=== PATIENT | male | born 1945 | race Caucasian/White ===

== ENCOUNTER 2018-08-09 08:51 | Day surgery (SDC) | payer OTHER ==
--- OUTSIDE RECORDS SUMMARY | 2018-08-09 08:54 | XMS REPORT ---
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
--- OUTSIDE RECORDS SUMMARY | 2018-08-09 08:54 | XMS REPORT ---
:1945 Author Organization [facility] Address [address] [place] [address] [address] [place] [address] Care Team Providers Name Role Phone Unavailable Unavailable Unavailable Problems This patient has no known problems. Allergies, Adverse Reactions, Alerts This patient has no known allergies or adverse reactions. Medications This patient has no known medications.
--- OUTSIDE RECORDS SUMMARY | 2018-08-09 08:54 | XMS REPORT ---
:1945 Author Organization [employer]Works Care Team Providers Name Role Phone Garcia, Na Provider Role Unavailable Allergies, Adverse Reactions, Alerts Substance Reaction Event Type N.K.D.A. 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 Problem Post traumatic stress disorder F43.10 Active Assessment Low testosterone R79.89 Active Assessment Gout, arthropathy M10.09 Active Assessment Chronic fatigue R53.82 Active Assessment Post traumatic stress disorder F43.10 Active Assessment Gastroesophageal reflux disease K21.9 Active without esophagitis Assessment Hyperlipidemia, unspecified E78.5 Active Medications Medication Code Code Instructions Start End Status Dosage System Date Date Wellbutrin XL ND 11169401329 150 MG Orally February 27, Active 1 tablet Once a day 2018 in the morning Norvasc [facility] 53364894682 10 MG Orally Active 1 tablet Once a day Lisinopril ND 52203472136 40 MG Orally Active 1 tablet Once a day Viagra ND 66894431598 25 MG Orally Active 1 tablet Once a day as needed Carvedilol [facility] 24911369901 3.125 MG Orally Active 1 tablet twice a day Testosterone [facility] 43803096074 200 MG/ML Active 1 ml Cypionate Intramuscular once every 3 weeks Wellbutrin XL ND 28213098940 300 MG Orally Inactive 1 tablet Once a day in the morning Omeprazole ND 03061107506 20 MG Orally Active 1 capsule Once a day Simvastatin ND 85318386320 10 MG Orally Active 1 tablet Once a day in the evening Allopurinol ND 83907037640 100 MG Orally Active 1 tablet Once a day Colcrys [facility] 13489599265 0.6 MG Orally as March Active 2 tabs at needed as , onset of 2017 gout attack, then 1 tablet 1 hour later ( max of 1.8mg daily) Results No Known Results Summary Purpose eClinicalWorks Submission
--- OUTSIDE RECORDS SUMMARY | 2018-08-09 08:54 | XMS REPORT ---
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
--- OUTSIDE RECORDS SUMMARY | 2018-08-09 08:55 | XMS REPORT ---
:1945 Author Organization [employer] Care Team Providers Name Role Phone Garcia, Na Provider Role Unavailable Allergies, Adverse Reactions, Alerts Substance Reaction Event Type N.K.D.A. 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 Problem Depression with anxiety F41.8 Active Problem Post traumatic stress disorder F43.10 Active Problem Low testosterone R79.89 Active Problem Hypertension I10 Active Problem Hyperlipidemia, unspecified E78.5 Active Assessment Depression with anxiety F41.8 Active Assessment Chronic fatigue R53.82 Active Assessment Epidermal cyst of neck L72.0 Active Assessment Gout, arthropathy M10.09 Active Assessment Post traumatic stress disorder F43.10 Active Assessment Gastroesophageal reflux disease K21.9 Active without esophagitis Assessment Hyperlipidemia, unspecified E78.5 Active Assessment Low testosterone R79.89 Active Assessment Hypertension I10 Active Medications Medication Code Code Instructions Start End Status Dosage System Date Date Omeprazole [facility] 08747206733 20 MG Orally Active 1 capsule Once a day Lisinopril ND 56959944763 40 MG Orally Active 1 tablet Once a day Wellbutrin XL ND 99730923313 150 MG Orally February 27, Active 1 tablet twice a day 2017 in the morning Lexapro ND 96202904950 10 MG Orally Jun 04, Active 1 tablet Once a day at 2018 bedtime Allopurinol ND 13972509508 100 MG Orally Nov Active 1 tablet Once a day 2018 Norvasc ND 98956598131 10 MG Orally Active 1 tablet Once a day Testosterone [facility] 40936441247 200 MG/ML Active 1 ml Cypionate Intramuscular once every 3 weeks Simvastatin ND 52406430325 10 MG Orally Active 1 tablet Once a day in the evening Carvedilol [facility] 33081676293 3.125 MG Orally Active 1 tablet twice a day Wellbutrin XL [facility] 93537671153 300 MG Orally Inactive 1 tablet Once a day in the morning Wellbutrin SR [facility] 14077897469 150 MG Orally Jun 05, Active as 2017 directed Viagra [facility] 60981751554 25 MG Orally Active 1 tablet Once a day as needed Results No Known Results Summary Purpose eClinicalWorks Submission
--- OUTSIDE RECORDS SUMMARY | 2018-08-09 08:55 | XMS REPORT ---
:1945 Author Organization eClinicalWorks Care Team Providers Name Role Phone Khurram Landon Provider Role Unavailable Allergies, Adverse Reactions, Alerts Substance Reaction Event Type N.K.D.A. 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 Problem Depression with anxiety F41.8 Active Problem Post traumatic stress disorder F43.10 Active Problem Low testosterone R79.89 Active Problem Hypertension I10 Active Problem Hyperlipidemia, unspecified E78.5 Active Medications Medication Code Code Instructions Start End Status Dosage System Date Date Lisinopril ND 99093695358 40 MG Orally Active 1 tablet Once a day Norvasc ND 37523191766 10 MG Orally Active 1 tablet Once a day Simvastatin ND 97623346071 10 MG Orally Active 1 tablet in Once a day the evening Lexapro ND 76759644886 10 MG Orally Jun 04, Active 1 tablet Once a day at 2018 bedtime Carvedilol ND 90824910021 3.125 MG Orally Active 1 tablet twice a day Viagra ND 45485125588 25 MG Orally Active 1 tablet as Once a day needed Allopurinol ND 24044254313 100 MG Orally Dec 02, Active 1 tablet Once a day 2019 Wellbutrin SR ND 23463590345 150 MG Orally Jun 05, Active as directed 2018 Testosterone ND 64688569060 200 MG/ML Active 1 ml Cypionate Intramuscular once every 3 weeks Omeprazole ND 06896563021 20 MG Orally Active 1 capsule Once a day Wellbutrin XL ND 36439408447 150 MG Orally February 27, Active 1 tablet in twice a day 2018 the morning Results No Known Results Summary Purpose eClinicalWorks Submission
--- OUTSIDE RECORDS SUMMARY | 2018-08-09 08:55 | XMS REPORT ---
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
--- OUTSIDE RECORDS SUMMARY | 2018-08-09 08:55 | XMS REPORT ---
[...] Status Dosage System Date Date Wellbutrin SR [facility] 32442241903 150 MG Orally Jun 29, Active 1 tablet Twice a day 2018 in the morning Results No Known Results Summary Purpose eClinicalWorks Submission
[2018-08-09] MEDS ORDERED: CEFAZOLIN/SWI 1gm 1 GM/10 ML SYR ONE (09:46)
[2018-08-09] MEDS ORDERED: Ringers Lactate 1,000 ML IV ONE (09:46)
[2018-08-09] MEDS ORDERED: BUPIVACA 0.5%/EPI 0.0005%/PF 30 ML VIAL ONE ×2 (12:52→13:19)
[2018-08-09] MEDS ORDERED: FENTANYL CITR 100 MCG/2 ML ONE (13:26)
[2018-08-09] MEDS ORDERED: PROPOFOL 200 MG/20 ML VIAL IV ONE (13:26)
[2018-08-09] MEDS ORDERED: LIDOCAINE 1% MPF 2 ML AMPULE ONE (13:27)
[2018-08-09] MEDS ORDERED: MIDAZOLAM HCL 2 MG/2 ML INJ ONE (13:34)
--- NOTE | 2018-08-09 14:00 | P.OP ---
Preoperative diagnosis: Right Neck Subcutanous Mass Postoperative diagnosis: Right Neck Subcutanous Mass Primary procedure: Exicision of Right Neck Subcutanous Mass Anesthesia: Local with IV sedation Estimated blood loss: <2cc Specimen: Sebaceous Cyst Findings: ~3.5 cm sebaceous cyst, capsule ruptured Complications: None Transferred to: Recovery Room Condition: Good
[2018-08-09] MEDS ORDERED: ONDANSETRON HCL 40 MG/20 ML VIAL ONE (14:11)
--- NOTE | 2018-08-10 00:32 | OP ---
Date of Procedure: 08/09/2018 Surgeon: Khurram Landon MD, Preoperative Diagnosis: Right neck subcutaneous mass. Postoperative Diagnosis: Right neck subcutaneous mass. Procedure Performed: Excision of right neck subcutaneous mass. Anesthesia: Local with IV sedation, 0.5% Marcaine with epinephrine. Estimated Blood Loss: Less than 2 cc. Specimen: Sebaceous cyst. Findings: A 3.5 cm, approximate, sebaceous cyst of the right neck, capsule ruptured. Complications: None. Disposition: Transferred to recovery room in good condition. Procedure In Detail: After informed consent was obtained, the patient was brought to the operating r oom, prepped and draped in the usual sterile fashion. After adequate anesthesia was achieved, an are a of the right neck for approximately 3.5 cm was incised down to subcutaneous tissues. Immediately e ncountered was the capsule of a sebaceous cyst approximately 3.5 cm in size and circumferentially dis sected out using electrocautery and blunt dissection. The capsule had evidence of previous rupture a s the skin was firmly adherent to this area, and he has had a history of drainage from this particula r area. I circumferentially dissected it out and removed the capsule completely in a piecemeal type fashion with some minimal spillage of sebum at that time. I then irrigated the area copiously until completely clear. There were no additional hemostatic maneuvers required. I then irrigated the area once last time, dried it completely, and inspected the area. It had good hemostasis at this time. I then closed the skin with a 4-0 Monocryl in a running fashion. Dermabond placed over the top. The patient tolerated the procedure well without evidence of complications, transferred to the PACU in g ood condition. All counts were correct at the end of the case. FELIPE/ALEXANDRA Voice ID: [id number] Report ID: [id number]
== END 2018-08-09 14:53 | disposition home or self-care (01) ==
LOC: OR 08:51
PROVIDERS: ATTEND Surgery
PROC: 0HB4XZZ Excision of Neck Skin, External Approach (ICD-10-PCS; principal; 2018-08-09 11:15)
DX: L72.3 Sebaceous cyst (principal); I10 Essential (primary) hypertension
CPT/HCPCS: 11424; 88304; J0690; J2001; J2250; J2405; J3010; J2704

== ENCOUNTER 2020-09-28 11:53 | Emergency (ER) | payer OTHER ==
--- OUTSIDE RECORDS SUMMARY | 2020-09-28 11:56 | XMS REPORT ---
:1945 Author Organization [facility] Address [address] 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 91702468 stress disorder Problem Macrocytosis D75.89 Active 591158406 Problem Gastroesophageal K21.9 Active 669277337 reflux disease without esophagitis Problem Personal history of Z85.828 Active 136992187 other malignant neoplasm of skin Problem Chronic fatigue R53.82 Active 33785588 Problem Hyperlipidemia, E78.5 Active 10743717 unspecified Problem Hyperuricemia E79.0 Active 165745866 without signs of inflammatory arthritis and tophaceous disease Problem Gout, arthropathy M10.09 Active 55692423 Problem Depression with F41.8 Active 981135342 anxiety ALLERGIES No Known Allergies ENCOUNTERS from 1945 to 2020-09-05 Encounter Location Date Provider Diagnosis [facility] [address] Aug, Na Garcia Hyp ertension I10 ; Family Medicine [address], [facility] [place] [address] unspecified E7 8.5 ; Post traumatic stres s disorder F43.10 ; Gout, arthropathy M10 .09 ; Low testosterone R7 9.89 ; Depression with anxiety F41.8 ; Macrocy tosis D75.89 ; Gastro esophageal reflux disease without esophagitis K21 .9 ; Elevated uric a shaunna in blood E79.0 ; S kin cancer screening Z12.8 3 ; Needs flu shot Z23 an d Personal history of othe r malignant neopl asm of skin Z85.828 IMMUNIZATIONS Vaccine Route Administration Date Status FluAD IM Intramuscular Aug 28, 2020 Administered FluAD IM Intramuscular Aug 28, 2019 Administered FluAD IM Intramuscular Sep 04, 2018 Administered SOCIAL HISTORY Tobacco Use: Social History Observation Description Date Details (start date - stop date) Former Smoker Sex Assigned At : Social History Observation Description Sex Assigned At Unknown PHQ9 Question Answer Notes Little interest or pleasure in doing things Not at all Feeling down, depressed, or hopeless Not at all Trouble falling or staying asleep or sleeping too much Sever al days Feeling tired or having little energy Not at all Poor appetite or overeating Not at all Feeling bad about yourself, or that you are a failure, or No t at all have let yourself or your family down Trouble concentrating on things, such as reading the Not at all newspaper or watching television Moving or speaking so slowly that other people could have No t at all noticed; or the opposite, being so fidgety or restless that you have been moving around a lot more than usual Total Score 1 Interpretation Minimal Depression Thoughts that you would be better off or of hurting Not at all yourself in some way Tobacco Use/Smoking Question Answer Notes Are you a former smoker Additional Findings: Tobacco Non-User Ex-moderate cigarette smoker (10-19/day) Tobacco use other than smoking: Question Answer Notes Are you an other tobacco user? No REASON FOR REFERRAL No Information VITAL SIGNS Height 65.50 in Aug, Weight 153.2 lbs Aug, Temperature 98.2 degrees Fahrenheit Aug, BMI 25.10 kg/m2 Aug, Oximetry 96 % Aug, Respiratory Rate 18 /min Aug, Blood pressure systolic 170 mm Hg Aug, Blood pressure diastolic 82 mm Hg Aug, MEDICATIONS Medication SIG (Take, Route, Notes Start Date End Date Status Frequency, Duration) Sildenafil Citrate 50 TAKE ONE TABLET BY MOUTH Active MG DAILY NEEDED for 30 Omeprazole 20 MG TAKE ONE CAPSULE BY MOUTH Active DAILY Wellbutrin SR 150 MG 1 tablet Orally Twice a Unknown day for 90 day Viagra 25 MG 1 tablet as needed Orally Unknown Once a day Aripiprazole 5 MG 1 tablet on the tongue and Aug, Active allow to dissolve Orally Once a day for 90 days Allopurinol 100 MG 1 tablet Orally Once a day Active for 90 days Carvedilol 6.25 MG 1 tablet Orally twice a Active day for 90 days Simvastatin 10 MG 1 tablet in the evening Active Orally Once a day for 90 days Norvasc 10 MG 1 tablet Orally Once a day Active for 90 days Lisinopril 40 MG TAKE ONE TABLET BY MOUTH Active DAILY Wellbutrin XL 150 MG 1 tablet in the morning February, Unknown Orally twice a day for 90 days Omeprazole 20 MG 1 capsule Orally Once a Active day for 90 days Testosterone Cypionate INJECT 1 ML U nknown 200 INTRAMUSCULARLY EVERY 3 WEEKS Testosterone Cypionate 1 ml Intramuscular once Active 200 MG/ML every 2 weeks for 90 days Norvasc 10 MG TAKE ONE TABLET BY MOUTH Active DAILY for 90 Lisinopril 40 MG 1 tablet Orally Once a day Active for 90 days Wellbutrin SR 150 MG as directed Orally twice a Active day for 90 days Carvedilol 3.125 MG 1 tablet Orally twice a Unknown day PROCEDURES No Information RESULTS No Results REASON FOR VISIT 4 mth lab f/u, hypertension, hyperlipidemia, gout, low T, PTSD dep/anx, flu shot MEDICAL (GENERAL) HISTORY Type Description Date Medical History Gout, arthropathy Medical History Hyperuricemia without signs of inflammat ory arthritis and tophaceous disease Medical History Hypertension Medical History Hyperlipidemia, unspecified Medical History Post traumatic stress disorder Surgical History Removal melanoma ( anerior chest) Surgical History basal cell carcinom )[facility]) has appt in 2 weeks Goals Section No Information Health Concerns No Information MEDICAL EQUIPMENT No Information MENTAL STATUS No Information FUNCTIONAL STATUS No Information ASSESSMENTS Encounter Date Diagnosis Assessment Treatment Notes Treatment Notes Clinical Notes Aug, Hypertension (ICD-10 -- Maintian a low - I10) salt DASH diet, exercise, weight loss and decrease stress recommended. Keep BP log and will review next visit. If blood pressure consistently above 140/90 return to clinic for adjustment of meds. Try to quit smoking if you currently smoke. Decrease caffeine intake if possible. - - advised to avoid phenylephrine and pseudoephedrine in otc sinus/cold meds containing these decongestants which work by vasoconstricting blood vessels to help decrease congestion however may cause your BP to rise. -- If you have a cold may take Coricidin brand of cold medicines safe for high blood pressure patients. Aug, Hyperlipidemia, low fat diet, unspecified (ICD-10 - decrease fast food E78.5) and fried foods. Increase fruit and vegetable intake. exercise as tolerated 30minutes per day at least 3 days a week. May take fish oil 1000mg twice daily to help increase good cholesterol (HDL). Aug, Post traumatic stress continue wellbutrin add ariprprazole disorder (ICD-10 - 150mg SR take only to augment F43.10) twice a day treatment for --continue current depressio n and meds daily. Avoid PTSD 08/28. caffeine. Make sure to exercise daily, take deep breaths, meditate, take frequent breaks. Take yourself away from the situation causing anxiety and stress by going for a 10-15 minute walk. Aug, Gout, arthropathy low purine diet, (ICD-10 - M10.09) avoid eating too much animal products/ seafood. Gout can be due to excess uric acid production or underexcretion of uric acid. May drink natural tart rhoades juice to decrease inflammation/ control gout. low purine diet, avoid eating too much animal products/ seafood. Gout can be due to excess uric acid production or underexcretion of uric acid. May drink natural tart rhoades juice to decrease inflammation/ control gout. Aug, Low testosterone Testosterone (ICD-10 - R79.89) elevated-due to recently just receivig injection of testosteone prior to labs. take as directed will recheck prior to next visit improved since restarting on testosterone -- discussed to try every 2 weeks take 100ml instead of 200mg every 3 weeks as patient states he feels the low testosterone by the 2nd week when he is needing his injection again. Aug, Depression with continue wellbutrin anxiety (ICD-10 - 150mg SR take only F41.8) twice a day --continue current meds daily. Avoid caffeine. Make sure to exercise daily, take deep breaths, meditate, take frequent breaks. Take yourself away from the situation causing anxiety and stress by going for a 10-15 minute walk. continue wellbutrin 150mg SR take only twice a day Aug, Macrocytosis (ICD-10 advised to take - D75.89) vitamin b12 1000mcg daily and 1mg folic acid daily. Aug, Gastroesophageal Gerd- avoid trigger reflux disease foods including without esophagitis spicy, oily, (ICD-10 - K21.9) carbonated drinks, citrus. Do not lay down immediately after eating-wait at least 2 hours, elevate pillow. Eat smaller meals and weight loss recommended for obese patients. Avoid wearing tight clothing. Aug, Elevated uric acid in low purine diet, blood (ICD-10 - avoid eating too E79.0) much animal products/ seafood. Gout can be due to excess uric acid production or underexcretion of uric acid. May drink natural tart rhoades juice to decrease inflammation/ control gout. Aug, Skin cancer screening (ICD-10 - Z12.83) Aug, Needs flu shot Influenza (ICD-10 - Z23) vaccination given no acute reaction while in clinic. advised to massage and move arm to prevent pain and swelling. Aug, Personal history of other malignant neoplasm of skin (ICD-10 - Z85.828) Aug, Other -- Medications reviewed and updated. -- Dietary and Lifestyle modifications discussed with patient regarding low fat low salt diet diet, exercise and weight management. -- Treatment options, risks and benefits, side effects reviewed in detail. Patient accepts risk. -- Advised on signs/symptoms to monitor and when to call clinic and/or visit the nearest ER. Patient verbalized understanding and agreed with plan. -- Greater than 25 minutes was spent with patient during this encounter, of which >50% of the time was spent counseling and coordinating care including but not limited to discussion of test results, diagnostic or treatment recommendations, prognosis, risks and benefits of management options, instructions, education, compliance and or risk reduction. -- avoid alcohol and tyelnol together. no more than 2 drinks a day for men. maintain low fat diet. PLAN OF TREATMENT Medication Medication Name Sig Start Date Stop Date Norvasc 10 MG 1 tablet Orally Once a day for 90 days Lisinopril 40 MG 1 tablet Orally Once a day for 90 days Simvastatin 10 MG 1 tablet in the evening Orally Once a day for 90 days Carvedilol 6.25 MG 1 tablet Orally twice a day for 90 days Aripiprazole 5 MG 1 tablet on the tongue and Aug, allow to dissolve Orally Once a day for 90 days Omeprazole 20 MG 1 capsule Orally Once a day for 90 days Allopurinol 100 MG 1 tablet Orally Once a day for 90 days Testosterone Cypionate 200 1 ml Intramuscular once every 2 MG/ML weeks for 90 days Wellbutrin SR 150 MG as directed Orally twice a day for 90 days Treatment Notes Assessment Notes Clinical Notes Hypertension -- Maintian a low salt DASH diet, exercise, weight loss and decrease stress recommended. Keep BP log and will review next visit. If blood pressure consistently above 140/90 return to clinic for adjustment of meds. Try to quit smoking if you currently smoke. Decrease caffeine intake if possible. - - advised to avoid phenylephrine and pseudoephedrine in otc sinus/cold meds containing these decongestants which work by vasoconstricting blood vessels to help decrease congestion however may cause your BP to rise. -- If you have a cold may take Coricidin brand of cold medicines safe for high blood pressure patients. Hyperlipidemia, unspecified low fat diet, decrease fast food and fried foods. Increase fruit and vegetable intake. exercise as tolerated 30minutes per day at least 3 days a week. May take fish oil 1000mg twice daily to help increase good cholesterol (HDL). Post traumatic stress disorder continue wellbutrin 150mg SR add ariprprazole to take only twice a augment treatment day--continue current meds depression an d PTSD daily. Avoid caffeine. Make 08/28/2020. sure to exercise daily, take deep breaths, meditate, take frequent breaks. Take yourself away from the situation causing anxiety and stress by going for a 10-15 minute walk. Gout, arthropathy low purine diet, avoid eating too much animal products/ seafood. Gout can be due to excess uric acid production or underexcretion of uric acid. May drink natural tart rhoades juice to decrease inflammation/ control gout. low purine diet, avoid eating too much animal products/ seafood. Gout can be due to excess uric acid production or underexcretion of uric acid. May drink natural tart rhoades juice to decrease inflammation/ control gout. Low testosterone Testosterone elevated-due to recently just receivig injection of testosteone prior to labs. take as directed will recheck prior to next visit improved since restarting on testosterone-- discussed to try every 2 weeks take 100ml instead of 200mg every 3 weeks as patient states he feels the low testosterone by the 2nd week when he is needing his injection again. Depression with anxiety continue wellbutrin 150mg SR take only twice a day--continue current meds daily. Avoid caffeine. Make sure to exercise daily, take deep breaths, meditate, take frequent breaks. Take yourself away from the situation causing anxiety and stress by going for a 10-15 minute walk. continue wellbutrin 150mg SR take only twice a day Macrocytosis advised to take vitamin b12 1000mcg daily and 1mg folic acid daily. Gastroesophageal reflux Gerd- avoid trigger foods disease without esophagitis including spicy, oily, carbonated drinks, citrus. Do not lay down immediately after eating-wait at least 2 hours, elevate pillow. Eat smaller meals and weight loss recommended for obese patients. Avoid wearing tight clothing. Elevated uric acid in blood low purine diet, avoid eating too much animal products/ seafood. Gout can be due to excess uric acid production or underexcretion of uric acid. May drink natural tart rhoades juice to decrease inflammation/ control gout. Needs flu shot Influenza vaccination given no acute reaction while in clinic. advised to massage and move arm to prevent pain and swelling. Treatment Notes Test Name Order Date Lipid Panel w/ Chol/HDL Ratio 2020-09-05 Folate (Folic Acid), Serum 2020-09-05 Testosterone,Free and Total 2020-09-05 Vitamin B12 2020-09-05 Comp. Metabolic Panel (14) (CMP) 2020-09-05 Uric Acid, Serum 2020-09-05 CBC With Differential/Platelet 2020-09-05 Next Appt Details 4 Months 1 week prior [facility] Reason: Provider Name:Liz Garcia, 2020-12-18 09:1 5:00 AM, [address], [place], [address], Provider Name:Liz Garcia 2020-12-25 11:2 0:00 AM, [address], [place], [address], Insurance Providers Payer Name Payer Address Payer Insured Patient Coverage Cover age End Phone Name Relationship to Start Date Randell e Insured [employer] [address] [address] [phone] Dusty Matta self 2019 MEDICARE [place] [address] [place] [id number]
--- OUTSIDE RECORDS SUMMARY | 2020-09-28 11:56 | XMS REPORT | Continuity of Care Document ---
:1945 Author Organization [facility] t Address [address] [place] [address] Care Team Providers Name Role Phone Unavailable Unavailable Unavailable Problems This patient has no known problems. Allergies, Adverse Reactions, Alerts This patient has no known allergies or adverse reactions. Medications Ordered Filled Start Stop Current Ordering Indication Dosage Frequency Signature Comments Components Source Medication Medication Date Date Medication? Clinician (SIG) Name Name Carvedilol Carvedilol Yes Na Garcia [address] [facility] Immunizations Ordered Filled Immunization Date Status Comments Sour e Immunization Name Name FluAD FluAD 2019-08-[address] [facility] FluAD FluAD 2018-09-[address] [facility] Procedures This patient has no known procedures. Encounters Start End Encounter Admission Attending Care Care Encounter Source Date/Time Date/Time Type Type Clinicians Facility Department ID 2020-09-22 2020-09-22 Outpatient [facility] [id number] [facility] 2020-08-28 2020-08-28 Outpatient [facility] [id number] [facility] 2020-05-25 2020-05-25 [facility] [id number] 16:45:00 16:45:00 [facility] [employer] [facility] Family Medicine Medicine Outpati ent Clinics 2020-04-27 2020-04-27 [facility] [id number] [address] 10:20:[facility] 10:20:[place] [employer] [facility] Family [facility] l Medicine Outpati ent Clinics 2020-04-14 2020-04-14 [facility] [id number] 14:47:00 14:47:00 [place] [employer] [place] [facility] Medicine l Medicine Outpati ent Clinics 2020-04-02 2020-04-02 [facility] [id number] 15:47:00 15:47:00 [place] [employer] - [facility] Medicine l Medicine Outpati ent Clinics 2020-02-13 2020-02-13 [facility] [id number] 15:02:00 15:02:00 [place] [employer] - Ayudarum [facility] l Medicine Outpati ent Clinics 2019-12-26 2019-12-26 [facility] [id number] 10:00:00 10:00:00 [place] [employer] [facility] Medicine l Medicine Outpati ent Clinics 2019-12-19 2019-12-19 [facility] [id number] 09:52:00 09:52:00 [place] [employer] - [facility] [facility] Medicine l Medicine Outpati ent Clinics 2019-11-19 2019-11-19 [facility] [id number] 15:25:00 15:25:00 t [employer] - [place] [facility] Medicine l Medicine Outpati ent Clinics 2019-11-18 2019-11-18 [facility] [id number] 14[facility]24:00 14:24:00 [place] [employer] - [facility] Medicine l Medicine Outpati ent Clinics 2019-10-08 2019-10-08 [facility] [id number] 10:37:00 10:37:00 [place] [employer] [facility] - [facility] Medicine l Medicine Outpati ent Clinics 2019-08-28 2019-08-28 [facility] [id number] 10:40:00 10:40:00 [place] [employer] - [facility] Outpat[facility] Clinics 2019-08-27 2019-08-27 [facility] [id number] [facility] 17:26:00 17:26:[address] [place] [address] [address] [place] - [facility] Medicine l Medicine Outpati ent Clinics 2019-08-22 2019-08-22 [facility] [id number] 13:33:00 13:33:[address] [place] [address] [place] [address] - [facility] Medicine l Medicine Outpati ent Clinics 2019-08-16 2019-08-16 [facility] [id number] 09:20:00 09:20:[address] [place] [address] [place] [address] - [facility] Medicine l Medicine Outpati ent Clinics 2019-06-20 2019-06-20 [facility] [id number] 11:00:00 11:00:00 [place] s - Drive [facility] Medicine l Medicine Outpati ent Clinics 2019-05-14 2019-05-14 [facility] [id number] [facility] 10:00:00 10:00:[address] [place] [address] [address] [place] [address] - Drive [facility] Medicine l Medicine Outpati ent Clinics 2019-02-20 2019-02-20 [facility] [id number] 10:22:00 10:22:00 [place] s - Drive [facility] Medicine l Medicine Outpati ent Clinics 2019-02-11 2019-02-11 [facility] [id number] [facility] 09:41:00 09:41:[address] [place] [address] [place] [address] - Drive [facility] Medicine l Medicine Outpati ent Clinics 2019-01-08 2019-01-08 [facility] [id number] 09:40:00 09:40:[address] [place] [address] [place] [address] - Drive [facility] Medicine l Medicine Outpati ent Clinics 2018-11-26 2018-11-26 [facility] [id number] 15:27:00 15:27:[address] [place] [address] [place] [address] - Drive [facility] Medicine l Medicine Outpati ent Clinics 2018-11-22 2018-11-22 [facility] [id number] 10:23:00 10:23:00 [place] s - Drive [facility] Medicine Medicine Outpati ent Clinics 2018-11-16 2018-11-16 [facility] [id number] 14:31:00 14:31:00 [place] s - Drive [facility] Medicine Outpati ent Clinics 2018-11-06 2018-11-06 [facility] [id number] 13:24:00 13:24:00 [place] Luke s - Drive [facility] Medicine Outpati ent Clinics 2018-10-01 2018-10-01 [facility] [id number] 10:13:00 10:13:00 [place] [employer] - Drive [facility] Medicine Outpati ent Clinics 2018-09-04 2018-09-04 [facility] [id number] 09:45:00 09:45:00 [place] [employer] - Drive [facility] Medicine Outpati ent Clinics 2018-06-29 2018-06-29 [facility] [id number] [facility] 13:32:00 13:32:00 [place] [employer] - Drive [facility] Medicine Outpati ent Clinics 2018-06-29 2018-06-29 [facility] [id number] 13:27:00 13:27:00 [place] [employer] - Drive [facility] Medicine Outpati ent Clinics 2018-06-12 2018-06-12 [facility] [id number] 09:45:00 09:45:00 t Specialty/U Sherin kes - Specialty rology [facility] a [facility]Urology Clinic l Clinic Outpati ent Clinics 2018-06-04 2018-06-04 [facility] [id number] 08:30:00 08:30:00 [place] [employer] - Drive [facility] Medicine Outpati ent Clinics 2018-04-27 2018-04-27 [facility] [id number] 10:13:00 10:13:00 [place] [employer] - Drive [facility] Medicine Outpati ent Clinics 2018-03-22 2018-03-22 [facility] [id number] 11:33:00 11:33:00 [employer] [employer] [facility] ent [facility] 2018-02-27 2018-02-27 Outpatient Tristan Faith [id number] [facility] 08:30:00 08:30:00 [employer] [facility] ent Clinics Results This patient has no known results.
--- OUTSIDE RECORDS SUMMARY | 2020-09-28 11:56 | XMS REPORT ---
:1945 Author Organization [facility] Address [address] 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 04269690 stress disorder Problem Macrocytosis D75.89 Active 017002611 Problem Gastroesophageal K21.9 Active 715822710 reflux disease without esophagitis Problem Personal history of Z85.828 Active 894340512 other malignant neoplasm of skin Problem Chronic fatigue R53.82 Active 04955188 Problem Hyperlipidemia, E78.5 Active 45980066 unspecified Problem Hyperuricemia E79.0 Active 865300250 without signs of inflammatory arthritis and tophaceous disease Problem Gout, arthropathy M10.09 Active 15039266 Problem Depression with F41.8 Active 946388322 anxiety ALLERGIES No Known Allergies ENCOUNTERS from 1945 to 2020-09-22 Encounter Location Date Provider Diagnosis [facility] [address] Sep, Liz benitez ancer screening [place], [place] Z12.83 [id number] IMMUNIZATIONS Vaccine Route Administration Date Status FluAD [...] REASON FOR REFERRAL No Information VITAL SIGNS No information MEDICATIONS Medication SIG (Take, Route, Notes Start [...] MG 1 tablet on the tongue and 20 Aug, 2020 Active allow to dissolve Orally Once a [...] Information RESULTS No Results REASON FOR VISIT Referral MEDICAL (GENERAL) HISTORY Type Description Date Medical History Gout, arthropathy Medical History Hyperuricemia without signs of inflammat ory arthritis and tophaceous disease Medical History Hypertension Medical History Hyperlipidemia, unspecified Medical History Post traumatic stress disorder Surgical History Removal melanoma ( anerior chest) Surgical History basal cell carcinom )[facility]) has appt in 2 weeks Goals Section No Information Health Concerns No Information MEDICAL EQUIPMENT No Information MENTAL STATUS No Information FUNCTIONAL STATUS No Information ASSESSMENTS Encounter Date Diagnosis Assessment Notes Treatment Notes Treatm ent Clinical Notes Sep, Skin cancer screening (ICD-10 - Z12.83) PLAN OF TREATMENT Medication Medication Name Sig [...] MG 1 tablet on the tongue and 20 Aug, 2020 allow to dissolve Orally Once a day for 90 days Omeprazole 20 MG 1 capsule Orally Once a day for 90 days Allopurinol 100 MG 1 tablet Orally Once a day for 90 days Testosterone Cypionate 200 1 ml Intramuscular once every 2 MG/ML weeks for 90 days Wellbutrin SR 150 MG as directed Orally twice a day for 90 days Next Appt Details Provider Name:Liz Garcia, 2020-12-18 09:1 5:00 AM, [address], [address], [place], [address], Provider Name:Liz Garcia 2020-12-25 11:2 0:00 AM, [address], [address], [place], [address], Insurance Providers Payer Name Payer Address Payer Insured Patient Coverage Cover age End Phone Name Relationship to Start Date Randell e Insured [employer] [address] [address] [phone] Dusty Matta 2019 MEDIC[address] [place] [address] [id number]
--- NOTE | 2020-09-28 15:18 | EDPHYS ---
Physician Documentation [facility] Name: Seb Matta Age: 75 yrs Sex: Male : 1945 Arrival Date: 09/28/2020 Time: 11:55 Bed 5 Private MD: Liz Garcia ED Physician Elijah Bob HPI: 09/28 14:03 This 75 yrs old Male presents to ER via Ambulatory with complaints of Foot pm1 Pain, Feet Swelling. 14:03 The patient presents with pain, swelling. The complaints affect the Left heel. Context: pm1 The problem was sustained at an unknown site, resulted from an unknown cause, the patient is able to ambulate, with mild difficulty, walking on the ball of his left foot due to left heel pain, Problem is a result from a previous injury: No. Onset: The symptoms/episode began/occurred 1 week(s) ago. Modifying factors: The symptoms are alleviated by elevating leg, walking on the ball of his left foot. the symptoms are aggravated by weight bearing, on heel. Associated signs and symptoms: Pertinent negatives calf tenderness, fever, no calf or ankle swelling or pain. Treatment prior to arrival includes: no previous treatment. Severity of symptoms: in the emergency department the symptoms have improved, currently without pain to left heel as long as he is not walking on it. The patient has not experienced similar symptoms in the past. The patient has been recently seen by a physician: the patient's primary care provider, Dr. Garcia 3 week(s) ago, with different complaint(s), check up. Historical: - Allergies: 12:23 No Known Allergies; ca1 - Home Meds: 12:23 carvedilol 6.25 mg oral tab 1 tab 2 times per day [Active]; amlodipine 10 mg tab 1 tab ca1 once daily [Active]; lisinopril 40 mg Oral tab 1 tab once daily [Active]; simvastatin 10 mg Oral tab 1 tab once daily [Active]; sildenafil oral 50 mg oral as needed [Active]; aripiprazole 5 mg oral tab 1 tab once daily [Active]; bupropion HCl 150 mg Oral TbER 1 tab 2 times per day [Active]; vitamin B complex oral oral [Active]; triamcinolone acetonide 0.1 % [place] pste [Active]; - PMHx: 12:23 Hypertension; High Cholesterol; ca1 - PSHx: 12:23 Skin Cancer removal; ca1 - Immunization history:: Adult Immunizations up to date, Pneumococcal vaccine is not up to date, Flu vaccine is up to date. - Social history:: Smoking status: Patient denies any tobacco usage or history of. ROS: 14:03 Constitutional: Negative for fever, chills, and weight loss, Cardiovascular: Negative pm1 for chest pain, palpitations, and edema, Respiratory: Negative for shortness of breath, cough, wheezing, and pleuritic chest pain, Abdomen/GI: Negative for abdominal pain, nausea, vomiting, diarrhea, and constipation, Back: Negative for injury and pain. 14:03 Neuro: Negative for headache, weakness, numbness, tingling, and seizure. 14:03 MS/extremity: Positive for pain, of the heel of left foot. 14:03 Skin: Positive for rash and itching to left lower leg and a boil that has improved markedly and is no longer causing any pain to left upper gluteus. Exam: 14:03 Constitutional: This is a well developed, well nourished patient who is awake, alert, pm1 and in no acute distress. Head/Face: Normocephalic, atraumatic. 14:03 Back: No spinal tenderness. No costovertebral tenderness. Full range of motion. 14:03 Cardiovascular: Exam negative for acute changes, Rate: normal, Rhythm: regular, Pulses: no pulse deficits are appreciated. 14:03 Respiratory: Exam negative for acute changes, respiratory distress, shortness of breath. 14:03 Musculoskeletal/extremity: Extremities: grossly normal except: noted in the heel of left foot: tenderness, mild swelling, DVT Exam: No signs of deep vein thrombosis. no pain, no swelling, no tenderness, no appreciated bluish discoloration, no erythema, no increased warmth. 14:03 Skin: Appearance: normal except for affected area, abscess, that is small, approximately 1 cm(s), phlegmon present. No signs of drainage, fluctuance, pointing, or surrounding cellulitis, rash a mild rash is noted, consistent with ringworm, on the left medial ankle. 14:03 Neuro: Exam negative for acute changes, Orientation: is normal, Mentation: is normal, Motor: is normal, moves all fours. Vital Signs: 12:17 BP 128 / 87; Pulse 87; Resp 16 S; Temp 97.6(TE); Pulse Ox 100% on R/A; Weight 68.04 kg ca1 (R); Height 5 ft. 6 in. (167.64 cm) (R); Pain 4/10; 15:10 BP 167 / 87; Pulse 86; Resp 17; Pulse Ox 100% on R/A; tw2 12:17 Body Mass Index 24.21 (68.04 kg, 167.64 cm) ca1 MDM: 13:58 Patient medically screened. pm1 15:12 Data reviewed: vital signs. Data interpreted: Pulse oximetry: on room air is 100 %. pm1 Interpretation: normal. Counseling: I had a detailed discussion with the patient and/or guardian regarding: the historical points, exam findings, and any diagnostic results supporting the discharge/admit diagnosis, radiology results, the need for outpatient follow up, to return to the emergency department if symptoms worsen or persist or if there are any questions or concerns that arise at home. 09/28 14:03 Order name: Foot Left 3 View XRAY pm1 09/28 15:36 Order name: RAD; Complete Time: 15:38 EDMS Administered Medications: No medications were administered Disposition: 15:51 Co-signature as Attending Physician, Elijah Bob MD. rn Disposition: 09/28/20 15:17 Discharged to Home. Impression: Calcaneal spur, left foot, Cutaneous abscess of other sites - left buttocks, Tinea corporis - left leg. - Condition is Stable. - Discharge Instructions: Skin Abscess, Heel Spur, Body Ringworm. - Prescriptions for Lotrimin AF 1 % Topical cream - apply 1 application by TOPICAL route 2 times per day; 1 tube. Bactrim DS 800- 160 mg Oral Tablet - take 1 tablet by ORAL route every 12 hours for 10 days; 20 tablet. Tylenol- Codeine #3 300-30 mg Oral Tablet - take 2 tablets by ORAL route every 6 hours As needed; 20 tablet. - Medication Reconciliation Form, Thank You Letter, Antibiotic Education, Prescription Opioid Use form. - Follow up: Emergency Department; When: As needed; Reason: Worsening of condition. Follow up: Liz Garcia MD; When: 2 - 3 days; Reason: Recheck today's complaints, Continuance of care, Re-evaluation by your physician. - Problem is new. - Symptoms have improved. Signatures: Dispatcher [employer] EDMS Lorene Villegas RN RN iw Elijah Bob MD MD rn Marinas, Patrick, JAMIE EXTRUDER pm1 Hanny Gutierrez RN RN ca1 Corrections: (The following items were deleted from the chart) 14:06 14:03 The patient has not recently seen a physician, pm1 pm1 15:19 15:17 09/28/2020 15:17 Discharged to Home. Impression: Calcaneal spur, left foot; pm1 Cutaneous abscess of other sites - left buttocks; Tinea cruris - left ankle. Condition is Stable. Forms are Medication Reconciliation Form, Thank You Letter, Antibiotic Education, Prescription Opioid Use. Follow up: Emergency Department; When: As needed; Reason: Worsening of condition. Follow up: Na Garcia; When: 2 - 3 days; Reason: Recheck today's complaints, Continuance of care, Re-evaluation by your physician. Problem is new. Symptoms have improved. pm1 15:43 15:19 09/28/2020 15:17 Discharged to Home. Impression: Calcaneal spur, left foot; iw Cutaneous abscess of other sites - left buttocks; Tinea corporis - left leg. Condition is Stable. Discharge Instructions: Skin Abscess, Heel Spur. Forms are Medication Reconciliation Form, Thank You Letter, Antibiotic Education, Prescription Opioid Use. Follow up: Emergency Department; When: As needed; Reason: Worsening of condition. Follow up: Na Garcia; When: 2 - 3 days; Reason: Recheck today's complaints, Continuance of care, Re-evaluation by your physician. Problem is new. Symptoms have improved. pm1 17:33 10:34 Constitutional: Negative for fever, chills, and weight loss, Cardiovascular: pm1 Negative for chest pain, palpitations, and edema, Respiratory: Negative for shortness of breath, cough, wheezing, and pleuritic chest pain, Abdomen/GI: Negative for abdominal pain, nausea, vomiting, diarrhea, and constipation, Back: Negative for injury and pain, pm1 17:33 10:34 MS/extremity: Positive for pain, of the heel of left foot, pm1 pm1 17:33 10:34 Skin: Positive for rash and itching to left lower leg and a boil that has pm1 improved markedly and is no longer causing any pain to left upper gluteus, pm1 17:33 10:34 Neuro: Negative for headache, weakness, numbness, tingling, and seizure, pm1 pm1
--- NOTE | 2020-09-28 15:18 | ER ---
Nurse's Notes [facility] Name: Seb Matta Age: 75 yrs Sex: Male : 1945 Arrival Date: 09/28/2020 Time: 11:55 Bed 5 Private MD: Liz Garcia Diagnosis: Calcaneal spur, left foot;Cutaneous abscess of other sites-left buttocks;Tinea corporis-left leg Presentation: 09/28 12:17 Chief complaint: Patient states: L heel pain, swelling on L foot and L ankle x 1 week. ca1 Denies injury. Coronavirus screen: Client denies travel out of the [place] in the last 14 days. At this time, the client does not indicate any symptoms associated with coronavirus-19. Ebola Screen: Patient negative for fever greater than or equal to 101.5 degrees Fahrenheit, and additional compatible Ebola Virus Disease symptoms Patient denies exposure to infectious person. Patient denies travel to an Ebola-affected area in the 21 days before illness onset. No symptoms or risks identified at this time. Initial Sepsis Screen: Does the patient meet any 2 criteria? No. Patient's initial sepsis screen is negative. Does the patient have a suspected source of infection? No. Patient's initial sepsis screen is negative. Risk Assessment: Do you want to hurt yourself or someone else? Patient reports no desire to harm self or others. Onset of symptoms was September 28, 2020. 12:17 Method Of Arrival: Ambulatory ca1 12:17 Acuity: MARLA 4 ca1 Historical: - Allergies: 12:23 No Known Allergies; ca1 - Home Meds: 12:23 carvedilol 6.25 mg oral tab 1 tab 2 times per day [Active]; amlodipine 10 mg tab 1 tab ca1 once daily [Active]; lisinopril 40 mg Oral tab 1 tab once daily [Active]; simvastatin 10 mg Oral tab 1 tab once daily [Active]; sildenafil oral 50 mg oral as needed [Active]; aripiprazole 5 mg oral tab 1 tab once daily [Active]; bupropion HCl 150 mg Oral TbER 1 tab 2 times per day [Active]; vitamin B complex oral oral [Active]; triamcinolone acetonide 0.1 % [place] pste [Active]; - PMHx: 12:23 Hypertension; High Cholesterol; ca1 - PSHx: 12:23 Skin Cancer removal; ca1 - Immunization history:: Adult Immunizations up to date, Pneumococcal vaccine is not up to date, Flu vaccine is up to date. - Social history:: Smoking status: Patient denies any tobacco usage or history of. Screenin:14 Abuse screen: Denies threats or abuse. Nutritional screening: No deficits noted. tw2 Tuberculosis screening: No symptoms or risk factors identified. Fall Risk Secondary diagnosis (15 points) impaired mobility. Assessment: 14:10 General: Appears in no apparent distress. well groomed, Behavior is calm, cooperative, tw2 appropriate for age. Pain: Complains of pain in left foot. Neuro: Level of Consciousness is awake, alert, obeys commands, Oriented to person, place, time, situation. Cardiovascular: Capillary refill < 3 seconds Patient's skin is warm and dry. Respiratory: Airway is patent Respiratory effort is even, unlabored, Respiratory pattern is regular, symmetrical. GI: No signs and/or symptoms were reported involving the gastrointestinal system. Derm: No signs and/or symptoms reported regarding the dermatologic system. Skin is intact, is healthy with good turgor, Skin is pink, warm \T\ dry. Musculoskeletal: No signs and/or symptoms reported regarding the musculoskeletal system. Range of motion: intact in all extremities, Reports pain in left foot. 15:10 Reassessment: Patient appears in no apparent distress at this time. No changes from tw2 previously documented assessment. Patient and/or family updated on plan of care and expected duration. Pain level reassessed. Patient is alert, oriented x 3, equal unlabored respirations, skin warm/dry/pink. Vital Signs: 12:17 BP 128 / 87; Pulse 87; Resp 16 S; Temp 97.6(TE); Pulse Ox 100% on R/A; Weight 68.04 kg ca1 (R); Height 5 ft. 6 in. (167.64 cm) (R); Pain 4/10; 15:10 BP 167 / 87; Pulse 86; Resp 17; Pulse Ox 100% on R/A; tw2 12:17 Body Mass Index 24.21 (68.04 kg, 167.64 cm) ca1 ED Course: 11:55 Patient arrived in ED. ag5 11:55 Liz Garcia MD is Private Physician. ag5 12:19 Triage completed. ca1 12:23 Arm band placed on right wrist. ca1 13:58 Tom Garber NP is PHCP. pm1 13:58 Elijah Bob MD is Attending Physician. pm1 13:58 Bed in low position. Call light in reach. Pulse ox on. NIBP on. tw2 14:14 Kaykay Valencia, RN is Primary Nurse. tw2 15:10 Patient did not have IV access during this emergency room visit. tw2 15:17 Liz Garcia MD is Referral Physician. pm1 15:34 No provider procedures requiring assistance completed. tw2 Administered Medications: No medications were administered Outcome: 15:17 Discharge ordered by . pm1 15:34 Discharged to home ambulatory. tw2 15:34 Condition: stable 15:34 Discharge instructions given to patient, Instructed on discharge instructions, follow up and referral plans. no drinking with medication, no driving heavy equipment, medication usage, Demonstrated understanding of instructions, follow-up care, medications, Prescriptions given X 3. 15:43 Patient left the ED. iw Signatures: Lorene Villegas RN RN iw Tom Garber NP CAFE WORKER pm1 Kaykay Valencia, DOROTEO RN tw2 Hanny Gutierrez RN RN ca1 Staci Pulliam ag5
--- NOTE | 2020-09-28 15:34 | RAD REPORT ---
EXAM DESCRIPTION: RAD - Foot Left 3 View - 09/28/2020 3:07 pm CLINICAL HISTORY: PAIN COMPARISON: No comparisons FINDINGS: Small plantar calcaneal spur is present. Moderate soft tissue swelling is seen along the d orsum of the forefoot. No acute fracture or dislocation evident.
[2020-09-29 23:18] VITALS: TEMP 97.6; O2SAT 100
[2020-09-29 23:20] VITALS: BP 167/87
== END 2020-09-28 15:43 | disposition home or self-care (01) ==
LOC: ER 11:53
DX: M77.32 Calcaneal spur, left foot (principal); B35.4 Tinea corporis; L02.31 Cutaneous abscess of buttock; I10 Essential (primary) hypertension; E78.00 Pure hypercholesterolemia, unspecified
CPT/HCPCS: 99283

== ENCOUNTER 2021-09-10 12:33 | Emergency (ER) | payer OTHER ==
--- OUTSIDE RECORDS SUMMARY | 2021-09-10 12:35 | XMS REPORT | Continuity of Care Document ---
:1945 Author Organization [facility] t Address [address] [place] [address] Care Team Providers Name Role Phone Unavailable [...] [address] [facility] Clin[facility] Immunizations Ordered Filled Immunization Date Status Comments Sourc e Immunization Name Name FluAD FluAD 2019-08-[address] [facility] FluAD FluAD 2018-09-[address] [facility] Procedures This patient has no known procedures. Encounters Start End Encounter Admission Attending Care Care Encounter Source Date/Time Date/Time Type Type Clinicians Facility Department ID 2021-08-18 2021-08-18 ambulatory [facility] [id number] [facility] 2021-06-10 2021-06-10 Outpatient [facility] [id number] [facility] 2021-05-25 2021-05-25 Outpatient [facility] [id number] [facility] 2021-05-10 2021-05-10 [facility] [id number] [facility] 2021-05-03 2021-05-03 [facility] [id number] [facility] 2021-01-07 2021-01-07 [facility] [id number] [facility] 2020-11-20 2020-11-20 [facility] [id number] [facility] 2020-10-29 2020-10-29 Out[facility] [id number] [facility] 2020-10-12 2020-10-12 Out[facility] [id number] [facility] 2020-10-08 2020-10-08 Out[facility] [id number] [facility] 2020-10-07 2020-10-07 Out[facility] [id number] [facility] 2020-09-28 2020-09-28 Out[facility] [id number] [facility] 2020-09-22 2020-09-22 Out[facility] [id number] [facility] 2020-08-28 2020-08-28 Out[facility] [id number] [facility] 2020-05-25 2020-05-25 [facility] [id number] [facility] 16[facility]45:00 16:45:00 [place] [address] [facility] - [facility] Clin[facility] 2020-04-27 2020-04-27 [facility] [id number] 10:20:00 10:20:00 [place] [employer] s - Drive [facility] l Medicine Outpati ent Clinics 2020-04-14 2020-04-14 [facility] [id number] [facility] 14:47:00 14:47:00 [place] [employer] [facility] - [employer] [facility] l Medicine Outpati ent Clinics 2020-04-02 2020-04-02 [facility] [id number] 15:47:00 15:47:00 [place] [employer] Latio [facility] Medicine Outpati ent Clinics 2020-02-13 2020-02-13 [facility] [id number] 15:02:00 15:02:00 t [employer] Latio [facility] Medicine Outpati ent Clinics 2019-12-26 2019-12-26 [facility] [id number] 10[facility]00:00 10:00:00 t [employer] Latio [facility] Medicine Outpati ent Clinics 2019-12-19 2019-12-19 [facility] [id number] [facility] 09:52:00 09:52:00 t [employer] Latio [facility] l Medicine Outpati ent Clinics 2019-11-19 2019-11-19 [facility] [id number] 15:25:00 15:25:00 t [employer] Latio [facility] Medicine Outpati ent Clinics 2019-11-18 2019-11-18 [facility] [id number] [facility] 14:24:00 14:24:00 [place] [employer] Latio [facility] Medicine Outpati ent Clinics 2019-10-08 2019-10-08 [facility] [id number] 10:37:00 10:37:00 [place] [employer] - [employer] [facility] Medicine Outpati ent Clinics 2019-08-28 2019-08-28 [facility] [id number] 10:40:00 10:40:00 [place] [address] [place] [facility] - Drive [facility] Medicine l Medicine Outpati ent Clinics 2019-08-27 2019-08-27 [facility] [id number] [facility] 17:26:00 17:26:00 [place] [address] [facility] - Drive [facility] Medicine l Medicine Outpati ent Clinics 2019-08-22 2019-08-22 [facility] [id number] [facility] 13:33:00 13:33:00 [place] [address] [place] [facility] - Drive [facility] Medicine l Medicine Outpati ent Clinics 2019-08-16 2019-08-16 [facility] [id number] 09:20:00 09:20:00 [place] [address] [facility] - Drive [facility] l Medicine Outpati ent Clinics 2019-06-20 2019-06-20 [facility] [id number] [facility] 11:00:00 11:00:00 [place] [address] [facility] - Drive [facility] Medicine Outpati ent Clinics 2019-05-14 2019-05-14 [facility] [id number] [facility] 10:00:00 10:00:00 [place] [address] [facility] - Drive [facility] l Medicine Outpati ent Clinics 2019-02-20 2019-02-20 [facility] [id number] [facility] 10:22:00 10:22:00 [place] [address] [facility] - Drive [facility] Medicine l Medicine Outpati ent Clinics 2019-02-11 2019-02-11 [facility] [id number] 09:41:00 09:41:00 [place] [address] [facility] - Drive [facility] Medicine l Medicine Outpati ent Clinics 2019-01-08 2019-01-08 [facility] [id number] 09:40:00 09:40:00 [place] [address] [place] [facility] - Drive [facility] l Medicine Outpati ent Clinics 2018-11-26 2018-11-26 [facility] [id number] [facility] 15:27:00 15:27:00 [place] [address] [facility] - Drive [facility] l Medicine Outpati ent Clinics 2018-11-22 2018-11-22 [facility] [id number] [facility] 10:23:00 10:23:00 [place] [address] [place] [facility] - Drive [facility] Medicine Medicine Outpati ent Clinics 2018-11-16 2018-11-16 [facility] [id number] [facility] 14:31:00 14:31:00 [place] [employer] [place] s - Drive [facility] l Medicine Outpati ent Clinics 2018-11-06 2018-11-06 [facility] [id number] [facility] 13:24:00 13:24:00 [place] [employer] Luke s - Drive [facility] l Medicine Outpati ent Clinics 2018-10-01 2018-10-01 [facility] [id number] [facility] 10:13:00 10:13:00 [place] [employer] [place] s - Drive [facility] Medicine Outpati ent Clinics 2018-09-04 2018-09-04 [facility] [id number] 09:45:00 09:45:00 [place] [employer] s - Drive [facility] Medicine Outpati ent Clinics 2018-06-29 2018-06-29 [facility] [id number] [facility] 13:32:00 13:32:00 [place] [employer] [place] s - Drive [facility] Medicine Outpati ent Clinics 2018-06-29 2018-06-29 [facility] [id number] 13:27:00 13:27:00 [place] [employer] s - Drive [facility] Medicine Outpati ent Clinics 2018-06-12 2018-06-12 [facility] [id number] 09:45:00 09:45:00 t Specialty/U Sherin [facility] - Specialty [facility] l Clinic Outpati ent Clinics 2018-06-04 2018-06-04 [facility] [id number] 08:30:00 08:30:00 [place] [employer] s - Drive [facility] l Medicine Outpati ent Clinics 2018-04-27 2018-04-27 [facility] [id number] 10:13:00 10:13:00 [place] [employer] - Drive Family [facility] ent [facility] 2018-03-22 2018-03-22 Outpatient [facility] [id number] 11:33:00 11:33:00 t [employer] [facility] ent [facility] 2018-02-27 2018-02-27 Outpatient [facility] [id number] [facility] 08:30:00 08:30:00 [employer] [facility] ent [facility] Results This patient has no known results.
--- NOTE | 2021-09-10 14:13 | RAD REPORT ---
EXAM DESCRIPTION: US - Extrem Venous W Compress West - 09/10/2021 2:05 pm CLINICAL HISTORY: SWELLING COMPARISON: None. TECHNIQUE: Real-time sonographic evaluation of the bilateral lower extremity common femoral, superfi cial femoral, popliteal and posterior tibial veins was performed. FINDINGS: Normal compressibility, flow augmentation, phasic flow and spontaneous flow are identified in the left and right lower extremity common femoral, superficial femoral, popliteal and posterior t ibial veins. No intraluminal filling defects seen. IMPRESSION: No DVT in either lower extremity.
--- NOTE | 2021-09-10 14:43 | EDPHYS ---
Physician Documentation [facility] Name: Seb Matta Age: 75 yrs Sex: Male : 1945 Arrival Date: 09/10/2021 Time: 12:37 Bed 12 Private MD: Liz Garcia ED Physician Elijah Bob HPI: 09/10 14:38 This 75 yrs old Male presents to ER via Ambulatory with complaints of Leg Swelling - jmm r/o dvt. 14:38 The patient presents with swelling. Onset: The symptoms/episode began/occurred jmm gradually, 1 week(s) ago. Modifying factors: The symptoms are alleviated by nothing. the symptoms are aggravated by nothing. Associated signs and symptoms: Pertinent negatives fever. The patient has not experienced similar symptoms in the past. Patient denies chest pain or shortness of breath. Denies fever. . Historical: - Allergies: 12:47 No Known Allergies; ll1 - PMHx: 12:47 High Cholesterol; Hypertension; ll1 - PSHx: 12:47 skin CA spots; ll1 - Immunization history:: Client reports receiving the 2nd dose of the Covid vaccine. - Social history:: Smoking status: Patient denies any tobacco usage or history of. ROS: 14:38 Constitutional: Negative for fever, chills, and weight loss, Cardiovascular: Negative jmm for chest pain, palpitations, and edema, Respiratory: Negative for shortness of breath, cough, wheezing, and pleuritic chest pain. 14:38 MS/extremity: Positive for swelling. 14:38 All other systems are negative. Exam: 14:38 Constitutional: This is a well developed, well nourished patient who is awake, alert, jmm and in no acute distress. Head/Face: atraumatic. Eyes: EOMI, no conjunctival erythema appreciated ENT: Moist Mucus Membranes Neck: Trachea midline, Supple Chest/axilla: Normal chest wall appearance and motion. Cardiovascular: Regular rate and rhythm. No edema appreciated Respiratory: Normal respirations, no respiratory distress appreciated Abdomen/GI: Non distended, soft Back: Normal ROM Skin: General appearance color normal 14:38 Musculoskeletal/extremity: swelling noted to the left and right leg, compartments are soft, full dorsalis pulse, NVI. 14:38 Skin: Appearance: Color: normal in color. 14:38 Neuro: Orientation: is normal, Mentation: is normal, Memory: is normal. 14:38 Psych: Behavior/mood is pleasant, cooperative. Vital Signs: 12:46 BP 129 / 76; Pulse 73; Resp 17; Temp 97.7; Pulse Ox 98% ; Weight 63.5 kg; Height 5 ft. ll1 5 in. (165.10 cm); Pain 0/10; 12:48 BP 144 / 80; Pulse 72; Resp 20; Pulse Ox 98% ; jg9 13:00 BP 126 / 74; Pulse 73; Resp 20; Pulse Ox 98% on R/A; jg9 14:30 BP 142 / 77; Pulse 75; Resp 17; Pulse Ox 99% on R/A; jg9 12:46 Body Mass Index 23.30 (63.50 kg, 165.10 cm) ll1 MDM: 13:23 Patient medically screened. [facility] 14:41 Data reviewed: vital signs, nurses notes. Counseling: I had a detailed discussion with samy the patient and/or guardian regarding: the historical points, exam findings, and any diagnostic results supporting the discharge/admit diagnosis, radiology results, the need for outpatient follow up, to return to the emergency department if symptoms worsen or persist or if there are any questions or concerns that arise at home. ED course: Patient is alert and non toxic in appearance in the ED. NO signs of sepsis, resp distress. Advised to follow up with pcp and otherwise given strict return precautions. Patient understood and agrees with the plan of care. . 09/10 13:24 Order name: US Extremity Venous W Compression West; Complete Time: 14:14 [facility] Administered Medications: No medications were administered Disposition: 09/11 07:03 Co-signature as Attending Physician, Elijah Bob MD I agree with the assessment and rn plan of care. Attestation: The patient's history, exam findings, diagnostics, and a summary of any interventions or procedures was reviewed in detail with Arnulfo ROWE. Disposition Summary: 09/10/21 14:42 Discharge Ordered Location: Home [facility] Condition: Stable [facility] Diagnosis - Peripheral edema [facility] Followup: [facility] - With: Liz Garcia MD - When: Tomorrow - Reason: Recheck today's complaints, Continuance of care, Re-evaluation by your physician Discharge Instructions: - Discharge Summary Sheet jmm - Peripheral Edema jmm Forms: - Medication Reconciliation Form jmm - Thank You Letter jmm - Antibiotic Education jmm - Prescription Opioid Use jmm Signatures: Dispatcher [employer] Arnulfo Do PA PA jmm Nieto, Roman, MD MD rn ZenonAlban RN RN ll1 Deborah Ojedag9
--- NOTE | 2021-09-10 14:43 | ER ---
Nurse's Notes [facility] Name: Seb Matta Age: 75 yrs Sex: Male : 1945 Arrival Date: 09/10/2021 Time: 12:37 Bed 12 Private MD: Liz Garcia Diagnosis: Peripheral edema Presentation: 09/10 12:46 Chief complaint: Patient states: Bilateral leg swelling for almost 2 weeks. Sent in for ll1 eval by Dr. Garcia. Coronavirus screen: Vaccine status: Patient reports receiving the 2nd dose of the covid vaccine. Client denies travel out of the [place] in the last 14 days. At this time, the client does not indicate any symptoms associated with coronavirus-19. Ebola Screen: Patient denies travel to an Ebola-affected area in the 21 days before illness onset. Initial Sepsis Screen: Does the patient meet any 2 criteria? No. Patient's initial sepsis screen is negative. Does the patient have a suspected source of infection? No. Patient's initial sepsis screen is negative. Risk Assessment: Do you want to hurt yourself or someone else? Patient reports no desire to harm self or others. Onset of symptoms was August 28, 2021. 12:46 Method Of Arrival: Ambulatory ll1 12:46 Acuity: MARLA 3 ll1 Triage Assessment: 13:19 General: Appears in no apparent distress. Pain: Denies pain. EENT: No deficits noted. jg9 Neuro: No deficits noted. Cardiovascular: No deficits noted. Respiratory: No deficits noted. GI: No deficits noted. : No deficits noted. Derm: No deficits noted. Musculoskeletal: Swelling present in right leg and left leg. Historical: - Allergies: 12:47 No Known Allergies; ll1 - PMHx: 12:47 High Cholesterol; Hypertension; ll1 - PSHx: 12:47 skin CA spots; ll1 - Immunization history:: Client reports receiving the 2nd dose of the Covid vaccine. - Social history:: Smoking status: Patient denies any tobacco usage or history of. Screenin:01 Abuse screen: Denies threats or abuse. Denies injuries from another. Nutritional jg9 screening: No deficits noted. Tuberculosis screening: No symptoms or risk factors identified. Fall Risk None identified. Exposure risk/Travel Screening: None identified. Assessment: 12:58 General: Appears in no apparent distress. Behavior is calm, quiet, Denies pain or jg9 associated symptoms to leg swelling. 12:59 Neuro: No deficits noted. Cardiovascular: No deficits noted. Respiratory: No deficits jg9 noted. GI: No deficits noted. : No deficits noted. EENT: No deficits noted. Derm: No deficits noted. Musculoskeletal: Swelling present in right leg and left leg-3+ pitting edema 3+ pitting edema to bilateral lower extremities Reports Denies pain in, right leg and left leg. 14:35 Reassessment: No changes from previously documented assessment. jg9 Vital Signs: 12:46 BP 129 / 76; Pulse 73; Resp 17; Temp 97.7; Pulse Ox 98% ; Weight 63.5 kg; Height 5 ft. ll1 5 in. (165.10 cm); Pain 0/10; 12:48 BP 144 / 80; Pulse 72; Resp 20; Pulse Ox 98% ; jg9 13:00 BP 126 / 74; Pulse 73; Resp 20; Pulse Ox 98% on R/A; jg9 14:30 BP 142 / 77; Pulse 75; Resp 17; Pulse Ox 99% on R/A; jg9 12:46 Body Mass Index 23.30 (63.50 kg, 165.10 cm) ll1 ED Course: 12:37 Patient arrived in ED. as 12:37 Liz Garcia MD is Private Physician. as 12:44 [facility]ulfo Farias [facility] 12:44 Elijah Bob MD is Attending Physician. m 12:47 Triage completed. ll1 12:48 Arm band placed on Patient placed in an exam room, on a stretcher. ll1 13:03 Patient has correct armband on for positive identification. Placed in gown. Bed in low jg9 position. Call light in reach. Side rails up X 1. 13:15 Nurse Practitioner and/or Physician Family [employer] Consumer Education Teacher to see patient. jg9 13:54 US tech \T\ bedside. jg9 13:57 No apparent distress. jg9 14:05 US Extremity Venous W Compression West In Process Unspecified. EDMS 14:35 Awaiting disposition. jg9 14:42 Liz Garcia MD is Referral Physician. jmm 14:51 No provider procedures requiring assistance completed. jg9 14:52 Patient did not have IV access during this emergency room visit. jg9 Administered Medications: No medications were administered Outcome: 13:01 Condition: stable jg9 14:42 Discharge ordered by . samy 14:51 Discharged to home jg9 14:51 Condition: stable 14:51 Discharge instructions given to 14:51 Discharge instructions given to patient, Instructed on discharge instructions, follow up and referral plans. Demonstrated understanding of instructions, follow-up care. 14:52 Patient left the ED. jg9 Signatures: Dispatcher [employer] EDMS Arnulfo Farias PA PA jmm Martinez, Amelia as Lewis, Lynsay RN RN ll1 Deborah Ojeda jg9
[2021-09-10 15:05] VITALS: TEMP 97.7
[2021-09-10 15:10] VITALS: BP 142/77; O2SAT 99
== END 2021-09-10 14:52 | disposition home or self-care (01) ==
LOC: ER 12:33
DX: R60.9 Edema, unspecified (principal); I10 Essential (primary) hypertension
CPT/HCPCS: 93970; 99283

== ENCOUNTER 2021-10-07 09:59 | Emergency (ER) | payer OTHER ==
--- OUTSIDE RECORDS SUMMARY | 2021-10-07 10:03 | XMS REPORT | Continuity of Care Document ---
:1945 Author Organization [facility] t Address [address] [place] [address] Care Team Providers Name Role Phone Unavailable [...] tablet [facility] Immunizations Ordered Filled Immunization Date Status Comments Sourc e Immunization Name Name FluAD FluAD 2019-08-[address] [facility] FluAD FluAD 2018-09-[address] [facility] Procedures This patient has no known procedures. Encounters Start End Encounter Admission Attending Care Care Encounter Source Date/Time Date/Time Type Type Clinicians Facility Department ID 2021-09-27 2021-09-27 [facility] [id number] [facility] 2021-09-10 2021-09-10 [facility] [id number] [facility] 2021-09-08 2021-09-08 [facility] [id number] [facility] 2021-08-18 2021-08-18 amb[facility] [id number] [facility] 2021-06-10 2021-06-10 Outpatient [facility] [id number] [facility] 2021-05-25 2021-05-25 Outpatient [facility] [id number] [facility] 2021-05-10 2021-05-10 Out[facility] [id number] [facility] 2021-05-03 2021-05-03 Out[facility] [id number] [facility] 2021-01-07 2021-01-07 Out[facility] [id number] [facility] 2020-11-20 2020-11-20 Outpatient [facility] [id number] [facility] 2020-10-29 2020-10-29 Out[facility] [id number] [facility] 2020-10-12 2020-10-12 Outpatient [facility] [id number] [facility] 2020-10-08 2020-10-08 Out[facility] [id number] [facility] 2020-10-07 2020-10-07 Out[facility] [id number] [facility] 2020-09-28 2020-09-28 Out[facility] [id number] [facility] 2020-09-22 2020-09-22 [id number] 2020-08-28 2020-08-28 [facility] [id number] [facility] 2020-05-25 2020-05-25 [facility] [id number] [facility] 16[facility]45[facility]00 16:45:00 [facility] [employer] [place] [facility] Medicine l Medicine Outpati ent Clinics 2020-04-27 2020-04-27 [facility] [id number] 10:20:00 10:20:00 [facility] [place] [facility] Medicine l Medicine Outpati ent Clinics 2020-04-14 2020-04-14 [facility] [id number] 14:47:00 14:47:00 [facility] [facility] [place] [facility] Medicine Medicine Outpati ent Clinics 2020-04-02 2020-04-02 [facility] [id number] [facility] 15:47:00 15:47:00 t [employer] [facility] l Medicine Outpati ent Clinics 2020-02-13 2020-02-13 [facility] [id number] [facility] 15:02:00 15:02:00 [facility] [facility] [place] [facility] Medicine l Medicine Outpati ent Clinics 2019-12-26 2019-12-26 [facility] [id number] [facility] 10:00:00 10:00:00 [facility] [place] [facility] Medicine l Medicine Outpati ent Clinics 2019-12-19 2019-12-19 [facility] [id number] 09:52:00 09:52:00 t [employer] [facility] l Medicine Outpati ent Clinics 2019-11-19 2019-11-19 [facility] [id number] [facility] 15:25:00 15:25:00 t [employer] [facility] Medicine l Medicine Outpati ent Clinics 2019-11-18 2019-11-18 [facility] [id number] [facility] 14:24:00 14:24:00 [place] [address] [place] - Drive [facility] Medicine l Medicine Outpati ent Clinics 2019-10-08 2019-10-08 [facility] [id number] [facility] 10:37:00 10:37:00 [place] [address] [place] - Drive [facility] Medicine l Medicine Outpati ent Clinics 2019-08-28 2019-08-28 [facility] [id number] 10:40:00 10:40:00 [place] [address] [place] - Drive [facility] Medicine l Medicine Outpati ent Clinics 2019-08-27 2019-08-27 [facility] [id number] [facility] 17:26:00 17:26:00 [place] [employer] s - Drive [facility] Medicine l Medicine Outpati ent Clinics 2019-08-22 2019-08-22 [facility] [id number] 13:33:00 13:33:00 [place] [employer] s - Drive [facility] Medicine l Medicine Outpati ent Clinics 2019-08-16 2019-08-16 [facility] [id number] 09:20:00 09:20:00 [place] [employer] - Drive [facility] Medicine Medicine Outpati ent Clinics 2019-06-20 2019-06-20 [facility] [id number] 11:00:00 11:00:00 [place] [employer] [place] [facility] - Drive [facility] Medicine l Medicine Outpati ent Clinics 2019-05-14 2019-05-14 [facility] [id number] 10:00:00 10:00:00 [place] [employer] [place] [facility] - Drive [facility] Medicine l Medicine Outpati ent Clinics 2019-02-20 2019-02-20 [facility] [id number] 10:22:00 10:22:00 [place] [employer] s - Drive [facility] Medicine l Medicine Outpati ent Clinics 2019-02-11 2019-02-11 [facility] [id number] [facility] 09:41:00 09:41:00 [place] [address] [place] - Drive [facility] Medicine Medicine Outpati ent Clinics 2019-01-08 2019-01-08 [facility] [id number] 09:40:00 09:40:00 [place] [employer] [facility] s - Drive [facility] Medicine Outpati ent Clinics 2018-11-26 2018-11-26 [facility] [id number] 15:27:00 15:27:00 [place] [employer] s - Drive [facility] Medicine Outpati ent Clinics 2018-11-22 2018-11-22 [facility] [id number] 10:23:00 10:23:00 [place] [employer] - Drive [facility] Medicine Outpati ent Clinics 2018-11-16 2018-11-16 [facility] [id number] 14:31:00 14:31:00 [place] [employer] - Drive [facility] Medicine Outpati ent Clinics 2018-11-06 2018-11-06 [facility] [id number] 13:24:00 13:24:00 [place] [employer] - Drive [facility] Medicine Outpati ent Clinics 2018-10-01 2018-10-01 [facility] [id number] 10:13:00 10:13:00 [place] [employer] s - Drive [facility] Medicine Outpati ent Clinics 2018-09-04 2018-09-04 [facility] [id number] 09:45:00 09:45:00 [place] [employer] - Drive [facility] Medicine Outpati ent Clinics 2018-06-29 2018-06-29 [facility] [id number] [facility] 13:32:00 13:32:00 [place] [employer] s - Drive [facility] Medicine Outpati ent Clinics 2018-06-29 2018-06-29 [facility] [id number] [facility] 13:27:00 13:27:00 [place] [employer] s - Drive [facility] Medicine Outpati ent Clinics 2018-06-12 2018-06-12 [facility] [id number] 09:45:00 09:45:00 t Specialty/U Sherin kes - Specialty rology [facility] a [facility] l Clinic Outpati ent Clinics 2018-06-04 2018-06-04 [facility] [id number] 08:30:00 08:30:00 t [employer] [facility] Outpati ent Clinics 2018-04-27 2018-04-27 [facility] [id number] 10:13:00 10:13:00 t [employer] [facility] Outpati ent Clinics 2018-03-22 2018-03-22 [facility] [id number] [facility] 11:33:00 11:33:00 t [employer] [facility] Outpati ent Clinics 2018-02-27 2018-02-27 [facility] [id number] 08:30:00 08:30:00 t [employer] [facility] Results This patient has no known results.
[2021-10-07] MEDS ORDERED: LIDOCAINE 1% MPF 5 ML VIAL ONE (15:00)
[2021-10-07] MEDS ORDERED: HYDROCODONE/APAP 10/325 TAB ONE ×2 (15:01→15:43)
[2021-10-07] MEDS ORDERED: COLCHICINE 0.6 MG TAB ONE ×2 (15:01→15:32)
[2021-10-07] MEDS ORDERED: KETOROLAC 30 MG/ML INJ ONE (15:01)
--- NOTE | 2021-10-07 15:23 | EDPHYS ---
Physician Documentation [facility] Name: Seb Matta Age: 76 yrs Sex: Male : 1945 Arrival Date: 10/07/2021 Time: 10:00 Bed DIS11 Private MD: Liz Garcia ED Physician Christos Boykin HPI: 10/07 14:55 This 76 yrs old Male presents to ER via Ambulatory with complaints of Knee felton Pain - right/gout. 14:55 The patient presents with decreased range of motion, pain, swelling, tenderness. The felton complaints affect the right knee. Context: The problem was sustained at home, resulted from an unknown cause. Onset: The symptoms/episode began/occurred 3 day(s) ago. Modifying factors: The symptoms are alleviated by nothing. remaining still, the symptoms are aggravated by movement, weight bearing. Associated signs and symptoms: The patient has no apparent associated signs or symptoms. Severity of symptoms: At their worst the symptoms were moderate, in the emergency department the symptoms are unchanged. The patient has not experienced similar symptoms in the past. Historical: - Allergies: 10:15 No Known Allergies; hernández - Home Meds: 10:15 None [Active]; hernández - PMHx: 10:15 High Cholesterol; Hypertension; hernández - Immunization history:: Adult Immunizations up to date. - Social history:: Smoking status: Patient/guardian denies using tobacco. - Family history:: not pertinent. ROS: 14:55 Constitutional: Negative for fever, chills, and weight loss, Eyes: Negative for injury, felton pain, redness, and discharge, ENT: Negative for injury, pain, and discharge, Neck: Negative for injury, pain, and swelling, Cardiovascular: Negative for chest pain, palpitations, and edema, Respiratory: Negative for shortness of breath, cough, wheezing, and pleuritic chest pain, Abdomen/GI: Negative for abdominal pain, nausea, vomiting, diarrhea, and constipation, Back: Negative for injury and pain, : Negative for injury, bleeding, discharge, and swelling, Skin: Negative for injury, rash, and discoloration, Neuro: Negative for headache, weakness, numbness, tingling, and seizure, Psych: Negative for depression, anxiety, suicide ideation, homicidal ideation, and hallucinations, Allergy/Immunology: Negative for hives, rash, and allergies, Endocrine: Negative for neck swelling, polydipsia, polyuria, polyphagia, and marked weight changes, Hematologic/Lymphatic: Negative for swollen nodes, abnormal bleeding, and unusual bruising. 14:55 MS/extremity: Positive for decreased range of motion, pain, swelling, of the right knee. Exam: 14:55 Constitutional: This is a well developed, well nourished patient who is awake, alert, felton and in no acute distress. Head/Face: Normocephalic, atraumatic. Eyes: Pupils equal round and reactive to light, extra-ocular motions intact. Lids and lashes normal. Conjunctiva and sclera are non-icteric and not injected. Cornea within normal limits. Periorbital areas with no swelling, redness, or edema. ENT: Nares patent. No nasal discharge, no septal abnormalities noted. Tympanic membranes are normal and external auditory canals are clear. Oropharynx with no redness, swelling, or masses, exudates, or evidence of obstruction, uvula midline. Mucous membranes moist. Neck: Trachea midline, no thyromegaly or masses palpated, and no cervical lymphadenopathy. Supple, full range of motion without nuchal rigidity, or vertebral point tenderness. No Meningismus. Chest/axilla: Normal chest wall appearance and motion. Nontender with no deformity. No lesions are appreciated. Cardiovascular: Regular rate and rhythm with a normal S1 and S2. No gallops, murmurs, or rubs. Normal PMI, no JVD. No pulse deficits. Respiratory: Lungs have equal breath sounds bilaterally, clear to auscultation and percussion. No rales, rhonchi or wheezes noted. No increased work of breathing, no retractions or nasal flaring. Abdomen/GI: Soft, non-tender, with normal bowel sounds. No distension or tympany. No guarding or rebound. No evidence of tenderness throughout. Back: No spinal tenderness. No costovertebral tenderness. Full range of motion. Male : Normal genitalia with no discharge or lesions. Skin: Warm, dry with normal turgor. Normal color with no rashes, no lesions, and no evidence of cellulitis. Neuro: Awake and alert, GCS 15, oriented to person, place, time, and situation. Cranial nerves II-XII grossly intact. Motor strength 5/5 in all extremities. Sensory grossly intact. Cerebellar exam normal. Normal gait. Psych: Awake, alert, with orientation to person, place and time. Behavior, mood, and affect are within normal limits. 14:55 Musculoskeletal/extremity: Extremities: noted in the right knee: decreased ROM, pain, swelling, ROM: limited active range of motion due to pain, in the right knee, limited passive range of motion due to pain, Circulation is intact in all extremities. Sensation intact. DVT Exam: negative Homans' sign noted on exam, no appreciated bluish discoloration, no erythema, no increased warmth, pain, swelling, tenderness. Vital Signs: 10:14 BP 117 / 82; Pulse 83; Resp 18; Temp 98.2(O); Pulse Ox 100% ; Weight 68.04 kg; Height 5 hernández ft. 5 in. (165.10 cm) (R); 10:14 Body Mass Index 24.96 (68.04 kg, 165.10 cm) hernández MDM: 14:25 Patient medically screened. [facility] 14:57 Differential diagnosis: closed fracture, contusion, abrasion, tendonitis. Data felton reviewed: vital signs, nurses notes. Data interpreted: library monitor: not applicable for this patient encounter. rate is 83 beats/min, rhythm is regular, Pulse oximetry: on room air is 100 %. Counseling: I had a detailed discussion with the patient and/or guardian regarding: the historical points, exam findings, and any diagnostic results supporting the discharge/admit diagnosis, the need for outpatient follow up, for definitive care, a family practitioner, a orthopedic surgeon. 10/07 14:52 Order name: Knee Immobilizer; Complete Time: 15:30 [facility] 10/07 14:52 Order name: Dressing - Wound; Complete Time: 15:26 [facility] 10/07 14:52 Order name: Gloves, Sterile; Complete Time: 15:27 [facility] 10/07 14:52 Order name: Setup Suture Tray; Complete Time: 15: [facility] Administered Medications: 15:00 Drug: Colcrys (colchicine) 1.2 mg Route: PO; hernández 15:29 Follow up: Response: No adverse reaction hernández 15:27 Drug: Lidocaine (1 %) 5 ml Volume: 5 ml; Route: Infiltration; hrenández 15:27 Follow up: Response: No adverse reaction; Pain is decreased hernández 15:29 Drug: Ketorolac 60 mg Route: IM; Site: right deltoid; hernández 15:30 Follow up: Response: No adverse reaction hernández 15:40 Follow up: Response: No adverse reaction hernández 15:40 Drug: Colcrys (colchicine) 0.6 mg Route: PO; hernández 15:40 Follow up: Response: No adverse reaction hernández 15:40 Drug: [place] (HYDROcodone-acetaminophen) 10 mg-325 mg 1 tabs Route: PO; hernández 15:41 Follow up: Response: No adverse reaction hernández 15:45 Follow up: Response: No adverse reaction hernández Disposition Summary: 10/07/21 15:22 Discharge Ordered Location: Home felton Problem: new felton Symptoms: have improved felton Condition: Stable felton Diagnosis - Gout, unspecified felton - Effusion, right knee felton Followup: felton - With: - When: 2 - 3 days - Reason: Recheck today's complaints, Continuance of care, Re-evaluation by your physician Followup: felton - With: - When: 2 - 3 days - Reason: Recheck today's complaints, Continuance of care, Re-evaluation by your physician Discharge Instructions: - Discharge Summary Sheet felton - Gout felton - Knee Effusion felton - Knee Effusion, [id number] felton - Gout, [id number] felton Forms: - Medication Reconciliation Form felton - Thank You Letter felton - Antibiotic Education felton - Prescription Opioid Use [facility] Prescriptions: - colchicine 0.6 mg Oral tablet - take 2 tablet by ORAL route as directed take 2 tabs po then one hour later take felton 1 pill, no more than 3 tabs daily; 10 tablet; Refills: 0, Product Selection Permitted - Diclofenac Sodium 75 mg Oral tablet,delayed release (DR/EC) - take 1 tablet by ORAL route 2 times per day; 20 tablet; Refills: 0, Product felton Selection Permitted - Medrol (Darin) 4 mg Oral Tablets, Dose Pack - take 1 tablet by ORAL route as directed - follow package instructions; 1 felton packet; Refills: 0, Product Selection Permitted - Tylenol-Codeine #3 300 mg-30 mg Oral - take 2 tablet by ORAL route every 4-6 hours; 20 tablet; Refills: 0, Product felton Selection Permitted Signatures: Christos Boykin MD MD cha Au-Stager, Heather ha Corrections: (The following items were deleted from the chart) 10:15 10:15 PSHx: skin CA spots; hernández hernández
--- NOTE | 2021-10-07 15:23 | ER ---
Nurse's Notes [facility] Name: Seb Matta Age: 76 yrs Sex: Male : 1945 Arrival Date: 10/07/2021 Time: 10:00 Bed DIS11 Private MD: Liz Garcia Diagnosis: Gout, unspecified;Effusion, right knee Presentation: 10/07 10:14 Chief complaint: Patient states: right knee pain/ gout flare up. Coronavirus screen: hernández Vaccine status: Patient reports receiving the 2nd dose of the covid vaccine. Ebola Screen: Patient denies travel to an Ebola-affected area in the 21 days before illness onset. Initial Sepsis Screen: Does the patient meet any 2 criteria? No. Patient's initial sepsis screen is negative. Does the patient have a suspected source of infection? No. Patient's initial sepsis screen is negative. Risk Assessment: Do you want to hurt yourself or someone else? Patient reports no desire to harm self or others. Onset of symptoms was October 05, 2021. 10:14 Method Of Arrival: Ambulatory hernández 10:14 Acuity: MARLA 4 hernández Triage Assessment: 10:15 General: Appears in no apparent distress. Behavior is calm, cooperative. hernández 15:47 Pain: Complains of pain in right leg. hernández Historical: - Allergies: 10:15 No Known Allergies; hernández - Home Meds: 10:15 None [Active]; hernández - PMHx: 10:15 High Cholesterol; Hypertension; hernández - Immunization history:: Adult Immunizations up to date. - Social history:: Smoking status: Patient/guardian denies using tobacco. - Family history:: not pertinent. Screenin:46 Abuse screen: Denies threats or abuse. Denies injuries from another. Nutritional hernández screening: No deficits noted. Fall Risk None identified. 15:47 Tuberculosis screening: No symptoms or risk factors identified. hernández Vital Signs: 10:14 BP 117 / 82; Pulse 83; Resp 18; Temp 98.2(O); Pulse Ox 100% ; Weight 68.04 kg; Height 5 hernández ft. 5 in. (165.10 cm) (R); 10:14 Body Mass Index 24.96 (68.04 kg, 165.10 cm) hernández ED Course: 10:00 Patient arrived in ED. am2 10:00 Liz Garcia MD is Private Physician. am2 10:15 Triage completed. hernández 10:15 Arm band placed on left wrist. hernández 14:25 Christos Boykin MD is Attending Physician. felton 14:52 Ene Carroll RN is Primary Nurse. jl7 15:22 Liz Garcia MD is Referral Physician. felton 15:22 Americo Riley MD is Referral Physician. felton 15:46 Patient has correct armband on for positive identification. hernández 15:46 No provider procedures requiring assistance completed. hernández 15:47 Patient did not have IV access during this emergency room visit. hernández Administered Medications: 15:00 Drug: Colcrys (colchicine) 1.2 mg Route: PO; hernández 15:29 Follow up: Response: No adverse reaction hernández 15:27 Drug: Lidocaine (1 %) 5 ml Volume: 5 ml; Route: Infiltration; hernández 15:27 Follow up: Response: No adverse reaction; Pain is decreased hernández 15:29 Drug: Ketorolac 60 mg Route: IM; Site: right deltoid; hernández 15:30 Follow up: Response: No adverse reaction hernández 15:40 Follow up: Response: No adverse reaction hernández 15:40 Drug: Colcrys (colchicine) 0.6 mg Route: PO; hernández 15:40 Follow up: Response: No adverse reaction hernández 15:40 Drug: [place] (HYDROcodone-acetaminophen) 10 mg-325 mg 1 tabs Route: PO; hernández 15:41 Follow up: Response: No adverse reaction hernández 15:45 Follow up: Response: No adverse reaction hernández Outcome: 15:22 Discharge ordered by . felton 15:46 Discharged to home via wheelchair. hernández 15:46 Condition: good 15:46 Discharge instructions given to patient, Prescriptions given X 4. 15:48 Patient left the ED. hernández Signatures: Christos Boyikn MD MD cha Leal, Jahala, RN RN [id number] Cass Collado 2 CristinaStagerDelmi hernández Corrections: (The following items were deleted from the chart) 10:15 10:15 PSHx: skin CA spots; hernández hernández
[2021-10-07 15:53] VITALS: BP 117/82; TEMP 98.2; O2SAT 100
== END 2021-10-07 15:48 | disposition home or self-care (01) ==
LOC: ER 09:59
DX: M10.9 Gout, unspecified (principal); M25.461 Effusion, right knee
CPT/HCPCS: 96372; 99283

== ENCOUNTER 2024-05-16 22:48 | Emergency (ER) | payer MEDICARE ==
--- OUTSIDE RECORDS SUMMARY | 2024-05-16 22:53 | XMS REPORT | Continuity of Care Document ---
Author Name Unknown Address [address] [facility] [address] [place] [address] [facility] Address [address] [facility] [address] [place] [address] Care Team Providers Care Cell Phone Repair Technician Name Role Phone SOPHIE GEORGE Primary Care Physician Unavailab Sophie Ng Attending Clinician Unavailable Liz Garcia Attending Clinician Unavailable Candace Bacon NP Attending Clinician [phone] CANDACE BACON Attending Clinician Unavailable Payers Payer Name Policy Type Policy Number Effective Date Expiration Date Source [facility] (MEDICARE REPLACEMENT HMO) [id number] 2022 00:00:00 [employer] MEDICARE 53 [id number] 2019 00:00:00 [facility] Problems Condition Name Condition Details Condition Category Status Onset Date Resolution Date Last Treatment Date Treating Clinician Comments Source 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 Disease Active 04-28 00:00: 00 [facility] Other hyperlipid emia Other hyperlipid emia Disease Active 04-28 00:00: 00 [facility] Primary osteoarthr itis of both knees Primary osteoarthr itis of both knees Disease Active 04-28 00:00: 00 [facility] Hypertensi on Hypertensi on Disease Active 04-28 00:00: 00 [facility] Major depressive disorder, single episode, unspecifie d Major depressive disorder, single episode, unspecifie d Disease Active 04-28 00:00: 00 [facility] Inflamed seborrheic keratosis Inflamed seborrheic keratosis Disease Active 04-28 00:00: 00 [facility] Malignant melanoma of skin Malignant melanoma of skin Disease Active 04-28 00:00: 00 [facility] Reduced libido Reduced libido Disease Active 04-28 00:00: 00 [facility] Gastroesop hageal reflux disease Gastroesop hageal reflux disease Disease Active 04-28 00:00: 00 [facility] Depressive disorder Depressive disorder Disease Active 04-28 00:00: 00 [facility] Benign prostatic hyperplasi a Benign prostatic hyperplasi a Disease Active 04-28 00:00: 00 [facility] Anxiety disorder, unspecifie d Anxiety disorder, unspecifie d Disease Active 04-28 00:00: 00 [facility] Gout Gout Disease Active 04-28 00:00: 00 [facility] H/O Malignant melanoma H/O Malignant melanoma Disease Active 04-28 00:00: 00 [facility] History of colonic polyps History of colonic polyps Disease Active 04-28 00:00: 00 [facility] 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 in male Problem [facility] [id number] Other obstructiv e and reflux uropathy Problem [facility] [id number] Acute prostatiti s Problem [facility] [id number] ED (erectile dysfunctio n) of organic origin Problem [facility] [id number] Benign prostatic hyperplasi a with lower urinary tract symptoms Problem [facility] Impotence of organic origin Erectile dysfunctio n, unspecifie d erectile dysfunctio n type Problem [facility] [id number] AMANDEEP (acute kidney injury) Problem [facility] [id number] Hyperkalem ia Problem [facility] [id number] Antibiotic drug intoleranc e Problem [facility] [id number] Chronic fatigue Problem [facility] [id number] Gastroesop hageal reflux disease without esophagiti s Problem [facility] [id number] Decreased vision in both eyes Problem [facility] Posttrauma tic stress disorder Post traumatic stress disorder Problem [facility] 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 griffin without signs of inflammato ry arthritis and tophaceous disease Problem [facility] [id number] History of basal cell cancer Problem [facility] [id number] Low testostero ne Problem [facility] Idiopathic gout Gout, arthropath y Problem [facility] Mixed anxiety and depressive disorder Depression with anxiety Problem [facility] [id number] Macrocytos is Problem [facility] [id number] Personal history of other malignant neoplasm of skin Problem [facility] [id number] Memory changes Problem [facility] Allergies, Adverse Reactions, Alerts Allergy Name Allergy Type Status Severity Reaction(s) Onset Date Inactive Date Treating Clinician Comments Source NO KNOWN ALLERGIE S Drug Class Active [facility] sulfamet hoxazole / trimetho prim sulfamet hoxazole / trimetho prim Active intolerance/ AMANDEEP [facility] Social History Social Habit Start Date Stop Date Quantity Comments Source Sexual orientation U [facility] History of Tobacco Use [facility] Sex assigned at 1945 00:00:00 1945 00:00:[address] [facility] Smoking Status Start Date Stop Date Source Tobacco smoking consumption unknown [facility] Never Smoker [facility] Former Smoker 2024-04-08 00:00:00 2024-04-08 00:00:00 [facility] Medications Ordered Medication Name Filled Medication Name Start Date Stop Date Current Medication? Ordering Clinician Indication Dosage Frequency Signature (SIG) Comments Components Source NaCl 0.9% (NS) bolus infusion 1,000 mL 04-28 22:15: 00 04-28 22:49 :00 No 1000mL at 999 mL/hr, 1,000 mL, IV Infusion, ONCE, 1 dose, On 04/28/24 at 1715, JENNIE [facility] carvediloL 25 mg tablet 04-28 16:28: 39 Yes 25mg Take 1 tablet by mouth in the morning and 1 tablet in the evening. Take with meals. [facility] sildenafil citrate (SILDENAFIL , BULK, MISC) 04-28 16:28: 39 Yes 100mg 100 mg. [facility] simvastatin 10 mg tablet 04-28 16:28: 39 Yes 10mg Take 1 tablet by mouth at bedtime. [facility] Flomax 0.4 MG Flomax 0.4 MG 04-03 00:00: 00 No 1{capsu le_at_b edtime} QD Flomax 0.4 MG allopurinoL 100 mg tablet 03-31 00:00: 00 Yes 100mg Take 1 tablet by mouth. [facility] lisinopriL 20 mg tablet 03-31 00:00: 00 Yes 20mg Take 1 tablet by mouth. [facility] escitalopra m oxalate 5 mg tablet 5-14 00:00: 00 Yes 5mg Take 1 tablet by mouth. [facility] Testosteron e Cypionate 200 MG/ML Testosteron e Cypionate 200 MG/ML 4-03 00:00: 00 No 1{ml} Testostero ne Cypionate 200 MG/ML buPROPion HCl ER (XL) 300 MG buPROPion HCl ER (XL) 300 MG 2022-10 0-09 00:00: 00 No 1{table t_in_th e_morni ng} QD buPROPion HCl ER (XL) 300 MG Carvedilol 25 MG Carvedilol 25 MG No 1{table t_with_ food} BID Carvedilol 25 MG amLODIPine Besylate 5 MG amLODIPine Besylate 5 MG No 1{table t} QD amLODIPine Besylate 5 MG Allopurinol 100 MG Allopurinol 100 MG No 1{table t} QD Allopurino l 100 MG Colchicine 0.6 MG Colchicine 0.6 MG No 1{table t} Colchicine 0.6 MG Lisinopril 40 MG Lisinopril 40 MG No 1{table t} QD Lisinopril 40 MG Simvastatin 10 MG Simvastatin 10 MG No 1{table t_in_th e_eveni ng} QD Simvastati n 10 MG Sildenafil Citrate 100 MG Sildenafil Citrate 100 MG No 1{table t_as_ne eded} QD Sildenafil Citrate 100 MG Escitalopra m Oxalate 5 MG Escitalopra m Oxalate 5 MG No 1{table t} QD Escitalopr am Oxalate 5 MG Omeprazole 40 MG Omeprazole 40 MG No 1{capsu le} QD Omeprazole 40 MG Immunizations Ordered Immunization Name Filled Immunization Name Date Status Comments Source FLUZONE HIGH DOSE OVER 65 FLUZONE HIGH DOSE OVER 65 2022-06-27 11:59:00 Completed [facility] FLUZONE HIGH DOSE OVER 65 FLUZONE HIGH DOSE OVER 65 2022-06-27 11:59:00 Completed [facility] FLUZONE HIGH DOSE OVER 65 FLUZONE HIGH DOSE OVER 65 2022-06-27 11:59:00 Completed [facility] FLUZONE HIGH DOSE OVER 65 FLUZONE HIGH DOSE OVER 65 2022-06-27 11:59:00 Completed [facility] FLUZONE HIGH DOSE OVER 65 FLUZONE HIGH DOSE OVER 65 2022-06-27 11:59:00 Completed [facility] FLUZONE HIGH DOSE OVER 65 FLUZONE HIGH DOSE OVER 65 2022-06-27 11:59:00 Completed [facility] FLUZONE HIGH DOSE OVER 65 FLUZONE HIGH DOSE OVER 65 2022-06-27 11:59:00 Completed [facility] FLUZONE HIGH DOSE OVER 65 FLUZONE HIGH DOSE OVER 65 2022-06-27 11:59:00 Completed [facility] FLUZONE HIGH DOSE OVER 65 FLUZONE HIGH DOSE OVER 65 2022-06-27 11:59:00 Completed [facility] FLUZONE HIGH DOSE OVER 65 FLUZONE HIGH DOSE OVER 65 2022-06-27 11:59:00 Completed [facility] FLUZONE HIGH DOSE OVER 65 FLUZONE HIGH DOSE OVER 65 2022-06-27 11:59:00 Completed [facility] FLUZONE HIGH DOSE OVER 65 FLUZONE HIGH DOSE OVER 65 2022-06-27 11:59:00 Completed [facility] FLUZONE HIGH DOSE OVER 65 FLUZONE HIGH DOSE OVER 65 2022-06-27 11:59:00 Completed [facility] FLUZONE HIGH DOSE OVER 65 FLUZONE HIGH DOSE OVER 65 2022-06-27 11:59:00 Completed [facility] FLUZONE HIGH DOSE OVER 65 FLUZONE HIGH DOSE OVER 65 2021-09-27 12:18:00 Completed [facility] FLUZONE HIGH DOSE OVER 65 FLUZONE HIGH DOSE OVER 65 2021-09-27 12:18:00 Completed [facility] FLUZONE HIGH DOSE OVER 65 FLUZONE HIGH DOSE OVER 65 2021-09-27 12:18:00 Completed [facility] FLUZONE HIGH DOSE OVER 65 FLUZONE HIGH DOSE OVER 65 2021-09-27 12:18:00 Completed [facility] FLUZONE HIGH DOSE OVER 65 FLUZONE HIGH DOSE OVER 65 2021-09-27 12:18:00 Completed [facility] FLUZONE HIGH DOSE OVER 65 FLUZONE HIGH DOSE OVER 65 2021-09-27 12:18:00 Completed [facility] FLUZONE HIGH DOSE OVER 65 FLUZONE HIGH DOSE OVER 65 2021-09-27 12:18:00 Completed [facility] FLUZONE HIGH DOSE OVER 65 FLUZONE HIGH DOSE OVER 65 2021-09-27 12:18:00 Completed [facility] FLUZONE HIGH DOSE OVER 65 FLUZONE HIGH DOSE OVER 65 2021-09-27 12:18:00 Completed [facility] FLUZONE HIGH DOSE OVER 65 FLUZONE HIGH DOSE OVER 65 2021-09-27 12:18:00 Completed [facility] FLUZONE HIGH DOSE OVER 65 FLUZONE HIGH DOSE OVER 65 2021-09-27 12:18:00 Completed [facility] FLUZONE HIGH DOSE OVER 65 FLUZONE HIGH DOSE OVER 65 2021-09-27 12:18:00 Completed [facility] FLUZONE HIGH DOSE OVER 65 FLUZONE HIGH DOSE OVER 65 2021-09-27 12:18:00 Completed [facility] FLUZONE HIGH DOSE OVER 65 FLUZONE HIGH DOSE OVER 65 2021-09-27 12:18:00 Completed [facility] FLUZONE HIGH DOSE OVER 65 FLUZONE HIGH DOSE OVER 65 2021-09-27 12:18:00 Completed [facility] FLUZONE HIGH DOSE OVER 65 FLUZONE HIGH DOSE OVER 65 2021-09-27 12:18:00 Completed [facility] FLUZONE HIGH DOSE OVER 65 FLUZONE HIGH DOSE OVER 65 2021-09-27 12:18:00 Completed [facility] FLUZONE HIGH DOSE OVER 65 FLUZONE HIGH DOSE OVER 65 2021-09-27 12:18:00 Completed [facility] FLUZONE HIGH DOSE OVER 65 FLUZONE HIGH DOSE OVER 65 2021-09-27 12:18:00 Completed [facility] FLUZONE HIGH DOSE OVER 65 FLUZONE HIGH DOSE OVER 65 2021-09-27 12:18:00 Completed [facility] FLUZONE HIGH DOSE OVER 65 FLUZONE HIGH DOSE OVER 65 2021-09-27 12:18:00 Completed [facility] FLUZONE HIGH DOSE OVER 65 FLUZONE HIGH DOSE OVER 65 2021-09-27 12:18:00 Completed [facility] FluAD FluAD 2020-08-28 12:44:00 Completed [facility] FluAD FluAD 2020-08-28 12:44:00 Completed [facility] FluAD FluAD 2020-08-28 12:44:00 Completed [facility] FluAD FluAD 2020-08-28 12:44:00 Completed [facility] FluAD FluAD 2020-08-28 12:44:00 Completed [facility] FluAD FluAD 2020-08-28 12:44:00 Completed [facility] FluAD FluAD 2020-08-28 12:44:00 Completed [facility] FluAD FluAD 2020-08-28 12:44:00 Completed [facility] FluAD FluAD 2020-08-28 12:44:00 Completed [facility] FluAD FluAD 2020-08-28 12:44:00 Completed [facility] FluAD FluAD 2020-08-28 12:44:00 Completed [facility] FluAD FluAD 2020-08-28 12:44:00 Completed [facility] FluAD FluAD 2020-08-28 12:44:00 Completed [facility] FluAD FluAD 2020-08-28 12:44:00 Completed [facility] FluAD FluAD 2020-08-28 12:44:00 Completed [facility] FluAD FluAD 2020-08-28 12:44:00 Completed [facility] FluAD FluAD 2020-08-28 12:44:00 Completed [facility] FluAD FluAD 2020-08-28 12:44:00 Completed [facility] FluAD FluAD 2020-08-28 12:44:00 Completed [facility] FluAD FluAD 2020-08-28 12:44:00 Completed [facility] FluAD FluAD 2020-08-28 12:44:00 Completed [facility] FluAD FluAD 2020-08-28 12:44:00 Completed [facility] FluAD FluAD 2020-08-28 12:44:00 Completed [facility] FluAD FluAD 2020-08-28 12:44:00 Completed [facility] FluAD FluAD 2020-08-28 12:44:00 Completed [facility] FluAD FluAD 2019-08-28 12:29:00 Completed [facility] FluAD FluAD 2019-08-28 12:29:00 Completed [facility] FluAD FluAD 2019-08-28 12:29:00 Completed [facility] FluAD FluAD 2019-08-28 12:29:00 Completed [facility] FluAD FluAD 2019-08-28 12:29:00 Completed [facility] FluAD FluAD 2019-08-28 12:29:00 Completed [facility] FluAD FluAD 2019-08-28 12:29:00 Completed [facility] FluAD FluAD 2019-08-28 12:29:00 Completed [facility] FluAD FluAD 2019-08-28 12:29:00 Completed [facility] FluAD FluAD 2019-08-28 12:29:00 Completed [facility] FluAD FluAD 2019-08-28 12:29:00 Completed [facility] FluAD FluAD 2019-08-28 12:29:00 Completed [facility] FluAD FluAD 2019-08-28 12:29:00 Completed [facility] FluAD FluAD 2019-08-28 12:29:00 Completed [facility] FluAD FluAD 2019-08-28 12:29:00 Completed [facility] FluAD FluAD 2019-08-28 12:29:00 Completed [facility] FluAD FluAD 2019-08-28 12:29:00 Completed [facility] FluAD FluAD 2019-08-28 12:29:00 Completed [facility] FluAD FluAD 2019-08-28 12:29:00 Completed [facility] FluAD FluAD 2019-08-28 12:29:00 Completed [facility] FluAD FluAD 2019-08-28 12:29:00 Completed [facility] FluAD FluAD 2019-08-28 12:29:00 Completed [facility] FluAD FluAD 2019-08-28 12:29:00 Completed [facility] FluAD FluAD 2019-08-28 12:29:00 Completed [facility] FluAD FluAD 2019-08-28 12:29:00 Completed [facility] FluAD FluAD 2019-08-28 00:00:00 Completed [facility] FluAD FluAD 2018-09-04 11:52:00 Completed [facility] FluAD FluAD 2018-09-04 11:52:00 Completed [facility] FluAD FluAD 2018-09-04 11:52:00 Completed [facility] FluAD FluAD 2018-09-04 11:52:00 Completed [facility] FluAD FluAD 2018-09-04 11:52:00 Completed [facility] FluAD FluAD 2018-09-04 11:52:00 Completed [facility] FluAD FluAD 2018-09-04 11:52:00 Completed [facility] FluAD FluAD 2018-09-04 11:52:00 Completed [facility] FluAD FluAD 2018-09-04 11:52:00 Completed [facility] FluAD FluAD 2018-09-04 11:52:00 Completed [facility] FluAD FluAD 2018-09-04 11:52:00 Completed [facility] FluAD FluAD 2018-09-04 11:52:00 Completed [facility] FluAD FluAD 2018-09-04 11:52:00 Completed [facility] FluAD FluAD 2018-09-04 11:52:00 Completed [facility] FluAD FluAD 2018-09-04 11:52:00 Completed [facility] FluAD FluAD 2018-09-04 11:52:00 Completed [facility] FluAD FluAD 2018-09-04 11:52:00 Completed [facility] FluAD FluAD 2018-09-04 11:52:00 Completed [facility] FluAD FluAD 2018-09-04 11:52:00 Completed [facility] FluAD FluAD 2018-09-04 11:52:00 Completed [facility] FluAD FluAD 2018-09-04 11:52:00 Completed [facility] FluAD FluAD 2018-09-04 11:52:00 Completed [facility] FluAD FluAD 2018-09-04 11:52:00 Completed [facility] FluAD FluAD 2018-09-04 11:52:00 Completed [facility] FluAD FluAD 2018-09-04 11:52:00 Completed [facility] FluAD FluAD 2018-09-04 00:00:00 Completed [facility] FLUZONE HIGH DOSE OVER 65 FLUZONE HIGH DOSE OVER 65 Unknown Completed [facility] FluAD Quad SD FluAD Quad SD Unknown Completed [facility] Flu[facility] FluAD Unknown [facility]pleted [facility] FluAD FluAD Unknown Completed [facility] FluAD FluAD Unknown Completed [facility] FLUZONE HIGH DOSE OVER 65 FLUZONE HIGH DOSE OVER 65 Unknown Completed [facility] FLUZONE HIGH DOSE OVER 65 FLUZONE HIGH DOSE OVER 65 Unknown Completed [facility] FluAD Quad [place] FluAD Quad SD Unknown Completed [facility] FluAD FluAD Unknown [facility]pleted [facility] FluAD FluAD Unknown Completed [facility] FluAD FluAD Unknown Completed [facility] FLUZONE HIGH DOSE OVER 65 FLUZONE HIGH DOSE OVER 65 Unknown Completed [facility] FLUZONE HIGH DOSE OVER 65 FLUZONE HIGH DOSE OVER 65 Unknown Completed [facility] FluAD [place] FluAD Quad [place] Unknown Completed [facility] FluAD FluAD Unknown Completed [facility] FluAD FluAD Unknown Completed [facility] FluAD FluAD Unknown Completed [facility] FLUZONE HIGH DOSE OVER 65 FLUZONE HIGH DOSE OVER 65 Unknown Completed [facility] FLUZONE HIGH DOSE OVER 65 FLUZONE HIGH DOSE OVER 65 Unknown Completed [facility] FluAD [place] FluAD Quad [place] Unknown Completed [facility] FluAD FluAD Unknown Completed [facility] FluAD FluAD Unknown Completed [facility] FluAD FluAD Unknown Completed [facility] FLUZONE HIGH DOSE OVER 65 FLUZONE HIGH DOSE OVER 65 Unknown Completed [facility] FLUZONE HIGH DOSE OVER 65 FLUZONE HIGH DOSE OVER 65 Unknown Completed [facility] FluAD [place] FluAD [place] Unknown Completed [facility] FluAD FluAD Unknown Completed [facility] FluAD FluAD Unknown Completed [facility] FluAD FluAD Unknown Completed [facility] FLUZONE HIGH DOSE OVER 65 FLUZONE HIGH DOSE OVER 65 Unknown Completed [facility] FLUZONE HIGH DOSE OVER 65 FLUZONE HIGH DOSE OVER 65 Unknown Completed [facility] FluAD [place] FluAD [place] Unknown Completed [facility] FluAD FluAD Unknown Completed [facility] FluAD FluAD Unknown Completed [facility] FluAD FluAD Unknown Completed [facility] FLUZONE HIGH DOSE OVER 65 FLUZONE HIGH DOSE OVER 65 Unknown Completed [facility] FLUZONE HIGH DOSE OVER 65 FLUZONE HIGH DOSE OVER 65 Unknown Completed [facility] FluAD [place] FluAD [place] Unknown Completed [facility] FluAD FluAD Unknown Completed [facility] FluAD FluAD Unknown Completed [facility] FluAD FluAD Unknown Completed [facility] FLUZONE HIGH DOSE OVER 65 FLUZONE HIGH DOSE OVER 65 Unknown Completed [facility] FLUZONE HIGH DOSE OVER 65 FLUZONE HIGH DOSE OVER 65 Unknown Completed [facility] FluAD Quad [place] FluAD Quad [place] Unknown Completed [facility] FluAD FluAD Unknown Completed [facility] FluAD FluAD Unknown Completed [facility] FluAD FluAD Unknown Completed [facility] FLUZONE HIGH DOSE OVER 65 FLUZONE HIGH DOSE OVER 65 Unknown Completed [facility] FLUZONE HIGH DOSE OVER 65 FLUZONE HIGH DOSE OVER 65 Unknown Completed [facility] Fluad (aIIV4) - SDS - 0.5mL Fluad (aIIV4) - SDS - 0.5mL Unknown Completed [facility] FluAD FluAD Unknown Completed [facility] FluAD FluAD Unknown Completed [facility] FluAD FluAD Unknown Completed [facility] FLUZONE HIGH DOSE OVER 65 FLUZONE HIGH DOSE OVER 65 Unknown Completed [facility] FLUZONE HIGH DOSE OVER 65 FLUZONE HIGH DOSE OVER 65 Unknown Completed [facility] Fluad (aIIV4) - SDS - 0.5mL Fluad (aIIV4) - SDS - 0.5mL Unknown Completed [facility] FluAD FluAD Unknown Completed [facility] FluAD FluAD Unknown Completed [facility] FluAD FluAD Unknown Completed [facility] FLUZONE HIGH DOSE OVER 65 FLUZONE HIGH DOSE OVER 65 Unknown Completed [facility] FLUZONE HIGH DOSE OVER 65 FLUZONE HIGH DOSE OVER 65 Unknown Completed [facility] [facility] [place] Flu[facility] (aIIV4) - SDS - 0.5mL Fluad (aIIV4) - SDS - 0.5mL Unknown Completed [facility] [place] Flu[facility] FluAD Unknown Completed [facility] [place] FluAD FluAD Unknown Completed [facility] [place] Flu[facility] FluAD Unknown Completed [facility] [place] FLUZONE HIGH DOSE OVER 65 FLUZONE HIGH DOSE OVER 65 Unknown Completed [facility] [place] FLUZONE HIGH DOSE OVER 65 FLUZONE HIGH DOSE OVER 65 Unknown Completed [facility] [place] Fluad (aIIV4) - SDS - 0.5mL Fluad (aIIV4) - SDS - 0.5mL Unknown Completed [facility] [place] FluAD FluAD Unknown Completed [facility] [place] FluAD FluAD Unknown Completed [facility] [place] FluAD FluAD Unknown Completed [facility] [place] FLUZONE HIGH DOSE OVER 65 FLUZONE HIGH DOSE OVER 65 Unknown Completed [facility] [place] FLUZONE HIGH DOSE OVER 65 FLUZONE HIGH DOSE OVER 65 Unknown Completed [facility] [place] Fluad (aIIV4) - SDS - 0.5mL Fluad (aIIV4) - SDS - 0.5mL Unknown Completed [facility] [place] Flu[facility] FluAD Unknown Completed [facility] [place] FluAD FluAD Unknown Completed [facility] [place] FluAD FluAD Unknown Completed [facility] [place] FLUZONE HIGH DOSE OVER 65 FLUZONE HIGH DOSE OVER 65 Unknown Completed [facility] [place] FLUZONE HIGH DOSE OVER 65 FLUZONE HIGH DOSE OVER 65 Unknown Completed [facility] [place] Fluad (aIIV4) - SDS - 0.5mL Fluad (aIIV4) - SDS - 0.5mL Unknown Completed [facility] [place] FluAD FluAD Unknown Completed [facility] [place] FluAD FluAD Unknown Completed [facility] [place] FluAD FluAD Unknown Completed [facility] [place] FLUZONE HIGH DOSE OVER 65 FLUZONE HIGH DOSE OVER 65 Unknown Completed [facility] [place] FLUZONE HIGH DOSE OVER 65 FLUZONE HIGH DOSE OVER 65 Unknown Completed [facility] [place] Fluad (aIIV4) - SDS - 0.5mL Fluad (aIIV4) - SDS - 0.5mL Unknown Completed [facility] [place] FluAD FluAD Unknown Completed [facility] [place] FluAD FluAD Unknown Completed [facility] [place] FluAD FluAD Unknown Completed [facility] [place] FLUZONE HIGH DOSE OVER 65 FLUZONE HIGH DOSE OVER 65 Unknown Completed [facility] [place] FLUZONE HIGH DOSE OVER 65 FLUZONE HIGH DOSE OVER 65 Unknown Completed [facility] [place] Fluad (aIIV4) - SDS - 0.5mL Fluad (aIIV4) - SDS - 0.5mL Unknown Completed [facility] [place] FluAD FluAD Unknown Completed [facility] [place] FluAD FluAD Unknown Completed [facility] [place] FluAD FluAD Unknown Completed [facility] [place] FLUZONE HIGH DOSE OVER 65 FLUZONE HIGH DOSE OVER 65 Unknown Completed [facility] [place] FLUZONE HIGH DOSE OVER 65 FLUZONE HIGH DOSE OVER 65 Unknown Completed [facility] [place] Fluad (aIIV4) - SDS - 0.5mL Fluad (aIIV4) - SDS - 0.5mL Unknown Completed [facility] [place] FluAD FluAD Unknown Completed [facility] [place] FluAD FluAD Unknown Completed [facility] [place] FluAD FluAD Unknown Completed [facility] [place] FLUZONE HIGH DOSE OVER 65 FLUZONE HIGH DOSE OVER 65 Unknown Completed [facility] [place] FLUZONE HIGH DOSE OVER 65 FLUZONE HIGH DOSE OVER 65 Unknown Completed [facility] [place] Fluad (aIIV4) - SDS - 0.5mL Fluad (aIIV4) - SDS - 0.5mL Unknown Completed [facility] [place] FluAD FluAD Unknown Completed [facility] [place] FluAD FluAD Unknown Completed [facility] [place] FluAD FluAD Unknown Completed [facility] [place] FLUZONE HIGH DOSE OVER 65 FLUZONE HIGH DOSE OVER 65 Unknown Completed [facility] [place] FLUZONE HIGH DOSE OVER 65 FLUZONE HIGH DOSE OVER 65 Unknown Completed [facility] [place] Fluad (aIIV4) - SDS - 0.5mL Fluad (aIIV4) - SDS - 0.5mL Unknown Completed [facility] [place] FluAD FluAD Unknown Completed [facility] [place] FluAD FluAD Unknown Completed [facility] [place] FluAD FluAD Unknown Completed [facility] [place] FLUZONE HIGH DOSE OVER 65 FLUZONE HIGH DOSE OVER 65 Unknown Completed [facility] [place] FLUZONE HIGH DOSE OVER 65 FLUZONE HIGH DOSE OVER 65 Unknown Completed [facility] [place] Fluad (aIIV4) - SDS - 0.5mL Fluad (aIIV4) - SDS - 0.5mL Unknown Completed [facility] [place] FluAD FluAD Unknown Completed [facility] [place] FluAD FluAD Unknown Completed [facility] [place] FluAD FluAD Unknown Completed [facility] [place] FLUZONE HIGH DOSE OVER 65 FLUZONE HIGH DOSE OVER 65 Unknown Completed [facility] [place] FLUZONE HIGH DOSE OVER 65 FLUZONE HIGH DOSE OVER 65 Unknown Completed [facility] [place] Fluad (aIIV4) - SDS - 0.5mL Fluad (aIIV4) - SDS - 0.5mL Unknown Completed [facility] [place] FluAD FluAD Unknown Completed [facility] [place] FluAD FluAD Unknown Completed [facility] [place] FluAD FluAD Unknown Completed [facility] [place] FLUZONE HIGH DOSE OVER 65 FLUZONE HIGH DOSE OVER 65 Unknown Completed [facility] [place] FLUZONE HIGH DOSE OVER 65 FLUZONE HIGH DOSE OVER 65 Unknown Completed [facility] [place] FluAD Quad SD FluAD Quad SD Unknown Completed [facility] FluAD FluAD Unknown Completed [facility] [place] FluAD FluAD Unknown Completed [facility] [place] FluAD FluAD Unknown Completed [facility] [place] FLUZONE HIGH DOSE OVER 65 FLUZONE HIGH DOSE OVER 65 Unknown Completed [facility] [place] FLUZONE HIGH DOSE OVER 65 FLUZONE HIGH DOSE OVER 65 Unknown Completed [facility] [place] FluAD Quad SD FluAD Quad SD Unknown Completed [facility] FluAD FluAD Unknown Completed [facility] [place] FluAD FluAD Unknown Completed [facility] [place] FluAD FluAD Unknown Completed [facility] [place] FLUZONE HIGH DOSE OVER 65 FLUZONE HIGH DOSE OVER 65 Unknown Completed [facility] [place] FLUZONE HIGH DOSE OVER 65 FLUZONE HIGH DOSE OVER 65 Unknown Completed [facility] [place] FluAD Quad SD FluAD Quad SD Unknown Completed [facility] FluAD FluAD Unknown Completed [facility] [place] FluAD FluAD Unknown Completed [facility] [place] FluAD FluAD Unknown Completed [facility] [place] FLUZONE HIGH DOSE OVER 65 FLUZONE HIGH DOSE OVER 65 Unknown Completed [facility] [place] FLUZONE HIGH DOSE OVER 65 FLUZONE HIGH DOSE OVER 65 Unknown Completed [facility] [place] FluAD Quad SD FluAD Quad SD Unknown Completed [facility] FluAD FluAD Unknown Completed [facility] FluAD FluAD Unknown Completed [facility] FluAD FluAD Unknown Completed [facility] [place] FLUZONE HIGH DOSE OVER 65 FLUZONE HIGH DOSE OVER 65 Unknown Completed [facility] [place] Vital Signs Vital Name Observation Time Observation Value Comments S brielle height 2024-05-02 14:00:00 65.50 [in_i] Com [facility] weight 2024-05-02 14:00:00 143.8 [lb_av] Co [facility] temperature 2024-05-02 14:00:00 97.4 [degF] Com [facility] bmi 2024-05-02 14:00:00 23.56 kg/m2 [facility] oximetry 2024-05-02 14:00:00 97 % [facility] respiratory rate 2024-05-02 14:00:00 16 /min [facility] blood pressure systolic 2024-05-02 14:00:00 134 mm[Hg] [facility] blood pressure diastolic 2024-05-02 14:00:00 78 mm[Hg] [facility] Systolic blood pressure 2024-04-28 22:48:00 132 mm[Hg] [facility] Diastolic blood pressure 2024-04-28 22:48:00 76 mm[Hg] [facility] Heart rate 2024-04-28 22:48:00 73 /min [facility] Body temperature 2024-04-28 22:48:[address] [facility] Respiratory rate 2024-04-28 22:48:00 15 /min [facility] Oxygen saturation in Arterial blood by Pulse oximetry 2024-04-28 22:48:00 99 /min [facility] Body height 2024-04-28 21:18:00 167.6 cm [facility] Body weight 2024-04-28 21:18:00 65.772 kg [facility] BMI 2024-04-28 21:18:00 23.40 kg/m2 [facility] height 2024-04-24 10:30:00 65.50 [in_i] Com [facility] weight 2024-04-24 10:30:00 141.6 [lb_av] [facility] temperature 2024-04-24 10:30:00 97.5 [degF] Com [facility] bmi 2024-04-24 10:30:00 23.2 kg/m2 [facility] oximetry 2024-04-24 10:30:00 94 % [facility] respiratory rate 2024-04-24 10:30:00 18 /min [facility] blood pressure systolic 2024-04-24 10:30:00 122 mm[Hg] [facility] blood pressure diastolic 2024-04-24 10:30:00 61 mm[Hg] Common [facility] height 2024-04-18 11:00:00 65.50 [in_i] Com [facility] weight 2024-04-18 11:00:00 145 [lb_av] [facility] temperature 2024-04-18 11:00:00 97.2 [degF] Com [facility] bmi 2024-04-18 11:00:00 23.76 kg/m2 [facility] oximetry 2024-04-18 11:00:00 99 % [facility] respiratory rate 2024-04-18 11:00:00 16 /min [facility] blood pressure systolic 2024-04-18 11:00:00 95 mm[Hg] [facility] blood pressure diastolic 2024-04-18 11:00:00 49 mm[Hg] [facility] height 2024-04-03 10:45:00 65.50 [in_i] Com [facility] weight 2024-04-03 10:45:00 146.8 [lb_av] [facility] temperature 2024-04-03 10:45:00 98.6 [degF] Com [facility] bmi 2024-04-03 10:45:00 24.05 kg/m2 [facility] oximetry 2024-04-03 10:45:00 96 % [facility] respiratory rate 2024-04-03 10:45:00 18 /min [facility] blood pressure systolic 2024-04-03 10:45:00 158 mm[Hg] Common [facility] blood pressure diastolic 2024-04-03 10:45:00 92 mm[Hg] [facility] height 2024-01-12 10:40:00 65.50 [in_i] Com [facility] weight 2024-01-12 10:40:00 154 [lb_av] [facility] temperature 2024-01-12 10:40:00 97.0 [degF] Com [facility] bmi 2024-01-12 10:40:00 25.23 kg/m2 [facility] oximetry 2024-01-12 10:40:00 97 % [facility] respiratory rate 2024-01-12 10:40:00 16 /min [facility] blood pressure systolic 2024-01-12 10:40:00 139 mm[Hg] [facility] blood pressure diastolic 2024-01-12 10:40:00 76 mm[Hg] [facility] height 2024-01-12 10:40:00 65.50 [in_i] Com [facility] weight 2024-01-12 10:40:00 154 [lb_av] [facility] temperature 2024-01-12 10:40:00 97.0 [degF] Com [facility] bmi 2024-01-12 10:40:00 25.23 kg/m2 [facility] oximetry 2024-01-12 10:40:00 97 % [facility] respiratory rate 2024-01-12 10:40:00 16 /min [facility] blood pressure systolic 2024-01-12 10:40:00 139 mm[Hg] [facility] blood pressure diastolic 2024-01-12 10:40:00 76 mm[Hg] [facility] height 2023-09-29 10:40:00 65.50 [in_i] Com [facility] weight 2023-09-29 10:40:00 154.8 [lb_av] [facility] 2023-09-29 10:40:00 97.7 [degF] Com [facility] bmi 2023-09-29 10:40:00 25.37 kg/m2 [facility] oximetry 2023-09-29 10:40:00 98 % [facility] respiratory rate 2023-09-29 10:40:00 16 /min [facility] blood pressure systolic 2023-09-29 10:40:00 134 mm[Hg] [facility] blood pressure diastolic 2023-09-29 10:40:00 78 mm[Hg] [facility] height 2023-09-05 10:40:00 65.50 [in_i] Com [facility] weight 2023-09-05 10:40:00 158.2 [lb_av] [facility] temperature 2023-09-05 10:40:00 97.6 [degF] Com [facility] bmi 2023-09-05 10:40:00 25.92 kg/m2 [facility] oximetry 2023-09-05 10:40:00 97 % [facility] respiratory rate 2023-09-05 10:40:00 16 /min [facility] blood pressure systolic 2023-09-05 10:40:00 120 mm[Hg] [facility] blood pressure diastolic 2023-09-05 10:40:00 78 mm[Hg] [facility] height 2023-07-17 10:40:00 65.50 [in_i] Com [facility] weight 2023-07-17 10:40:00 155.6 [lb_av] Co [facility] temperature 2023-07-17 10:40:00 97.9 [degF] Com [facility] bmi 2023-07-17 10:40:00 25.5 kg/m2 [facility] oximetry 2023-07-17 10:40:00 95 % [facility] respiratory rate 2023-07-17 10:40:00 17 /min [facility] blood pressure systolic 2023-07-17 10:40:00 138 mm[Hg] [facility] blood pressure diastolic 2023-07-17 10:40:00 76 mm[Hg] [facility] height 2023-05-18 11:20:00 65.50 [in_i] Com [facility] weight 2023-05-18 11:20:00 156.4 [lb_av] Co [facility] temperature 2023-05-18 11:20:00 98.0 [degF] Com [facility] bmi 2023-05-18 11:20:00 25.63 kg/m2 [facility] oximetry 2023-05-18 11:20:00 98 % [facility] respiratory rate 2023-05-18 11:20:00 16 /min [facility] blood pressure systolic 2023-05-18 11:20:00 149 mm[Hg] [facility] blood pressure diastolic 2023-05-18 11:20:00 77 mm[Hg] [facility] height 2023-04-12 13:00:00 65.50 [in_i] Com [facility] weight 2023-04-12 13:00:00 150.0 [lb_av] [facility] temperature 2023-04-12 13:00:00 97.9 [degF] Com [facility] bmi 2023-04-12 13:00:00 24.58 kg/m2 [facility] oximetry 2023-04-12 13:00:00 97 % [facility] respiratory rate 2023-04-12 13:00:00 16 /min [facility] [place] blood pressure systolic 2023-04-12 13:00:00 163 mm[Hg] [facility] blood pressure diastolic 2023-04-12 13:00:00 82 mm[Hg] [facility] height 2023-03-13 10:40:00 65.50 [in_i] Com [facility] weight 2023-03-13 10:40:00 148 [lb_av] [facility] temperature 2023-03-13 10:40:00 97.8 [degF] Com [facility] bmi 2023-03-13 10:40:00 24.25 kg/m2 [facility] oximetry 2023-03-13 10:40:00 98 % [facility] respiratory rate 2023-03-13 10:40:00 17 /min [facility] blood pressure systolic 2023-03-13 10:40:00 132 mm[Hg] Common [facility] blood pressure diastolic 2023-03-13 10:40:00 76 mm[Hg] [facility] height 2023-02-27 11:00:00 65.50 [in_i] Com [facility] weight 2023-02-27 11:00:00 148.2 [lb_av] [facility] temperature 2023-02-27 11:00:00 98.4 [degF] Com [facility] bmi 2023-02-27 11:00:00 24.28 kg/m2 [facility] oximetry 2023-02-27 11:00:00 98 % [facility] respiratory rate 2023-02-27 11:00:00 17 /min [facility] blood pressure systolic 2023-02-27 11:00:00 146 mm[Hg] [facility] blood pressure diastolic 2023-02-27 11:00:00 82 mm[Hg] [facility] height 2023-02-10 11:00:00 65.50 [in_i] Com [facility] weight 2023-02-10 11:00:00 148.2 [lb_av] Co [facility] temperature 2023-02-10 11:00:00 98.4 [degF] Com [facility] bmi 2023-02-10 11:00:00 24.28 kg/m2 [facility] oximetry 2023-02-10 11:00:00 97 % [facility] respiratory rate 2023-02-10 11:00:00 16 /min [facility] blood pressure systolic 2023-02-10 11:00:00 162 mm[Hg] [facility] blood pressure diastolic 2023-02-10 11:00:00 86 mm[Hg] [facility] height 2023-01-11 11:00:00 65.50 [in_i] Com [facility] weight 2023-01-11 11:00:00 158 [lb_av] [facility] temperature 2023-01-11 11:00:00 98.2 [degF] Com [facility] bmi 2023-01-11 11:00:00 25.89 kg/m2 [facility] oximetry 2023-01-11 11:00:00 98 % [facility] respiratory rate 2023-01-11 11:00:00 17 /min [facility] blood pressure systolic 2023-01-11 11:00:00 160 mm[Hg] [facility] blood pressure diastolic 2023-01-11 11:00:00 94 mm[Hg] [facility] height 2023-01-11 11:00:00 65.50 [in_i] Com [facility] weight 2023-01-11 11:00:00 158 [lb_av] [facility] temperature 2023-01-11 11:00:00 98.2 [degF] Com [facility] bmi 2023-01-11 11:00:00 25.89 kg/m2 [facility] oximetry 2023-01-11 11:00:00 98 % [facility] respiratory rate 2023-01-11 11:00:00 17 /min [facility] blood pressure systolic 2023-01-11 11:00:00 148 mm[Hg] [facility] blood pressure diastolic 2023-01-11 11:00:00 100 mm[Hg] [facility] height 2022-12-06 13:20:00 65.50 [in_i] Com [facility] weight 2022-12-06 13:20:00 156.2 [lb_av] [facility] temperature 2022-12-06 13:20:00 97.7 [degF] Com [facility] bmi 2022-12-06 13:20:00 25.59 kg/m2 [facility] oximetry 2022-12-06 13:20:00 97 % [facility] respiratory rate 2022-12-06 13:20:00 16 /min [facility] blood pressure systolic 2022-12-06 13:20:00 138 mm[Hg] [facility] blood pressure diastolic 2022-12-06 13:20:00 86 mm[Hg] [facility] height 2022-06-27 10:40:00 65.50 [in_i] Com [facility] weight 2022-06-27 10:40:00 152.6 [lb_av] Co [facility] temperature 2022-06-27 10:40:00 98.1 [degF] Com [facility] bmi 2022-06-27 10:40:00 25.01 kg/m2 [facility] oximetry 2022-06-27 10:40:00 99 % [facility] respiratory rate 2022-06-27 10:40:00 16 /min [facility] blood pressure systolic 2022-06-27 10:40:00 132 mm[Hg] [facility] blood pressure diastolic 2022-06-27 10:40:00 74 mm[Hg] [facility] height 2022-01-27 11:20:00 65.50 [in_i] Com [facility] weight 2022-01-27 11:20:00 153.2 [lb_av] Co [facility] temperature 2022-01-27 11:20:00 98.0 [degF] Com [facility] bmi 2022-01-27 11:20:00 25.10 kg/m2 [facility] oximetry 2022-01-27 11:20:00 98 % [facility] respiratory rate 2022-01-27 11:20:00 16 /min [facility] blood pressure systolic 2022-01-27 11:20:00 130 mm[Hg] [facility] blood pressure diastolic 2022-01-27 11:20:00 50 mm[Hg] [facility] height 2021-09-27 11:20:00 65.50 [in_i] Com [facility] weight 2021-09-27 11:20:00 156 [lb_av] [facility] temperature 2021-09-27 11:20:00 97.7 [degF] Com [facility] bmi 2021-09-27 11:20:00 25.56 kg/m2 [facility] oximetry 2021-09-27 11:20:00 98 % [facility] blood pressure systolic 2021-09-27 11:20:00 131 mm[Hg] [facility] blood pressure diastolic 2021-09-27 11:20:00 67 mm[Hg] [facility] height 2021-09-10 15:30:00 65.50 [in_i] Com [facility] weight 2021-09-10 15:30:00 155.6 [lb_av] [facility] temperature 2021-09-10 15:30:00 97.4 [degF] Com [facility] bmi 2021-09-10 15:30:00 25.5 kg/m2 [facility] oximetry 2021-09-10 15:30:00 97 % [facility] respiratory rate 2021-09-10 15:30:00 17 /min [facility] blood pressure systolic 2021-09-10 15:30:00 142 mm[Hg] [facility] blood pressure diastolic 2021-09-10 15:30:00 70 mm[Hg] [facility] Procedures Procedure Date / Time Performed Performing Clinicia n Source EKG-12 LEAD 2024-04-28 22:46:31 Candace Bacon [facility] PHOSPHORUS 2024-04-28 21:37:00 Candace Bacon [facility] MAGNESIUM 2024-04-28 21:37:00 Candace Bacon [facility] COMP. METABOLIC PANEL ([id number]) 2024-04-28 21:37:[address] [facility] CBC WITH DIFF 2024-04-28 21:37:[address] [facility] URINALYSIS 2024-04-28 21:37:00 Candace Bacon [facility] PVR 2024-04-03 00:00:00 [facility] Encounters Start Date/Time End Date/Time Encounter Type Admission Type Attending Clinicians Care Facility Care Department Encounter ID Source 2024-04-03 09:52:00 Outpatient Sophie George [facility] [id number] [facility] 2024-02-15 13:02:00 Outpatient Sophie George [facility] [id number] [facility] 2024-01-10 07:45:00 Outpatient Sophie George [facility] [id number] [facility] 2023-11-06 14:39:00 Outpatient Sophie George [facility] [id number] [facility] 2023-09-27 11:04:00 Outpatient Sophie George [facility] [id number] [facility] 2023-08-29 10:16:00 Outpatient GeorgeMarii [facility] [id number] [facility] 2023-08-23 10:50:00 Outpatient George, Sophie [facility] [id number] [facility] 2023-07-13 11:00:00 Outpatient GeorgeMarii [facility] [id number] [facility] 2023-05-17 08:16:00 Outpatient George Sophie [facility] [id number] [facility] 2023-04-10 09:55:00 Outpatient GeorgeMarii [facility] [id number] [facility] 2023-02-09 08:45:00 Outpatient George Sophie [facility] [id number] [facility] 2022-12-06 07:23:00 Outpatient GeorgeMarii [facility] [id number] [facility] 2022-11-11 12:35:00 Outpatient GeorgeMarii [facility] [id number] [facility] 2022-06-29 16:05:00 Outpatient Garcia, Na [facility]C [facility] [id number] [facility] 2022-06-23 08:50:00 Outpatient Garcia, Na [facility] [id number] [facility] 2022-01-26 11:55:00 Outpatient Garcia, Na [facility] [id number] [facility] 2021-11-03 14:26:21 Outpatient Garcia, Na [facility] [id number] [facility] [facility] 2021-11-03 14:25:50 Outpatient Garcia, Na STLMLC STLMLC [id number] [id number] [facility] 2021-11-03 13:45:16 Outpatient Garcia, Na STLMLC STLMLC [id number] 2 85627 [facility] 2021-11-03 12:47:50 Outpatient Garcia, Na STLMLC STLMLC [id number] 2 67474 [facility] 2021-11-03 12:46:26 Outpatient Garcia, Na STLMLC STLMLC [id number] 28673 [facility] 2021-11-03 12:44:49 Outpatient Garcia, Na STLMLC STLMLC [id number] [id number] [facility] 2021-11-03 11:31:40 Outpatient Jose, Na STLMLC STLMLC [id number] 73688 [facility] 2021-11-03 11:21:24 Outpatient Jose, Na STLMLC STLMLC [id number] 96660 [facility] 2021-11-03 11:16:33 Outpatient Garcia, Na STLMLC STLMLC [id number] 67438 [facility] 2021-11-03 11:16:05 Outpatient Jose Na STLMLC STLMLC [id number] 87729 [facility] 2021-11-03 11:06:47 Outpatient Jose Na STLMLC STLMLC [id number] 95741 [facility] 2024-05-02 00:00:00 2024-05-02 00:00:00 OFFICE VISIT ESTAB PT LEVEL 5 STLMLC STLMLC [id number] [facility] 2024-04-28 16:21:00 2024-04-28 17:56:00 Emergency Candace Bacon Pan [facility] [id number] [facility] 2024-04-28 16:21:00 2024-04-28 17:56:00 Emergency X AMINA, CANDACE SHAYLAML, CANDACE [facility] [id number] [facility] 2024-04-27 00:00:00 2024-04-27 00:00:00 (TEL) STLMLC STLMLC [id number] [facility] 2024-04-25 00:00:00 2024-04-25 00:00:00 (TEL) STLMLC STLMLC [id number] [facility] 2024-04-24 00:00:00 2024-04-24 00:00:00 OFFICE VISIT ESTAB PT LEVEL 3 STLMLC STLMLC [id number] [facility] 2024-04-18 00:00:00 2024-04-18 00:00:00 OFFICE VISIT ESTAB PT LEVEL 5 STLMLC STLMLC [id number] [facility] 2024-04-17 00:00:00 2024-04-17 00:00:00 (TEL) STLMLC STLMLC [id number] [facility] 2024-04-03 00:00:00 2024-04-03 00:00:00 OFFICE VISIT NEW PT LEVEL 4 STLMLC STLMLC [id number] [facility] 2024-03-25 00:00:00 2024-03-25 00:00:00 (TEL) STLMLC STLMLC [id number] [facility] 2024-01-31 00:00:00 2024-01-31 00:00:00 (TEL) STLMLC STLMLC [id number] [facility] 2024-01-12 00:00:00 2024-01-12 00:00:00 OFFICE VISIT ESTAB PT LEVEL 4 STLMLC STLMLC [id number] [facility] 2024-01-12 00:00:00 2024-01-12 00:00:00 SUB ANNUAL [facility] VISIT STLMLC STLMLC [id number] [facility] 2024-01-08 00:00:00 2024-01-08 00:00:00 (TEL) STLMLC STLMLC [id number] [facility] 2023-11-06 00:00:00 2023-11-06 00:00:00 (TEL) STLMLC STLMLC [id number] [facility] 2023-10-16 00:00:00 2023-10-16 00:00:00 (TEL) STLMLC STLMLC [id number] [facility] 2023-09-29 00:00:00 2023-09-29 00:00:00 OFFICE VISIT ESTAB PT LEVEL 4 STLMLC STLMLC [id number] [facility] 2023-09-05 00:00:00 2023-09-05 00:00:00 OFFICE VISIT ESTAB PT LEVEL 4 STLMLC STLMLC [id number] [facility] 2023-07-17 00:00:00 2023-07-17 00:00:00 OFFICE VISIT ESTAB PT LEVEL 4 STLMLC STLMLC [id number] [facility] 2023-07-12 00:00:00 2023-07-12 00:00:00 (TEL) STLMLC STLMLC [id number] [facility] 2023-05-24 00:00:00 2023-05-24 00:00:00 (TEL) STLMLC STLMLC [id number] [facility] 2023-05-18 00:00:00 2023-05-18 00:00:00 OFFICE VISIT ESTAB PT LEVEL 3 STLMLC STLMLC [id number] [facility] 2023-05-08 00:00:00 2023-05-08 00:00:00 (TEL) STLMLC STLMLC [id number] [facility] 2023-04-21 00:00:00 2023-04-21 00:00:00 (TEL) STLMLC STLMLC [id number] [facility] 2023-04-12 00:00:00 2023-04-12 00:00:00 OFFICE VISIT ESTAB PT LEVEL 4 STLMLC STLMLC [id number] [facility] 2023-03-13 00:00:00 2023-03-13 00:00:00 OFFICE VISIT ESTAB PT LEVEL 2 STLMLC STLMLC [id number] [facility] 2023-03-09 00:00:00 2023-03-09 00:00:00 (TEL) STLMLC STLMLC [id number] [facility] 2023-02-27 00:00:00 2023-02-27 00:00:00 OFFICE VISIT ESTAB PT LEVEL 2 STLMLC STLMLC [id number] [facility] 2023-02-10 00:00:00 2023-02-10 00:00:00 Outpatient DMG [facility] [id number] [facility] 2023-02-10 00:00:00 2023-02-10 00:00:00 OFFICE VISIT ESTAB PT LEVEL 4 STLMLC STLMLC [id number] [facility] 2023-01-11 00:00:00 2023-01-11 00:00:00 OFFICE VISIT ESTAB PT LEVEL 4 STLMLC STLMLC [id number] [facility] 2023-01-11 00:00:00 2023-01-11 00:00:00 SUB ANNUAL [facility] VISIT STLMLC STLMLC [id number] [facility] 2022-12-23 00:00:00 2022-12-23 00:00:00 (TEL) STLMLC STLMLC [id number] [facility] 2022-12-19 00:00:00 2022-12-19 00:00:00 (TEL) STLMLC STLMLC [id number] [facility] 2022-12-06 00:00:00 2022-12-06 00:00:00 OFFICE VISIT ESTAB PT LEVEL 4 STLMLC STLMLC [id number] [facility] 2022-10-28 00:00:00 2022-10-28 00:00:00 (TEL) STLMLC STLMLC [id number] [facility] 2022-10-19 00:00:00 2022-10-19 00:00:00 (TEL) STLMLC STLMLC [id number] [facility] 2022-08-11 00:00:00 2022-08-11 00:00:00 (TEL) STLMLC STLMLC [id number] [facility] 2022-08-08 00:00:00 2022-08-08 00:00:00 Outpatient DMG DM [id number] [facility] 2022-07-14 00:00:00 2022-07-14 00:00:00 (TEL) STLMLC STLMLC [id number] [facility] 2022-07-07 00:00:00 2022-07-07 00:00:00 (TEL) STLMLC STLMLC [id number] [facility] 2022-06-30 00:00:00 2022-06-30 00:00:00 (TEL) STLMLC STLMLC [id number] [facility] 2022-06-28 00:00:00 2022-06-28 00:00:00 (TEL) STLMLC STLMLC [id number] [facility] 2022-06-28 00:00:00 2022-06-28 00:00:00 (TEL) STLMLC STLMLC [id number] [facility] 2022-06-27 00:00:00 2022-06-27 00:00:00 OFFICE VISIT ESTAB PT LEVEL 4 STLMLC STLMLC [id number] [facility] 2022-06-20 00:00:00 2022-06-20 00:00:00 (TEL) STLMLC STLMLC [id number] [facility] 2022-05-25 00:00:00 2022-05-25 00:00:00 (TEL) STLMLC STLMLC [id number] [facility] 2022-03-30 00:00:00 2022-03-30 00:00:00 (TEL) STLMLC STLMLC [id number] [facility] 2022-02-18 00:00:00 2022-02-18 00:00:00 (TEL) STLMLC STLMLC [id number] [facility] 2022-01-27 00:00:00 2022-01-27 00:00:00 OFFICE VISIT ESTAB PT LEVEL 4 STLMLC STLMLC [id number] [facility] 2021-10-29 00:00:00 2021-10-29 00:00:00 (TEL) STLMLC STLMLC [id number] [facility] 2021-10-14 00:00:00 2021-10-14 00:00:00 (TEL) STLMLC STLMLC [id number] [facility] 2021-09-27 00:00:00 2021-09-27 00:00:00 OFFICE VISIT ESTAB PT LEVEL 4 STLMLC STLMLC [id number] [facility] 2021-09-10 00:00:00 2021-09-10 00:00:00 OFFICE VISIT EST PT LEVEL 3 STLMLC STLMLC [id number] [facility] 2021-09-08 00:00:00 2021-09-08 00:00:00 (TEL) STLMLC STLMLC [id number] [facility] 2021-08-18 00:00:00 2021-08-18 00:00:00 (TEL) STLMLC STLMLC [id number] [facility] 2021-06-10 00:00:00 2021-06-10 00:00:00 Outpatient STLMLC STLMLC [id number] [facility] 2021-05-25 00:00:00 2021-05-25 00:00:00 Outpatient STLMLC STLMLC [id number] [facility] 2021-05-10 00:00:00 2021-05-10 00:00:00 Outpatient STLMLC STLMLC [id number] [facility] 2021-05-03 00:00:00 2021-05-03 00:00:00 Outpatient STLMLC STLMLC [id number] [facility] 2021-01-07 00:00:00 2021-01-07 00:00:00 Outpatient STLMLC STLMLC [id number] [facility] 2020-11-20 00:00:00 2020-11-20 00:00:00 Outpatient STLMLC STLMLC [id number] [facility] 2020-10-29 00:00:00 2020-10-29 00:00:00 Outpatient STLMLC STLMLC [id number] [facility] 2020-10-12 00:00:00 2020-10-12 00:00:00 Outpatient STLMLC STLMLC [id number] [facility] 2020-10-08 00:00:00 2020-10-08 00:00:00 Outpatient STLMLC STLMLC [id number] [facility] 2020-10-07 00:00:00 2020-10-07 00:00:00 Outpatient STLMLC STLMLC [id number] [facility] 2020-09-28 00:00:00 2020-09-28 00:00:00 Outpatient STLMLC STLMLC [id number] [facility] 2020-09-22 00:00:00 2020-09-22 00:00:00 Outpatient STLMLC STLMLC [id number] [facility] 2020-08-28 00:00:00 2020-08-28 00:00:00 Outpatient STLMLC STLMLC [id number] [facility] 2020-05-25 16:45:00 2020-05-25 16:45:00 Outpatient [facility] [id number] [facility] 2020-04-27 10:20:00 2020-04-27 10:20:00 [facility]patient [facility] [id number] [facility] 2020-04-14 14:47:00 2020-04-14 14:47:[address] [facility] [id number] [facility] 2020-04-02 15:47:00 2020-04-02 15:47:[address] [facility] [facility] [id number] [facility] 2020-02-13 15:02:00 2020-02-13 15:02:00 [facility] [id number] [facility] 2019-12-26 10:00:00 2019-12-26 10:00:00 [facility] [id number] [facility] 2019-12-19 09:52:00 2019-12-19 09:52:00 [facility] [id number] [facility] 2019-11-19 15:25:00 2019-11-19 15:25:00 [facility] [id number] [facility] 2019-11-18 14:24:00 2019-11-18 14:24:00 [facility] [id number] [facility] 2019-10-08 10:37:00 2019-10-08 10:37:00 [facility] [id number] [facility] 2019-08-28 10:40:00 2019-08-28 10:40:00 [facility] [id number] [facility] 2019-08-27 17:26:00 2019-08-27 17:26:00 [facility] [id number] [facility] 2019-08-22 13:33:00 2019-08-22 13:33:00 [facility] [id number] [facility] 2019-08-16 09:20:00 2019-08-16 09:20:00 [facility] [id number] [facility] 2019-06-20 11:00:00 2019-06-20 11:00:00 [facility] [id number] [facility] 2019-05-14 10:00:00 2019-05-14 10:00:00 [facility] [id number] [facility] 2019-02-20 10:22:00 2019-02-20 10:22:00 [facility] [id number] [facility] 2019-02-11 09:41:00 2019-02-11 09:41:00 [facility] [id number] [facility] 2019-01-08 09:40:00 2019-01-08 09:40:00 [facility] [id number] [facility] 2018-11-26 15:27:00 2018-11-26 15:27:00 [facility] [id number] [facility] 2018-11-22 10:23:00 2018-11-22 10:23:00 [facility] [id number] [facility] 2018-11-16 14:31:00 2018-11-16 14:31:00 [facility] [id number] [facility] 2018-11-06 13:24:00 2018-11-06 13:24:00 [facility] [id number] [facility] 2018-10-01 10:13:00 2018-10-01 10:13:00 [facility] [id number] [facility] 2018-09-04 09:45:00 2018-09-04 09:45:00 [facility] [id number] [facility] 2018-06-29 13:32:00 2018-06-29 13:32:00 [facility] [id number] [facility] 2018-06-29 13:27:00 2018-06-29 13:27:00 [facility] [id number] [facility] 2018-06-12 09:45:00 2018-06-12 09:45:00 [facility] [id number] [facility] 2018-06-04 08:30:00 2018-06-04 08:30:00 [facility] [id number] [facility] 2018-04-27 10:13:00 2018-04-27 10:13:00 [facility] [id number] [facility] 2018-03-22 11:33:00 2018-03-22 11:33:00 [facility] [id number] [facility] 2018-02-27 08:30:00 2018-02-27 08:30:00 [facility] [id number] [facility] Results Test Description Test Time Test Comments Results Result Co [facility] ([facility]608[facility]2024-04-28 22:25:55* Test Item Value Reference Range Interpretation Comme nts NA (test code = 3523039324) 131 mmol/L 135-145 L K (test code = 3976822047) 4.5 mmol/L 3.5-5.0 CL (test code = 1265861073) 97 mmol/L 98-108 L CO2 TOTAL (test code = 2747738632) 24 mmol/L 23-31 AGAP (test code = 3393611168) 10 2-16 BUN (test code = 7817278420) 20 mg/dL 7-23 GLUCOSE (test code = 9302237277) 86 mg/dL 70-110 CREATININE (test code = 2160-0) 1.48 mg/dL 0.60-1.25 H TOTAL BILI (test code = 8852027712) 0.8 mg/dL 0.1-1.1 CALCIUM (test code = 3897038044) 8.9 mg/dL 8.6-10.6 T PROTEIN (test code = 9023710287) 6.5 g/dL 6.3-8.2 ALBUMIN (test code = 7277198732) 3.9 g/dL 3.5-5.0 ALK PHOS (test code = 0843546856) 40 U/L 34-122 ALTv (test code = 1742-6) 86 U/L 5-50 H AST(SGOT) (test code = 5050697999) 110 U/L 13-40 H eGFR (test code = 11437-4) 48.4 mL/min/1.73m2 CKD-EPI eGFR (2020). Assuming creatinine has been stable day-to-day for at least three months, the eGFR indicates Category G3a (45 - 59 mL/min/1.73 m2) Lab Interpretation (test code = 09527-0) Abnormal [facility] 22:25:35* Test Item Value Reference Range Interpretation Comme nts PHOSPHORUS (test code = 3342269693) 3.2 mg/dL 2.5-5.0 Lab Interpretation (test cod e = 92954-4) Normal [facility] [id number] 22:10:15* Test Item Value Reference Range Interpretation Comme nts WBC (test code = 6690-2) 6.07 4.20-10.70 RBC (test code = 789-8) 3.28 4.26-5.52 L HGB (test code = 718-7) 12.1 g/dL 12.2-16.4 L HCT (test code = 4544-3) 34.6 % 38.4-49.3 L MCV (test code = 787-2) 105.5 fL 81.7-95.6 H MCH (test code = 785-6) 36.9 pg 26.1-32.7 H MCHC (test code = 786-4) 35.0 g/dL 31.2-35.0 RDW-SD (test code = 84499-8) 48.3 fL 38.5-51.6 RDW-CV (test code = 788-0) 12.4 % 12.1-15.4 PLT (test code = 777-3) 214 150-328 MPV (test code = 35504-8) 9.0 fL 9.8-13.0 L NRBC/100 WBC (test code = 1014957442) 0.0 0.0-10.0 NRBC x10^3 (test code = 8934510285) See_Comment [Automated messa ge] The system which generated this result transmitted reference range: 10*3/?L. The reference range was not used to interpret this result as normal/abnormal. GRAN MAT (NEUT) % (test code = 770-8) 37.7 % IMM GRAN % (test code = 6339939673) 0.20 % LYMPH % (test code = 736-9) 48.9 % MONO % (test code = 5905-5) 10.2 % EOS % (test code = 713-8) 2.0 % BASO % (test code = 706-2) 1.0 % GRAN MAT x10^3(ANC) (test code = 5129759050) 2.29 10*3/uL 1.99-6.95 IMM GRAN x10^3 (test code = 7533917610) 0.00-0.06 LYMPH x10^3 (test code = 731-0) 2.97 10*3/uL 1.09-3.23 MONO x10^3 (test code = 742-7) 0.62 10*3/uL 0.36-1.02 EOS x10^3 (test code = 711-2) 0.12 10*3/uL 0.06-0.53 BASO x10^3 (test code = 704-7) 0.06 10*3/uL 0.01-0.09 Lab Interpretation (test code = 18092-6) Abnormal [facility] [id number] 00:00:00* Test Item Value Reference Range Interpretation Comme nts SODIUM, URINE, CONC. (test c ode = 2955-3) <20 MEQ/L NOT ESTAB MEQ/L CBC W/AUTO [id number] 00:00:00* Test Item Value Reference Range Interpretation Comme nts NUCLEATED RBCS (test code = 84498-0) 0.0 /100 WBC'S See_Comment [Automated messa ge] The system which generated this result transmitted reference range: 0.0 /100 WBC'S. The reference range was not used to interpret this result as normal/abnormal. ABSOLUTE EOSINOPHILS (test code = 87792-5) 0.12 K/UL See_Comment [Automated messa ge] The system which generated this result transmitted reference range: 0.00-0.50 K/UL. The reference range was not used to interpret this result as normal/abnormal. ABSOLUTE LYMPHOCYTES (test code = 80198-9) 2.40 K/UL See_Comment [Automated messa ge] The system which generated this result transmitted reference range: 1.00-4.00 K/UL. The reference range was not used to interpret this result as normal/abnormal. ABSOLUTE MONOCYTES (test code = 17309-6) 0.63 K/UL See_Comment [Automated messa ge] The system which generated this result transmitted reference range: 0.20-1.00 K/UL. The reference range was not used to interpret this result as normal/abnormal. ABSOLUTE NEUTROPHILS (test code = 69450-5) 3.28 K/UL See_Comment [Automated messa ge] The system which generated this result transmitted reference range: 1.50-7.50 K/UL. The reference range was not used to interpret this result as normal/abnormal. BASOPHILS (test code = 50368-1) 1.1 % EOSINOPHILS (test code = 44834-2) 1.8 % HEMATOCRIT (test code = 83277-0) 35.4 % See_Comment L [Automated messa ge] The system which generated this result transmitted reference range: 40.0-51.0 %. The reference range was not used to interpret this result as normal/abnormal. HEMOGLOBIN (test code = 718-7) 12.5 G/DL See_Comment L [Automated messa ge] The system which generated this result transmitted reference range: 13.5-17.0 G/DL. The reference range was not used to interpret this result as normal/abnormal. LYMPHOCYTES (test code = 68808-6) 36.9 % MCH (test code = 08736-7) 37.7 PG See_Comment H [Automated messa ge] The system which generated this result transmitted reference range: 25.0-33.0 PG. The reference range was not used to interpret this result as normal/abnormal. MCHC (test code = 17673-5) 35.3 G/DL See_Comment [Automated messa ge] The system which generated this result transmitted reference range: 31.0-36.0 G/DL. The reference range was not used to interpret this result as normal/abnormal. MCV (test code = 30962-9) 106.6 fL See_Comment H [Automated messa ge] The system which generated this result transmitted reference range: 80.0-99.0 fL. The reference range was not used to interpret this result as normal/abnormal. MONOCYTES (test code = 68340-2) 9.7 % NEUTROPHILS (test code = 43227-9) 50.3 % PLATELET COUNT (test code = 06755-2) 211 K/UL See_Comment [Automated messa ge] The system which generated this result transmitted reference range: 130-400 K/UL. The reference range was not used to interpret this result as normal/abnormal. RBC (test code = 94275-1) 3.32 M/UL See_Comment L [Automated messa ge] The system which generated this result transmitted reference range: 4.50-6.10 M/UL. The reference range was not used to interpret this result as normal/abnormal. RDW (test code = 52475-9) 12.2 % See_Comment [Automated messa ge] The system which generated this result transmitted reference range: 11.5-15.0 %. The reference range was not used to interpret this result as normal/abnormal. WBC (test code = 74422-8) 6.5 K/UL See_Comment [Automated messa ge] The system which generated this result transmitted reference range: 3.5-11.0 K/UL. The reference range was not used to interpret this result as normal/abnormal. BASIC METABOLIC [id number] 00:00:00* Test Item Value Reference Range Interpretation Comme nts BUN (test code = 3091-6) 15 MG/DL See_Comment [Automated messa ge] The system which generated this result transmitted reference range: 8-23 MG/DL. The reference range was not used to interpret this result as normal/abnormal. CALCIUM (test code = 03530-7) 9.5 MG/DL See_Comment [Automated messa ge] The system which generated this result transmitted reference range: 8.5-10.5 MG/DL. The reference range was not used to interpret this result as normal/abnormal. CARBON DIOXIDE (test code = 1963-8) 24 MEQ/L See_Comment [Automated messa ge] The system which generated this result transmitted reference range: 19-31 MEQ/L. The reference range was not used to interpret this result as normal/abnormal. CHLORIDE (test code = 2075-0) 97 MEQ/L See_Comment [Automated messa ge] The system which generated this result transmitted reference range: 95-107 MEQ/L. The reference range was not used to interpret this result as normal/abnormal. CREATININE (test code = 2160-0) 1.47 MG/DL See_Comment H [Automated messa ge] The system which generated this result transmitted reference range: 0.80-1.40 MG/DL. The reference range was not used to interpret this result as normal/abnormal. eGFR (2020 CKD-EPI) (test code = 94527-0) 49 ML/MIN/1.73 See_Comment L [Automated messa ge] The system which generated this result transmitted reference range: >60 ML/MIN/1.73. The reference range was not used to interpret this result as normal/abnormal. GLUCOSE (test code = 2345-7) 119 MG/DL See_Comment H [Automated messa ge] The system which generated this result transmitted reference range: 70-99 MG/DL. The reference range was not used to interpret this result as normal/abnormal. POTASSIUM (test code = 2823-3) 6.2 MEQ/L See_Comment H [Automated messa ge] The system which generated this result transmitted reference range: 3.5-5.4 MEQ/L. The reference range was not used to interpret this result as normal/abnormal. SODIUM (test code = 2951-2) 130 MEQ/L See_Comment L [Automated messa ge] The system which generated this result transmitted reference range: 133-146 MEQ/L. The reference range was not used to interpret this result as normal/abnormal. BASIC METABOLIC [id number] 00:00:00* Test Item Value Reference Range Interpretation Comme nts BUN (test code = 3091-6) 20 MG/DL See_Comment [Automated messa ge] The system which generated this result transmitted reference range: 8-23 MG/DL. The reference range was not used to interpret this result as normal/abnormal. CALCIUM (test code = 98276-6) 9.7 MG/DL See_Comment [Automated messa ge] The system which generated this result transmitted reference range: 8.5-10.5 MG/DL. The reference range was not used to interpret this result as normal/abnormal. CARBON DIOXIDE (test code = 1963-8) 22 MEQ/L See_Comment [Automated messa ge] The system which generated this result transmitted reference range: 19-31 MEQ/L. The reference range was not used to interpret this result as normal/abnormal. CHLORIDE (test code = 2075-0) 98 MEQ/L See_Comment [Automated messa ge] The system which generated this result transmitted reference range: 95-107 MEQ/L. The reference range was not used to interpret this result as normal/abnormal. CREATININE (test code = 2160-0) 1.86 MG/DL See_Comment H [Automated messa ge] The system which generated this result transmitted reference range: 0.80-1.40 MG/DL. The reference range was not used to interpret this result as normal/abnormal. eGFR (2020 CKD-EPI) (test code = 64663-8) 37 ML/MIN/1.73 See_Comment L [Automated messa ge] The system which generated this result transmitted reference range: >60 ML/MIN/1.73. The reference range was not used to interpret this result as normal/abnormal. GLUCOSE (test code = 2345-7) 109 MG/DL See_Comment H [Automated messa ge] The system which generated this result transmitted reference range: 70-99 MG/DL. The reference range was not used to interpret this result as normal/abnormal. POTASSIUM (test code = 2823-3) 6.7 MEQ/L See_Comment HH [Automated messa ge] The system which generated this result transmitted reference range: 3.5-5.4 MEQ/L. The reference range was not used to interpret this result as normal/abnormal. SODIUM (test code = 2951-2) 130 MEQ/L See_Comment L [Automated messa ge] The system which generated this result transmitted reference range: 133-146 MEQ/L. The reference range was not used to interpret this result as normal/abnormal. CBC W/AUTO [id number] 00:00:00* Test Item Value Reference Range Interpretation Comme nts NUCLEATED RBCS (test code = 72789-6) 0.0 /100 WBC'S See_Comment [Automated messa ge] The system which generated this result transmitted reference range: 0.0 /100 WBC'S. The reference range was not used to interpret this result as normal/abnormal. ABSOLUTE EOSINOPHILS (test code = 91245-9) 0.14 K/UL See_Comment [Automated messa ge] The system which generated this result transmitted reference range: 0.00-0.50 K/UL. The reference range was not used to interpret this result as normal/abnormal. ABSOLUTE LYMPHOCYTES (test code = 95148-8) 3.05 K/UL See_Comment [Automated messa ge] The system which generated this result transmitted reference range: 1.00-4.00 K/UL. The reference range was not used to interpret this result as normal/abnormal. ABSOLUTE MONOCYTES (test code = 14634-0) 0.85 K/UL See_Comment [Automated messa ge] The system which generated this result transmitted reference range: 0.20-1.00 K/UL. The reference range was not used to interpret this result as normal/abnormal. ABSOLUTE NEUTROPHILS (test code = 96847-6) 6.19 K/UL See_Comment [Automated messa ge] The system which generated this result transmitted reference range: 1.50-7.50 K/UL. The reference range was not used to interpret this result as normal/abnormal. BASOPHILS (test code = 21286-4) 0.8 % EOSINOPHILS (test code = 48436-7) 1.4 % HEMATOCRIT (test code = 78070-2) 37.8 % See_Comment L [Automated messa ge] The system which generated this result transmitted reference range: 40.0-51.0 %. The reference range was not used to interpret this result as normal/abnormal. HEMOGLOBIN (test code = 718-7) 13.2 G/DL See_Comment L [Automated messa ge] The system which generated this result transmitted reference range: 13.5-17.0 G/DL. The reference range was not used to interpret this result as normal/abnormal. LYMPHOCYTES (test code = 29646-1) 29.5 % MCH (test code = 76834-4) 37.3 PG See_Comment H [Automated messa ge] The system which generated this result transmitted reference range: 25.0-33.0 PG. The reference range was not used to interpret this result as normal/abnormal. MCHC (test code = 48099-5) 34.9 G/DL See_Comment [Automated messa ge] The system which generated this result transmitted reference range: 31.0-36.0 G/DL. The reference range was not used to interpret this result as normal/abnormal. MCV (test code = 26992-2) 106.8 fL See_Comment H [Automated messa ge] The system which generated this result transmitted reference range: 80.0-99.0 fL. The reference range was not used to interpret this result as normal/abnormal. MONOCYTES (test code = 49932-9) 8.2 % NEUTROPHILS (test code = 56639-9) 59.9 % PLATELET COUNT (test code = 98772-3) 243 K/UL See_Comment [Automated messa ge] The system which generated this result transmitted reference range: 130-400 K/UL. The reference range was not used to interpret this result as normal/abnormal. RBC (test code = 09798-3) 3.54 M/UL See_Comment L [Automated messa ge] The system which generated this result transmitted reference range: 4.50-6.10 M/UL. The reference range was not used to interpret this result as normal/abnormal. RDW (test code = 53499-3) 13.1 % See_Comment [Automated messa ge] The system which generated this result transmitted reference range: 11.5-15.0 %. The reference range was not used to interpret this result as normal/abnormal. WBC (test code = 24620-8) 10.3 K/UL See_Comment [Automated messa ge] The system which generated this result transmitted reference range: 3.5-11.0 K/UL. The reference range was not used to interpret this result as normal/abnormal. URIC [id number] 00:00:00* Test Item Value Reference Range Interpretation Comme nts URIC ACID (test code = 2501-5) 6.2 MG/DL See_Comment [Automated Downa ge] The system which generated this result transmitted reference range: 3.7-8.0 MG/DL. The reference range was not used to interpret this result as normal/abnormal. LIPID PANEL WITH REFLEX DIRECT [id number] 00:00:00* Test Item Value Reference Range Interpretation Comme nts CALC LDL CHOL (test code = 47130-5) 31 MG/DL See_Comment [Automated Downa ge] The system which generated this result transmitted reference range: <100 MG/DL. The reference range was not used to interpret this result as normal/abnormal. CHOLESTEROL (test code = 2093-3) 115 MG/DL See_Comment [Automated Downa ge] The system which generated this result transmitted reference range: <200 MG/DL. The reference range was not used to interpret this result as normal/abnormal. HDL CHOLESTEROL (test code = 2085-9) 67 MG/DL See_Comment [Automated Downa ge] The system which generated this result transmitted reference range: >39 MG/DL. The reference range was not used to interpret this result as normal/abnormal. RISK RATIO LDL/HDL (test code = 63513-5) 0.46 RATIO See_Comment [Automated message] The system which generated this result transmitted reference range: <3.55 RATIO. The reference range was not used to interpret this result as normal/abnormal. TRIGLYCERIDES (test code = 2571-8) 86 MG/DL See_Comment [Automated Downa ge] The system which generated this result transmitted reference range: <150 MG/DL. The reference range was not used to interpret this result as normal/abnormal. TESTOSTERONE, BIOAVAILABLE, FREE AND [id number] 00:00:00* Test Item Value Reference Range Interpretation Comme nts SEX HORM BIND GLOBULIN (test code = 80027-6) 30.1 NMOL/L See_Comment [Automated messa ge] The system which generated this result transmitted reference range: 19.3-76.4 NMOL/L. The reference range was not used to interpret this result as normal/abnormal. TESTOSTERONE,% FREE CALC (test code = 63949-5) 2.5 % See_Comment [Automated messa ge] The system which generated this result transmitted reference range: 1.6-2.9 %. The reference range was not used to interpret this result as normal/abnormal. TESTOSTERONE,BIOAVAI L,CALC (test code = 2990-0) 550.5 NG/DL See_Comment [Automated messa ge] The system which generated this result transmitted reference range: 130.0-680.0 NG/DL. The reference range was not used to interpret this result as normal/abnormal. TESTOSTERONE,CALC FREE (test code = 2991-8) 234.9 PG/ML See_Comment [Automated messa ge] The system which generated this result transmitted reference range: 47.0-244.0 PG/ML. The reference range was not used to interpret this result as normal/abnormal. TESTOSTERONE, TOTAL (test code = 2986-8) 940 NG/DL See_Comment H [Automated message] The system which generated this result transmitted reference range: 300-720 NG/DL. The reference range was not used to interpret this result as normal/abnormal. COMPREHENSIVE METABOLIC [id number] 00:00:00* Test Item Value Reference Range Interpretation Comme nts ALBUMIN (test code = 1751-7) 3.9 G/DL See_Comment [Automated messa ge] The system which generated this result transmitted reference range: 3.5-5.2 G/DL. The reference range was not used to interpret this result as normal/abnormal. ALKALINE PHOSPHATASE (test code = 6768-6) 45 U/L See_Comment [Automated message] The system which generated this result transmitted reference range: 40-125 U/L. The reference range was not used to interpret this result as normal/abnormal. BILIRUBIN, TOTAL (test code = 1975-2) 0.5 MG/DL See_Comment [Automated message] The system which generated this result transmitted reference range: <=1.2 MG/DL. The reference range was not used to interpret this result as normal/abnormal. BUN (test code = 3094-0) 30 MG/DL See_Comment H [Automated messa ge] The system which generated this result transmitted reference range: 8-23 MG/DL. The reference range was not used to interpret this result as normal/abnormal. CALCIUM (test code = 59589-9) 9.5 MG/DL See_Comment [Automated messa ge] The system which generated this result transmitted reference range: 8.5-10.5 MG/DL. The reference range was not used to interpret this result as normal/abnormal. CALC A/G RATIO (test code = 1759-0) 2.2 RATIO See_Comment [Automated messa ge] The system which generated this result transmitted reference range: 1.0-2.6 RATIO. The reference range was not used to interpret this result as normal/abnormal. CALC BUN/CREAT (test code = 3097-3) 14 RATIO See_Comment [Automated messa ge] The system which generated this result transmitted reference range: 6-28 RATIO. The reference range was not used to interpret this result as normal/abnormal. CALC GLOBULIN (test code = 51983-6) 1.8 G/DL See_Comment L [Automated messa ge] The system which generated this result transmitted reference range: 1.9-3.7 G/DL. The reference range was not used to interpret this result as normal/abnormal. CARBON DIOXIDE (test code = 1963-8) 20 MEQ/L See_Comment [Automated messa ge] The system which generated this result transmitted reference range: 19-31 MEQ/L. The reference range was not used to interpret this result as normal/abnormal. CHLORIDE (test code = 2075-0) 96 MEQ/L See_Comment [Automated messa ge] The system which generated this result transmitted reference range: 95-107 MEQ/L. The reference range was not used to interpret this result as normal/abnormal. CREATININE (test code = 2160-0) 2.22 MG/DL See_Comment H [Automated messa ge] The system which generated this result transmitted reference range: 0.80-1.40 MG/DL. The reference range was not used to interpret this result as normal/abnormal. eGFR (2020 CKD-EPI) (test code = 62234-3) 30 ML/MIN/1.73 See_Comment L [Automated messa ge] The system which generated this result transmitted reference range: >60 ML/MIN/1.73. The reference range was not used to interpret this result as normal/abnormal. GLUCOSE (test code = 1558-6) 74 MG/DL See_Comment [Automated messa ge] The system which generated this result transmitted reference range: 70-99 MG/DL. The reference range was not used to interpret this result as normal/abnormal. POTASSIUM (test code = 2823-3) 5.6 MEQ/L See_Comment H [Automated messa ge] The system which generated this result transmitted reference range: 3.5-5.4 MEQ/L. The reference range was not used to interpret this result as normal/abnormal. PROTEIN, TOTAL (test code = 2885-2) 5.7 G/DL See_Comment L [Automated messa ge] The system which generated this result transmitted reference range: 6.1-8.3 G/DL. The reference range was not used to interpret this result as normal/abnormal. AST (test code = 1920-8) 36 U/L See_Comment [Automated messa ge] The system which generated this result transmitted reference range: 9-50 U/L. The reference range was not used to interpret this result as normal/abnormal. ALT (test code = 1742-6) 33 U/L See_Comment [Automated messa ge] The system which generated this result transmitted reference range: 5-50 U/L. The reference range was not used to interpret this result as normal/abnormal. SODIUM (test code = 2951-2) 127 MEQ/L See_Comment L [Automated messa ge] The system which generated this result transmitted reference range: 133-146 MEQ/L. The reference range was not used to interpret this result as normal/abnormal. PSA W/REFLEX TO FREE [id number] 00:00:00* Test Item Value Reference Range Interpretation Comme nts PROSTATE SPECIFIC AG (test code = 44473-6) 3.18 NG/ML See_Comment [Automated messa ge] The system which generated this result transmitted reference range: <=4.00 NG/ML. The reference range was not used to interpret this result as normal/abnormal. [id number] 00:00:00* Test Item Value Reference Range Interpretation Comme nts GGT (test code = 2324-2) 343 U/L See_Comment H [Automated messa ge] The system which generated this result transmitted reference range: <60 U/L. The reference range was not used to interpret this result as normal/abnormal. VITAMIN [id number] 00:00:00* Test Item Value Reference Range Interpretation [facility] VITAMIN B1 (test code = 30453-6) 133 nmol/L See_Comment [Automated messa ge] The system which generated this result transmitted reference range: 64-201 nmol/L. The reference range was not used to interpret this result as normal/abnormal. VITAMIN B 12 AND FOLIC [id number] 00:00:00* Test Item Value Reference Range Interpretation [facility] FOLIC ACID (test code = 2284-8) 13.2 UG/L SEE BELOW UG/L VITAMIN B-12 (test code = 2132-9) 846 PG/ML See_Comment [Automated messa ge] The system which generated this result transmitted reference range: 200-950 PG/ML. The reference range was not used to interpret this result as normal/abnormal. LIVER (HEPATIC) FUNCTION [id number] 00:00:00* Test Item Value Reference Range Interpretation [facility] ALBUMIN (test code = 1751-7) 3.9 G/DL See_Comment [Automated messa ge] The system which generated this result transmitted reference range: 3.5-5.2 G/DL. The reference range was not used to interpret this result as normal/abnormal. ALKALINE PHOSPHATASE (test code = 6768-6) 63 U/L See_Comment [Automated message] The system which generated this result transmitted reference range: 40-125 U/L. The reference range was not used to interpret this result as normal/abnormal. BILIRUBIN, DIRECT (test code = 68043-8) 0.3 MG/DL See_Comment [Automated message] The system which generated this result transmitted reference range: 0.0-0.3 MG/DL. The reference range was not used to interpret this result as normal/abnormal. BILIRUBIN, TOTAL (test code = 1975-2) 0.8 MG/DL See_Comment [Automated messa ge] The system which generated this result transmitted reference range: <=1.2 MG/DL. The reference range was not used to interpret this result as normal/abnormal. PROTEIN, TOTAL (test code = 2885-2) 6.2 G/DL See_Comment [Automated messa ge] The system which generated this result transmitted reference range: 6.1-8.3 G/DL. The reference range was not used to interpret this result as normal/abnormal. AST (test code = 1920-8) 34 U/L See_Comment [Automated messa ge] The system which generated this result transmitted reference range: 9-50 U/L. The reference range was not used to interpret this result as normal/abnormal. ALT (test code = 1742-6) 21 U/L See_Comment [Automated messa ge] The system which generated this result transmitted reference range: 5-50 U/L. The reference range was not used to interpret this result as normal/abnormal. CBC W/AUTO [id number] 00:00:00* Test Item Value Reference Range Interpretation Comme nts NUCLEATED RBCS (test code = 42025-1) 0.0 /100 WBC'S See_Comment [Automated messa ge] The system which generated this result transmitted reference range: 0.0 /100 WBC'S. The reference range was not used to interpret this result as normal/abnormal. ABSOLUTE EOSINOPHILS (test code = 56638-0) 0.12 K/UL See_Comment [Automated messa ge] The system which generated this result transmitted reference range: 0.00-0.50 K/UL. The reference range was not used to interpret this result as normal/abnormal. ABSOLUTE LYMPHOCYTES (test code = 64950-5) 2.62 K/UL See_Comment [Automated messa ge] The system which generated this result transmitted reference range: 1.00-4.00 K/UL. The reference range was not used to interpret this result as normal/abnormal. ABSOLUTE MONOCYTES (test code = 78314-7) 0.66 K/UL See_Comment [Automated messa ge] The system which generated this result transmitted reference range: 0.20-1.00 K/UL. The reference range was not used to interpret this result as normal/abnormal. ABSOLUTE NEUTROPHILS (test code = 39415-6) 2.09 K/UL See_Comment [Automated messa ge] The system which generated this result transmitted reference range: 1.50-7.50 K/UL. The reference range was not used to interpret this result as normal/abnormal. BASOPHILS (test code = 88050-1) 1.4 % EOSINOPHILS (test code = 93877-4) 2.1 % HEMATOCRIT (test code = 89354-4) 41.4 % See_Comment [Automated messa ge] The system which generated this result transmitted reference range: 40.0-51.0 %. The reference range was not used to interpret this result as normal/abnormal. HEMOGLOBIN (test code = 718-7) 14.4 G/DL See_Comment [Automated messa ge] The system which generated this result transmitted reference range: 13.5-17.0 G/DL. The reference range was not used to interpret this result as normal/abnormal. LYMPHOCYTES (test code = 64131-4) 46.8 % MCH (test code = 12628-1) 38.0 PG See_Comment H [Automated messa ge] The system which generated this result transmitted reference range: 25.0-33.0 PG. The reference range was not used to interpret this result as normal/abnormal. MCHC (test code = 07348-9) 34.8 G/DL See_Comment [Automated messa ge] The system which generated this result transmitted reference range: 31.0-36.0 G/DL. The reference range was not used to interpret this result as normal/abnormal. MCV (test code = 38086-7) 109.2 fL See_Comment H [Automated messa ge] The system which generated this result transmitted reference range: 80.0-99.0 fL. The reference range was not used to interpret this result as normal/abnormal. MONOCYTES (test code = 33020-3) 11.8 % NEUTROPHILS (test code = 48263-9) 37.4 % PLATELET COUNT (test code = 54692-0) 167 K/UL See_Comment [Automated messa ge] The system which generated this result transmitted reference range: 130-400 K/UL. The reference range was not used to interpret this result as normal/abnormal. RBC (test code = 68883-4) 3.79 M/UL See_Comment L [Automated messa ge] The system which generated this result transmitted reference range: 4.50-6.10 M/UL. The reference range was not used to interpret this result as normal/abnormal. RDW (test code = 45797-9) 12.6 % See_Comment [Automated messa ge] The system which generated this result transmitted reference range: 11.5-15.0 %. The reference range was not used to interpret this result as normal/abnormal. WBC (test code = 60871-7) 5.6 K/UL See_Comment [Automated messa ge] The system which generated this result transmitted reference range: 3.5-11.0 K/UL. The reference range was not used to interpret this result as normal/abnormal. URIC [id number] 00:00:00* Test Item Value Reference Range Interpretation Comme nts URIC ACID (test code = 2501-5) 5.5 MG/DL See_Comment [Automated messa ge] The system which generated this result transmitted reference range: 3.7-8.0 MG/DL. The reference range was not used to interpret this result as normal/abnormal. LIPID PANEL WITH REFLEX DIRECT [id number] 00:00:00* Test Item Value Reference Range Interpretation Comme nts CALC LDL CHOL (test code = 88623-0) 46 MG/DL See_Comment [Automated Downa ge] The system which generated this result transmitted reference range: <100 MG/DL. The reference range was not used to interpret this result as normal/abnormal. CHOLESTEROL (test code = 2093-3) 130 MG/DL See_Comment [Automated messa ge] The system which generated this result transmitted reference range: <200 MG/DL. The reference range was not used to interpret this result as normal/abnormal. HDL CHOLESTEROL (test code = 2085-9) 59 MG/DL See_Comment [Automated Downa ge] The system which generated this result transmitted reference range: >39 MG/DL. The reference range was not used to interpret this result as normal/abnormal. RISK RATIO LDL/HDL (test code = 69646-9) 0.78 RATIO See_Comment [Automated message] The system which generated this result transmitted reference range: <3.55 RATIO. The reference range was not used to interpret this result as normal/abnormal. TRIGLYCERIDES (test code = 2571-8) 186 MG/DL See_Comment H [Automated messa ge] The system which generated this result transmitted reference range: <150 MG/DL. The reference range was not used to interpret this result as normal/abnormal. TESTOSTERONE, BIOAVAILABLE, FREE AND [id number] 00:00:00* Test Item Value Reference Range Interpretation Comme nts SEX HORM BIND GLOBULIN (test code = 23813-9) 41.3 NMOL/L See_Comment [Automated messa ge] The system which generated this result transmitted reference range: 19.3-76.4 NMOL/L. The reference range was not used to interpret this result as normal/abnormal. TESTOSTERONE,% FREE CALC (test code = 05553-4) 1.6 % See_Comment [Automated messa ge] The system which generated this result transmitted reference range: 1.6-2.9 %. The reference range was not used to interpret this result as normal/abnormal. TESTOSTERONE,BIOAVAI L,CALC (test code = 2990-0) 30.1 NG/DL See_Comment L [Automated messa ge] The system which generated this result transmitted reference range: 130.0-680.0 NG/DL. The reference range was not used to interpret this result as normal/abnormal. TESTOSTERONE,CALC FREE (test code = 2991-8) 12.9 PG/ML See_Comment L [Automated messa ge] The system which generated this result transmitted reference range: 47.0-244.0 PG/ML. The reference range was not used to interpret this result as normal/abnormal. TESTOSTERONE, TOTAL (test code = 2986-8) 81 NG/DL See_Comment L [Automated message] The system which generated this result transmitted reference range: 300-720 NG/DL. The reference range was not used to interpret this result as normal/abnormal. COMPREHENSIVE METABOLIC [id number] 00:00:00* Test Item Value Reference Range Interpretation Comme nts ALBUMIN (test code = 1751-7) 3.6 G/DL See_Comment [Automated messa ge] The system which generated this result transmitted reference range: 3.5-5.2 G/DL. The reference range was not used to interpret this result as normal/abnormal. ALKALINE PHOSPHATASE (test code = 6768-6) 83 U/L See_Comment [Automated message] The system which generated this result transmitted reference range: 40-125 U/L. The reference range was not used to interpret this result as normal/abnormal. BILIRUBIN, TOTAL (test code = 1975-2) 0.4 MG/DL See_Comment [Automated message] The system which generated this result transmitted reference range: <=1.2 MG/DL. The reference range was not used to interpret this result as normal/abnormal. BUN (test code = 3094-0) 13 MG/DL See_Comment [Automated messa ge] The system which generated this result transmitted reference range: 8-23 MG/DL. The reference range was not used to interpret this result as normal/abnormal. CALCIUM (test code = 26705-2) 8.6 MG/DL See_Comment [Automated messa ge] The system which generated this result transmitted reference range: 8.5-10.5 MG/DL. The reference range was not used to interpret this result as normal/abnormal. CALC A/G RATIO (test code = 1759-0) 1.9 RATIO See_Comment [Automated messa ge] The system which generated this result transmitted reference range: 1.0-2.6 RATIO. The reference range was not used to interpret this result as normal/abnormal. CALC BUN/CREAT (test code = 3097-3) 14 RATIO See_Comment [Automated messa ge] The system which generated this result transmitted reference range: 6-28 RATIO. The reference range was not used to interpret this result as normal/abnormal. CALC GLOBULIN (test code = 53614-7) 1.9 G/DL See_Comment [Automated messa ge] The system which generated this result transmitted reference range: 1.9-3.7 G/DL. The reference range was not used to interpret this result as normal/abnormal. CARBON DIOXIDE (test code = 1963-8) 26 MEQ/L See_Comment [Automated messa ge] The system which generated this result transmitted reference range: 19-31 MEQ/L. The reference range was not used to interpret this result as normal/abnormal. CHLORIDE (test code = 2075-0) 102 MEQ/L See_Comment [Automated messa ge] The system which generated this result transmitted reference range: 95-107 MEQ/L. The reference range was not used to interpret this result as normal/abnormal. CREATININE (test code = 2160-0) 0.94 MG/DL See_Comment [Automated messa ge] The system which generated this result transmitted reference range: 0.80-1.40 MG/DL. The reference range was not used to interpret this result as normal/abnormal. eGFR (2020 CKD-EPI) (test code = 37359-3) 84 ML/MIN/1.73 See_Comment [Automated messa ge] The system which generated this result transmitted reference range: >60 ML/MIN/1.73. The reference range was not used to interpret this result as normal/abnormal. GLUCOSE (test code = 1558-6) 98 MG/DL See_Comment [Automated messa ge] The system which generated this result transmitted reference range: 70-99 MG/DL. The reference range was not used to interpret this result as normal/abnormal. POTASSIUM (test code = 2823-3) 4.6 MEQ/L See_Comment [Automated messa ge] The system which generated this result transmitted reference range: 3.5-5.4 MEQ/L. The reference range was not used to interpret this result as normal/abnormal. PROTEIN, TOTAL (test code = 2885-2) 5.5 G/DL See_Comment L [Automated messa ge] The system which generated this result transmitted reference range: 6.1-8.3 G/DL. The reference range was not used to interpret this result as normal/abnormal. AST (test code = 1920-8) 266 U/L See_Comment H [Automated messa ge] The system which generated this result transmitted reference range: 9-50 U/L. The reference range was not used to interpret this result as normal/abnormal. ALT (test code = 1742-6) 298 U/L See_Comment H [Automated messa ge] The system which generated this result transmitted reference range: 5-50 U/L. The reference range was not used to interpret this result as normal/abnormal. SODIUM (test code = 2951-2) 138 MEQ/L See_Comment [Automated messa ge] The system which generated this result transmitted reference range: 133-146 MEQ/L. The reference range was not used to interpret this result as normal/abnormal. CBC W/AUTO [id number] 00:00:00* Test Item Value Reference Range Interpretation Comme nts NUCLEATED RBCS (test code = 31936-3) 0.0 /100 WBC'S See_Comment [Automated messa ge] The system which generated this result transmitted reference range: 0.0 /100 WBC'S. The reference range was not used to interpret this result as normal/abnormal. ABSOLUTE EOSINOPHILS (test code = 37713-0) 0.04 K/UL See_Comment [Automated messa ge] The system which generated this result transmitted reference range: 0.00-0.50 K/UL. The reference range was not used to interpret this result as normal/abnormal. ABSOLUTE LYMPHOCYTES (test code = 33625-0) 2.45 K/UL See_Comment [Automated messa ge] The system which generated this result transmitted reference range: 1.00-4.00 K/UL. The reference range was not used to interpret this result as normal/abnormal. ABSOLUTE MONOCYTES (test code = 01961-4) 0.78 K/UL See_Comment [Automated messa ge] The system which generated this result transmitted reference range: 0.20-1.00 K/UL. The reference range was not used to interpret this result as normal/abnormal. ABSOLUTE NEUTROPHILS (test code = 71395-2) 5.05 K/UL See_Comment [Automated messa ge] The system which generated this result transmitted reference range: 1.50-7.50 K/UL. The reference range was not used to interpret this result as normal/abnormal. BASOPHILS (test code = 86612-3) 0.8 % EOSINOPHILS (test code = 49671-4) 0.5 % HEMATOCRIT (test code = 14013-0) 42.3 % See_Comment [Automated messa ge] The system which generated this result transmitted reference range: 40.0-51.0 %. The reference range was not used to interpret this result as normal/abnormal. HEMOGLOBIN (test code = 718-7) 14.0 G/DL See_Comment [Automated messa ge] The system which generated this result transmitted reference range: 13.5-17.0 G/DL. The reference range was not used to interpret this result as normal/abnormal. LYMPHOCYTES (test code = 23461-1) 29.0 % MCH (test code = 83988-1) 35.7 PG See_Comment H [Automated messa ge] The system which generated this result transmitted reference range: 25.0-33.0 PG. The reference range was not used to interpret this result as normal/abnormal. MCHC (test code = 03668-3) 33.1 G/DL See_Comment [Automated messa ge] The system which generated this result transmitted reference range: 31.0-36.0 G/DL. The reference range was not used to interpret this result as normal/abnormal. MCV (test code = 96881-7) 107.9 fL See_Comment H [Automated messa ge] The system which generated this result transmitted reference range: 80.0-99.0 fL. The reference range was not used to interpret this result as normal/abnormal. MONOCYTES (test code = 79457-9) 9.2 % NEUTROPHILS (test code = 38273-2) 59.9 % PLATELET COUNT (test code = 59317-6) 166 K/UL See_Comment [Automated messa ge] The system which generated this result transmitted reference range: 130-400 K/UL. The reference range was not used to interpret this result as normal/abnormal. RBC (test code = 77119-4) 3.92 M/UL See_Comment L [Automated messa ge] The system which generated this result transmitted reference range: 4.50-6.10 M/UL. The reference range was not used to interpret this result as normal/abnormal. RDW (test code = 51206-7) 12.8 % See_Comment [Automated messa ge] The system which generated this result transmitted reference range: 11.5-15.0 %. The reference range was not used to interpret this result as normal/abnormal. WBC (test code = 79923-3) 8.4 K/UL See_Comment [Automated messa ge] The system which generated this result transmitted reference range: 3.5-11.0 K/UL. The reference range was not used to interpret this result as normal/abnormal. URIC [id number] 00:00:00* Test Item Value Reference Range Interpretation Comme nts URIC ACID (test code = 2501-5) 4.8 MG/DL See_Comment [Automated messa ge] The system which generated this result transmitted reference range: 3.7-8.0 MG/DL. The reference range was not used to interpret this result as normal/abnormal. PSA, TOTAL, MEDICARE [id number] 00:00:00* Test Item Value Reference Range Interpretation Comme nts PSA, TOTAL (test code = 07877-1) 3.68 NG/ML See_Comment [Automated messa ge] The system which generated this result transmitted reference range: <=4.00 NG/ML. The reference range was not used to interpret this result as normal/abnormal. HEMOGLOBIN [id number] 00:00:00* Test Item Value Reference Range Interpretation [facility] HEMOGLOBIN A1c (test code = 4548-4) 4.9 % See_Comment [Automated messa ge] The system which generated this result transmitted reference range: 4.2-5.6 %. The reference range was not used to interpret this result as normal/abnormal. LIPID PANEL WITH REFLEX DIRECT [id number] 00:00:00* Test Item Value Reference Range Interpretation [facility] CALC LDL CHOL (test code = 45797-0) 16 MG/DL See_Comment [Automated messa ge] The system which generated this result transmitted reference range: <100 MG/DL. The reference range was not used to interpret this result as normal/abnormal. CHOLESTEROL (test code = 2093-3) 96 MG/DL See_Comment [Automated messa ge] The system which generated this result transmitted reference range: <200 MG/DL. The reference range was not used to interpret this result as normal/abnormal. HDL CHOLESTEROL (test code = 2085-9) 57 MG/DL See_Comment [Automated messa ge] The system which generated this result transmitted reference range: >39 MG/DL. The reference range was not used to interpret this result as normal/abnormal. RISK RATIO LDL/HDL (test code = 88908-0) 0.28 RATIO See_Comment [Automated message] The system which generated this result transmitted reference range: <3.55 RATIO. The reference range was not used to interpret this result as normal/abnormal. TRIGLYCERIDES (test code = 2571-8) 143 MG/DL See_Comment [Automated messa ge] The system which generated this result transmitted reference range: <150 MG/DL. The reference range was not used to interpret this result as normal/abnormal. TESTOSTERONE, BIOAVAILABLE, FREE AND [id number] 00:00:00* Test Item Value Reference Range Interpretation [facility] SEX HORM BIND GLOBULIN (test code = 03914-0) 25.1 NMOL/L See_Comment [Automated messa ge] The system which generated this result transmitted reference range: 19.3-76.4 NMOL/L. The reference range was not used to interpret this result as normal/abnormal. TESTOSTERONE,% FREE CALC (test code = 42748-2) 3.0 % See_Comment H [Automated messa ge] The system which generated this result transmitted reference range: 1.6-2.9 %. The reference range was not used to interpret this result as normal/abnormal. TESTOSTERONE,BIOAVA IL,CALC (test code = 2990-0) 1127.6 NG/DL See_Comment H [Automated messa ge] The system which generated this result transmitted reference range: 130.0-680.0 NG/DL. The reference range was not used to interpret this result as normal/abnormal. TESTOSTERONE,CALC FREE (test code = 2991-8) 481.2 PG/ML See_Comment H [Automated messa ge] The system which generated this result transmitted reference range: 47.0-244.0 PG/ML. The reference range was not used to interpret this result as normal/abnormal. TESTOSTERONE, TOTAL (test code = 2986-8) 1580 NG/DL See_Comment H [Automated messa ge] The system which generated this result transmitted reference range: 300-720 NG/DL. The reference range was not used to interpret this result as normal/abnormal. COMPREHENSIVE METABOLIC [id number] 00:00:00* Test Item Value Reference Range Interpretation Comme nts ALBUMIN (test code = 1751-7) 3.7 G/DL See_Comment [Automated messa ge] The system which generated this result transmitted reference range: 3.5-5.2 G/DL. The reference range was not used to interpret this result as normal/abnormal. ALKALINE PHOSPHATASE (test code = 6768-6) 39 U/L See_Comment L [Automated message] The system which generated this result transmitted reference range: 40-125 U/L. The reference range was not used to interpret this result as normal/abnormal. BILIRUBIN, TOTAL (test code = 1975-2) 0.6 MG/DL See_Comment [Automated message] The system which generated this result transmitted reference range: <=1.2 MG/DL. The reference range was not used to interpret this result as normal/abnormal. BUN (test code = 3094-0) 8 MG/DL See_Comment [Automated messa ge] The system which generated this result transmitted reference range: 8-23 MG/DL. The reference range was not used to interpret this result as normal/abnormal. CALCIUM (test code = 84454-7) 9.6 MG/DL See_Comment [Automated messa ge] The system which generated this result transmitted reference range: 8.5-10.5 MG/DL. The reference range was not used to interpret this result as normal/abnormal. CALC A/G RATIO (test code = 1759-0) 2.3 RATIO See_Comment [Automated messa ge] The system which generated this result transmitted reference range: 1.0-2.6 RATIO. The reference range was not used to interpret this result as normal/abnormal. CALC BUN/CREAT (test code = 3097-3) 8 RATIO See_Comment [Automated messa ge] The system which generated this result transmitted reference range: 6-28 RATIO. The reference range was not used to interpret this result as normal/abnormal. CALC GLOBULIN (test code = 75075-7) 1.6 G/DL See_Comment L [Automated messa ge] The system which generated this result transmitted reference range: 1.9-3.7 G/DL. The reference range was not used to interpret this result as normal/abnormal. CARBON DIOXIDE (test code = 1963-8) 25 MEQ/L See_Comment [Automated messa ge] The system which generated this result transmitted reference range: 19-31 MEQ/L. The reference range was not used to interpret this result as normal/abnormal. CHLORIDE (test code = 2075-0) 103 MEQ/L See_Comment [Automated messa ge] The system which generated this result transmitted reference range: 95-107 MEQ/L. The reference range was not used to interpret this result as normal/abnormal. CREATININE (test code = 2160-0) 1.03 MG/DL See_Comment [Automated messa ge] The system which generated this result transmitted reference range: 0.80-1.40 MG/DL. The reference range was not used to interpret this result as normal/abnormal. eGFR (2020 CKD-EPI) (test code = 48906-1) 75 ML/MIN/1.73 See_Comment [Automated messa ge] The system which generated this result transmitted reference range: >60 ML/MIN/1.73. The reference range was not used to interpret this result as normal/abnormal. GLUCOSE (test code = 1558-6) 93 MG/DL See_Comment [Automated messa ge] The system which generated this result transmitted reference range: 70-99 MG/DL. The reference range was not used to interpret this result as normal/abnormal. POTASSIUM (test code = 2823-3) 5.0 MEQ/L See_Comment [Automated messa ge] The system which generated this result transmitted reference range: 3.5-5.4 MEQ/L. The reference range was not used to interpret this result as normal/abnormal. PROTEIN, TOTAL (test code = 2885-2) 5.3 G/DL See_Comment L [Automated messa ge] The system which generated this result transmitted reference range: 6.1-8.3 G/DL. The reference range was not used to interpret this result as normal/abnormal. AST (test code = 1920-8) 47 U/L See_Comment [Automated messa ge] The system which generated this result transmitted reference range: 9-50 U/L. The reference range was not used to interpret this result as normal/abnormal. ALT (test code = 1742-6) 31 U/L See_Comment [Automated messa ge] The system which generated this result transmitted reference range: 5-50 U/L. The reference range was not used to interpret this result as normal/abnormal. SODIUM (test code = 2951-2) 139 MEQ/L See_Comment [Automated messa ge] The system which generated this result transmitted reference range: 133-146 MEQ/L. The reference range was not used to interpret this result as normal/abnormal. ACUTE HEPATITIS [id number] 00:00:00* Test Item Value Reference Range Interpretation Comme nts HEPATITIS A IgM (test code = 39179-9) NON-REACTIVE NON-REACTIVE HEPATITIS B CORE IgM (test c ode = 76189-4) NON-REACTIVE NON-REACTIVE HEPATITIS B SURF AG (test co de = 5195-3) NON-REACTIVE NON-REACTIVE HEPATITIS C ANTIBODY (test c ode = 96254-9) NON-REACTIVE NON-REACTIVE Notes Date/Time Note Provider Source 2024-04-28 17:52:03 Pt given printed and verbal discharge instructions regarding abnormal lab test, encouraged hydration. 0 Prescription Pt verbalized understanding of instructions, pt awake alert oriented, resp reg unlabored, skin w/d, color appropriate for race, moves all ext well,pt encouraged to follow up with pcp. Advised to seek medical attention for new/prolonged/worsening of symptoms, Symptoms chest pain, palpitations. No adverse reaction to meds given in ER noted upon discharge PIV d'cd, dressing to site, catheter in tact. Awake, alert oriented, resp reg unlabored, skin w/d, pt leaving ambulatory without assist, in no apparent distress. Tee Torres RN [facility] 2024-04-28 16:16:29 Patient to ED after being told by doctor to go ED because potassium that was drawn last Monday was 6.2. [facility]
[2024-05-16] MEDS ORDERED: ONDANSETRON 4 MG/2 ML VIAL ONE (23:45)
[2024-05-16] MEDS ORDERED: MORPHINE 4 MG/ML SYR ONE (23:46)
[2024-05-16 23:55] LABS: Absolute Basophils 0.1 K/uL (0-0.5); Absolute Lymphocytes (CBC) 3.1 K/uL (0.7-4.9); Absolute Monocytes 0.5 K/uL (0.1-1.3); Absolute Neutrophil 3.1 K/uL (1.8-8.0); Basophils % 0.7 % (0-1.3); Eosinophils % 0.6 % (0-4.4); Hematocrit 35.4 % (39.6-49.0); Hemoglobin 12.4 g/dL (13.6-17.9); Lymphocytes % 45.7 % (15.3-44.8); MCH 37.3 pg (27.0-35.0); MCV 106.7 fL (80-100); MPV 6.7 fL (7.6-11.3); Monocytes % 6.9 % (3.3-12.3); Neutrophils % 46.1 % (41.7-73.7); Nucleated Red Blood Cells % 0.1 % (0-0); Platelets 169 thou/uL (152-406); RBC Red Blood Cell Count 3.32 M/uL (4.33-5.43); Red Cell Distribution Width 13.5 % (12.1-15.2)
[2024-05-17 00:20] LABS: Albumin 3.3 g/dL (3.4-5.0); Albumin/Globulin Ratio 1.2 (1.1-1.8); Bilirubin Direct 0.2 mg/dL (0-0.2); Bilirubin Indirect, Calculated 0.6 mg/dL (0.2-0.8); Bilirubin Total 0.8 mg/dL (0.2-1.0); Globulin 2.8 g/dL (2.3-3.5); Protein, Total 6.1 g/dL (6.4-8.2); Troponin High Sensitivity 8.9 pg/mL (<58.9)
[2024-05-17 01:12] LABS: Blood Morphology Comment NOTED (NOT SEEN); Macrocytosis 1+; Platelet Estimate ADEQ; White Blood Cell Scan OK (OK)
[2024-05-17 01:17] LABS: PT Prothrombin Time 11.8 SECONDS (9.4-12.5); Protime INR 1.06
[2024-05-17] MEDS ORDERED: KETOROLAC 30 MG/ML INJ ONE (01:57)
--- NOTE | 2024-05-17 02:47 | EDPHYS ---
Physician Documentation [facility] Name: Seb Matta Age: 78 yrs Sex: Male : 1945 Arrival Date: 05/16/2024 Time: 22:48 Bed 13 Private MD: ED Physician Sandeep Altamirano HPI: 05/16 23:30 This 78 yrs old Male presents to ER via Wheelchair with complaints of Chest Pain, Fall cp Injury. 23:30 The patient or guardian reports chest pain that is located primarily in the anterior cp chest wall, left. 23:30 Onset: tonight. The pain does not radiate. Duration: The patient or guardian reports a cp single episode, that is still ongoing, and worsening. Modifying factors: the symptoms are aggravated by movement. Historical: - Allergies: 23:02 No Known Allergies; jb4 - PMHx: 23:02 High Cholesterol; Hypertension; jb4 - PSHx: 23:02 None; jb4 - Immunization history:: Adult Immunizations up to date. - Infectious Disease History:: Denies. - Social history:: Smoking status: Patient denies any tobacco usage or history of. Patient uses alcohol, on a daily basis. ROS: 23:35 Constitutional: Negative for body aches, chills, fever, poor PO intake, cp 23:35 Cardiovascular: Positive for chest pain, of the left side of chest, Negative for edema, cp palpitations, 23:35 Respiratory: Negative for cough, shortness of breath, wheezing, 23:35 Abdomen/GI: Negative for abdominal pain, vomiting, diarrhea, constipation, 23:35 Neuro: Negative for altered mental status, dizziness, headache, loss of consciousness, 05/17 02:46 Constitutional: as per hpi ec2 Exam: 05/16 23:13 ECG was reviewed by the Attending Physician. cp 23:40 Constitutional: The patient appears in no acute distress, alert, awake, cp non-diaphoretic, non-toxic, well developed, well nourished, uncomfortable, 23:40 Head/Face: Normocephalic, atraumatic. cp 23:40 Eyes: Periorbital structures: appear normal, Conjunctiva: normal, no exudate, no injection, Sclera: no appreciated abnormality, Lids and lashes: appear normal, bilaterally, 23:40 ENT: External ear(s): are unremarkable, Nose: is normal, Mouth: Lips: moist, Oral mucosa: pink and intact, moist, Posterior pharynx: Airway: no evidence of obstruction, patent, 23:40 Neck: C-spine: vertebral tenderness, is not appreciated, crepitus, is not appreciated, ROM/movement: pain, is not appreciated, limited range of motion, is not appreciated, 23:40 Chest/axilla: Inspection: normal, Palpation: crepitus, is not appreciated, tenderness, of the anterior aspect of left upper chest and left breast, 23:40 Cardiovascular: Rate: normal, Rhythm: regular, Edema: is not appreciated, JVD: is not appreciated, 23:40 Respiratory: the patient does not display signs of respiratory distress, Respirations: normal, no use of accessory muscles, no retractions, labored breathing, is not present, Breath sounds: are clear throughout, no decreased breath sounds, no stridor, no wheezing, Vital Signs: 23:00 BP 130 / 60; Pulse 69; Resp 16; Temp 97.2(TE); Pulse Ox 99% on R/A; Weight 65.77 kg jb4 (R); Height 5 ft. 5 in. (R); Pain 7/10; 23:00 BP 113 / 88; Pulse 66; Resp 18; Pulse Ox 100% on R/A; al5 23:30 BP 133 / 68; Pulse 62; Resp 18; Pulse Ox 100% on R/A; al5 0809 00:00 BP 103 / 81; Pulse 62; Resp 18; Pulse Ox 100% on R/A; al5 00:30 BP 120 / 68; Pulse 58; Resp 16; Pulse Ox 99% on R/A; al5 01:00 BP 122 / 85; Pulse 64; Resp 16; Pulse Ox 100% on R/A; al5 01:30 BP 136 / 75; Pulse 59; Resp 16; Pulse Ox 100% on R/A; al5 02:00 BP 123 / 74; Pulse 60; Resp 16; Pulse Ox 100% on R/A; al5 02:30 BP 127 / 79; Pulse 59; Resp 16; Pulse Ox 99% on R/A; al5 05/16 23:00 Body Mass Index 24.13 (65.77 kg, 165.1 cm) [facility] 05/16 23:00 Pain Scale: Adult jb4 MDM: 05/16 23:15 Patient medically screened. cp 05/17 01:45 Data reviewed: vital signs. ec2 01:46 ED course: Patient signed out to me with pending repeat troponin and CT imaging. ec2 Sustained a fall, complaining of chest pain. Patient has CT imaging pending as well as troponin. Likely discharge home. . 02:43 ED course: CT of the head and C-spine showed no acute traumatic process.. ec2 02:45 ED course: Repeat troponin is static. Patient with pending CT chest, facial bones, ec2 patient requesting discharge home, we do not have these resulted and he expressed understanding regarding risk and benefits. Will discharge home. Return precautions given.. 05/16 23:21 Order name: Basic Metabolic Panel; Complete Time: 00:41 cp 05/17 00:42 Interpretation: Normal except: NA 135; GFR 88; CA 8.2. cp 05/16 23:21 Order name: CBC with Diff; Complete Time: 01:26 cp 05/17 00:41 Interpretation: Normal except: RBC 3.32; HGB 12.4; HCT 35.4; MCV 106.7; MCH 37.3; MPV cp 6.7; LYM% 45.7. 05/16 23:21 Order name: LFT's; Complete Time: 00:41 cp 05/17 00:42 Interpretation: Normal except: AST 78; ALT 95; TP 6.1; ALB 3.3. cp 05/16 23:21 Order name: Magnesium; Complete Time: 00:41 cp 05/16 23:21 Order name: NT PRO-BNP; Complete Time: 00:41 cp 05/16 23:21 Order name: PT-INR; Complete Time: 01:26 cp 05/16 23:21 Order name: Troponin HS; Complete Time: 00:41 cp 05/17 00:43 Interpretation: Reviewed. cp 05/17 00:06 Order name: CBC Smear Scan; Complete Time: 01:26 EDMS 05/17 01:26 Order name: Troponin High Sensitivity; Complete Time: 02:44 cp 05/16 23:21 Order name: XRAY Chest (1 view) cp 05/17 00:43 Order name: CT Head C Spine cp 05/17 00:45 Order name: CT Chest Wo Con cp 05/17 00:46 Order name: CT Facial Bones W/O Con cp 05/16 23:21 Order name: Cardiac monitoring; Complete Time: 23:25 cp 05/16 23:21 Order name: EKG - Nurse/Tech; Complete Time: 23:25 cp 05/16 23:21 Order name: IV Saline Lock; Complete Time: 23:38 cp 05/16 23:21 Order name: Labs collected and sent; Complete Time: 23:38 cp 05/16 23:21 Order name: O2 Per Protocol; Complete Time: 23:25 cp 05/16 23:21 Order name: O2 Sat Monitoring; Complete Time: 23:25 cp EC/08 23:13 Rate is 67 beats/min. Rhythm is regular. MN interval is normal. QRS interval is normal. cp QT interval is normal. T waves are Inverted in lead aVR. Interpreted by me. Reviewed by me. Administered Medications: 23:54 Drug: morphine IVP or IV 4 mg IVP once over 4 mins Route: IVP; Infused Over: 4 mins; al5 Site: right antecubital; 05/17 01:09 Follow up: Response: No adverse reaction al5 05/16 23:54 Drug: Ondansetron IVP 4 mg IVP once; over 2 minutes Route: IVP; Site: right antecubital;al5 05/17 01:09 Follow up: Response: No adverse reaction al5 01:59 Drug: Ketorolac IVP 15 mg IVP once Route: IVP; Site: right antecubital; al5 02:55 Follow up: Response: No adverse reaction al5 Disposition: 02:45 I agree with the assessment and plan of care. ec2 Disposition Summary: 05/17/24 02:46 Discharge Ordered Notes: Location: Home ec2 Problem: new ec2 Symptoms: have improved ec2 Condition: Stable ec2 Diagnosis - Chest pain, unspecified ec2 - Fall on same level, unspecified ec2 Followup: cp - With: Alexis Christina MD - When: 2 - 3 days - Reason: chest pain Discharge Instructions: - Discharge Summary Sheet ec2 - Nonspecific Chest Pain, Adult, Yykh-ci-Prbg ec2 Forms: - Medication Reconciliation Form ec2 - Antibiotic Education ec2 - Prescription Opioid Use ec2 - Patient Portal Instructions ec2 - Leadership Thank You Letter ec2 Signatures: Dispatcher [employer] EDMS Christos Tilley PA PA cp Bryson, James, RN RN jb4 Sandeep Altamirano MD MD ec2 Cass Green, DOROTEO RN al5 Corrections: (The following items were deleted from the chart) 05/16 23:21 23:21 BASIC METABOLIC PANEL+C.LAB.BRZ ordered. EDMS EDMS 23:21 23:21 CBC+H.LAB.BRZ ordered. EDMS EDMS 23:21 23:21 HEPATIC FUNCTION+C.LAB.BRZ ordered. EDMS EDMS 23:21 23:21 MAGNESIUM+C.LAB.BRZ ordered. EDMS EDMS 23:21 23:21 PROBNP+C.LAB.BRZ ordered. EDMS EDMS 23:21 23:21 PROTIME (+INR)+COAG.LAB.BRZ ordered. EDMS EDMS 23:21 23:21 Troponin High Sensitivity+C.LAB.BRZ ordered. EDMS EDMS 23:21 23:21 Chest Single View+RAD.RAD.BRZ ordered. EDMS EDMS 05/17 00:46 00:46 Thorax Wo Con+CT.RAD.BRZ ordered. EDMS EDMS
--- NOTE | 2024-05-17 02:47 | ER ---
Nurse's Notes [facility] Name: Seb Matta Age: 78 yrs Sex: Male : 1945 Arrival Date: 05/16/2024 Time: 22:48 Bed 13 Private MD: Diagnosis: Chest pain, unspecified;Fall on same level, unspecified Presentation: 05/16 23:00 Chief complaint: Patient states: I was walking the dog and it saw a cat and pulled on jb4 the leash knocking me down. I have abrasions on my nose, and I started having chest pain 3-4 hours ago. It is an aching pain in the left chest. Coronavirus screen: At this time, the client does not indicate any symptoms associated with coronavirus-19. Ebola Screen: No symptoms or risks identified at this time. Initial Sepsis Screen: Does the patient meet any 2 criteria? No. Patient's initial sepsis screen is negative. Does the patient have a suspected source of infection? No. Patient's initial sepsis screen is negative. Risk Assessment: Do you want to hurt yourself or someone else? Patient reports no desire to harm self or others. Onset of symptoms was May 16, 2024. Transition of care: patient was not received from another setting of care. 23:00 Method Of Arrival: Wheelchair jb4 23:00 Acuity: MARLA 2 jb4 Triage Assessment: 23:02 General: Appears in no apparent distress. uncomfortable, Behavior is calm, cooperative, jb4 appropriate for age. Pain: Complains of pain in left breast Pain does not radiate. Pain currently is 7 out of 10 on a pain scale. Quality of pain is described as aching, Pain began 3 hours ago. Is continuous. Cardiovascular: Patient's skin is warm and dry. Respiratory: Airway is patent Respiratory effort is even, unlabored, Respiratory pattern is regular, symmetrical. Derm: Skin is pink, warm \T\ dry. abrasions noted to the nose. Historical: - Allergies: 23:02 No Known Allergies; jb4 - PMHx: 23:02 High Cholesterol; Hypertension; jb4 - PSHx: 23:02 None; jb4 - Immunization history:: Adult Immunizations up to date. - Infectious Disease History:: Denies. - Social history:: Smoking status: Patient denies any tobacco usage or history of. Patient uses alcohol, on a daily basis. Screenin:22 [facility] ED Fall Risk Assessment (Adult) History of falling in the last 3 months, al5 including since admission Yes- single mechanical fall (1 pt) Confusion or Disorientation No (0 pts) Intoxicated or Sedated No (0 pts) Impaired Gait No (0 pts) Mobility Assist Device Used No (0 pt) Altered Elimination No (0 pt) Score/Fall Risk Level 0 - 2 = Low Risk Oriented to surroundings, Maintained a safe environment, Hourly rounding (assess needs \T\ fall precautionary measures) done. Abuse screen: Denies threats or abuse. Denies injuries from another. Nutritional screening: No deficits noted. Tuberculosis screening: No symptoms or risk factors identified. Assessment: 23:30 General: Appears in no apparent distress. comfortable, Behavior is calm, cooperative. al5 Pain: Complains of pain in anterior aspect of left upper chest Pain currently is 3 out of 10 on a pain scale. 23:30 Neuro: Level of Consciousness is awake, alert, obeys commands, Oriented to person, al5 place, time, situation. Cardiovascular: Patient's skin is warm and dry. Respiratory: Airway is patent Respiratory effort is even, unlabored, Respiratory pattern is regular, symmetrical. GI: No signs and/or symptoms were reported involving the gastrointestinal system. : No signs and/or symptoms were reported regarding the genitourinary system. EENT: No signs and/or symptoms were reported regarding the EENT system. Derm: Skin is intact, Skin is pink, warm \T\ dry. normal. Musculoskeletal: No signs and/or symptoms reported regarding the musculoskeletal system. 05/17 00:30 Reassessment: Patient appears in no apparent distress at this time. Patient and/or al5 family updated on plan of care and expected duration. Pain level reassessed. Patient is alert, oriented x 3, equal unlabored respirations, skin warm/dry/pink. Patient states feeling better. 01:20 Reassessment: Patient appears in no apparent distress at this time. No changes from al5 previously documented assessment. Patient and/or family updated on plan of care and expected duration. Pain level reassessed. Patient is alert, oriented x 3, equal unlabored respirations, skin warm/dry/pink. 02:40 Reassessment: Patient appears in no apparent distress at this time. No changes from al5 previously documented assessment. Patient and/or family updated on plan of care and expected duration. Pain level reassessed. Patient is alert, oriented x 3, equal unlabored respirations, skin warm/dry/pink. Vital Signs: 05/16 23:00 BP 130 / 60; Pulse 69; Resp 16; Temp 97.2(TE); Pulse Ox 99% on R/A; Weight 65.77 kg jb4 (R); Height 5 ft. 5 in. (R); Pain 7/10; 23:00 BP 113 / 88; Pulse 66; Resp 18; Pulse Ox 100% on R/A; al5 23:30 BP 133 / 68; Pulse 62; Resp 18; Pulse Ox 100% on R/A; al5 05/17 00:00 BP 103 / 81; Pulse 62; Resp 18; Pulse Ox 100% on R/A; al5 00:30 BP 120 / 68; Pulse 58; Resp 16; Pulse Ox 99% on R/A; al5 01:00 BP 122 / 85; Pulse 64; Resp 16; Pulse Ox 100% on R/A; al5 01:30 BP 136 / 75; Pulse 59; Resp 16; Pulse Ox 100% on R/A; al5 02:00 BP 123 / 74; Pulse 60; Resp 16; Pulse Ox 100% on R/A; al5 02:30 BP 127 / 79; Pulse 59; Resp 16; Pulse Ox 99% on R/A; al5 05/16 23:00 Body Mass Index 24.13 (65.77 kg, 165.1 cm) jb4 05/16 23:00 Pain Scale: Adult jb4 ED Course: 05/16 22:50 Patient arrived in ED. ra3 23:02 Triage completed. jb4 23:02 Arm band placed on right wrist. EKG completed in triage. Results shown to MD. jb4 23:15 Christos Tilley PA is PHCP. cp 23:15 Sandeep Altamirano MD is Attending Physician. cp 23:21 Cass Green, DOROTEO is Primary Nurse. al5 23:22 Patient has correct armband on for positive identification. Bed in low position. Call al5 light in reach. Side rails up X2. Provided Education on: processes and procedures. Client placed on continuous cardiac and pulse oximetry monitoring. NIBP monitoring applied. monitoring specialist on. 23:22 No provider procedures requiring assistance completed. al5 23:23 O2 via room air. al5 23:34 Inserted saline lock: 20 gauge in right antecubital area, using aseptic technique. al5 23:38 Basic Metabolic Panel Sent. al5 23:38 CBC with Diff Sent. al5 23:38 LFT's Sent. al5 23:38 Magnesium Sent. al5 23:38 NT PRO-BNP Sent. al5 23:38 PT-INR Sent. al5 23:38 Troponin HS Sent. al5 23:52 XRAY Chest (1 view) In Process Unspecified. EDMS 08/ 01:16 CT Head C Spine In Process Unspecified. EDMS 01:17 CT Chest Wo Con In Process Unspecified. EDMS 01:17 CT Facial Bones W/O Con In Process Unspecified. EDMS 01:59 Troponin High Sensitivity Sent. al5 02:46 Alexis Christina MD is Referral Physician. ec2 02:55 IV discontinued, intact, bleeding controlled, No redness/swelling at site. Pressure al5 dressing applied. Administered Medications: 05/16 23:54 Drug: morphine IVP or IV 4 mg IVP once over 4 mins Route: IVP; Infused Over: 4 mins; al5 Site: right antecubital; 05/17 01:09 Follow up: Response: No adverse reaction al5 05/16 23:54 Drug: Ondansetron IVP 4 mg IVP once; over 2 minutes Route: IVP; Site: right antecubital;al5 05/17 01:09 Follow up: Response: No adverse reaction al5 01:59 Drug: Ketorolac IVP 15 mg IVP once Route: IVP; Site: right antecubital; al5 02:55 Follow up: Response: No adverse reaction al5 Medication: 05/16 23:22 VIS not applicable for this client. al5 Outcome: 05/17 02:46 Discharge ordered by . ec2 02:55 Discharged to home ambulatory, with significant other, al5 02:55 Condition: good 02:55 Discharge instructions given to patient, Instructed on discharge instructions, follow up and referral plans. Demonstrated understanding of instructions, follow-up care, 02:55 Patient left the ED. al5 Signatures: Dispatcher [employer] EDChristos Lee PA PA cp Bryson, James, RN RN jb4 Sandeep Altamirano MD MD ec2 Izabel Garcia ra3 Cass Green, RN RN al5
[2024-05-17 03:32] VITALS: TEMP 97.2
[2024-05-17 03:44] VITALS: BP 127/79; O2SAT 99
--- NOTE | 2024-05-17 14:07 | EKG ---
Test Date: 2024-05-16 Test Time: 23:06:27 Ms Access Database Developer: MEASUREMENT RESULTS: Intervals: Rate: 67 GA: 174 QRSD: 100 QT: 404 QTc: 426 [place]: P: 1 GA: 174 QRS: -46 T: -36 INTERPRETIVE STATEMENTS: Normal sinus rhythm Left axis deviation Nonspecific ST abnormality Abnormal ECG Compared to ECG 10/26/2015 10:06:26 No significant changes Electronically Signed On 05-17-24 14:05:19 CDT by Alexis Christina
--- NOTE | 2024-05-17 15:40 | RAD REPORT ---
EXAM DESCRIPTION: CT - Thorax Kiesha Aquino - 05/17/2024 1:15 am CLINICAL HISTORY: Male, 78 years old, CHEST PAIN COMPARISON: Concurrent CT cervical spine TECHNIQUE: CT acquisition of the chest without contrast. Coronal and sagittal reformatted images pro vided. This exam was performed according to departmental dose-optimization program which includes aut omated exposure control, adjustment of the mA and/or kV according to patient size, and/or use of iter ative reconstruction technique. FINDINGS: SUPPORTIVE DEVICES: None. LOWER NECK: Unremarkable. Lack of intravenous contrast limits evaluation of the mediastinal viscera and vascular structures. CHEST: Mediastinum/sarai: Aortic atherosclerosis without aneurysm. The pulmonary vasculature is unremarkable. No evident thoracic adenopathy. Unremarkable esophagus with small hiatal hernia. Heart: Normal size. No pericardial thickening or effusion. Mild coronary artery calcifications. Lungs: No pulmonary consolidation. 2 to 3 mm nodules are present within both lower lobes. Central air ways are clear. Pleural Space: No pleural effusion or pneumothorax. UPPER ABDOMEN: No acute finding. MUSCULOSKELETAL: No acute osseous abnormality. Nonacute fractures of anterolateral left ribs 4-9 and posterolateral right ribs 6-8. IMPRESSION: 1. No acute findings. 2. Micronodules in both lower lobes, optional 12 month follow-up chest CT if patient is considered high risk unless any available prior imaging can demonstrate stability. Electronically signed by: Gustavo Siddiqui MD 05/17/2024 03:02 AM CDT RP Due to temporary technical issues with the PACS/Fluency reporting system, reports are being signed by the in house radiologists without review as a courtesy to insure prompt reporting. The interpreting radiologist is fully responsible for the content of the report.
--- NOTE | 2024-05-17 15:42 | RAD REPORT ---
EXAM DESCRIPTION: CT - Facial Bones W/ Mpr - 05/17/2024 1:15 am CLINICAL HISTORY: Male, 78 years old, TRAUMA COMPARISON: Concurrent CT head and cervical spine TECHNIQUE: CT acquisition of the face without contrast. Coronal and sagittal reformatted images prov ided. This exam was performed according to departmental dose-optimization program which includes auto mated exposure control, adjustment of the mA and/or kV according to patient size, and/or use of itera tive reconstruction technique. FINDINGS: Suboptimal planes of acquisition and reformation limit assessment. Bones: No acute fracture. Soft tissues: Normal. Orbits: Prior lens surgery, otherwise unremarkable orbits. Sinuses/Mastoids: Right maxillary and frontal sinus circumferential mucoperiosteal thickening with co mplete opacification which extends into the nasopharynx through a widened maxillary antrum. Minimal h yperattenuation of components. Mild ethmoid sinus disease. No obvious nasal septal ulceration. Oral cavity: Multiple absent teeth and dental restorations. Visualized intracranial structures: Refer to comparison exam. Other: The imaged cervical spine is better assessed on comparison exam. IMPRESSION: 1. No acute facial bone fracture. 2. Right paranasal sinus disease with imaging appearance more consistent with chronic than acute in vasive fungal sinusitis. Correlation with patient history is required, and ENT consultation should be considered. Electronically signed by: Gustavo Siddiqui MD 05/17/2024 03:10 AM CDT RP Due to temporary technical issues with the PACS/Fluency reporting system, reports are being signed by the in house radiologists without review as a courtesy to insure prompt reporting. The interpreting radiologist is fully responsible for the content of the report.
--- NOTE | 2024-05-17 15:44 | RAD REPORT ---
EXAM DESCRIPTION: CT - Head C Spine Mpr Wo Con - 05/17/2024 1:15 am CLINICAL HISTORY: Fall COMPARISON: None. TECHNIQUE: CT HEAD AND CERVICAL SPINE WITHOUT CONTRAST on 05/17/2024 12:43 AM CDT This exam was performed according to our departmental dose-optimization program, which includes autom ated exposure control, adjustment of the mA and/or kV according to patient size and/or use of iterati ve reconstruction technique. FINDINGS: Brain: There is no acute hemorrhage, mass effect or midline shift. Nguyen-white differentiat ion is preserved. There is no hydrocephalus. There is no significant volume loss for age. The calvarium is intact. Orbits and globes are unremarkable. The right maxillary sinus is opacified. Mastoid air cells are clear. Cervical Spine: There is no acute fracture. Alignment is anatomic. There is minimal upper cervical fa cet arthritis bilaterally. There is mild narrowing of the C4-5 and C5-6 discs. Vertebral body heights are preserved. Soft tissue s are unremarkable. IMPRESSION: No definite acute posttraumatic findings. Electronically signed by: Shubham Trotter MD 05/17/2024 02:40 AM CDT Due to temporary technical issues with the PACS/Fluency reporting system, reports are being signed by the in house radiologists without review as a courtesy to insure prompt reporting. The interpreting radiologist is fully responsible for the content of the report.
--- NOTE | 2024-05-17 15:46 | RAD REPORT ---
EXAM DESCRIPTION: RAD - Chest Single View - 05/16/2024 11:50 pm CLINICAL HISTORY: CHEST PAIN. 78-year-old male. COMPARISON: No relevant imaging studies FINDINGS: A single AP portable upright view of the chest was obtained. No consolidation, pulmonary venous hypertension, pneumothorax, or significant pleural effusion. Cardiac silhouette is normal in size. Atherosclerotic aortic arch calcification. Mild multilevel thor acic spondylosis. IMPRESSION: 1. No acute cardiopulmonary process. Electronically signed by: Jose Smiley MD 05/17/2024 12:36 AM CDT Due to temporary technical issues with the PACS/Fluency reporting system, reports are being signed by the in house radiologists without review as a courtesy to insure prompt reporting. The interpreting radiologist is fully responsible for the content of the report.
== END 2024-05-17 02:55 | disposition home or self-care (01) ==
LOC: ER 22:48
DX: R07.89 Other chest pain (principal); W18.30XA Fall on same level, unspecified, initial encounter; I10 Essential (primary) hypertension
CPT/HCPCS: 93005; 85025; 80048; 36415; 83735; 85610; 80076; 84484 ×2; 83880; 70450; 71250; 72125; 70486; 76377; 71045; 96375; 96374; 99285; J2405

== ENCOUNTER 2024-05-21 14:04 | Emergency (ER) | payer MEDICARE ==
--- OUTSIDE RECORDS SUMMARY | 2024-05-21 14:10 | XMS REPORT | Continuity of Care Document ---
Author Name Unknown Address [address] [facility] [address] [place] [address] [facility] Address [address] [place] [address] Care Team Providers Care Bander And Cellophaner Helper Machine Name Role Phone SOPHIE GEORGE Primary Care Physician Unavailab Sophie Ng Attending Clinician Unavailable Liz Garcia Attending Clinician Unavailable Candace Bacon NP Attending Clinician [phone] CANDACE BACON Attending Clinician Unavailable Payers Payer Name Policy Type Policy Number Effective Date Expiration Date Source FORMERLY [facility] (MEDICARE REPLACEMENT HMO) [id number] 2022 00:00:00 [employer] MEDICARE 53 [id number] 2019 00:00:00 [facility] Problems Condition Name Condition Details Condition Category Status Onset Date Resolution Date Last Treatment Date Treating Clinician Comments Source 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 Disease Active 04-28 00:00: 00 [facility] Other hyperlipid emia Other hyperlipid emia Disease Active 04-28 00:00: 00 [facility] Primary osteoarthr itis of both knees Primary osteoarthr itis of both knees Disease Active 04-28 00:00: 00 [facility] Hypertensi on Hypertensi on Disease Active 04-28 00:00: 00 [facility] Major depressive disorder, single episode, unspecifie d Major depressive disorder, single episode, unspecifie d Disease Active 04-28 00:00: 00 [facility] Inflamed seborrheic keratosis Inflamed seborrheic keratosis Disease Active 04-28 00:00: 00 [facility] Malignant melanoma of skin Malignant melanoma of skin Disease Active 04-28 00:00: 00 [facility] Reduced libido Reduced libido Disease Active 04-28 00:00: 00 [facility] Gastroesop hageal reflux disease Gastroesop hageal reflux disease Disease Active 04-28 00:00: 00 [facility] Depressive disorder Depressive disorder Disease Active 04-28 00:00: 00 [facility] Benign prostatic hyperplasi a Benign prostatic hyperplasi a Disease Active 04-28 00:00: 00 [facility] Anxiety disorder, unspecifie d Anxiety disorder, unspecifie d Disease Active 04-28 00:00: 00 [facility] Gout Gout Disease Active 04-28 00:00: 00 [facility] H/O Malignant melanoma H/O Malignant melanoma Disease Active 04-28 00:00: 00 [facility] History of colonic polyps History of colonic polyps Disease Active 04-28 00:00: 00 [facility] 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 in male Problem [facility] [id number] Other obstructiv e and reflux uropathy Problem [facility] [id number] Acute prostatiti s Problem [facility] [id number] ED (erectile dysfunctio n) of organic origin Problem [facility] [id number] Benign prostatic hyperplasi a with lower urinary tract symptoms Problem [facility] Impotence of organic origin Erectile dysfunctio n, unspecifie d erectile dysfunctio n type Problem [facility] [id number] AMANDEEP (acute kidney injury) Problem [facility] [id number] Hyperkalem ia Problem [facility] [id number] Antibiotic drug intoleranc e Problem [facility] [id number] Chronic fatigue Problem [facility] [id number] Gastroesop hageal reflux disease without esophagiti s Problem [facility] [id number] Decreased vision in both eyes Problem [facility] Posttrauma tic stress disorder Post traumatic stress disorder Problem [facility] 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 griffin without signs of inflammato ry arthritis and tophaceous disease Problem [facility] [id number] History of basal cell cancer Problem [facility] [id number] Low testostero ne Problem [facility] Idiopathic gout Gout, arthropath y Problem [facility] Mixed anxiety and depressive disorder Depression with anxiety Problem [facility] [id number] Macrocytos is Problem [facility] [id number] Personal history of other malignant neoplasm of skin Problem [facility] [id number] Memory changes Problem [facility] Allergies, Adverse Reactions, Alerts Allergy Name Allergy Type Status Severity Reaction(s) Onset Date Inactive Date Treating Clinician Comments Source NO KNOWN ALLERGIE S Drug Class Active [facility] sulfamet hoxazole / trimetho prim sulfamet hoxazole / trimetho prim Active intolerance/ AMANDEEP [facility] Social History Social Habit Start Date Stop Date Quantity Comments Source Sexual orientation [facility] History of Tobacco Use [facility] Sex assigned at 1945 00:00:00 1945 00:00:00 [facility] Smoking Status Start Date Stop Date Source Tobacco smoking consumption unknown [facility] Never Smoker [facility] Former Smoker 2024-04-08 00:00:00 2024-04-08 00:00:00 [facility] Medications Ordered Medication Name Filled Medication Name Start Date Stop Date Current Medication? Ordering Clinician Indication Dosage Frequency Signature (SIG) Comments Components Source NaCl 0.9% (NS) bolus infusion 1,000 mL 04-28 22:15: 00 04-28 22:49 :00 No 1000mL at 999 mL/hr, 1,000 mL, IV Infusion, ONCE, 1 dose, On 04/28/24 at 1715, JENNIE [facility] carvediloL 25 mg tablet 04-28 16:28: 39 Yes 25mg Take 1 tablet by mouth in the morning and 1 tablet in the evening. Take with meals. [facility] sildenafil citrate (SILDENAFIL , BULK, MISC) 04-28 16:28: 39 Yes 100mg 100 mg. [facility] simvastatin 10 mg tablet 04-28 16:28: 39 Yes 10mg Take 1 tablet by mouth at bedtime. [facility] Flomax 0.4 MG Flomax 0.4 MG 04-03 00:00: 00 No 1{capsu le_at_b edtime} QD Flomax 0.4 MG allopurinoL 100 mg tablet 03-31 00:00: 00 Yes 100mg Take 1 tablet by mouth. [facility] lisinopriL 20 mg tablet 03-31 00:00: 00 Yes 20mg Take 1 tablet by mouth. [facility] escitalopra m oxalate 5 mg tablet 5-14 00:00: 00 Yes 5mg Take 1 tablet by mouth. [facility] Testosteron e Cypionate 200 MG/ML Testosteron e [...] HIGH DOSE OVER 65 2022-06-27 11:59:00 Completed [facility] FLUZONE HIGH DOSE OVER 65 FLUZONE HIGH DOSE OVER 65 2022-06-27 11:59:00 Completed [facility] FLUZONE HIGH DOSE OVER 65 FLUZONE HIGH DOSE OVER 65 2022-06-27 11:59:00 Completed [facility] FLUZONE HIGH DOSE OVER 65 FLUZONE HIGH DOSE OVER 65 2022-06-27 11:59:00 Completed [facility] FLUZONE HIGH DOSE OVER 65 FLUZONE HIGH DOSE OVER 65 2022-06-27 11:59:00 Completed [facility] FLUZONE HIGH DOSE OVER 65 FLUZONE HIGH DOSE OVER 65 2022-06-27 11:59:00 Completed [facility] FLUZONE HIGH DOSE OVER 65 FLUZONE HIGH DOSE OVER 65 2022-06-27 11:59:00 Completed [facility] FLUZONE HIGH DOSE OVER 65 FLUZONE HIGH DOSE OVER 65 2022-06-27 11:59:00 Completed [facility] FLUZONE HIGH DOSE OVER 65 FLUZONE HIGH DOSE OVER 65 2022-06-27 11:59:00 Completed [facility] FLUZONE HIGH DOSE OVER 65 FLUZONE HIGH DOSE OVER 65 2022-06-27 11:59:00 Completed [facility] FLUZONE HIGH DOSE OVER 65 FLUZONE HIGH DOSE OVER 65 2022-06-27 11:59:00 Completed [facility] FLUZONE HIGH DOSE OVER 65 FLUZONE HIGH DOSE OVER 65 2022-06-27 11:59:00 Completed [facility] FLUZONE HIGH DOSE OVER 65 FLUZONE HIGH DOSE OVER 65 2022-06-27 11:59:00 Completed [facility] FLUZONE HIGH DOSE OVER 65 FLUZONE HIGH DOSE OVER 65 2022-06-27 11:59:00 Completed [facility] FLUZONE HIGH DOSE OVER 65 FLUZONE HIGH DOSE OVER 65 2021-09-27 12:18:00 Completed [facility] FLUZONE HIGH DOSE OVER 65 FLUZONE HIGH DOSE OVER 65 2021-09-27 12:18:00 Completed [facility] FLUZONE HIGH DOSE OVER 65 FLUZONE HIGH DOSE OVER 65 2021-09-27 12:18:00 Completed [facility] FLUZONE HIGH DOSE OVER 65 FLUZONE HIGH DOSE OVER 65 2021-09-27 12:18:00 Completed [facility] FLUZONE HIGH DOSE OVER 65 FLUZONE HIGH DOSE OVER 65 2021-09-27 12:18:00 Completed [facility] FLUZONE HIGH DOSE OVER 65 FLUZONE HIGH DOSE OVER 65 2021-09-27 12:18:00 Completed [facility] FLUZONE HIGH DOSE OVER 65 FLUZONE HIGH DOSE OVER 65 2021-09-27 12:18:00 Completed [facility] FLUZONE HIGH DOSE OVER 65 FLUZONE HIGH DOSE OVER 65 2021-09-27 12:18:00 Completed [facility] FLUZONE HIGH DOSE OVER 65 FLUZONE HIGH DOSE OVER 65 2021-09-27 12:18:00 Completed [facility] FLUZONE HIGH DOSE OVER 65 FLUZONE HIGH DOSE OVER 65 2021-09-27 12:18:00 Completed [facility] FLUZONE HIGH DOSE OVER 65 FLUZONE HIGH DOSE OVER 65 2021-09-27 12:18:00 Completed [facility] FLUZONE HIGH DOSE OVER 65 FLUZONE HIGH DOSE OVER 65 2021-09-27 12:18:00 Completed [facility] FLUZONE HIGH DOSE OVER 65 FLUZONE HIGH DOSE OVER 65 2021-09-27 12:18:00 Completed [facility] FLUZONE HIGH DOSE OVER 65 FLUZONE HIGH DOSE OVER 65 2021-09-27 12:18:00 Completed [facility] FLUZONE HIGH DOSE OVER 65 FLUZONE HIGH DOSE OVER 65 2021-09-27 12:18:00 Completed [facility] FLUZONE HIGH DOSE OVER 65 FLUZONE HIGH DOSE OVER 65 2021-09-27 12:18:00 Completed [facility] FLUZONE HIGH DOSE OVER 65 FLUZONE HIGH DOSE OVER 65 2021-09-27 12:18:00 Completed [facility] FLUZONE HIGH DOSE OVER 65 FLUZONE HIGH DOSE OVER 65 2021-09-27 12:18:00 Completed [facility] FLUZONE HIGH DOSE OVER 65 FLUZONE HIGH DOSE OVER 65 2021-09-27 12:18:00 Completed [facility] FLUZONE HIGH DOSE OVER 65 FLUZONE HIGH DOSE OVER 65 2021-09-27 12:18:00 Completed [facility] FLUZONE HIGH DOSE OVER 65 FLUZONE HIGH DOSE OVER 65 2021-09-27 12:18:00 Completed [facility] FLUZONE HIGH DOSE OVER 65 FLUZONE HIGH DOSE OVER 65 2021-09-27 12:18:00 Completed [facility] FluAD FluAD 2020-08-28 12:44:00 Completed [facility] FluAD FluAD 2020-08-28 12:44:00 Completed [facility] FluAD FluAD 2020-08-28 12:44:00 Completed [facility] FluAD FluAD 2020-08-28 12:44:00 Completed [facility] FluAD FluAD 2020-08-28 12:44:00 Completed [facility] FluAD FluAD 2020-08-28 12:44:00 Completed [facility] FluAD FluAD 2020-08-28 12:44:00 Completed [facility] FluAD FluAD 2020-08-28 12:44:00 Completed [facility] FluAD FluAD 2020-08-28 12:44:00 Completed [facility] FluAD FluAD 2020-08-28 12:44:00 Completed [facility] FluAD FluAD 2020-08-28 12:44:00 Completed [facility] FluAD FluAD 2020-08-28 12:44:00 Completed [facility] FluAD FluAD 2020-08-28 12:44:00 Completed [facility] FluAD FluAD 2020-08-28 12:44:00 Completed [facility] FluAD FluAD 2020-08-28 12:44:00 Completed [facility] FluAD FluAD 2020-08-28 12:44:00 Completed [facility] FluAD FluAD 2020-08-28 12:44:00 Completed [facility] FluAD FluAD 2020-08-28 12:44:00 Completed [facility] FluAD FluAD 2020-08-28 12:44:00 Completed [facility] FluAD FluAD 2020-08-28 12:44:00 Completed [facility] FluAD FluAD 2020-08-28 12:44:00 Completed [facility] FluAD FluAD 2020-08-28 12:44:00 Completed [facility] FluAD FluAD 2020-08-28 12:44:00 Completed [facility] FluAD FluAD 2020-08-28 12:44:00 Completed [facility] FluAD FluAD 2020-08-28 12:44:00 Completed [facility] FluAD FluAD 2019-08-28 12:29:00 Completed [facility] FluAD FluAD 2019-08-28 12:29:00 Completed [facility] FluAD FluAD 2019-08-28 12:29:00 Completed [facility] FluAD FluAD 2019-08-28 12:29:00 Completed [facility] FluAD FluAD 2019-08-28 12:29:00 Completed [facility] FluAD FluAD 2019-08-28 12:29:00 Completed [facility] FluAD FluAD 2019-08-28 12:29:00 Completed [facility] FluAD FluAD 2019-08-28 12:29:00 Completed [facility] FluAD FluAD 2019-08-28 12:29:00 Completed [facility] FluAD FluAD 2019-08-28 12:29:00 Completed [facility] FluAD FluAD 2019-08-28 12:29:00 Completed [facility] FluAD FluAD 2019-08-28 12:29:00 Completed [facility] FluAD FluAD 2019-08-28 12:29:00 Completed [facility] FluAD FluAD 2019-08-28 12:29:00 Completed [facility] FluAD FluAD 2019-08-28 12:29:00 Completed [facility] FluAD FluAD 2019-08-28 12:29:00 Completed [facility] FluAD FluAD 2019-08-28 12:29:00 Completed [facility] FluAD FluAD 2019-08-28 12:29:00 Completed [facility] FluAD FluAD 2019-08-28 12:29:00 Completed [facility] FluAD FluAD 2019-08-28 12:29:00 Completed [facility] FluAD FluAD 2019-08-28 12:29:00 Completed [facility] FluAD FluAD 2019-08-28 12:29:00 Completed [facility] FluAD FluAD 2019-08-28 12:29:00 Completed [facility] FluAD FluAD 2019-08-28 12:29:00 Completed [facility] FluAD FluAD 2019-08-28 12:29:00 Completed [facility] FluAD FluAD 2019-08-28 00:00:00 Completed [facility] FluAD FluAD 2018-09-04 11:52:00 Completed [facility] FluAD FluAD 2018-09-04 11:52:00 Completed [facility] FluAD FluAD 2018-09-04 11:52:00 Completed [facility] FluAD FluAD 2018-09-04 11:52:00 Completed [facility] FluAD FluAD 2018-09-04 11:52:00 Completed [facility] FluAD FluAD 2018-09-04 11:52:00 Completed [facility] FluAD FluAD 2018-09-04 11:52:00 Completed [facility] FluAD FluAD 2018-09-04 11:52:00 Completed [facility] FluAD FluAD 2018-09-04 11:52:00 Completed [facility] FluAD FluAD 2018-09-04 11:52:00 Completed [facility] FluAD FluAD 2018-09-04 11:52:00 Completed [facility] FluAD FluAD 2018-09-04 11:52:00 Completed [facility] FluAD FluAD 2018-09-04 11:52:00 Completed [facility] FluAD FluAD 2018-09-04 11:52:00 Completed [facility] FluAD FluAD 2018-09-04 11:52:00 Completed [facility] FluAD FluAD 2018-09-04 11:52:00 Completed [facility] FluAD FluAD 2018-09-04 11:52:00 Completed [facility] FluAD FluAD 2018-09-04 11:52:00 Completed [facility] FluAD FluAD 2018-09-04 11:52:00 Completed [facility] FluAD FluAD 2018-09-04 11:52:00 Completed [facility] FluAD FluAD 2018-09-04 11:52:00 Completed [facility] FluAD FluAD 2018-09-04 11:52:00 Completed [facility] FluAD FluAD 2018-09-04 11:52:00 Completed [facility] FluAD FluAD 2018-09-04 11:52:00 Completed [facility] FluAD FluAD 2018-09-04 11:52:00 Completed [facility] FluAD FluAD 2018-09-04 00:00:00 Completed [facility] FLUZONE HIGH DOSE OVER 65 FLUZONE HIGH DOSE OVER 65 Unknown Completed [facility] FluAD [place] Flu[place] Unknown Completed [facility] FluAD FluAD Unknown Completed [facility] FluAD FluAD Unknown Completed [facility] FluAD FluAD Unknown Completed [facility] FLUZONE HIGH DOSE OVER 65 FLUZONE HIGH DOSE OVER 65 Unknown Completed [facility] FLUZONE HIGH DOSE OVER 65 FLUZONE HIGH DOSE OVER 65 Unknown Completed [facility] [place]AD [place] Flu[place] Unknown Completed [facility] FluAD FluAD Unknown Completed [facility] FluAD FluAD Unknown Completed [facility] FluAD FluAD Unknown Completed [facility] FLUZONE HIGH DOSE OVER 65 FLUZONE HIGH DOSE OVER 65 Unknown Completed [facility] FLUZONE HIGH DOSE OVER 65 FLUZONE HIGH DOSE OVER 65 Unknown Completed [facility] [place] Unknown Completed [facility] FluAD FluAD Unknown Completed [facility] FluAD FluAD Unknown Completed [facility] FluAD FluAD Unknown Completed [facility] FLUZONE HIGH DOSE OVER 65 FLUZONE HIGH DOSE OVER 65 Unknown Completed [facility] FLUZONE HIGH DOSE OVER 65 FLUZONE HIGH DOSE OVER 65 Unknown Completed [facility] [place] Unknown Completed [facility] FluAD FluAD Unknown Completed [facility] FluAD FluAD Unknown Completed [facility] FluAD FluAD Unknown Completed [facility] FLUZONE HIGH DOSE OVER 65 FLUZONE HIGH DOSE OVER 65 Unknown Completed [facility] FLUZONE HIGH DOSE OVER 65 FLUZONE HIGH DOSE OVER 65 Unknown Completed [facility] [place] Flu[place] Unknown Completed [facility] FluAD FluAD Unknown Completed [facility] FluAD FluAD Unknown Completed [facility] FluAD FluAD Unknown Completed [facility] FLUZONE HIGH DOSE OVER 65 FLUZONE HIGH DOSE OVER 65 Unknown Completed [facility] FLUZONE HIGH DOSE OVER 65 FLUZONE HIGH DOSE OVER 65 Unknown Completed [facility] [place] Flu[place] Unknown Completed [facility] FluAD FluAD Unknown Completed [facility] FluAD FluAD Unknown Completed [facility] FluAD FluAD Unknown Completed [facility] FLUZONE HIGH DOSE OVER 65 FLUZONE HIGH DOSE OVER 65 Unknown Completed [facility] FLUZONE HIGH DOSE OVER 65 FLUZONE HIGH DOSE OVER 65 Unknown Completed [facility] [place] Flu[place] Unknown Completed [facility] FluAD FluAD Unknown Completed [facility] FluAD FluAD Unknown Completed [facility] FluAD FluAD Unknown Completed [facility] FLUZONE HIGH DOSE OVER 65 FLUZONE HIGH DOSE OVER 65 Unknown Completed [facility] FLUZONE HIGH DOSE OVER 65 FLUZONE HIGH DOSE OVER 65 Unknown Completed [facility] [place] Flu[place] Unknown Completed [facility] FluAD FluAD Unknown Completed [facility] FluAD FluAD Unknown Completed [facility] FluAD FluAD Unknown Completed [facility] FLUZONE HIGH DOSE OVER 65 FLUZONE HIGH DOSE OVER 65 Unknown Completed [facility] FLUZONE HIGH DOSE OVER 65 FLUZONE HIGH DOSE OVER 65 Unknown Completed [facility] Fluad (aIIV4) - SDS - 0.5mL Fluad (aIIV4) - SDS - 0.5mL Unknown Completed [facility] FluAD FluAD Unknown Completed [facility] FluAD FluAD Unknown Completed [facility] FluAD FluAD Unknown Completed [facility] FLUZONE HIGH DOSE OVER 65 FLUZONE HIGH DOSE OVER 65 Unknown Completed [facility] FLUZONE HIGH DOSE OVER 65 FLUZONE HIGH DOSE OVER 65 Unknown Completed [facility] Fluad (aIIV4) - SDS - 0.5mL Fluad (aIIV4) - SDS - 0.5mL Unknown Completed [facility] FluAD FluAD Unknown Completed [facility] FluAD FluAD Unknown Completed [facility] FluAD FluAD Unknown Completed [facility] FLUZONE HIGH DOSE OVER 65 FLUZONE HIGH DOSE OVER 65 Unknown Completed [facility] FLUZONE HIGH DOSE OVER 65 FLUZONE HIGH DOSE OVER 65 Unknown Completed [facility] Fluad (aIIV4) - SDS - 0.5mL Fluad (aIIV4) - SDS - 0.5mL Unknown Completed [facility] FluAD FluAD Unknown Completed [facility] FluAD FluAD Unknown Completed [facility] FluAD FluAD Unknown Completed [facility] FLUZONE HIGH DOSE OVER 65 FLUZONE HIGH DOSE OVER 65 Unknown Completed [facility] FLUZONE HIGH DOSE OVER 65 FLUZONE HIGH DOSE OVER 65 Unknown Completed [facility] Fluad (aIIV4) - SDS - 0.5mL Fluad (aIIV4) - SDS - 0.5mL Unknown Completed [facility] FluAD FluAD Unknown Completed [facility] FluAD FluAD Unknown Completed [facility] FluAD FluAD Unknown Completed [facility] FLUZONE HIGH DOSE OVER 65 FLUZONE HIGH DOSE OVER 65 Unknown Completed [facility] FLUZONE HIGH DOSE OVER 65 FLUZONE HIGH DOSE OVER 65 Unknown Completed [facility] Fluad (aIIV4) - SDS - 0.5mL Fluad (aIIV4) - SDS - 0.5mL Unknown Completed [facility] FluAD FluAD Unknown Completed [facility] FluAD FluAD Unknown Completed [facility] FluAD FluAD Unknown Completed [facility] FLUZONE HIGH DOSE OVER 65 FLUZONE HIGH DOSE OVER 65 Unknown Completed [facility] FLUZONE HIGH DOSE OVER 65 FLUZONE HIGH DOSE OVER 65 Unknown Completed [facility] Fluad (aIIV4) - SDS - 0.5mL Fluad (aIIV4) - SDS - 0.5mL Unknown Completed [facility] FluAD FluAD Unknown Completed [facility] [facility] FluAD FluAD Unknown Completed [facility] FluAD FluAD Unknown Completed [facility] FLUZONE HIGH DOSE OVER 65 FLUZONE HIGH DOSE OVER 65 Unknown Completed [facility] FLUZONE HIGH DOSE OVER 65 FLUZONE HIGH DOSE OVER 65 Unknown Completed [facility] Fluad (aIIV4) - SDS - 0.5mL Fluad (aIIV4) - SDS - 0.5mL Unknown Completed [facility] FluAD FluAD Unknown Completed [facility] FluAD FluAD Unknown Completed [facility] FluAD FluAD Unknown Completed [facility] FLUZONE HIGH DOSE OVER 65 FLUZONE HIGH DOSE OVER 65 Unknown Completed [facility] FLUZONE HIGH DOSE OVER 65 FLUZONE HIGH DOSE OVER 65 Unknown Completed [facility] Fluad (aIIV4) - SDS - 0.5mL Fluad (aIIV4) - SDS - 0.5mL Unknown Completed [facility] FluAD FluAD Unknown Completed [facility] FluAD FluAD Unknown Completed [facility] FluAD FluAD Unknown Completed [facility] FLUZONE HIGH DOSE OVER 65 FLUZONE HIGH DOSE OVER 65 Unknown Completed [facility] FLUZONE HIGH DOSE OVER 65 FLUZONE HIGH DOSE OVER 65 Unknown Completed [facility] Fluad (aIIV4) - SDS - 0.5mL Fluad (aIIV4) - SDS - 0.5mL Unknown Completed [facility] FluAD FluAD Unknown Completed [facility] FluAD FluAD Unknown Completed [facility] FluAD FluAD Unknown Completed [facility] FLUZONE HIGH DOSE OVER 65 FLUZONE HIGH DOSE OVER 65 Unknown Completed [facility] FLUZONE HIGH DOSE OVER 65 FLUZONE HIGH DOSE OVER 65 Unknown Completed [facility] Fluad (aIIV4) - SDS - 0.5mL Fluad (aIIV4) - SDS - 0.5mL Unknown Completed [facility] FluAD FluAD Unknown Completed [facility] FluAD FluAD Unknown Completed [facility] FluAD FluAD Unknown Completed [facility] FLUZONE HIGH DOSE OVER 65 FLUZONE HIGH DOSE OVER 65 Unknown Completed [facility] FLUZONE HIGH DOSE OVER 65 FLUZONE HIGH DOSE OVER 65 Unknown Completed [facility] Fluad (aIIV4) - SDS - 0.5mL Fluad (aIIV4) - SDS - 0.5mL Unknown Completed [facility] FluAD FluAD Unknown Completed [facility] FluAD FluAD Unknown Completed [facility] FluAD FluAD Unknown Completed [facility] FLUZONE HIGH DOSE OVER 65 FLUZONE HIGH DOSE OVER 65 Unknown Completed [facility] FLUZONE HIGH DOSE OVER 65 FLUZONE HIGH DOSE OVER 65 Unknown Completed [facility] Fluad (aIIV4) - SDS - 0.5mL Fluad (aIIV4) - SDS - 0.5mL Unknown Completed [facility] FluAD FluAD Unknown Completed [facility] FluAD FluAD Unknown Completed [facility] FluAD FluAD Unknown Completed [facility] FLUZONE HIGH DOSE OVER 65 FLUZONE HIGH DOSE OVER 65 Unknown Completed [facility] FLUZONE HIGH DOSE OVER 65 FLUZONE HIGH DOSE OVER 65 Unknown Completed [facility] Fluad (aIIV4) - SDS - 0.5mL Fluad (aIIV4) - SDS - 0.5mL Unknown Completed [facility] FluAD FluAD Unknown Completed [facility] FluAD FluAD Unknown Completed [facility] FluAD FluAD Unknown Completed [facility] FLUZONE HIGH DOSE OVER 65 FLUZONE HIGH DOSE OVER 65 Unknown Completed [facility] FLUZONE HIGH DOSE OVER 65 FLUZONE HIGH DOSE OVER 65 Unknown Completed [facility] FluAD Quad SD FluAD Quad SD Unknown Completed [facility] FluAD FluAD Unknown Completed [facility] FluAD FluAD Unknown Completed [facility] FluAD FluAD Unknown Completed [facility] FLUZONE HIGH DOSE OVER 65 FLUZONE HIGH DOSE OVER 65 Unknown Completed [facility] FLUZONE HIGH DOSE OVER 65 FLUZONE HIGH DOSE OVER 65 Unknown Completed [facility] FluAD Quad SD FluAD Quad SD Unknown Completed [facility] FluAD FluAD Unknown Completed [facility] FluAD FluAD Unknown Completed [facility] FluAD FluAD Unknown Completed [facility] FLUZONE HIGH DOSE OVER 65 FLUZONE HIGH DOSE OVER 65 Unknown Completed [facility] FLUZONE HIGH DOSE OVER 65 FLUZONE HIGH DOSE OVER 65 Unknown Completed [facility] FluAD Quad SD FluAD Quad SD Unknown Completed [facility] FluAD FluAD Unknown Completed [facility] FluAD FluAD Unknown Completed [facility] FluAD FluAD Unknown Completed [facility] FLUZONE HIGH DOSE OVER 65 FLUZONE HIGH DOSE OVER 65 Unknown Completed [facility] FLUZONE HIGH DOSE OVER 65 FLUZONE HIGH DOSE OVER 65 Unknown Completed [facility] FluAD Quad SD FluAD Quad SD Unknown Completed [facility] FluAD FluAD Unknown Completed [facility] FluAD FluAD Unknown Completed [facility] FluAD FluAD Unknown Completed [facility] FLUZONE HIGH DOSE OVER 65 FLUZONE HIGH DOSE OVER 65 Unknown Completed [facility] Vital Signs Vital Name Observation Time Observation Value Comments S brielle height 2024-05-02 14:00:00 65.50 [in_i] Com mon [facility] weight 2024-05-02 14:00:00 143.8 [lb_av] Co mmon [facility] temperature 2024-05-02 14:00:00 97.4 [degF] Com [facility] bmi 2024-05-02 14:00:00 23.56 kg/m2 Comm on [facility] oximetry 2024-05-02 14:00:00 97 % Commo n [facility] respiratory rate 2024-05-02 14:00:00 16 /min [facility] blood pressure systolic 2024-05-02 14:00:00 134 mm[Hg] [facility] blood pressure diastolic 2024-05-02 14:00:00 78 mm[Hg] [facility] Systolic blood pressure 2024-04-28 22:48:00 132 mm[Hg] [facility] Diastolic blood pressure 2024-04-28 22:48:00 76 mm[Hg] [facility] Heart rate 2024-04-28 22:48:00 73 /min [facility] Body temperature 2024-04-28 22:48:00 36.5 Yoly [facility] Respiratory rate 2024-04-28 22:48:00 15 /min [facility] Oxygen saturation in Arterial blood by Pulse oximetry 2024-04-28 22:48:00 99 /min [facility] Body height 2024-04-28 21:18:00 167.6 cm [facility] Body weight 2024-04-28 21:18:00 65.772 kg [facility] BMI 2024-04-28 21:18:00 23.40 kg/m2 [facility] height 2024-04-24 10:30:00 65.50 [in_i] Com [facility] weight 2024-04-24 10:30:00 141.6 [lb_av] Co mmon [facility] temperature 2024-04-24 10:30:00 97.5 [degF] Com [facility] bmi 2024-04-24 10:30:00 23.2 kg/m2 Commo n [facility] oximetry 2024-04-24 10:30:00 94 % Commo n [facility] respiratory rate 2024-04-24 10:30:00 18 /min [facility] blood pressure systolic 2024-04-24 10:30:00 122 mm[Hg] [facility] blood pressure diastolic 2024-04-24 10:30:00 61 mm[Hg] Common [facility] height 2024-04-18 11:00:00 65.50 [in_i] Com [facility] weight 2024-04-18 11:00:00 145 [lb_av] Comm on [facility] temperature 2024-04-18 11:00:00 97.2 [degF] Com [facility] bmi 2024-04-18 11:00:00 23.76 kg/m2 Comm on [facility] oximetry 2024-04-18 11:00:00 99 % Commo n [facility] respiratory rate 2024-04-18 11:00:00 16 /min Common [facility] blood pressure systolic 2024-04-18 11:00:00 95 mm[Hg] [facility] blood pressure diastolic 2024-04-18 11:00:00 49 mm[Hg] Common [facility] height 2024-04-03 10:45:00 65.50 [in_i] Com [facility] weight 2024-04-03 10:45:00 146.8 [lb_av] Co mmon [facility] temperature 2024-04-03 10:45:00 98.6 [degF] Com [facility] bmi 2024-04-03 10:45:00 24.05 kg/m2 Comm on [facility] oximetry 2024-04-03 10:45:00 96 % Commo n [facility] respiratory rate 2024-04-03 10:45:00 18 /min Common [facility] blood pressure systolic 2024-04-03 10:45:00 158 mm[Hg] Common [facility] blood pressure diastolic 2024-04-03 10:45:00 92 mm[Hg] [facility] height 2024-01-12 10:40:00 65.50 [in_i] Com [facility] weight 2024-01-12 10:40:00 154 [lb_av] Comm on [facility] temperature 2024-01-12 10:40:00 97.0 [degF] Com [facility] bmi 2024-01-12 10:40:00 25.23 kg/m2 Comm on [facility] oximetry 2024-01-12 10:40:00 97 % Commo n [facility] respiratory rate 2024-01-12 10:40:00 16 /min Common [facility] blood pressure systolic 2024-01-12 10:40:00 139 mm[Hg] [facility] blood pressure diastolic 2024-01-12 10:40:00 76 mm[Hg] [facility] height 2024-01-12 10:40:00 65.50 [in_i] Com [facility] weight 2024-01-12 10:40:00 154 [lb_av] Comm on [facility] temperature 2024-01-12 10:40:00 97.0 [degF] Com [facility] bmi 2024-01-12 10:40:00 25.23 kg/m2 Comm on [facility] oximetry 2024-01-12 10:40:00 97 % Commo n [facility] respiratory rate 2024-01-12 10:40:00 16 /min Common [facility] blood pressure systolic 2024-01-12 10:40:00 139 mm[Hg] [facility] blood pressure diastolic 2024-01-12 10:40:00 76 mm[Hg] [facility] height 2023-09-29 10:40:00 65.50 [in_i] Com [facility] weight 2023-09-29 10:40:00 154.8 [facility]-29 10:40:00 97.7 [degF] Com [facility] bmi 2023-09-29 10:40:00 25.37 kg/m2 Comm on [facility] oximetry 2023-09-29 10:40:00 98 % Commo n [facility] respiratory rate 2023-09-29 10:40:00 16 /min [facility] blood pressure systolic 2023-09-29 10:40:00 134 mm[Hg] [facility] blood pressure diastolic 2023-09-29 10:40:00 78 mm[Hg] [facility] height 2023-09-05 10:40:00 65.50 [in_i] Com [facility] weight 2023-09-05 10:40:00 158.2 [lb_av] Co mmon [facility] temperature 2023-09-05 10:40:00 97.6 [degF] Com [facility] bmi 2023-09-05 10:40:00 25.92 kg/m2 Comm on [facility] oximetry 2023-09-05 10:40:00 97 % Commo n [facility] respiratory rate 2023-09-05 10:40:00 16 /min [facility] blood pressure systolic 2023-09-05 10:40:00 120 mm[Hg] [facility] blood pressure diastolic 2023-09-05 10:40:00 78 mm[Hg] [facility] height 2023-07-17 10:40:00 65.50 [in_i] Com [facility] weight 2023-07-17 10:40:00 155.6 [lb_av] Co [facility] temperature 2023-07-17 10:40:00 97.9 [degF] Com [facility] bmi 2023-07-17 10:40:00 25.5 kg/m2 Commo n [facility] oximetry 2023-07-17 10:40:00 95 % Commo n [facility] respiratory rate 2023-07-17 10:40:00 17 /min [facility] blood pressure systolic 2023-07-17 10:40:00 138 mm[Hg] [facility] blood pressure diastolic 2023-07-17 10:40:00 76 mm[Hg] [facility] height 2023-05-18 11:20:00 65.50 [in_i] Com [facility] weight 2023-05-18 11:20:00 156.4 [lb_av] Co [facility] temperature 2023-05-18 11:20:00 98.0 [degF] Com [facility] bmi 2023-05-18 11:20:00 25.63 kg/m2 Comm on [facility] oximetry 2023-05-18 11:20:00 98 % Commo n [facility] respiratory rate 2023-05-18 11:20:00 16 /min Common [facility] blood pressure systolic 2023-05-18 11:20:00 149 mm[Hg] [facility] blood pressure diastolic 2023-05-18 11:20:00 77 mm[Hg] [facility] height 2023-04-12 13:00:00 65.50 [in_i] Com [facility] weight 2023-04-12 13:00:00 150.0 [lb_av] Co mmon [facility] temperature 2023-04-12 13:00:00 97.9 [degF] Com [facility] bmi 2023-04-12 13:00:00 24.58 kg/m2 Comm on [facility] oximetry 2023-04-12 13:00:00 97 % Commo n [facility] respiratory rate 2023-04-12 13:00:00 16 /min [facility] blood pressure systolic 2023-04-12 13:00:00 163 mm[Hg] [facility] blood pressure diastolic 2023-04-12 13:00:00 82 mm[Hg] [facility] height 2023-03-13 10:40:00 65.50 [in_i] Com [facility] weight 2023-03-13 10:40:00 148 [lb_av] Comm on [facility] temperature 2023-03-13 10:40:00 97.8 [degF] Com [facility] bmi 2023-03-13 10:40:00 24.25 kg/m2 Comm on [facility] oximetry 2023-03-13 10:40:00 98 % Commo n [facility] respiratory rate 2023-03-13 10:40:00 17 /min Common [facility] blood pressure systolic 2023-03-13 10:40:00 132 mm[Hg] Common [facility] blood pressure diastolic 2023-03-13 10:40:00 76 mm[Hg] [facility] height 2023-02-27 11:00:00 65.50 [in_i] Com [facility] weight 2023-02-27 11:00:00 148.2 [lb_av] Co mmon [facility] temperature 2023-02-27 11:00:00 98.4 [degF] Com [facility] bmi 2023-02-27 11:00:00 24.28 kg/m2 Comm on [facility] oximetry 2023-02-27 11:00:00 98 % Commo n [facility] respiratory rate 2023-02-27 11:00:00 17 /min [facility] blood pressure systolic 2023-02-27 11:00:00 146 mm[Hg] [facility] blood pressure diastolic 2023-02-27 11:00:00 82 mm[Hg] [facility] height 2023-02-10 11:00:00 65.50 [in_i] Com [facility] weight 2023-02-10 11:00:00 148.2 [lb_av] Co [facility] temperature 2023-02-10 11:00:00 98.4 [degF] Com [facility] bmi 2023-02-10 11:00:00 24.28 kg/m2 Comm on [facility] oximetry 2023-02-10 11:00:00 97 % Commo n [facility] respiratory rate 2023-02-10 11:00:00 16 /min [facility] blood pressure systolic 2023-02-10 11:00:00 162 mm[Hg] [facility] blood pressure diastolic 2023-02-10 11:00:00 86 mm[Hg] Common [facility] height 2023-01-11 11:00:00 65.50 [in_i] Com [facility] weight 2023-01-11 11:00:00 158 [lb_av] Comm on [facility] temperature 2023-01-11 11:00:00 98.2 [degF] Com [facility] bmi 2023-01-11 11:00:00 25.89 kg/m2 Comm on [facility] oximetry 2023-01-11 11:00:00 98 % Commo n [facility] respiratory rate 2023-01-11 11:00:00 17 /min [facility] blood pressure systolic 2023-01-11 11:00:00 160 mm[Hg] [facility] blood pressure diastolic 2023-01-11 11:00:00 94 mm[Hg] [facility] height 2023-01-11 11:00:00 65.50 [in_i] Com [facility] weight 2023-01-11 11:00:00 158 [lb_av] Comm on [facility] temperature 2023-01-11 11:00:00 98.2 [degF] Com [facility] bmi 2023-01-11 11:00:00 25.89 kg/m2 Comm on [facility] oximetry 2023-01-11 11:00:00 98 % Commo n [facility] respiratory rate 2023-01-11 11:00:00 17 /min Common [facility] blood pressure systolic 2023-01-11 11:00:00 148 mm[Hg] [facility] blood pressure diastolic 2023-01-11 11:00:00 100 mm[Hg] [facility] height 2022-12-06 13:20:00 65.50 [in_i] Com [facility] weight 2022-12-06 13:20:00 156.2 [lb_av] Co on [facility] temperature 2022-12-06 13:20:00 97.7 [degF] Com [facility] bmi 2022-12-06 13:20:00 25.59 kg/m2 Comm on [facility] oximetry 2022-12-06 13:20:00 97 % Commo n [facility] respiratory rate 2022-12-06 13:20:00 16 /min Common [facility] blood pressure systolic 2022-12-06 13:20:00 138 mm[Hg] [facility] blood pressure diastolic 2022-12-06 13:20:00 86 mm[Hg] Common [facility] height 2022-06-27 10:40:00 65.50 [in_i] Com [facility] weight 2022-06-27 10:40:00 152.6 [lb_av] Co [facility] temperature 2022-06-27 10:40:00 98.1 [degF] Com [facility] bmi 2022-06-27 10:40:00 25.01 kg/m2 Comm on [facility] oximetry 2022-06-27 10:40:00 99 % Commo n [facility] respiratory rate 2022-06-27 10:40:00 16 /min [facility] blood pressure systolic 2022-06-27 10:40:00 132 mm[Hg] [facility] blood pressure diastolic 2022-06-27 10:40:00 74 mm[Hg] Common [facility] height 2022-01-27 11:20:00 65.50 [in_i] Com [facility] weight 2022-01-27 11:20:00 153.2 [lb_av] Co [facility] temperature 2022-01-27 11:20:00 98.0 [degF] Com [facility] bmi 2022-01-27 11:20:00 25.10 kg/m2 Comm on [facility] oximetry 2022-01-27 11:20:00 98 % Commo n [facility] respiratory rate 2022-01-27 11:20:00 16 /min [facility] blood pressure systolic 2022-01-27 11:20:00 130 mm[Hg] [facility] blood pressure diastolic 2022-01-27 11:20:00 50 mm[Hg] [facility] height 2021-09-27 11:20:00 65.50 [in_i] Com [facility] weight 2021-09-27 11:20:00 156 [lb_av] Comm on [facility] temperature 2021-09-27 11:20:00 97.7 [degF] Com [facility] bmi 2021-09-27 11:20:00 25.56 kg/m2 Comm on [facility] oximetry 2021-09-27 11:20:00 98 % Commo n [facility] blood pressure systolic 2021-09-27 11:20:00 131 mm[Hg] [facility] blood pressure diastolic 2021-09-27 11:20:00 67 mm[Hg] Common [facility] height 2021-09-10 15:30:00 65.50 [in_i] Com [facility] weight 2021-09-10 15:30:00 155.6 [lb_av] Co mmon [facility] temperature 2021-09-10 15:30:00 97.4 [degF] Com [facility] bmi 2021-09-10 15:30:00 25.5 kg/m2 Commo n [facility] oximetry 2021-09-10 15:30:00 97 % Commo n [facility] respiratory rate 2021-09-10 15:30:00 17 /min [facility] blood pressure systolic 2021-09-10 15:30:00 142 mm[Hg] [facility] blood pressure diastolic 2021-09-10 15:30:00 70 mm[Hg] [facility] Procedures Procedure Date / Time Performed Performing Clinicia n Source EKG-12 LEAD 2024-04-28 22:46:31 Candace Bacon [facility] PHOSPHORUS 2024-04-28 21:37:00 Candace Bacon [facility] MAGNESIUM 2024-04-28 21:37:00 Candace Bacon [facility] COMP. METABOLIC PANEL ([id number]) 2024-04-28 21:37:00 Candace Bacon [facility] CBC WITH DIFF 2024-04-28 21:37:00 Candace Bacon [facility] URINALYSIS 2024-04-28 21:37:00 Candace Bacon [facility] PVR 2024-04-03 00:00:00 [facility] Encounters Start Date/Time End Date/Time Encounter Type Admission Type Attending Clinicians Care Facility Care Department Encounter ID Source 2024-04-03 09:52:00 Outpatient Sophie George [facility] [id number] [facility] 2024-02-15 13:02:00 Outpatient Sophie George [facility] [id number] [facility] 2024-01-10 07:45:00 Outpatient Sophie George [facility] [id number] [facility] 2023-11-06 14:39:00 Outpatient Sophie George STLMLC [facility] [id number] [facility] 2023-09-27 11:04:00 Outpatient Sophie George [facility] [id number] [facility] 2023-08-29 10:16:00 Outpatient GeorgeSophie STLMLC STL[facility]C [id number] [facility] 2023-08-23 10:50:00 Outpatient George, Sophie STLMLC STL[facility] [id number] [facility] 2023-07-13 11:00:00 Outpatient GeorgeMarii STLMLC STLMLC [id number] [facility] 2023-05-17 08:16:00 Outpatient George Sophie STLMLC STL[facility] [id number] [facility] 2023-04-10 09:55:00 Outpatient GeorgeMarii STLMLC STLMLC [id number] [facility] 2023-02-09 08:45:00 Outpatient George Sophie STLMLC STLMLC [id number] [facility] 2022-12-06 07:23:00 Outpatient GeorgeMarii STLMLC STLMLC [id number] [facility] 2022-11-11 12:35:00 Outpatient GeorgeMarii STLMLC STLMLC [id number] [facility] 2022-06-29 16:05:00 Outpatient Garcia, Na STLMLC STLMLC [id number] [facility] 2022-06-23 08:50:00 Outpatient Garcia, Na STLMLC STLMLC [id number] [facility] 2022-01-26 11:55:00 Outpatient Garcia, Na STLMLC STLMLC [id number] [facility] 2021-11-03 14:26:21 Outpatient Garcia, Na STLMLC STLMLC [id number] [facility] 2021-11-03 14:25:50 Outpatient Garcia, Na STLMLC STLMLC [id number] [facility] 2021-11-03 13:45:16 Outpatient Liz Garcia STLMLC STLMLC [id number] [facility] 2021-11-03 12:47:50 Outpatient Jose Na STLMLC STLMLC [id number] [facility] 2021-11-03 12:46:26 Outpatient Jose Na STLMLC STLMLC [id number] [facility] 2021-11-03 12:44:49 Outpatient Garcia, Na STLMLC STLMLC [id number] [facility] 2021-11-03 11:31:40 Outpatient Liz Garcia STLMLC STL[facility] [id number] [facility] 2021-11-03 11:21:24 Outpatient Liz Garcia STLMLC STL[facility] [id number] [facility] 2021-11-03 11:16:33 Outpatient Liz Garcia STLMLC STL[facility]C [id number] [facility] 2021-11-03 11:16:05 Outpatient Liz Garcia STLMLC STL[facility] [id number] [facility] 2021-11-03 11:06:47 Outpatient Liz Garcia STLMLC STL[facility] [id number] [facility] 2024-05-02 00:00:00 2024-05-02 00:00:00 OFFICE VISIT ESTAB PT LEVEL 5 STLMLC STLMLC [id number] [facility] 2024-04-28 16:21:00 2024-04-28 17:56:00 Emergency Tinoalissa Candace Pan [facility] [id number] [facility] 2024-04-28 16:21:00 2024-04-28 17:56:00 Emergency X AMINA, CANDACE TINOALISSA, CANDACE [facility] [id number] [facility] 2024-04-27 00:00:00 2024-04-27 00:00:00 (TEL) STLMLC STLMLC [id number] [facility] 2024-04-25 00:00:00 2024-04-25 00:00:00 (TEL) STLMLC STLMLC [id number] [facility] 2024-04-24 00:00:00 2024-04-24 00:00:00 OFFICE VISIT ESTAB PT LEVEL 3 STLMLC STLMLC [id number] [facility] 2024-04-18 00:00:00 2024-04-18 00:00:00 OFFICE VISIT ESTAB PT LEVEL 5 STLMLC STLMLC [id number] [facility] 2024-04-17 00:00:00 2024-04-17 00:00:00 (TEL) STLMLC STLMLC [id number] [facility] 2024-04-03 00:00:00 2024-04-03 00:00:00 OFFICE VISIT NEW PT LEVEL 4 STLMLC STLMLC [id number] [facility] 2024-03-25 00:00:00 2024-03-25 00:00:00 (TEL) STLMLC STLMLC [id number] [facility] 2024-01-31 00:00:00 2024-01-31 00:00:00 (TEL) STLMLC STLMLC [id number] [facility] 2024-01-12 00:00:00 2024-01-12 00:00:00 OFFICE VISIT ESTAB PT LEVEL 4 STLMLC STLMLC [id number] [facility] 2024-01-12 00:00:00 2024-01-12 00:00:00 SUB ANNUAL [facility] VISIT STLMLC STLMLC [id number] [facility] 2024-01-08 00:00:00 2024-01-08 00:00:00 (TEL) STLMLC STLMLC [id number] [facility] 2023-11-06 00:00:00 2023-11-06 00:00:00 (TEL) STLMLC STLMLC [id number] [facility] 2023-10-16 00:00:00 2023-10-16 00:00:00 (TEL) STLMLC STLMLC [id number] [facility] 2023-09-29 00:00:00 2023-09-29 00:00:00 OFFICE VISIT ESTAB PT LEVEL 4 STLMLC STLMLC [id number] [facility] 2023-09-05 00:00:00 2023-09-05 00:00:00 OFFICE VISIT ESTAB PT LEVEL 4 STLMLC STLMLC [id number] [facility] 2023-07-17 00:00:00 2023-07-17 00:00:00 OFFICE VISIT ESTAB PT LEVEL 4 STLMLC STLMLC [id number] [facility] 2023-07-12 00:00:00 2023-07-12 00:00:00 (TEL) STLMLC STLMLC [id number] [facility] 2023-05-24 00:00:00 2023-05-24 00:00:00 (TEL) STLMLC STLMLC [id number] [facility] 2023-05-18 00:00:00 2023-05-18 00:00:00 OFFICE VISIT ESTAB PT LEVEL 3 STLMLC STLMLC [id number] [facility] 2023-05-08 00:00:00 2023-05-08 00:00:00 (TEL) STLMLC STLMLC [id number] [facility] 2023-04-21 00:00:00 2023-04-21 00:00:00 (TEL) STLMLC STLMLC [id number] [facility] 2023-04-12 00:00:00 2023-04-12 00:00:00 OFFICE VISIT ESTAB PT LEVEL 4 STLMLC STLMLC [id number] [facility] 2023-03-13 00:00:00 2023-03-13 00:00:00 OFFICE VISIT ESTAB PT LEVEL 2 STLMLC STLMLC [id number] [facility] 2023-03-09 00:00:00 2023-03-09 00:00:00 (TEL) STLMLC STLMLC [id number] [facility] 2023-02-27 00:00:00 2023-02-27 00:00:00 OFFICE VISIT ESTAB PT LEVEL 2 STLMLC STLMLC [id number] [facility] 2023-02-10 00:00:00 2023-02-10 00:00:00 Outpatient DMG [facility] [id number] [facility] 2023-02-10 00:00:00 2023-02-10 00:00:00 OFFICE VISIT ESTAB PT LEVEL 4 STLMLC STLMLC [id number] [facility] 2023-01-11 00:00:00 2023-01-11 00:00:00 OFFICE VISIT ESTAB PT LEVEL 4 STLMLC STLMLC [id number] [facility] 2023-01-11 00:00:00 2023-01-11 00:00:00 SUB ANNUAL [facility] VISIT STLMLC STLMLC [id number] [facility] 2022-12-23 00:00:00 2022-12-23 00:00:00 (TEL) STLMLC STLMLC [id number] [facility] 2022-12-19 00:00:00 2022-12-19 00:00:00 (TEL) STLMLC STLMLC [id number] [facility] 2022-12-06 00:00:00 2022-12-06 00:00:00 OFFICE VISIT ESTAB PT LEVEL 4 STLMLC STLMLC [id number] [facility] 2022-10-28 00:00:00 2022-10-28 00:00:00 (TEL) STLMLC STLMLC [id number] [facility] 2022-10-19 00:00:00 2022-10-19 00:00:00 (TEL) STLMLC STLMLC [id number] [facility] 2022-08-11 00:00:00 2022-08-11 00:00:00 (TEL) STLMLC STLMLC [id number] [facility] 2022-08-08 00:00:00 2022-08-08 00:00:00 Outpatient DMG DM [id number] [facility] 2022-07-14 00:00:00 2022-07-14 00:00:00 (TEL) STLMLC STLMLC [id number] [facility] 2022-07-07 00:00:00 2022-07-07 00:00:00 (TEL) STLMLC STLMLC [id number] [facility] 2022-06-30 00:00:00 2022-06-30 00:00:00 (TEL) STLMLC STLMLC [id number] [facility] 2022-06-28 00:00:00 2022-06-28 00:00:00 (TEL) STLMLC STLMLC [id number] [facility] 2022-06-28 00:00:00 2022-06-28 00:00:00 (TEL) STLMLC STLMLC [id number] [facility] 2022-06-27 00:00:00 2022-06-27 00:00:00 OFFICE VISIT ESTAB PT LEVEL 4 STLMLC STLMLC [id number] [facility] 2022-06-20 00:00:00 2022-06-20 00:00:00 (TEL) STLMLC STLMLC [id number] [facility] 2022-05-25 00:00:00 2022-05-25 00:00:00 (TEL) STLMLC STLMLC [id number] [facility] 2022-03-30 00:00:00 2022-03-30 00:00:00 (TEL) STLMLC STLMLC [id number] [facility] 2022-02-18 00:00:00 2022-02-18 00:00:00 (TEL) STLMLC STLMLC [id number] [facility] 2022-01-27 00:00:00 2022-01-27 00:00:00 OFFICE VISIT ESTAB PT LEVEL 4 STLMLC STLMLC [id number] [facility] 2021-10-29 00:00:00 2021-10-29 00:00:00 (TEL) STLMLC STLMLC [id number] [facility] 2021-10-14 00:00:00 2021-10-14 00:00:00 (TEL) STLMLC STLMLC [id number] [facility] 2021-09-27 00:00:00 2021-09-27 00:00:00 OFFICE VISIT ESTAB PT LEVEL 4 STLMLC STLMLC [id number] [facility] 2021-09-10 00:00:00 2021-09-10 00:00:00 OFFICE VISIT EST PT LEVEL 3 STLMLC STLMLC [id number] [facility] 2021-09-08 00:00:00 2021-09-08 00:00:00 (TEL) STLMLC STLMLC [id number] [facility] 2021-08-18 00:00:00 2021-08-18 00:00:00 (TEL) STLMLC STLMLC [id number] [facility] 2021-06-10 00:00:00 2021-06-10 00:00:00 Outpatient STLMLC STLMLC [id number] [facility] 2021-05-25 00:00:00 2021-05-25 00:00:00 Outpatient STLMLC STLMLC [id number] [facility] 2021-05-10 00:00:00 2021-05-10 00:00:00 Outpatient STLMLC STLMLC [id number] [facility] 2021-05-03 00:00:00 2021-05-03 00:00:00 Outpatient STLMLC STLMLC [id number] [facility] 2021-01-07 00:00:00 2021-01-07 00:00:00 Outpatient STLMLC STLMLC [id number] [facility] 2020-11-20 00:00:00 2020-11-20 00:00:00 Outpatient STLMLC STLMLC [id number] [facility] 2020-10-29 00:00:00 2020-10-29 00:00:00 Outpatient STLMLC STLMLC [id number] [facility] 2020-10-12 00:00:00 2020-10-12 00:00:00 Outpatient STLMLC STLMLC [id number] [facility] 2020-10-08 00:00:00 2020-10-08 00:00:00 Outpatient STLMLC STLMLC [id number] [facility] 2020-10-07 00:00:00 2020-10-07 00:00:00 Outpatient STLMLC STLMLC [id number] [facility] 2020-09-28 00:00:00 2020-09-28 00:00:00 Outpatient STLMLC STLMLC [id number] [facility] 2020-09-22 00:00:00 2020-09-22 00:00:00 Outpatient STLMLC STLMLC [id number] [facility] 2020-08-28 00:00:00 2020-08-28 00:00:00 Outpatient STLMLC STLMLC [id number] [facility] 2020-05-25 16:45:00 2020-05-25 16:45:00 Outpatient [facility] [id number] [facility] 2020-04-27 10:20:00 2020-04-27 10:20:00 [facility] [id number] [facility] 2020-04-14 14:47:00 2020-04-14 14:47:[address] [facility] [id number] [facility] 2020-04-02 15:47:00 2020-04-02 15:47:[address] [facility] [facility] [id number] [facility] 2020-02-13 15:02:00 2020-02-13 15:02:[address] [facility] [facility] [id number] [facility] 2019-12-26 10:00:00 2019-12-26 10:00:[address] [facility] [facility] [id number] [facility] 2019-12-19 09:52:00 2019-12-19 09:52:[address] [facility] [id number] [facility] 2019-11-19 15:25:00 2019-11-19 15:25:[address] [facility] [id number] [facility] 2019-11-18 14:24:00 2019-11-18 14:24:[address] [facility] [id number] [facility] 2019-10-08 10:37:00 2019-10-08 10:37:[address] [facility] [id number] [facility] 2019-08-28 10:40:00 2019-08-28 10:40:[address] [facility] [id number] [facility] 2019-08-27 17:26:00 2019-08-27 17:26:[address] [facility] [id number] [facility] 2019-08-22 13:33:00 2019-08-22 13:33:[address] [facility] [id number] [facility] 2019-08-16 09:20:00 2019-08-16 09:20:[address] [facility] [id number] [facility] 2019-06-20 11:00:00 2019-06-20 11:00:[address] [facility] [id number] [facility] 2019-05-14 10:00:00 2019-05-14 10:00:[address] [facility] [id number] [facility] 2019-02-20 10:22:00 2019-02-20 10:22:[address] [facility] [id number] [facility] 2019-02-11 09:41:00 2019-02-11 09:41:[address] [facility] [id number] [facility] 2019-01-08 09:40:00 2019-01-08 09:40:[address] [facility] [id number] [facility] 2018-11-26 15:27:00 2018-11-26 15:27:[address] [facility] [id number] [facility] 2018-11-22 10:23:00 2018-11-22 10:23:[address] [facility] [id number] [facility] 2018-11-16 14:31:00 2018-11-16 14:31:[address] [facility] [id number] [facility] 2018-11-06 13:24:00 2018-11-06 13:24:[address] [facility] [id number] [facility] 2018-10-01 10:13:00 2018-10-01 10:13:[address] [facility] [id number] [facility] 2018-09-04 09:45:00 2018-09-04 09:45:[address] [facility] [id number] [facility] 2018-06-29 13:32:00 2018-06-29 13:32:[address] [facility] [id number] [facility] 2018-06-29 13:27:00 2018-06-29 13:27:[address] [facility] [id number] [facility] 2018-06-12 09:45:00 2018-06-12 09:45:00 [facility] [id number] [facility] 2018-06-04 08:30:00 2018-06-04 08:30:[address] [facility] [id number] [facility] 2018-04-27 10:13:00 2018-04-27 10:13:[address] [facility] [id number] [facility] 2018-03-22 11:33:00 2018-03-22 11:33:[address] [facility] [id number] [facility] 2018-02-27 08:30:00 2018-02-27 08:30:[address] [facility] [id number] [facility] Results Test Description Test Time Test Comments Results Result Co mments Source [facility] (49684)2024-04-28 22:25:55* Test Item Value Reference Range Interpretation Comme nts NA (test code = 3412868051) 131 mmol/L 135-145 L K (test code = 3905563739) 4.5 mmol/L 3.5-5.0 CL (test code = 8578787527) 97 mmol/L 98-108 L CO2 TOTAL (test code = 8447574146) 24 mmol/L 23-31 AGAP (test code = 7355605681) 10 2-16 BUN (test code = 4403193709) 20 mg/dL 7-23 GLUCOSE (test code = 1681354832) 86 mg/dL 70-110 CREATININE (test code = 2160-0) 1.48 mg/dL 0.60-1.25 H TOTAL BILI (test code = 0508826849) 0.8 mg/dL 0.1-1.1 CALCIUM (test code = 4483469112) 8.9 mg/dL 8.6-10.6 T PROTEIN (test code = 6069051497) 6.5 g/dL 6.3-8.2 ALBUMIN (test code = 3582625527) 3.9 g/dL 3.5-5.0 ALK PHOS (test code = 2481046550) 40 U/L 34-122 ALTv (test code = 1742-6) 86 U/L 5-50 H AST(SGOT) (test code = 9315537153) 110 U/L 13-40 H eGFR (test code = 51403-6) 48.4 mL/min/1.73m2 CKD-EPI eGFR (2020). Assuming creatinine has been stable day-to-day for at least three months, the eGFR indicates Category G3a (45 - 59 mL/min/1.73 m2) Lab Interpretation (test code = 50076-5) Abnormal [facility] 22:25:35* Test Item Value Reference Range Interpretation Comme nts PHOSPHORUS (test code = 4525500385) 3.2 mg/dL 2.5-5.0 Lab Interpretation (test cod e = 44967-0) Normal [facility] [id number] 22:10:15* Test Item Value Reference Range Interpretation [...] 35.0 g/dL 31.2-35.0 RDW-SD (test code = 61369-6) 48.3 fL 38.5-51.6 RDW-CV (test code = 788-0) 12.4 % 12.1-15.4 PLT (test code = 777-3) 214 150-328 MPV (test code = 73748-8) 9.0 fL 9.8-13.0 L NRBC/100 WBC (test code = 8476822048) 0.0 0.0-10.0 NRBC x10^3 (test code = 2459266892) See_Comment [Automated messa ge] The system which generated this result transmitted reference range: 10*3/?L. The reference range was not used to interpret this result as normal/abnormal. GRAN MAT (NEUT) % (test code = 770-8) 37.7 % IMM GRAN % (test code = 0029841645) 0.20 % LYMPH % (test code = 736-9) 48.9 % MONO % (test code = 5905-5) 10.2 % EOS % (test code = 713-8) 2.0 % BASO % (test code = 706-2) 1.0 % GRAN MAT x10^3(ANC) (test code = 8381516639) 2.29 10*3/uL 1.99-6.95 IMM GRAN x10^3 (test code = 3081584923) 0.00-0.06 LYMPH x10^3 (test code = 731-0) 2.97 10*3/uL 1.09-3.23 MONO x10^3 (test code = 742-7) 0.62 10*3/uL 0.36-1.02 EOS x10^3 (test code = 711-2) 0.12 10*3/uL 0.06-0.53 BASO x10^3 (test code = 704-7) 0.06 10*3/uL 0.01-0.09 Lab Interpretation (test code = 43243-4) Abnormal [facility], RANDOM [id number] 00:00:00* Test Item Value Reference Range Interpretation Comme nts SODIUM, URINE, CONC. (test c ode = 2955-3) <20 MEQ/L NOT ESTAB MEQ/L CBC W/AUTO [id number] 00:00:00* Test Item Value Reference Range Interpretation Comme nts NUCLEATED RBCS (test code = 43750-2) 0.0 /100 WBC'S See_Comment [Automated messa ge] The system which generated this result transmitted reference range: 0.0 /100 WBC'S. The reference range was not used to interpret this result as normal/abnormal. ABSOLUTE EOSINOPHILS (test code = 59528-0) 0.12 K/UL See_Comment [Automated messa ge] The system which generated this result transmitted reference range: 0.00-0.50 K/UL. The reference range was not used to interpret this result as normal/abnormal. ABSOLUTE LYMPHOCYTES (test code = 92971-3) 2.40 K/UL See_Comment [Automated messa ge] The system which generated this result transmitted reference range: 1.00-4.00 K/UL. The reference range was not used to interpret this result as normal/abnormal. ABSOLUTE MONOCYTES (test code = 30157-7) 0.63 K/UL See_Comment [Automated messa ge] The system which generated this result transmitted reference range: 0.20-1.00 K/UL. The reference range was not used to interpret this result as normal/abnormal. ABSOLUTE NEUTROPHILS (test code = 17154-9) 3.28 K/UL See_Comment [Automated messa ge] The system which generated this result transmitted reference range: 1.50-7.50 K/UL. The reference range was not used to interpret this result as normal/abnormal. BASOPHILS (test code = 13887-3) 1.1 % EOSINOPHILS (test code = 92596-4) 1.8 % HEMATOCRIT (test code = 06922-6) 35.4 % See_Comment L [Automated messa ge] [...] result as normal/abnormal. LYMPHOCYTES (test code = 55096-9) 36.9 % MCH (test code = 06849-7) 37.7 PG See_Comment H [Automated messa ge] The system which generated this result transmitted reference range: 25.0-33.0 PG. The reference range was not used to interpret this result as normal/abnormal. MCHC (test code = 72534-1) 35.3 G/DL See_Comment [Automated messa ge] The system which generated this result transmitted reference range: 31.0-36.0 G/DL. The reference range was not used to interpret this result as normal/abnormal. MCV (test code = 07516-0) 106.6 fL See_Comment H [Automated messa ge] The system which generated this result transmitted reference range: 80.0-99.0 fL. The reference range was not used to interpret this result as normal/abnormal. MONOCYTES (test code = 36636-9) 9.7 % NEUTROPHILS (test code = 83810-7) 50.3 % PLATELET COUNT (test code = 86528-9) 211 K/UL See_Comment [Automated messa ge] The system which generated this result transmitted reference range: 130-400 K/UL. The reference range was not used to interpret this result as normal/abnormal. RBC (test code = 36583-0) 3.32 M/UL See_Comment L [Automated messa ge] The system which generated this result transmitted reference range: 4.50-6.10 M/UL. The reference range was not used to interpret this result as normal/abnormal. RDW (test code = 35634-2) 12.2 % See_Comment [Automated messa ge] The system which generated this result transmitted reference range: 11.5-15.0 %. The reference range was not used to interpret this result as normal/abnormal. WBC (test code = 44308-2) 6.5 K/UL See_Comment [Automated messa ge] The system which generated this result transmitted reference range: 3.5-11.0 K/UL. The reference range was not used to interpret this result as normal/abnormal. BASIC METABOLIC [id number] 00:00:00* Test Item Value Reference Range Interpretation Comme nts BUN (test code = 3091-6) 15 MG/DL See_Comment [Automated messa ge] The system which generated this result transmitted reference range: 8-23 MG/DL. The reference range was not used to interpret this result as normal/abnormal. CALCIUM (test code = 12817-4) 9.5 MG/DL See_Comment [Automated messa ge] The [...] normal/abnormal. eGFR (2020 CKD-EPI) (test code = 59720-4) 49 ML/MIN/1.73 See_Comment L [Automated messa ge] [...] interpret this result as normal/abnormal. BASIC METABOLIC [id number] 00:00:00* Test Item Value Reference Range Interpretation Comme nts BUN (test code = 3091-6) 20 MG/DL See_Comment [Automated messa ge] The system which generated this result transmitted reference range: 8-23 MG/DL. The reference range was not used to interpret this result as normal/abnormal. CALCIUM (test code = 83270-2) 9.7 MG/DL See_Comment [Automated messa ge] The [...] normal/abnormal. eGFR (2020 CKD-EPI) (test code = 74177-2) 37 ML/MIN/1.73 See_Comment L [Automated messa ge] [...] interpret this result as normal/abnormal. CBC W/AUTO [id number] 00:00:00* Test Item Value Reference Range Interpretation Comme nts NUCLEATED RBCS (test code = 03156-9) 0.0 /100 WBC'S See_Comment [Automated messa ge] The system which generated this result transmitted reference range: 0.0 /100 WBC'S. The reference range was not used to interpret this result as normal/abnormal. ABSOLUTE EOSINOPHILS (test code = 38579-8) 0.14 K/UL See_Comment [Automated messa ge] The system which generated this result transmitted reference range: 0.00-0.50 K/UL. The reference range was not used to interpret this result as normal/abnormal. ABSOLUTE LYMPHOCYTES (test code = 28264-6) 3.05 K/UL See_Comment [Automated messa ge] The system which generated this result transmitted reference range: 1.00-4.00 K/UL. The reference range was not used to interpret this result as normal/abnormal. ABSOLUTE MONOCYTES (test code = 66863-1) 0.85 K/UL See_Comment [Automated messa ge] The system which generated this result transmitted reference range: 0.20-1.00 K/UL. The reference range was not used to interpret this result as normal/abnormal. ABSOLUTE NEUTROPHILS (test code = 36002-4) 6.19 K/UL See_Comment [Automated messa ge] The system which generated this result transmitted reference range: 1.50-7.50 K/UL. The reference range was not used to interpret this result as normal/abnormal. BASOPHILS (test code = 88353-0) 0.8 % EOSINOPHILS (test code = 79608-6) 1.4 % HEMATOCRIT (test code = 05553-8) 37.8 % See_Comment L [Automated messa ge] [...] result as normal/abnormal. LYMPHOCYTES (test code = 64776-9) 29.5 % MCH (test code = 67244-2) 37.3 PG See_Comment H [Automated messa ge] The system which generated this result transmitted reference range: 25.0-33.0 PG. The reference range was not used to interpret this result as normal/abnormal. MCHC (test code = 27577-5) 34.9 G/DL See_Comment [Automated messa ge] The system which generated this result transmitted reference range: 31.0-36.0 G/DL. The reference range was not used to interpret this result as normal/abnormal. MCV (test code = 75207-5) 106.8 fL See_Comment H [Automated messa ge] The system which generated this result transmitted reference range: 80.0-99.0 fL. The reference range was not used to interpret this result as normal/abnormal. MONOCYTES (test code = 81509-4) 8.2 % NEUTROPHILS (test code = 38252-4) 59.9 % PLATELET COUNT (test code = 56898-8) 243 K/UL See_Comment [Automated messa ge] The system which generated this result transmitted reference range: 130-400 K/UL. The reference range was not used to interpret this result as normal/abnormal. RBC (test code = 81618-2) 3.54 M/UL See_Comment L [Automated messa ge] The system which generated this result transmitted reference range: 4.50-6.10 M/UL. The reference range was not used to interpret this result as normal/abnormal. RDW (test code = 86777-5) 13.1 % See_Comment [Automated messa ge] The system which generated this result transmitted reference range: 11.5-15.0 %. The reference range was not used to interpret this result as normal/abnormal. WBC (test code = 16158-8) 10.3 K/UL See_Comment [Automated messa ge] The system which generated this result transmitted reference range: 3.5-11.0 K/UL. The reference range was not used to interpret this result as normal/abnormal. URIC [id number] 00:00:00* Test Item Value Reference Range Interpretation Comme nts URIC ACID (test code = 2501-5) 6.2 MG/DL See_Comment [Automated messa ge] The system which generated this result transmitted reference range: 3.7-8.0 MG/DL. The reference range was not used to interpret this result as normal/abnormal. LIPID PANEL WITH REFLEX DIRECT [id number] 00:00:00* Test Item Value Reference Range Interpretation Comme nts CALC LDL CHOL (test code = 77575-5) 31 MG/DL See_Comment [Automated [employer]] The system which generated this result transmitted reference range: <100 MG/DL. The reference range was not used to interpret this result as normal/abnormal. CHOLESTEROL (test code = 2093-3) 115 MG/DL See_Comment [Automated messa ge] The system which generated this result transmitted reference range: <200 MG/DL. The reference range was not used to interpret this result as normal/abnormal. HDL CHOLESTEROL (test code = 2085-9) 67 MG/DL See_Comment [Automated [employer]] The system which generated this result transmitted reference range: >39 MG/DL. The reference range was not used to interpret this result as normal/abnormal. RISK RATIO LDL/HDL (test code = 05581-5) 0.46 RATIO See_Comment [Automated message] The system which generated this result transmitted reference range: <3.55 RATIO. The reference range was not used to interpret this result as normal/abnormal. TRIGLYCERIDES (test code = 2571-8) 86 MG/DL See_Comment [Automated [employer]] The system which generated this result transmitted reference range: <150 MG/DL. The reference range was not used to interpret this result as normal/abnormal. TESTOSTERONE, BIOAVAILABLE, FREE AND [id number] 00:00:00* Test Item Value Reference Range Interpretation Comme [facility] SEX HORM BIND GLOBULIN (test code = 66786-9) 30.1 NMOL/L See_Comment [Automated messa ge] The system which generated this result transmitted reference range: 19.3-76.4 NMOL/L. The reference range was not used to interpret this result as normal/abnormal. TESTOSTERONE,% FREE CALC (test code = 97307-1) 2.5 % See_Comment [Automated messa ge] The [...] interpret this result as normal/abnormal. COMPREHENSIVE METABOLIC [id number] 00:00:00* Test Item Value Reference Range Interpretation [...] result as normal/abnormal. CALCIUM (test code = 66347-1) 9.5 MG/DL See_Comment [Automated messa ge] The [...] as normal/abnormal. CALC GLOBULIN (test code = 22385-4) 1.8 G/DL See_Comment L [Automated messa ge] [...] normal/abnormal. eGFR (2020 CKD-EPI) (test code = 26314-3) 30 ML/MIN/1.73 See_Comment L [Automated messa ge] [...] result as normal/abnormal. PSA W/REFLEX TO FREE [id number] 00:00:00* Test Item Value Reference Range Interpretation Comme nts PROSTATE SPECIFIC AG (test code = 17986-4) 3.18 NG/ML See_Comment [Automated messa ge] The system which generated this result transmitted reference range: <=4.00 NG/ML. The reference range was not used to interpret this result as normal/abnormal. [id number] 00:00:00* Test Item Value Reference Range Interpretation Comme nts GGT (test code = 2324-2) 343 U/L See_Comment H [Automated messa ge] The system which generated this result transmitted reference range: <60 U/L. The reference range was not used to interpret this result as normal/abnormal. VITAMIN [id number] 00:00:00* Test Item Value Reference Range Interpretation Comme [facility] VITAMIN B1 (test code = 51228-6) 133 nmol/L See_Comment [Automated messa ge] The system which generated this result transmitted reference range: 64-201 nmol/L. The reference range was not used to interpret this result as normal/abnormal. VITAMIN B 12 AND FOLIC [id number] 00:00:00* Test Item Value Reference Range Interpretation [facility] FOLIC ACID (test code = 2284-8) 13.2 UG/L SEE BELOW UG/L VITAMIN B-12 (test code = 2132-9) 846 PG/ML See_Comment [Automated messa ge] The system which generated this result transmitted reference range: 200-950 PG/ML. The reference range was not used to interpret this result as normal/abnormal. LIVER (HEPATIC) FUNCTION [id number] 00:00:00* Test Item Value Reference Range Interpretation [facility] ALBUMIN (test code = 1751-7) 3.9 [...] as normal/abnormal. BILIRUBIN, DIRECT (test code = 47200-2) 0.3 MG/DL See_Comment [Automated message] The system [...] interpret this result as normal/abnormal. CBC W/AUTO [id number] 00:00:00* Test Item Value Reference Range Interpretation Comme nts NUCLEATED RBCS (test code = 60062-8) 0.0 /100 WBC'S See_Comment [Automated messa ge] The system which generated this result transmitted reference range: 0.0 /100 WBC'S. The reference range was not used to interpret this result as normal/abnormal. ABSOLUTE EOSINOPHILS (test code = 33924-7) 0.12 K/UL See_Comment [Automated messa ge] The system which generated this result transmitted reference range: 0.00-0.50 K/UL. The reference range was not used to interpret this result as normal/abnormal. ABSOLUTE LYMPHOCYTES (test code = 48429-0) 2.62 K/UL See_Comment [Automated messa ge] The system which generated this result transmitted reference range: 1.00-4.00 K/UL. The reference range was not used to interpret this result as normal/abnormal. ABSOLUTE MONOCYTES (test code = 50752-0) 0.66 K/UL See_Comment [Automated messa ge] The system which generated this result transmitted reference range: 0.20-1.00 K/UL. The reference range was not used to interpret this result as normal/abnormal. ABSOLUTE NEUTROPHILS (test code = 85334-1) 2.09 K/UL See_Comment [Automated messa ge] The system which generated this result transmitted reference range: 1.50-7.50 K/UL. The reference range was not used to interpret this result as normal/abnormal. BASOPHILS (test code = 14220-9) 1.4 % EOSINOPHILS (test code = 02856-3) 2.1 % HEMATOCRIT (test code = 67564-9) 41.4 % See_Comment [Automated messa ge] The [...] result as normal/abnormal. LYMPHOCYTES (test code = 82828-6) 46.8 % MCH (test code = 74615-6) 38.0 PG See_Comment H [Automated messa ge] The system which generated this result transmitted reference range: 25.0-33.0 PG. The reference range was not used to interpret this result as normal/abnormal. MCHC (test code = 34790-4) 34.8 G/DL See_Comment [Automated messa ge] The system which generated this result transmitted reference range: 31.0-36.0 G/DL. The reference range was not used to interpret this result as normal/abnormal. MCV (test code = 94999-4) 109.2 fL See_Comment H [Automated messa ge] The system which generated this result transmitted reference range: 80.0-99.0 fL. The reference range was not used to interpret this result as normal/abnormal. MONOCYTES (test code = 04035-6) 11.8 % NEUTROPHILS (test code = 95102-1) 37.4 % PLATELET COUNT (test code = 71063-9) 167 K/UL See_Comment [Automated messa ge] The system which generated this result transmitted reference range: 130-400 K/UL. The reference range was not used to interpret this result as normal/abnormal. RBC (test code = 58493-6) 3.79 M/UL See_Comment L [Automated messa ge] The system which generated this result transmitted reference range: 4.50-6.10 M/UL. The reference range was not used to interpret this result as normal/abnormal. RDW (test code = 74993-7) 12.6 % See_Comment [Automated messa ge] The system which generated this result transmitted reference range: 11.5-15.0 %. The reference range was not used to interpret this result as normal/abnormal. WBC (test code = 95099-4) 5.6 K/UL See_Comment [Automated messa ge] The system which generated this result transmitted reference range: 3.5-11.0 K/UL. The reference range was not used to interpret this result as normal/abnormal. URIC [id number] 00:00:00* Test Item Value Reference Range Interpretation Comme nts URIC ACID (test code = 2501-5) 5.5 MG/DL See_Comment [Automated messa ge] The system which generated this result transmitted reference range: 3.7-8.0 MG/DL. The reference range was not used to interpret this result as normal/abnormal. LIPID PANEL WITH REFLEX DIRECT [id number] 00:00:00* Test Item Value Reference Range Interpretation Comme nts CALC LDL CHOL (test code = 91889-9) 46 MG/DL See_Comment [Automated messa ge] The system [...] code = 2085-9) 59 MG/DL See_Comment [Automated messa ge] The system which generated this result transmitted reference range: >39 MG/DL. The reference range was not used to interpret this result as normal/abnormal. RISK RATIO LDL/HDL (test code = 80314-6) 0.78 RATIO See_Comment [Automated message] The system [...] result as normal/abnormal. TESTOSTERONE, BIOAVAILABLE, FREE AND [id number] 00:00:00* Test Item Value Reference Range Interpretation Comme nts SEX HORM BIND GLOBULIN (test code = 36835-5) 41.3 NMOL/L See_Comment [Automated messa ge] The system which generated this result transmitted reference range: 19.3-76.4 NMOL/L. The reference range was not used to interpret this result as normal/abnormal. TESTOSTERONE,% FREE CALC (test code = 47003-1) 1.6 % See_Comment [Automated messa ge] The [...] interpret this result as normal/abnormal. COMPREHENSIVE METABOLIC [id number] 00:00:00* Test Item Value Reference Range Interpretation [...] result as normal/abnormal. CALCIUM (test code = 10606-6) 8.6 MG/DL See_Comment [Automated messa ge] The [...] as normal/abnormal. CALC GLOBULIN (test code = 43278-4) 1.9 G/DL See_Comment [Automated messa ge] The [...] normal/abnormal. eGFR (2020 CKD-EPI) (test code = 69170-3) 84 ML/MIN/1.73 See_Comment [Automated messa ge] The [...] interpret this result as normal/abnormal. CBC W/AUTO [id number] 00:00:00* Test Item Value Reference Range Interpretation Comme nts NUCLEATED RBCS (test code = 36441-6) 0.0 /100 WBC'S See_Comment [Automated messa ge] The system which generated this result transmitted reference range: 0.0 /100 WBC'S. The reference range was not used to interpret this result as normal/abnormal. ABSOLUTE EOSINOPHILS (test code = 02366-6) 0.04 K/UL See_Comment [Automated messa ge] The system which generated this result transmitted reference range: 0.00-0.50 K/UL. The reference range was not used to interpret this result as normal/abnormal. ABSOLUTE LYMPHOCYTES (test code = 60956-3) 2.45 K/UL See_Comment [Automated messa ge] The system which generated this result transmitted reference range: 1.00-4.00 K/UL. The reference range was not used to interpret this result as normal/abnormal. ABSOLUTE MONOCYTES (test code = 40457-6) 0.78 K/UL See_Comment [Automated messa ge] The system which generated this result transmitted reference range: 0.20-1.00 K/UL. The reference range was not used to interpret this result as normal/abnormal. ABSOLUTE NEUTROPHILS (test code = 66973-2) 5.05 K/UL See_Comment [Automated [employer]] The system which generated this result transmitted reference range: 1.50-7.50 K/UL. The reference range was not used to interpret this result as normal/abnormal. BASOPHILS (test code = 23468-2) 0.8 % EOSINOPHILS (test code = 91937-7) 0.5 % HEMATOCRIT (test code = 24644-0) 42.3 % See_Comment [Automated [employer]] The system which generated this result transmitted reference range: 40.0-51.0 %. The reference range was not used to interpret this result as normal/abnormal. HEMOGLOBIN (test code = 718-7) 14.0 G/DL See_Comment [Automated messa ge] The system which generated this result transmitted reference range: 13.5-17.0 G/DL. The reference range was not used to interpret this result as normal/abnormal. LYMPHOCYTES (test code = 52585-6) 29.0 % MCH (test code = 85337-3) 35.7 PG See_Comment H [Automated messa ge] The system which generated this result transmitted reference range: 25.0-33.0 PG. The reference range was not used to interpret this result as normal/abnormal. MCHC (test code = 66961-7) 33.1 G/DL See_Comment [Automated messa ge] The system which generated this result transmitted reference range: 31.0-36.0 G/DL. The reference range was not used to interpret this result as normal/abnormal. MCV (test code = 40870-0) 107.9 fL See_Comment H [Automated messa ge] The system which generated this result transmitted reference range: 80.0-99.0 fL. The reference range was not used to interpret this result as normal/abnormal. MONOCYTES (test code = 66787-1) 9.2 % NEUTROPHILS (test code = 57537-7) 59.9 % PLATELET COUNT (test code = 16405-3) 166 K/UL See_Comment [Automated messa ge] The system which generated this result transmitted reference range: 130-400 K/UL. The reference range was not used to interpret this result as normal/abnormal. RBC (test code = 52106-9) 3.92 M/UL See_Comment L [Automated messa ge] The system which generated this result transmitted reference range: 4.50-6.10 M/UL. The reference range was not used to interpret this result as normal/abnormal. RDW (test code = 66294-4) 12.8 % See_Comment [Automated messa ge] The system which generated this result transmitted reference range: 11.5-15.0 %. The reference range was not used to interpret this result as normal/abnormal. WBC (test code = 22459-0) 8.4 K/UL See_Comment [Automated messa ge] The system which generated this result transmitted reference range: 3.5-11.0 K/UL. The reference range was not used to interpret this result as normal/abnormal. URIC [id number] 00:00:00* Test Item Value Reference Range Interpretation Comme nts URIC ACID (test code = 2501-5) 4.8 MG/DL See_Comment [Automated messa ge] The system which generated this result transmitted reference range: 3.7-8.0 MG/DL. The reference range was not used to interpret this result as normal/abnormal. PSA, TOTAL, MEDICARE [id number] 00:00:00* Test Item Value Reference Range Interpretation Comme nts PSA, TOTAL (test code = 09971-9) 3.68 NG/ML See_Comment [Automated messa ge] The system which generated this result transmitted reference range: <=4.00 NG/ML. The reference range was not used to interpret this result as normal/abnormal. HEMOGLOBIN [id number] 00:00:00* Test Item Value Reference Range Interpretation [facility] HEMOGLOBIN A1c (test code = 4548-4) 4.9 % See_Comment [Automated messa ge] The system which generated this result transmitted reference range: 4.2-5.6 %. The reference range was not used to interpret this result as normal/abnormal. LIPID PANEL WITH REFLEX DIRECT [id number] 00:00:00* Test Item Value Reference Range Interpretation [facility] CALC LDL CHOL (test code = 70548-1) 16 MG/DL See_Comment [Automated [employer]] The system which generated this result transmitted reference range: <100 MG/DL. The reference range was not used to interpret this result as normal/abnormal. CHOLESTEROL (test code = 2093-3) 96 MG/DL See_Comment [Automated [employer]] The system which generated this result [...] normal/abnormal. RISK RATIO LDL/HDL (test code = 63528-1) 0.28 RATIO See_Comment [Automated message] The system [...] result as normal/abnormal. TESTOSTERONE, BIOAVAILABLE, FREE AND [id number] 00:00:00* Test Item Value Reference Range Interpretation [facility] SEX HORM BIND GLOBULIN (test code = 41685-4) 25.1 NMOL/L See_Comment [Automated [employer]] The system which generated this result transmitted reference range: 19.3-76.4 NMOL/L. The reference range was not used to interpret this result as normal/abnormal. TESTOSTERONE,% FREE CALC (test code = 09915-6) 3.0 % See_Comment H [Automated messa ge] [...] interpret this result as normal/abnormal. COMPREHENSIVE METABOLIC [id number] 00:00:00* Test Item Value Reference Range Interpretation [...] result as normal/abnormal. CALCIUM (test code = 32545-9) 9.6 MG/DL See_Comment [Automated messa ge] The [...] as normal/abnormal. CALC GLOBULIN (test code = 16880-6) 1.6 G/DL See_Comment L [Automated messa ge] [...] normal/abnormal. eGFR (2020 CKD-EPI) (test code = 07529-7) 75 ML/MIN/1.73 See_Comment [Automated messa ge] The [...] interpret this result as normal/abnormal. ACUTE HEPATITIS [id number] 00:00:00* Test Item Value Reference Range Interpretation Comme nts HEPATITIS A IgM (test code = 03794-0) NON-REACTIVE NON-REACTIVE HEPATITIS B CORE IgM (test c ode = 43991-4) NON-REACTIVE NON-REACTIVE HEPATITIS B SURF AG (test co de = 5195-3) NON-REACTIVE NON-REACTIVE HEPATITIS C ANTIBODY (test c ode = 23319-1) NON-REACTIVE NON-REACTIVE Notes Date/Time Note Provider Source [...] in no apparent distress. Tee Torres RN [facility] 2024-04-28 16:16:29 Patient to ED after being told by doctor to go ED because potassium that was drawn last Monday was 6.2. T [facility]
[2024-05-21] MEDS ORDERED: ONDANSETRON 4 MG/2 ML VIAL ONE (15:02)
[2024-05-21] MEDS ORDERED: KETOROLAC 30 MG/ML INJ ONE (15:02)
[2024-05-21] MEDS ORDERED: MORPHINE 4 MG/ML SYR ONE (15:02)
--- NOTE | 2024-05-21 15:05 | ER ---
Nurse's Notes [facility] Name: Seb Matta Age: 78 yrs Sex: Male : 1945 Arrival Date: 05/21/2024 Time: 14:04 Bed 16 Private MD: Diagnosis: Muscle strain Presentation: 05/21 14:11 Chief complaint: Patient states: last , his dog took off running after a cat dd2 and the leash jerked his left arm, was seen here and went home, its getting worse. Coronavirus screen: At this time, the client does not indicate any symptoms associated with coronavirus-19. Ebola Screen: No symptoms or risks identified at this time. Initial Sepsis Screen: Does the patient meet any 2 criteria? No. Patient's initial sepsis screen is negative. Does the patient have a suspected source of infection? No. Patient's initial sepsis screen is negative. Risk Assessment: Do you want to hurt yourself or someone else? Patient reports no desire to harm self or others. Onset of symptoms is unknown. 14:11 Method Of Arrival: Ambulatory dd2 14:11 Acuity: MARLA 3 dd2 Triage Assessment: 14:18 General: Appears in no apparent distress. Behavior is calm, cooperative. Pain: dd2 Complains of pain in left axilla. Historical: - Allergies: 14:18 No Known Allergies; dd2 - PMHx: 14:18 High Cholesterol; Hypertension; dd2 - Immunization history:: Adult Immunizations up to date. - Infectious Disease History:: Denies. - Social history:: Smoking status: Patient denies any tobacco usage or history of. Screenin:00 [facility] ED Fall Risk Assessment (Adult) History of falling in the last 3 months, db including since admission No falls in past 3 months (0 pts) Confusion or Disorientation No (0 pts) Intoxicated or Sedated No (0 pts) Impaired Gait No (0 pts) Mobility Assist Device Used No (0 pt) Altered Elimination No (0 pt) Score/Fall Risk Level 0 - 2 = Low Risk Oriented to surroundings, Maintained a safe environment. Abuse screen: Denies threats or abuse. Denies injuries from another. Nutritional screening: No deficits noted. Tuberculosis screening: No symptoms or risk factors identified. Assessment: 14:50 Reassessment: Patient appears in no apparent distress at this time. Patient and/or db family updated on plan of care and expected duration. Pain level reassessed. Patient is alert, oriented x 3, equal unlabored respirations, skin warm/dry/pink. General: Appears in no apparent distress. comfortable, Behavior is calm, cooperative. Pain: Complains of pain in left arm and left axilla. Neuro: Level of Consciousness is awake, alert, obeys commands, Oriented to person, place, time, situation. Respiratory: Airway is patent Respiratory effort is even, unlabored, Respiratory pattern is regular, symmetrical. 15:39 Reassessment: Patient appears in no apparent distress at this time. Patient and/or db family updated on plan of care and expected duration. Pain level reassessed. Patient states feeling better. Vital Signs: 14:11 BP 106 / 60; Pulse 64; Resp 14; Temp 97.2; Pulse Ox 95% ; dd2 15:10 BP 114 / 75; Pulse 60; Resp 16; Pulse Ox 95% ; db ED Course: 14:09 Patient arrived in ED. ra3 14:18 Triage completed. dd2 14:18 Arm band placed on right wrist. Patient placed in waiting room, Patient notified of dd2 wait time. 14:22 Jen Camacho MD is Attending Physician. sp3 14:50 Inserted saline lock: 20 gauge in left antecubital area, using aseptic technique. db Flushed with 10 mL NS. 15:00 Camelia Lopez, DOROTEO is Primary Nurse. db 15:00 Patient has correct armband on for positive identification. Bed in low position. Call db light in reach. Side rails up X 1. Provided Education on: FOLLOWUP. Pulse ox on. NIBP on. Warm blanket given. 15:00 No provider procedures requiring assistance completed. Patient did not have IV access db during this emergency room visit. Administered Medications: 15:10 Drug: Ketorolac IVP 15 mg IVP once Route: IVP; Site: left antecubital; db 15:39 Follow up: Response: No adverse reaction db 15:10 Drug: morphine IVP or IV 4 mg IVP once over 4 mins Route: IVP; Infused Over: 4 mins; db Site: left antecubital; 15:39 Follow up: Response: No adverse reaction db 15:10 Drug: Ondansetron IVP 4 mg IVP once; over 2 minutes Route: IVP; Site: left antecubital; db 15:39 Follow up: Response: No adverse reaction db Medication: 15:39 VIS not applicable for this client. db Outcome: 15:05 Discharge ordered by . sp3 15:39 Discharged to home ambulatory, with family, db 15:39 Condition: stable 15:39 Discharge instructions given to patient, Instructed on discharge instructions, follow up and referral plans. Prescriptions given X 1, 15:40 Patient left the ED. db Signatures: Jen Camacho MD MD sp3 Camelia Lopez, RN RN db Izabel Garcia ra3 ENOC PICKERING, RN RN dd2
--- NOTE | 2024-05-21 15:05 | EDPHYS ---
Physician Documentation [facility] Name: Seb Matta Age: 78 yrs Sex: Male : 1945 Arrival Date: 05/21/2024 Time: 14:04 Bed 16 Private MD: ED Physician Jen Camacho HPI: 05/21 15:01 This 78 yrs old Male presents to ER via Ambulatory with complaints of under sp3 armpit/upper left side pain. 15:01 78-year-old male with history of hypertension, hyperlipidemia who was seen last visit sp3 here for arm injury secondary to patient's dog leash who pulled causing muscular strain. Patient was seen by Dr. Altamirano who ordered CT scan of the head, face, chest all of which were normal. All of those old medical records were reviewed. Patient currently states he has muscular pain under his left arm especially on movement. He denies any substernal chest pain, shortness of breath, headache, numbness or tingling, syncope, near syncope, or any other concerning findings. Review of systems otherwise negative.. Historical: - Allergies: 14:18 No Known Allergies; dd2 - PMHx: 14:18 High Cholesterol; Hypertension; dd2 - Immunization history:: Adult Immunizations up to date. - Infectious Disease History:: Denies. - Social history:: Smoking status: Patient denies any tobacco usage or history of. ROS: 15:02 Constitutional: Negative for fever, chills, and weight loss, Eyes: Negative for injury, sp3 pain, redness, and discharge, Neck: Negative for injury, pain, and swelling, Cardiovascular: Negative for chest pain, palpitations, and edema, Respiratory: Negative for shortness of breath, cough, wheezing, and pleuritic chest pain, Abdomen/GI: Negative for abdominal pain, nausea, vomiting, diarrhea, and constipation, Skin: Negative for injury, rash, and discoloration, Neuro: Negative for headache, weakness, numbness, tingling, and seizure, Psych: Negative for depression, anxiety, suicide ideation, homicidal ideation, and hallucinations, Allergy/Immunology: Negative for hives, rash, and allergies, Endocrine: Negative for neck swelling, polydipsia, polyuria, polyphagia, and marked weight changes, Hematologic/Lymphatic: Negative for swollen nodes, abnormal bleeding, and unusual bruising, 15:02 All other systems are negative, Exam: 15:02 Constitutional: This is a well developed, well nourished patient who is awake, alert, sp3 and in no acute distress. Head/Face: Normocephalic, atraumatic. Eyes: Pupils equal round and reactive to light, extra-ocular motions intact. Lids and lashes normal. Conjunctiva and sclera are non-icteric and not injected. Cornea within normal limits. Periorbital areas with no swelling, redness, or edema. ENT: Nares patent. No nasal discharge, no septal abnormalities noted. External auditory canals are clear. Oropharynx with no redness, swelling, or masses, exudates, or evidence of obstruction, uvula midline. Mucous membranes moist. Neck: Trachea midline, no thyromegaly or masses palpated, and no cervical lymphadenopathy. Supple, full range of motion without nuchal rigidity, or vertebral point tenderness. No Meningismus. Cardiovascular: Regular rate and rhythm with a normal S1 and S2. No gallops, murmurs, or rubs. Normal PMI, no JVD. No pulse deficits. Respiratory: Lungs have equal breath sounds bilaterally, clear to auscultation and percussion. No rales, rhonchi or wheezes noted. No increased work of breathing, no retractions or nasal flaring. Abdomen/GI: Soft, non-tender, with normal bowel sounds. No distension or tympany. No guarding or rebound. No evidence of tenderness throughout. Back: No spinal tenderness. No costovertebral tenderness. Full range of motion. Skin: Warm, dry with normal turgor. Normal color with no rashes, no lesions, and no evidence of cellulitis. Neuro: Awake and alert, GCS 15, oriented to person, place, time, and situation. Cranial nerves II-XII grossly intact. Motor strength 5/5 in all extremities. Sensory grossly intact. Cerebellar exam normal. Normal gait. 15:02 Chest/axilla: Painful musculature at left axilla including pectoralis muscle and latissimus dorsi insertion points. Pain easily reproducible. Cardiopulmonary exam is normal. Patient in no acute distress. Vital signs normal.. Vital Signs: 14:11 BP 106 / 60; Pulse 64; Resp 14; Temp 97.2; Pulse Ox 95% ; dd2 15:10 BP 114 / 75; Pulse 60; Resp 16; Pulse Ox 95% ; db MDM: 14:36 Patient medically screened. sp3 15:03 Data reviewed: vital signs, nurses notes, old medical records. ED course: sp3 Musculoskeletal strain noted. Clinically I have ruled out acute coronary syndrome, intrathoracic trauma, or any other critical illness. Patient mainly wanted pain relief and to review his records. IV was established by nurse already. Patient will receive ketorolac, morphine and ondansetron IV prior to discharge. Patient will go home on tramadol and follow-up with PCP as needed.. Administered Medications: 15:10 Drug: Ketorolac IVP 15 mg IVP once Route: IVP; Site: left antecubital; db 15:39 Follow up: Response: No adverse reaction db 15:10 Drug: morphine IVP or IV 4 mg IVP once over 4 mins Route: IVP; Infused Over: 4 mins; db Site: left antecubital; 15:39 Follow up: Response: No adverse reaction db 15:10 Drug: Ondansetron IVP 4 mg IVP once; over 2 minutes Route: IVP; Site: left antecubital; db 15:39 Follow up: Response: No adverse reaction db Disposition Summary: 05/21/24 15:05 Discharge Ordered Notes: Location: Home sp3 Condition: Stable sp3 Diagnosis - Muscle strain sp3 Followup: sp3 - With: Private Physician - When: Upon discharge from the Emergency Department - Reason: Continuance of care Discharge Instructions: - Discharge Summary Sheet sp3 - Muscle Strain sp3 Forms: - Medication Reconciliation Form sp3 - Antibiotic Education sp3 - Prescription Opioid Use sp3 - Patient Portal Instructions sp3 - Leadership Thank You Letter sp3 Prescriptions: - Tramadol 50 mg Oral Tablet - take 1 tablet ORAL route every 8 hours as needed; 12 tablet; Refills: 0, sp3 Product Selection Permitted Signatures: Jen Camacho MD MD sp3 Camelia Lopez RN RN db ENOC PICKERING RN RN dd2
[2024-05-21 16:01] VITALS: TEMP 97.2; O2SAT 95
[2024-05-21 16:03] VITALS: BP 114/75
== END 2024-05-21 15:40 | disposition home or self-care (01) ==
LOC: ER 14:04
DX: S46.812A Strain of other muscles, fascia and tendons at shoulder and upper arm level, left arm, initial encounter (principal)
CPT/HCPCS: J2405

== ENCOUNTER 2024-12-11 13:20 | Emergency (ER) | payer MEDICARE ==
--- OUTSIDE RECORDS SUMMARY | 2024-12-11 13:26 | XMS REPORT | Continuity of Care Document ---
Author Name Unknown Address [address] [facility] [address] [place] [address] [facility] Address [address] [facility] [address] [place] [address] Care Team Providers Care Global Product Manager Name Role Phone SOPHIE GEORGE Primary Care Physician Unavailab Sophie Ng Attending Clinician Unavailable Liz Garcia Attending Clinician Unavailable CANDACE BACON Attending Clinician Unavailable CANDACE BACON Attending Clinician Unavailable Payers Payer Name Policy Type Policy Number Effective Date Expiration Date Source [employer]AGE PLAN [id number] 2024 00:00:00 FORMERLY [facility] (MEDICARE REPLACEMENT HMO) [id number] 2022 00:00:00 [employer] MEDICARE 53 [id number] 2019 00:00:00 [facility] Problems Condition Name Condition Details Condition Category Status Onset Date Resolution Date Last Treatment Date Treating Clinician Comments Source 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 Disease Active 04-28 00:00: 00 [facility] Other hyperlipid emia Other hyperlipid emia Disease Active 04-28 00:00: 00 [facility] Primary osteoarthr itis of both knees Primary osteoarthr itis of both knees Disease Active 04-28 00:00: 00 [facility] Hypertensi on Hypertensi on Disease Active 04-28 00:00: 00 [facility] Major depressive disorder, single episode, unspecifie d Major depressive disorder, single episode, unspecifie d Disease Active 04-28 00:00: 00 [facility] Inflamed seborrheic keratosis Inflamed seborrheic keratosis Disease Active 04-28 00:00: 00 [facility] Malignant melanoma of skin Malignant melanoma of skin Disease Active 04-28 00:00: 00 [facility] Reduced libido Reduced libido Disease Active 04-28 00:00: 00 [facility] Gastroesop hageal reflux disease Gastroesop hageal reflux disease Disease Active 04-28 00:00: 00 [facility] Depressive disorder Depressive disorder Disease Active 04-28 00:00: 00 [facility] Benign prostatic hyperplasi a Benign prostatic hyperplasi a Disease Active 04-28 00:00: 00 [facility] Anxiety disorder, unspecifie d Anxiety disorder, unspecifie d Disease Active 04-28 00:00: 00 [facility] Gout Gout Disease Active 04-28 00:00: 00 [facility] H/O Malignant melanoma H/O Malignant melanoma Disease Active 04-28 00:00: 00 [facility] History of colonic polyps History of colonic polyps Disease Active 04-28 00:00: 00 [facility] 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 in male Problem [facility] [id number] Other obstructiv e and reflux uropathy Problem [facility] [id number] Acute prostatiti s Problem [facility] [id number] ED (erectile dysfunctio n) of organic origin Problem [facility] [id number] Benign prostatic hyperplasi a with lower urinary tract symptoms Problem [facility] Impotence of organic origin Erectile dysfunctio n, unspecifie d erectile dysfunctio n type Problem [facility] [id number] AMANDEEP (acute kidney injury) Problem [facility] [id number] Hyperkalem ia Problem [facility] [id number] Antibiotic drug intoleranc e Problem [facility] Anemia Acute anemia Problem [facility] [id number] Chronic fatigue Problem [facility] [id number] Gastroesop hageal reflux disease without esophagiti s Problem [facility] [id number] Decreased vision in both eyes Problem [facility] Posttrauma tic stress disorder Post traumatic stress disorder Problem [facility] 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 griffin without signs of inflammato ry arthritis and tophaceous disease Problem [facility] [id number] History of basal cell cancer Problem [facility] [id number] Low testostero ne Problem [facility] Idiopathic gout Gout, arthropath y Problem [facility] Mixed anxiety and depressive disorder Depression with anxiety Problem [facility] [id number] Macrocytos is Problem [facility] [id number] Personal history of other malignant neoplasm of skin Problem [facility] [id number] Memory changes Problem [facility] Allergies, Adverse Reactions, Alerts Allergy Name Allergy Type Status Severity Reaction(s) Onset Date Inactive Date Treating Clinician Comments Source sulfamet hoxazole / trimetho prim sulfamet hoxazole / trimetho prim Active intolerance/ AMANDEEP [facility] NO KNOWN ALLERGIE S Drug Class Active [facility] Social History Social Habit Start Date Stop Date Quantity Comments Source Sexual orientation [facility] History of Tobacco Use [facility] Sex assigned at 1945 00:00:00 1945 00:00:00 [facility] Smoking Status Start Date Stop Date Source Tobacco smoking consumption unknown [facility] Never Smoker [facility] Former Smoker 2024-04-08 00:00:00 2024-04-08 00:00:00 [facility] Medications Ordered Medication Name Filled Medication Name Start Date Stop Date Current Medication? Ordering Clinician Indication Dosage Frequency Signature (SIG) Comments Components Source NaCl 0.9% (NS) bolus infusion 1,000 mL 04-28 22:15: 00 04-28 22:49 :00 No 1000mL at 999 mL/hr, 1,000 mL, IV Infusion, ONCE, 1 dose, On 04/28/24 at 1715, JENNIE [facility] carvediloL 25 mg tablet 04-28 16:28: 39 Yes 25mg Take 1 tablet by mouth in the morning and 1 tablet in the evening. Take with meals. [facility] sildenafil citrate (SILDENAFIL , BULK, MISC) 04-28 16:28: 39 Yes 100mg 100 mg. [facility] simvastatin 10 mg tablet 04-28 16:28: 39 Yes 10mg Take 1 tablet by mouth at bedtime. [facility] Flomax 0.4 MG Flomax 0.4 MG 04-03 00:00: 00 No 1{colton le_at_b edtime} QD Flomax 0.4 MG allopurinoL 100 mg tablet 03-31 00:00: 00 Yes 100mg Take 1 tablet by mouth. [facility] lisinopriL 20 mg tablet 03-31 00:00: 00 Yes 20mg Take 1 tablet by mouth. [facility] escitalopra m oxalate 5 mg tablet 5 00:00: 00 Yes 5mg Take 1 tablet by mouth. [facility] buPROPion HCl ER (XL) 300 MG buPROPion [...] HIGH DOSE OVER 65 2022-06-27 11:59:00 Completed [facility] FLUZONE HIGH DOSE OVER 65 FLUZONE HIGH DOSE OVER 65 2022-06-27 11:59:00 Completed [facility] FLUZONE HIGH DOSE OVER 65 FLUZONE HIGH DOSE OVER 65 2022-06-27 11:59:00 Completed [facility] FLUZONE HIGH DOSE OVER 65 FLUZONE HIGH DOSE OVER 65 2022-06-27 11:59:00 Completed [facility] FLUZONE HIGH DOSE OVER 65 FLUZONE HIGH DOSE OVER 65 2022-06-27 11:59:00 Completed [facility] FLUZONE HIGH DOSE OVER 65 FLUZONE HIGH DOSE OVER 65 2022-06-27 11:59:00 Completed [facility] FLUZONE HIGH DOSE OVER 65 FLUZONE HIGH DOSE OVER 65 2022-06-27 11:59:00 Completed [facility] FLUZONE HIGH DOSE OVER 65 FLUZONE HIGH DOSE OVER 65 2022-06-27 11:59:00 Completed [facility] FLUZONE HIGH DOSE OVER 65 FLUZONE HIGH DOSE OVER 65 2022-06-27 11:59:00 Completed [facility] FLUZONE HIGH DOSE OVER 65 FLUZONE HIGH DOSE OVER 65 2022-06-27 11:59:00 Completed [facility] FLUZONE HIGH DOSE OVER 65 FLUZONE HIGH DOSE OVER 65 2021-09-27 12:18:00 Completed [facility] FLUZONE HIGH DOSE OVER 65 FLUZONE HIGH DOSE OVER 65 2021-09-27 12:18:00 Completed [facility] FLUZONE HIGH DOSE OVER 65 FLUZONE HIGH DOSE OVER 65 2021-09-27 12:18:00 Completed [facility] FLUZONE HIGH DOSE OVER 65 FLUZONE HIGH DOSE OVER 65 2021-09-27 12:18:00 Completed [facility] FLUZONE HIGH DOSE OVER 65 FLUZONE HIGH DOSE OVER 65 2021-09-27 12:18:00 Completed [facility] FLUZONE HIGH DOSE OVER 65 FLUZONE HIGH DOSE OVER 65 2021-09-27 12:18:00 Completed [facility] FLUZONE HIGH DOSE OVER 65 FLUZONE HIGH DOSE OVER 65 2021-09-27 12:18:00 Completed [facility] FLUZONE HIGH DOSE OVER 65 FLUZONE HIGH DOSE OVER 65 2021-09-27 12:18:00 Completed [facility] FLUZONE HIGH DOSE OVER 65 FLUZONE HIGH DOSE OVER 65 2021-09-27 12:18:00 Completed [facility] FLUZONE HIGH DOSE OVER 65 FLUZONE HIGH DOSE OVER 65 2021-09-27 12:18:00 Completed [facility] FLUZONE HIGH DOSE OVER 65 FLUZONE HIGH DOSE OVER 65 2021-09-27 12:18:00 Completed [facility] FLUZONE HIGH DOSE OVER 65 FLUZONE HIGH DOSE OVER 65 2021-09-27 12:18:00 Completed [facility] FluAD FluAD 2020-08-28 12:44:00 Completed [facility] FluAD FluAD 2020-08-28 12:44:00 Completed [facility] FluAD FluAD 2020-08-28 12:44:00 Completed [facility] FluAD FluAD 2020-08-28 12:44:00 Completed [facility] FluAD FluAD 2020-08-28 12:44:00 Completed [facility] FluAD FluAD 2020-08-28 12:44:00 Completed [facility] FluAD FluAD 2020-08-28 12:44:00 Completed [facility] FluAD FluAD 2020-08-28 12:44:00 Completed [facility] FluAD FluAD 2020-08-28 12:44:00 Completed [facility] FluAD FluAD 2020-08-28 12:44:00 Completed [facility] FluAD FluAD 2020-08-28 12:44:00 Completed [facility] FluAD FluAD 2020-08-28 12:44:00 Completed [facility] FluAD FluAD 2019-08-28 12:29:00 Completed [facility] FluAD FluAD 2019-08-28 12:29:00 Completed [facility] FluAD FluAD 2019-08-28 12:29:00 Completed [facility] FluAD FluAD 2019-08-28 12:29:00 Completed [facility] FluAD FluAD 2019-08-28 12:29:00 Completed [facility] FluAD FluAD 2019-08-28 12:29:00 Completed [facility] FluAD FluAD 2019-08-28 12:29:00 Completed [facility] FluAD FluAD 2019-08-28 12:29:00 Completed [facility] FluAD FluAD 2019-08-28 12:29:00 Completed [facility] FluAD FluAD 2019-08-28 12:29:00 Completed [facility] FluAD FluAD 2019-08-28 12:29:00 Completed [facility] FluAD FluAD 2019-08-28 12:29:00 Completed [facility] FluAD FluAD 2019-08-28 00:00:00 Completed [facility] FluAD FluAD 2018-09-04 11:52:00 Completed [facility] FluAD FluAD 2018-09-04 11:52:00 Completed [facility] FluAD FluAD 2018-09-04 11:52:00 Completed [facility] FluAD FluAD 2018-09-04 11:52:00 Completed [facility] FluAD FluAD 2018-09-04 11:52:00 Completed [facility] FluAD FluAD 2018-09-04 11:52:00 Completed [facility] FluAD FluAD 2018-09-04 11:52:00 Completed [facility] FluAD FluAD 2018-09-04 11:52:00 Completed [facility] FluAD FluAD 2018-09-04 11:52:00 Completed [facility] FluAD FluAD 2018-09-04 11:52:00 Completed [facility] FluAD FluAD 2018-09-04 11:52:00 Completed [facility] FluAD FluAD 2018-09-04 11:52:00 Completed [facility] FluAD FluAD 2018-09-04 00:00:00 Completed [facility] FluAD Quad SD FluAD Quad SD Unknown Completed [facility] FluAD FluAD Unknown Completed [facility] FLUZONE HIGH DOSE OVER 65 FLUZONE HIGH DOSE OVER 65 Unknown Completed [facility] FluAD Quad SD FluAD Quad SD Unknown Completed [facility] FluAD FluAD Unknown Completed [facility] FLUZONE HIGH DOSE OVER 65 FLUZONE HIGH DOSE OVER 65 Unknown Completed [facility] FluAD Quad SD FluAD Quad SD Unknown Completed [facility] FluAD FluAD Unknown Completed [facility] FLUZONE HIGH DOSE OVER 65 FLUZONE HIGH DOSE OVER 65 Unknown Completed [facility] FluAD Quad SD FluAD Quad SD Unknown Completed [facility] FluAD FluAD Unknown Completed [facility] FLUZONE HIGH DOSE OVER 65 FLUZONE HIGH DOSE OVER 65 Unknown Completed [facility] Fluad (aIIV4) - SDS - 0.5mL Fluad (aIIV4) - SDS - 0.5mL Unknown Completed [facility] FluAD FluAD Unknown Completed [facility] FLUZONE HIGH DOSE OVER 65 FLUZONE HIGH DOSE OVER 65 Unknown Completed [facility] Fluad (aIIV4) - SDS - 0.5mL Fluad (aIIV4) - SDS - 0.5mL Unknown Completed [facility] FluAD FluAD Unknown Completed [facility] FLUZONE HIGH DOSE OVER 65 FLUZONE HIGH DOSE OVER 65 Unknown Completed [facility] Fluad (aIIV4) - SDS - 0.5mL Fluad (aIIV4) - SDS - 0.5mL Unknown Completed [facility] FluAD FluAD Unknown Completed [facility] FLUZONE HIGH DOSE OVER 65 FLUZONE HIGH DOSE OVER 65 Unknown Completed [facility] Fluad (aIIV4) - SDS - 0.5mL Fluad (aIIV4) - SDS - 0.5mL Unknown Completed [facility] FluAD FluAD Unknown Completed [facility] FLUZONE HIGH DOSE OVER 65 FLUZONE HIGH DOSE OVER 65 Unknown Completed [facility] Fluad (aIIV4) - SDS - 0.5mL Fluad (aIIV4) - SDS - 0.5mL Unknown Completed [facility] FluAD FluAD Unknown Completed [facility] FLUZONE HIGH DOSE OVER 65 FLUZONE HIGH DOSE OVER 65 Unknown Completed [facility] Fluad (aIIV4) - SDS - 0.5mL Fluad (aIIV4) - SDS - 0.5mL Unknown Completed [facility] FluAD FluAD Unknown Completed [facility] FLUZONE HIGH DOSE OVER 65 FLUZONE HIGH DOSE OVER 65 Unknown Completed [facility] Fluad (aIIV4) - SDS - 0.5mL Fluad (aIIV4) - SDS - 0.5mL Unknown Completed [facility] FluAD FluAD Unknown Completed [facility] FLUZONE HIGH DOSE OVER 65 FLUZONE HIGH DOSE OVER 65 Unknown Completed [facility] Fluad (aIIV4) - SDS - 0.5mL Fluad (aIIV4) - SDS - 0.5mL Unknown Completed [facility] FluAD FluAD Unknown Completed [facility] FLUZONE HIGH DOSE OVER 65 FLUZONE HIGH DOSE OVER 65 Unknown Completed [facility] Fluad (aIIV4) - SDS - 0.5mL Fluad (aIIV4) - SDS - 0.5mL Unknown Completed [facility] FluAD FluAD Unknown Completed [facility] FLUZONE HIGH DOSE OVER 65 FLUZONE HIGH DOSE OVER 65 Unknown Completed [facility] Fluad (aIIV4) - SDS - 0.5mL Fluad (aIIV4) - SDS - 0.5mL Unknown Completed [facility] FluAD FluAD Unknown Completed [facility] FLUZONE HIGH DOSE OVER 65 FLUZONE HIGH DOSE OVER 65 Unknown Completed [facility] Fluad (aIIV4) - SDS - 0.5mL Fluad (aIIV4) - SDS - 0.5mL Unknown Completed [facility] FluAD FluAD Unknown Completed [facility] FLUZONE HIGH DOSE OVER 65 FLUZONE HIGH DOSE OVER 65 Unknown Completed [facility] Fluad (aIIV4) - SDS - 0.5mL Fluad (aIIV4) - SDS - 0.5mL Unknown Completed [facility] FluAD FluAD Unknown Completed [facility] FLUZONE HIGH DOSE OVER 65 FLUZONE HIGH DOSE OVER 65 Unknown Completed [facility] Fluad (aIIV4) - SDS - 0.5mL Fluad (aIIV4) - SDS - 0.5mL Unknown Completed [facility] FluAD FluAD Unknown Completed [facility] FLUZONE HIGH DOSE OVER 65 FLUZONE HIGH DOSE OVER 65 Unknown Completed [facility] FluAD Quad SD FluAD Quad SD Unknown Completed [facility] FluAD FluAD Unknown Completed [facility] FLUZONE HIGH DOSE OVER 65 FLUZONE HIGH DOSE OVER 65 Unknown Completed [facility] FluAD Quad SD FluAD Quad SD Unknown Completed [facility] FluAD FluAD Unknown Completed [facility] FLUZONE HIGH DOSE OVER 65 FLUZONE HIGH DOSE OVER 65 Unknown Completed [facility] FluAD Quad SD FluAD Quad SD Unknown Completed [facility] FluAD FluAD Unknown Completed [facility] FLUZONE HIGH DOSE OVER 65 FLUZONE HIGH DOSE OVER 65 Unknown Completed [facility] FluAD Quad SD FluAD Quad SD Unknown Completed [facility] FluAD FluAD Unknown Completed [facility] FLUZONE HIGH DOSE OVER 65 FLUZONE HIGH DOSE OVER 65 Unknown Completed [facility] FluAD Quad SD FluAD Quad SD Unknown Completed [facility] FluAD FluAD Unknown Completed [facility] FLUZONE HIGH DOSE OVER 65 FLUZONE HIGH DOSE OVER 65 Unknown Completed [facility] FluAD Quad SD FluAD Quad SD Unknown Completed [facility] FluAD FluAD Unknown Completed [facility] FLUZONE HIGH DOSE OVER 65 FLUZONE HIGH DOSE OVER 65 Unknown Completed [facility] FluAD Quad SD FluAD Quad SD Unknown Completed [facility] FluAD FluAD Unknown Completed [facility] FLUZONE HIGH DOSE OVER 65 FLUZONE HIGH DOSE OVER 65 Unknown Completed [facility] FluAD Quad SD FluAD Quad SD Unknown Completed [facility] FluAD FluAD Unknown Completed [facility] FLUZONE HIGH DOSE OVER 65 FLUZONE HIGH DOSE OVER 65 Unknown Completed [facility] Vital Signs Vital Name Observation Time Observation Value Comments S annce height 2024-08-06 11:20:00 65.50 [in_i] Com [facility] weight 2024-08-06 11:20:00 151 [lb_av] [facility] temperature 2024-08-06 11:20:00 97.3 [degF] Com [facility] bmi 2024-08-06 11:20:00 24.74 kg/m2 [facility] oximetry 2024-08-06 11:20:00 98 % [facility] respiratory rate 2024-08-06 11:20:00 16 /min [facility] blood pressure systolic 2024-08-06 11:20:00 128 mm[Hg] [facility] blood pressure diastolic 2024-08-06 11:20:00 72 mm[Hg] [facility] height 2024-05-22 09:15:00 65.50 [in_i] Com [facility] weight 2024-05-22 09:15:00 143.8 [lb_av] [facility] temperature 2024-05-22 09:15:00 97.3 [degF] Com [facility] bmi 2024-05-22 09:15:00 23.56 kg/m2 [facility] oximetry 2024-05-22 09:15:00 96 % [facility] respiratory rate 2024-05-22 09:15:00 18 /min [facility] blood pressure systolic 2024-05-22 09:15:00 136 mm[Hg[facility] blood pressure diastolic 2024-05-22 09:15:00 68 mm[Hg] [facility] height 2024-05-02 14:00:00 65.50 [in_i] Com [facility] weight 2024-05-02 14:00:00 143.8 [lb_av] [facility] temperature 2024-05-02 14:00:00 97.4 [degF] Com [facility] bmi 2024-05-02 14:00:00 23.56 kg/m2 [facility] oximetry 2024-05-02 14:00:00 97 % [facility] respiratory rate 2024-05-02 14:00:00 16 /min [facility] blood pressure systolic 2024-05-02 14:00:00 134 mm[Hg] [facility] blood pressure diastolic 2024-05-02 14:00:00 78 mm[Hg] [facility] Systolic blood pressure 2024-04-28 22:48:00 132 mm[Hg] [facility] Diastolic blood pressure 2024-04-28 22:48:00 76 mm[Hg] [facility] Heart rate 2024-04-28 22:48:00 73 /min [facility] Body temperature 2024-04-28 22:48:00 36.5 Yoly [facility] Respiratory rate 2024-04-28 22:48:00 15 /min [facility] Oxygen saturation in Arterial blood by Pulse oximetry 2024-04-28 22:48:00 99 /min [facility] Body height 2024-04-28 21:18:00 167.6 cm [facility] Body weight 2024-04-28 21:18:00 65.772 kg [facility] BMI 2024-04-28 21:18:00 23.40 kg/m2 [facility] height 2024-04-24 10:30:00 65.50 [in_i] Com [facility] weight 2024-04-24 10:30:00 141.6 [lb_av] [facility] temperature 2024-04-24 10:30:00 97.5 [degF] Com [facility] bmi 2024-04-24 10:30:00 23.2 kg/m2 [facility] oximetry 2024-04-24 10:30:00 94 % [facility] respiratory rate 2024-04-24 10:30:00 18 /min [facility] blood pressure systolic 2024-04-24 10:30:00 122 mm[Hg] [facility] blood pressure diastolic 2024-04-24 10:30:00 61 mm[Hg] [facility] height 2024-04-18 11:00:00 65.50 [in_i] Com [facility] weight 2024-04-18 11:00:00 145 [lb_av] [facility] temperature 2024-04-18 11:00:00 97.2 [degF] Com [facility] bmi 2024-04-18 11:00:00 23.76 kg/m2 [facility] oximetry 2024-04-18 11:00:00 99 % [facility] respiratory rate 2024-04-18 11:00:00 16 /min [facility] blood pressure systolic 2024-04-18 11:00:00 95 mm[Hg] [facility] blood pressure diastolic 2024-04-18 11:00:00 49 mm[Hg] [facility] height 2024-04-03 10:45:00 65.50 [in_i] Com [facility] weight 2024-04-03 10:45:00 146.8 [lb_av] [facility] temperature 2024-04-03 10:45:00 98.6 [degF] Com [facility] bmi 2024-04-03 10:45:00 24.05 kg/m2 [facility] oximetry 2024-04-03 10:45:00 96 % [facility] respiratory rate 2024-04-03 10:45:00 18 /min [facility] blood pressure systolic 2024-04-03 10:45:00 158 mm[Hg] [facility] blood pressure diastolic 2024-04-03 10:45:00 92 mm[Hg] [facility] height 2024-01-12 10:40:00 65.50 [in_i] Com [facility] weight 2024-01-12 10:40:00 154 [lb_av] [facility] temperature 2024-01-12 10:40:00 97.0 [degF] Com [facility] bmi 2024-01-12 10:40:00 25.23 kg/m2 [facility] oximetry 2024-01-12 10:40:00 97 % [facility] respiratory rate 2024-01-12 10:40:00 16 /min [facility] blood pressure systolic 2024-01-12 10:40:00 139 mm[Hg] [facility] blood pressure diastolic 2024-01-12 10:40:00 76 mm[Hg] [facility] height 2024-01-12 10:40:00 65.50 [in_i] Com [facility] weight 2024-01-12 10:40:00 154 [lb_av] [facility] temperature 2024-01-12 10:40:00 97.0 [degF] Com [facility] bmi 2024-01-12 10:40:00 25.23 kg/m2 [facility] oximetry 2024-01-12 10:40:00 97 % [facility] respiratory rate 2024-01-12 10:40:00 16 /min [facility] blood pressure systolic 2024-01-12 10:40:00 139 mm[Hg] [facility] blood pressure diastolic 2024-01-12 10:40:00 76 mm[Hg] [facility] height 2023-09-29 10:40:00 65.50 [in_i] Com [facility] weight 2023-09-29 10:40:00 154.8 [lb_av] Co [facility] temperature 2023-09-29 10:40:00 97.7 [degF] Com [facility] bmi 2023-09-29 10:40:00 25.37 kg/m2 [facility] oximetry 2023-09-29 10:40:00 98 % [facility] respiratory rate 2023-09-29 10:40:00 16 /min [facility] blood pressure systolic 2023-09-29 10:40:00 134 mm[Hg] [facility] blood pressure diastolic 2023-09-29 10:40:00 78 mm[Hg] Common [facility] height 2023-09-05 10:40:00 65.50 [in_i] Com [facility] weight 2023-09-05 10:40:00 158.2 [lb_av] Co [facility] temperature 2023-09-05 10:40:00 97.6 [degF] Com [facility] bmi 2023-09-05 10:40:00 25.92 kg/m2 [facility] oximetry 2023-09-05 10:40:00 97 % [facility] respiratory rate 2023-09-05 10:40:00 16 /min [facility] blood pressure systolic 2023-09-05 10:40:00 120 mm[Hg] [facility] blood pressure diastolic 2023-09-05 10:40:00 78 mm[Hg] [facility] height 2023-07-17 10:40:00 65.50 [in_i] Com [facility] weight 2023-07-17 10:40:00 155.6 [lb_av] Co [facility] temperature 2023-07-17 10:40:00 97.9 [degF] Com [facility] bmi 2023-07-17 10:40:00 25.5 kg/m2 [facility] oximetry 2023-07-17 10:40:00 95 % [facility] respiratory rate 2023-07-17 10:40:00 17 /min [facility] blood pressure systolic 2023-07-17 10:40:00 138 mm[Hg] [facility] blood pressure diastolic 2023-07-17 10:40:00 76 mm[Hg] Common [facility] height 2023-05-18 11:20:00 65.50 [in_i] Com [facility] weight 2023-05-18 11:20:00 156.4 [lb_av] [facility] 2023-[facility]-18 11:20:00 98.0 [degF] Com [facility] bmi 2023-05-18 11:20:00 25.63 kg/m2 [facility] oximetry 2023-05-18 11:20:00 98 % [facility] respiratory rate 2023-05-18 11:20:00 16 /min [facility] blood pressure systolic 2023-05-18 11:20:00 149 mm[Hg] [facility] blood pressure diastolic 2023-05-18 11:20:00 77 mm[Hg] [facility] height 2023-04-12 13:00:00 65.50 [in_i] Com [facility] weight 2023-04-12 13:00:00 150.0 [lb_av] [facility] temperature 2023-04-12 13:00:00 97.9 [degF] Com [facility] bmi 2023-04-12 13:00:00 24.58 kg/m2 [facility] oximetry 2023-04-12 13:00:00 97 % [facility] respiratory rate 2023-04-12 13:00:00 16 /min [facility] blood pressure systolic 2023-04-12 13:00:00 163 mm[Hg] [facility] blood pressure diastolic 2023-04-12 13:00:00 82 mm[Hg] [facility] height 2023-03-13 10:40:00 65.50 [in_i] Com [facility] weight 2023-03-13 10:40:00 148 [lb_av] [facility] temperature 2023-03-13 10:40:00 97.8 [degF] Com [facility] bmi 2023-03-13 10:40:00 24.25 kg/m2 [facility] oximetry 2023-03-13 10:40:00 98 % [facility] respiratory rate 2023-03-13 10:40:00 17 /min [facility] blood pressure systolic 2023-03-13 10:40:00 132 mm[Hg] [facility] blood pressure diastolic 2023-03-13 10:40:00 76 mm[Hg] [facility] height 2023-02-27 11:00:00 65.50 [in_i] Com [facility] weight 2023-02-27 11:00:00 148.2 [lb_av] Co [facility] temperature 2023-02-27 11:00:00 98.4 [degF] Com [facility] bmi 2023-02-27 11:00:00 24.28 kg/m2 [facility] oximetry 2023-02-27 11:00:00 98 % [facility] respiratory rate 2023-02-27 11:00:00 17 /min [facility] blood pressure systolic 2023-02-27 11:00:00 146 mm[Hg] Common [facility] blood pressure diastolic 2023-02-27 11:00:00 82 mm[Hg] [facility] height 2023-02-10 11:00:00 65.50 [in_i] Com [facility] weight 2023-02-10 11:00:00 148.2 [lb_av] Co [facility] temperature 2023-02-10 11:00:00 98.4 [degF] Com [facility] bmi 2023-02-10 11:00:00 24.28 kg/m2 [facility] oximetry 2023-02-10 11:00:00 97 % [facility] respiratory rate 2023-02-10 11:00:00 16 /min [facility] blood pressure systolic 2023-02-10 11:00:00 162 mm[Hg] [facility] blood pressure diastolic 2023-02-10 11:00:00 86 mm[Hg] Common [facility] height 2023-01-11 11:00:00 65.50 [in_i] Com [facility] weight 2023-01-11 11:00:00 158 [lb_av] [facility] temperature 2023-01-11 11:00:00 98.2 [degF] Com [facility] bmi 2023-01-11 11:00:00 25.89 kg/m2 [facility] oximetry 2023-01-11 11:00:00 98 % [facility] respiratory rate 2023-01-11 11:00:00 17 /min [facility] blood pressure systolic 2023-01-11 11:00:00 160 mm[Hg] [facility] blood pressure diastolic 2023-01-11 11:00:00 94 mm[Hg] [facility] height 2023-01-11 11:00:00 65.50 [in_i] Com [facility] weight 2023-01-11 11:00:00 158 [lb_av] [facility] temperature 2023-01-11 11:00:00 98.2 [degF] Com [facility] bmi 2023-01-11 11:00:00 25.89 kg/m2 [facility] oximetry 2023-01-11 11:00:00 98 % [facility] respiratory rate 2023-01-11 11:00:00 17 /min [facility] blood pressure systolic 2023-01-11 11:00:00 148 mm[Hg] [facility] blood pressure diastolic 2023-01-11 11:00:00 100 mm[Hg] Common [facility] height 2022-12-06 13:20:00 65.50 [in_i] Com [facility] weight 2022-12-06 13:20:00 156.2 [lb_av] [facility] temperature 2022-12-06 13:20:00 97.7 [degF] Com [facility] bmi 2022-12-06 13:20:00 25.59 kg/m2 [facility] oximetry 2022-12-06 13:20:00 97 % [facility] respiratory rate 2022-12-06 13:20:00 16 /min [facility] blood pressure systolic 2022-12-06 13:20:00 138 mm[Hg] [facility] blood pressure diastolic 2022-12-06 13:20:00 86 mm[Hg] Common [facility] height 2022-06-27 10:40:00 65.50 [in_i] Com [facility] weight 2022-06-27 10:40:00 152.6 [lb_av] [facility] temperature 2022-06-27 10:40:00 98.1 [degF] Com [facility] bmi 2022-06-27 10:40:00 25.01 kg/m2 [facility] oximetry 2022-06-27 10:40:00 99 % [facility] respiratory rate 2022-06-27 10:40:00 16 /min [facility] blood pressure systolic 2022-06-27 10:40:00 132 mm[Hg] [facility] blood pressure diastolic 2022-06-27 10:40:00 74 mm[Hg] [facility] height 2022-01-27 11:20:00 65.50 [in_i] Com [facility] weight 2022-01-27 11:20:00 153.2 [lb_av] [facility] 2022-01-27 11:20:00 98.0 [degF] Com [facility] bmi 2022-01-27 11:20:00 25.10 kg/m2 [facility] oximetry 2022-01-27 11:20:00 98 % [facility] respiratory rate 2022-01-27 11:20:00 16 /min [facility] blood pressure systolic 2022-01-27 11:20:00 130 mm[Hg] Common [facility] blood pressure diastolic 2022-01-27 11:20:00 50 mm[Hg] [facility] height 2021-09-27 11:20:00 65.50 [in_i] Com [facility] weight 2021-09-27 11:20:00 156 [lb_av] [facility] temperature 2021-09-27 11:20:00 97.7 [degF] Com [facility] bmi 2021-09-27 11:20:00 25.56 kg/m2 [facility] oximetry 2021-09-27 11:20:00 98 % [facility] blood pressure systolic 2021-09-27 11:20:00 131 mm[Hg] Common [facility] blood pressure diastolic 2021-09-27 11:20:00 67 mm[Hg] [facility] height 2021-09-10 15:30:00 65.50 [in_i] Com [facility] weight 2021-09-10 15:30:00 155.6 [lb_av] [facility] temperature 2021-09-10 15:30:00 97.4 [degF] Com [facility] bmi 2021-09-10 15:30:00 25.5 kg/m2 [facility] oximetry 2021-09-10 15:30:00 97 % [facility] respiratory rate 2021-09-10 15:30:00 17 /min [facility] blood pressure systolic 2021-09-10 15:30:00 142 mm[Hg] [facility] blood pressure diastolic 2021-09-10 15:30:00 70 mm[Hg] [facility] Procedures Procedure Date / Time Performed Performing Clinicia n Source PVR 2024-05-22 00:00:00 [facility] EKG-12 LEAD 2024-04-28 22:46:31 Candace Bacon [facility] PHOSPHORUS 2024-04-28 21:37:00 Candace Bacon [facility] MAGNESIUM 2024-04-28 21:37:00 Candace Bacon [facility] COMP. METABOLIC PANEL (49138) 2024-04-28 21:37:00 Candace Bacon [facility] CBC WITH DIFF 2024-04-28 21:37:[address] [facility] URINALYSIS 2024-04-28 21:37:00 Candace Bacon [facility] PVR 2024-04-03 00:00:00 [facility] Encounters Start Date/Time End Date/Time Encounter Type Admission Type Attending Clinicians Care Facility Care Department Encounter ID Source 2024-08-02 09:38:00 Outpatient Ariel Sophie [facility] [id number] [facility] 2024-04-03 09:52:00 Outpatient Sophie George [facility] [id number] [facility] 2024-02-15 13:02:00 Outpatient Sophie George [facility] [id number] [facility] 2024-01-10 07:45:00 Outpatient GeorgeSophie [facility] [id number] [facility] 2023-11-06 14:39:00 Outpatient GeorgeMarii [facility] [id number] [facility] 2023-09-27 11:04:00 Outpatient George, Sophie [facility] [id number] [facility] 2023-08-29 10:16:00 Outpatient George, Sophie [facility] [id number] [facility] 2023-08-23 10:50:00 Outpatient GeorgeMarii [facility] [id number] [facility] 2023-07-13 11:00:00 Outpatient George, Sophie [facility] [id number] [facility] 2023-05-17 08:16:00 Outpatient GeorgeMari navai [facility] [id number] [facility] 2023-04-10 09:55:00 Outpatient GeorgeMarii [facility] [id number] [facility] 2023-02-09 08:45:00 Outpatient George, Sophie [facility] [id number] [facility] 2022-12-06 07:23:00 Outpatient George, Sophie [facility] [id number] [facility] 2022-11-11 12:35:00 Outpatient George, Sophie [facility] [id number] [facility] 2022-06-29 16:05:00 Outpatient Garcia, Liz [facility] [id number] [facility] 2022-06-23 08:50:00 Outpatient Garcia, Na [facility] [id number] [facility] 2022-01-26 11:55:00 Outpatient Garcia, Na [facility] [id number] [facility] 2021-11-03 14:26:21 Outpatient Garcia, Na [facility] [id number] [facility] 2021-11-03 14:25:50 Outpatient Garcia, Na [facility] [id number] [facility] 2021-11-03 13:45:16 Outpatient Garcia, Na [facility] [id number] [facility] 2021-11-03 12:47:50 Outpatient Garcia, Na [facility] [id number] [facility] 2021-11-03 12:46:26 Outpatient Garcia, Na [facility] [id number] [facility] 2021-11-03 12:44:49 Outpatient Garcia, Na [facility] [id number] [facility] 2021-11-03 11:31:40 Outpatient Garcia, Na [facility] [id number] [facility] 2021-11-03 11:21:24 Outpatient Garcia, Na [facility] [id number] [facility] 2021-11-03 11:16:33 Outpatient Garcia, Na [facility] [id number] [facility] 2021-11-03 11:16:05 Outpatient Garcia, Na [facility] [id number] [facility] 2021-11-03 11:06:47 Outpatient Garcia, Na [facility] [id number] [facility] 2024-08-21 00:00:00 2024-08-21 00:00:00 (TEL) [facility]C [facility] [id number] [facility] 2024-08-06 00:00:00 2024-08-06 00:00:00 OFFICE VISIT ESTAB PT LEVEL 4 [facility] [id number] [facility] 2024-07-01 00:00:00 2024-07-01 00:00:00 (TEL) [facility]C [facility] [id number] [facility] 2024-05-22 00:00:00 2024-05-22 00:00:00 OFFICE VISIT ESTAB PT LEVEL 2 [facility] [id number] [facility] 2024-05-02 00:00:00 2024-05-02 00:00:00 OFFICE VISIT ESTAB PT LEVEL 5 [facility] ST[facility] [id number] [facility] 2024-04-28 16:21:00 2024-04-28 17:56:00 Emergency X CANDACE BACON [facility] ERT [id number] [facility] 2024-04-28 16:21:00 2024-04-28 17:56:00 Emergency Candace Bacon [facility] [id number] [facility] 2024-04-27 00:00:00 2024-04-27 00:00:00 (TEL) STLMLC STL[facility]C [id number] [facility] 2024-04-25 00:00:00 2024-04-25 00:00:00 (TEL) STLMLC STL[facility]C [id number] [facility] 2024-04-24 00:00:00 2024-04-24 00:00:00 OFFICE VISIT ESTAB PT LEVEL 3 [facility] ST[facility]C [id number] [facility] 2024-04-18 00:00:00 2024-04-18 00:00:00 OFFICE VISIT ESTAB PT LEVEL 5 [facility] ST[facility] [id number] [facility] 2024-04-17 00:00:00 2024-04-17 00:00:00 (TEL) STLMLC STLMLC [id number] [facility] 2024-04-03 00:00:00 2024-04-03 00:00:00 OFFICE VISIT NEW PT LEVEL 4 [facility] [id number] [facility] 2024-03-25 00:00:00 2024-03-25 00:00:00 (TEL) STLMLC STL[facility]C [id number] [facility] 2024-01-31 00:00:00 2024-01-31 00:00:00 (TEL) STLMLC STL[facility]C [id number] [facility] 2024-01-12 00:00:00 2024-01-12 00:00:00 OFFICE VISIT ESTAB PT LEVEL 4 [facility] ST[facility]C [id number] [facility] 2024-01-12 00:00:00 2024-01-12 00:00:00 SUB ANNUAL [facility] WELLNESS VISIT STLMLC STLMLC [id number] [facility] 2024-01-08 00:00:00 2024-01-08 00:00:00 (TEL) STLMLC STLMLC [id number] [facility] 2023-11-06 00:00:00 2023-11-06 00:00:00 (TEL) STLMLC STLMLC [id number] [facility] 2023-10-16 00:00:00 2023-10-16 00:00:00 (TEL) STLMLC STLMLC [id number] [facility] 2023-09-29 00:00:00 2023-09-29 00:00:00 OFFICE VISIT ESTAB PT LEVEL 4 [facility]C ST[facility]C [id number] [facility] 2023-09-05 00:00:2023-09-05 00:00:00 OFFICE VISIT ESTAB PT LEVEL 4 [facility]C ST[facility]C [id number] [facility] 2023-07-17 00:00:00 2023-07-17 00:00:00 OFFICE VISIT ESTAB PT LEVEL 4 [facility]C ST[facility]C [id number] [facility] 2023-07-12 00:00:00 2023-07-12 00:00:00 (TEL) STLMLC STLMLC [id number] [facility] 2023-05-24 00:00:00 2023-05-24 00:00:00 (TEL) STLMLC STLMLC [id number] [facility] 2023-05-18 00:00:00 2023-05-18 00:00:00 OFFICE VISIT ESTAB PT LEVEL 3 [facility]C STL[facility]C [id number] [facility] 2023-05-08 00:00:00 2023-05-08 00:00:00 (TEL) STLMLC STLMLC [id number] [facility] 2023-04-21 00:00:00 2023-04-21 00:00:00 (TEL) STLMLC STLMLC [id number] [facility] 2023-04-12 00:00:00 2023-04-12 00:00:00 OFFICE VISIT ESTAB PT LEVEL 4 [facility]C STL[facility]C [id number] [facility] 2023-03-13 00:00:00 2023-03-13 00:00:00 OFFICE VISIT ESTAB PT LEVEL 2 [facility]C STL[facility]C [id number] [facility] 2023-03-09 00:00:00 2023-03-09 00:00:00 (TEL) STLMLC STLMLC [id number] [facility] 2023-02-27 00:00:00 2023-02-27 00:00:00 OFFICE VISIT ESTAB PT LEVEL 2 [facility]C STL[facility]C [id number] [facility] 2023-02-10 00:00:00 2023-02-10 00:00:00 Outpatient DMG DMG [id number] [facility] 2023-02-10 00:00:00 2023-02-10 00:00:00 OFFICE VISIT ESTAB PT LEVEL 4 STLMLC STLMLC [id number] [facility] 2023-01-11 00:00:00 2023-01-11 00:00:00 OFFICE VISIT ESTAB PT LEVEL 4 [facility]C STLMLC [id number] [facility] 2023-01-11 00:00:00 2023-01-11 00:00:00 SUB ANNUAL [facility] WELLNESS VISIT STLMLC STLMLC [id number] [facility] 2022-12-23 00:00:00 2022-12-23 00:00:00 (TEL) STLMLC STLMLC [id number] [facility] 2022-12-19 00:00:00 2022-12-19 00:00:00 (TEL) STLMLC STLMLC [id number] [facility] 2022-12-06 00:00:00 2022-12-06 00:00:00 OFFICE VISIT ESTAB PT LEVEL 4 [facility]LMLC STLMLC [id number] [facility] 2022-10-28 00:00:00 2022-10-28 00:00:00 (TEL) STLMLC STLMLC [id number] [facility] 2022-10-19 00:00:00 2022-10-19 00:00:00 (TEL) STLMLC STLMLC [id number] [facility] 2022-08-11 00:00:00 2022-08-11 00:00:00 (TEL) STLMLC STLMLC [id number] [facility] 2022-08-08 00:00:00 2022-08-08 00:00:00 Outpatient DMG DMG [id number] [facility] 2022-07-14 00:00:00 2022-07-14 00:00:00 (TEL) STLMLC STLMLC [id number] [facility] 2022-07-07 00:00:00 2022-07-07 00:00:00 (TEL) STLMLC STLMLC [id number] [facility] 2022-06-30 00:00:00 2022-06-30 00:00:00 (TEL) STLMLC STLMLC [id number] [facility] 2022-06-28 00:00:00 2022-06-28 00:00:00 (TEL) STLMLC STLMLC [id number] [facility] 2022-06-28 00:00:00 2022-06-28 00:00:00 (TEL) STLMLC STLMLC [id number] [facility] 2022-06-27 00:00:00 2022-06-27 00:00:00 OFFICE VISIT ESTAB PT LEVEL 4 STLMLC STLMLC [id number] [facility] 2022-06-20 00:00:00 2022-06-20 00:00:00 (TEL) STLMLC STLMLC [id number] [facility] 2022-05-25 00:00:00 2022-05-25 00:00:00 (TEL) STLMLC STLMLC [id number] [facility] 2022-03-30 00:00:00 2022-03-30 00:00:00 (TEL) STLMLC STLMLC [id number] [facility] 2022-02-18 00:00:00 2022-02-18 00:00:00 (TEL) STLMLC STLMLC [id number] [facility] 2022-01-27 00:00:00 2022-01-27 00:00:00 OFFICE VISIT ESTAB PT LEVEL 4 STLMLC STLMLC [id number] [facility] 2021-10-29 00:00:00 2021-10-29 00:00:00 (TEL) STLMLC STLMLC [id number] [facility] 2021-10-14 00:00:00 2021-10-14 00:00:00 (TEL) STLMLC STLMLC [id number] [facility] 2021-09-27 00:00:00 2021-09-27 00:00:00 OFFICE VISIT ESTAB PT LEVEL 4 [facility]LMLC STL[facility]C [id number] [facility] 2021-09-10 00:00:00 2021-09-10 00:00:00 OFFICE VISIT EST PT LEVEL 3 [facility]C STL[facility]C [id number] [facility] 2021-09-08 00:00:00 2021-09-08 00:00:00 (TEL) STLMLC STLMLC [id number] [facility] 2021-08-18 00:00:00 2021-08-18 00:00:00 (TEL) STLMLC STLMLC [id number] [facility] 2021-06-10 00:00:00 2021-06-10 00:00:00 Outpatient STLMLC STLMLC [id number] [facility] 2021-05-25 00:00:00 2021-05-25 00:00:00 Outpatient STLMLC STLMLC [id number] [facility] 2021-05-10 00:00:00 2021-05-10 00:00:00 Outpatient STLMLC STLMLC [id number] [facility] 2021-05-03 00:00:00 2021-05-03 00:00:00 Outpatient STLMLC STLMLC [id number] [facility] 2021-01-07 00:00:00 2021-01-07 00:00:00 Outpatient STLMLC STLMLC [id number] [facility] 2020-11-20 00:00:00 2020-11-20 00:00:00 Outpatient STLMLC STLMLC [id number] [facility] 2020-10-29 00:00:00 2020-10-29 00:00:00 Outpatient STLMLC STLMLC [id number] [facility] 2020-10-12 00:00:00 2020-10-12 00:00:00 Outpatient [facility] [id number] [facility] 2020-10-08 00:00:00 2020-10-08 00:00:00 Outpatient [facility] [id number] [facility] 2020-10-07 00:00:00 2020-10-07 00:00:00 Outpatient [facility] [id number] [facility] 2020-09-28 00:00:00 2020-09-28 00:00:00 Outpatient [facility] [id number] [facility] 2020-09-22 00:00:00 2020-09-22 00:00:00 Outpatient [facility]C ST[facility]C [id number] [facility] 2020-08-28 00:00:00 2020-08-28 00:00:00 Outpatient [facility]C ST[facility]C [id number] [facility] 2020-05-25 16:45:00 2020-05-25 16:45:[address] [facility] [id number] [facility] 2020-04-27 10:20:00 2020-04-27 10:20:[address] [facility] [id number] [facility] 2020-04-14 14:47:00 2020-04-14 14:47:[address] [facility] [id number] [facility] 2020-04-02 15:47:00 2020-04-02 15:47:[address] [facility] [id number] [facility] 2020-02-13 15:02:00 2020-02-13 15:02:[address] [facility] [id number] [facility] 2019-12-26 10:00:00 2019-12-26 10:00:00 [facility] [id number] [facility] 2019-12-19 09:52:00 2019-12-19 09:52:[address] [facility] [id number] [facility] 2019-11-19 15:25:00 2019-11-19 15:25:[address] [facility] [id number] [facility] 2019-11-18 14:24:00 2019-11-18 14:24:[address] [facility] [id number] [facility] 2019-10-08 10:37:00 2019-10-08 10:37:[address] [facility] [facility] [id number] [facility] 2019-08-28 10:40:00 2019-08-28 10:40:[address] [facility] [facility] [id number] [facility] 2019-08-27 17:26:00 2019-08-27 17:26:[address] [facility] [facility] [id number] [facility] 2019-08-22 13:33:00 2019-08-22 13:33:[address] [facility] [facility] [id number] [facility] 2019-08-16 09:20:00 2019-08-16 09:20:[address] [facility] [facility] [facility] [id number] [facility] [facility] 2019-06-20 11:00:00 2019-06-20 11:00:[address] [facility] [id number] [facility] 2019-05-14 10:00:00 2019-05-14 10:00:00 [facility] [id number] [facility] 2019-02-20 10:22:00 2019-02-20 10:22:00 [facility] [id number] [facility] 2019-02-11 09:41:00 2019-02-11 09:41:00 [facility] [id number] [facility] 2019-01-08 09:40:00 2019-01-08 09:40:00 [facility] [id number] [facility] 2018-11-26 15:27:00 2018-11-26 15:27:00 [facility] [id number] [facility] 2018-11-22 10:23:00 2018-11-22 10:23:00 [facility] [id number] [facility] 2018-11-16 14:31:00 2018-11-16 14:31:00 [facility] [id number] [facility] 2018-11-06 13:24:00 2018-11-06 13:24:00 [facility] [id number] [facility] 2018-10-01 10:13:00 2018-10-01 10:13:00 [facility] [id number] [facility] 2018-09-04 09:45:00 2018-09-04 09:45:00 [facility] [id number] [facility] 2018-06-29 13:32:00 2018-06-29 13:32:00 [facility] [id number] [facility] 2018-06-29 13:27:00 2018-06-29 13:27:00 [facility] [id number] [facility] 2018-06-12 09:45:2018-06-12 09:45:00 [facility] [id number] [facility] 2018-06-04 08:30:00 2018-06-04 08:30:[address] [facility] [id number] [facility] 2018-04-27 10:13:00 2018-04-27 10:13:[address] [facility] [facility] [id number] [facility] 2018-03-22 11:33:00 2018-03-22 11:33:[address] [facility] [facility] [id number] [facility] 2018-02-27 08:30:00 2018-02-27 08:30:00 Outpatient [facility] [id number] [facility] Results Test Description Test Time Test Comments Results Result Co mments Source [id number] 22:25:56* Test Item Value Reference Range Interpretation Comme nts MAGNESIUM (test code = 9333364268) 1.9 mg/dL 1.7-2.4 Lab Interpretation (test cod e = 10326-6) [facility]23577[facility] 22:25:55* Test Item Value Reference Range Interpretation Comme nts NA (test code = 2534421519) 131 mmol/L 135-145 L K (test code = 5424075435) 4.5 mmol/L 3.5-5.0 CL (test code = 3374084341) 97 mmol/L 98-108 L CO2 TOTAL (test code = 0829694786) 24 mmol/L 23-31 AGAP (test code = 5260152093) 10 2-16 BUN (test code = 3664206545) 20 mg/dL 7-23 GLUCOSE (test code = 7025783969) 86 mg/dL 70-110 CREATININE (test code = 2160-0) 1.48 mg/dL 0.60-1.25 H TOTAL BILI (test code = 7648085810) 0.8 mg/dL 0.1-1.1 CALCIUM (test code = 9798262411) 8.9 mg/dL 8.6-10.6 T PROTEIN (test code = 8196022190) 6.5 g/dL 6.3-8.2 ALBUMIN (test code = 3417065119) 3.9 g/dL 3.5-5.0 ALK PHOS (test code = 0314917993) 40 U/L 34-122 ALTv (test code = 1742-6) 86 U/L 5-50 H AST(SGOT) (test code = 5856471095) 110 U/L 13-40 H eGFR (test code = 98535-3) 48.4 mL/min/1.73m2 CKD-EPI eGFR (2020). Assuming creatinine has been stable day-to-day for at least three months, the eGFR indicates Category G3a (45 - 59 mL/min/1.73 m2) Lab Interpretation (test code = 88773-4) [facility] 22:25:35* Test Item Value Reference Range Interpretation Comme nts PHOSPHORUS (test code = 4013070148) 3.2 mg/dL 2.5-5.0 Lab Interpretation (test cod e = 39255-3) Normal [facility] WITH [id number] 22:10:15* Test Item Value Reference Range Interpretation [...] 35.0 g/dL 31.2-35.0 RDW-SD (test code = 88213-5) 48.3 fL 38.5-51.6 RDW-CV (test code = 788-0) 12.4 % 12.1-15.4 PLT (test code = 777-3) 214 150-328 MPV (test code = 28485-2) 9.0 fL 9.8-13.0 L NRBC/100 WBC (test code = 1354755292) 0.0 0.0-10.0 NRBC x10^3 (test code = 0306326431) See_Comment [Automated [employer]] The system which generated this result transmitted reference range: 10*3/?L. The reference range was not used to interpret this result as normal/abnormal. GRAN MAT (NEUT) % (test code = 770-8) 37.7 % IMM GRAN % (test code = 4072756004) 0.20 % LYMPH % (test code = 736-9) 48.9 % MONO % (test code = 5905-5) 10.2 % EOS % (test code = 713-8) 2.0 % BASO % (test code = 706-2) 1.0 % GRAN MAT x10^3(ANC) (test code = 9310408173) 2.29 10*3/uL 1.99-6.95 IMM GRAN x10^3 (test code = 2911723891) 0.00-0.06 LYMPH x10^3 (test code = 731-0) 2.97 10*3/uL 1.09-3.23 MONO x10^3 (test code = 742-7) 0.62 10*3/uL 0.36-1.02 EOS x10^3 (test code = 711-2) 0.12 10*3/uL 0.06-0.53 BASO x10^3 (test code = 704-7) 0.06 10*3/uL 0.01-0.09 Lab Interpretation (test code = 86932-9) Abnormal [facility], RANDOM [id number] 00:00:00* Test Item Value Reference Range Interpretation Comme nts SODIUM, URINE, CONC. (test c ode = 2955-3) <20 MEQ/L NOT ESTAB MEQ/L BASIC METABOLIC [id number] 00:00:00* Test Item Value Reference Range Interpretation Comme nts BUN (test code = 3091-6) 20 MG/DL See_Comment [Automated messa ge] The system which generated this result transmitted reference range: 8-23 MG/DL. The reference range was not used to interpret this result as normal/abnormal. CALCIUM (test code = 96920-4) 9.7 MG/DL See_Comment [Automated messa ge] The [...] normal/abnormal. eGFR (2020 CKD-EPI) (test code = 88373-0) 37 ML/MIN/1.73 See_Comment L [Automated messa ge] [...] interpret this result as normal/abnormal. CBC W/AUTO [id number] 00:00:00* Test Item Value Reference Range Interpretation Comme nts NUCLEATED RBCS (test code = 61438-0) 0.0 /100 WBC'S See_Comment [Automated messa ge] The system which generated this result transmitted reference range: 0.0 /100 WBC'S. The reference range was not used to interpret this result as normal/abnormal. ABSOLUTE EOSINOPHILS (test code = 44474-8) 0.14 K/UL See_Comment [Automated messa ge] The system which generated this result transmitted reference range: 0.00-0.50 K/UL. The reference range was not used to interpret this result as normal/abnormal. ABSOLUTE LYMPHOCYTES (test code = 46936-7) 3.05 K/UL See_Comment [Automated messa ge] The system which generated this result transmitted reference range: 1.00-4.00 K/UL. The reference range was not used to interpret this result as normal/abnormal. ABSOLUTE MONOCYTES (test code = 33120-1) 0.85 K/UL See_Comment [Automated messa ge] The system which generated this result transmitted reference range: 0.20-1.00 K/UL. The reference range was not used to interpret this result as normal/abnormal. ABSOLUTE NEUTROPHILS (test code = 54460-4) 6.19 K/UL See_Comment [Automated messa ge] The system which generated this result transmitted reference range: 1.50-7.50 K/UL. The reference range was not used to interpret this result as normal/abnormal. BASOPHILS (test code = 47819-8) 0.8 % EOSINOPHILS (test code = 84697-6) 1.4 % HEMATOCRIT (test code = 53080-3) 37.8 % See_Comment L [Automated messa ge] [...] result as normal/abnormal. LYMPHOCYTES (test code = 20753-3) 29.5 % MCH (test code = 47947-8) 37.3 PG See_Comment H [Automated messa ge] The system which generated this result transmitted reference range: 25.0-33.0 PG. The reference range was not used to interpret this result as normal/abnormal. MCHC (test code = 94213-1) 34.9 G/DL See_Comment [Automated messa ge] The system which generated this result transmitted reference range: 31.0-36.0 G/DL. The reference range was not used to interpret this result as normal/abnormal. MCV (test code = 72451-8) 106.8 fL See_Comment H [Automated messa ge] The system which generated this result transmitted reference range: 80.0-99.0 fL. The reference range was not used to interpret this result as normal/abnormal. MONOCYTES (test code = 71863-8) 8.2 % NEUTROPHILS (test code = 29289-4) 59.9 % PLATELET COUNT (test code = 11820-8) 243 K/UL See_Comment [Automated messa ge] The system which generated this result transmitted reference range: 130-400 K/UL. The reference range was not used to interpret this result as normal/abnormal. RBC (test code = 53496-5) 3.54 M/UL See_Comment L [Automated messa ge] The system which generated this result transmitted reference range: 4.50-6.10 M/UL. The reference range was not used to interpret this result as normal/abnormal. RDW (test code = 83871-1) 13.1 % See_Comment [Automated messa ge] The system which generated this result transmitted reference range: 11.5-15.0 %. The reference range was not used to interpret this result as normal/abnormal. WBC (test code = 10341-5) 10.3 K/UL See_Comment [Automated messa ge] The system which generated this result transmitted reference range: 3.5-11.0 K/UL. The reference range was not used to interpret this result as normal/abnormal. [id number] 00:00:00* Test Item Value Reference Range Interpretation Comme nts GGT (test code = 2324-2) 343 U/L See_Comment H [Automated messa ge] The system which generated this result transmitted reference range: <60 U/L. The reference range was not used to interpret this result as normal/abnormal. CBC W/AUTO [id number] 00:00:00* Test Item Value Reference Range Interpretation Comme nts NUCLEATED RBCS (test code = 42157-7) 0.0 /100 WBC'S See_Comment [Automated messa ge] The system which generated this result transmitted reference range: 0.0 /100 WBC'S. The reference range was not used to interpret this result as normal/abnormal. ABSOLUTE EOSINOPHILS (test code = 42237-2) 0.12 K/UL See_Comment [Automated messa ge] The system which generated this result transmitted reference range: 0.00-0.50 K/UL. The reference range was not used to interpret this result as normal/abnormal. ABSOLUTE LYMPHOCYTES (test code = 10366-8) 2.62 K/UL See_Comment [Automated messa ge] The system which generated this result transmitted reference range: 1.00-4.00 K/UL. The reference range was not used to interpret this result as normal/abnormal. ABSOLUTE MONOCYTES (test code = 52065-7) 0.66 K/UL See_Comment [Automated messa ge] The system which generated this result transmitted reference range: 0.20-1.00 K/UL. The reference range was not used to interpret this result as normal/abnormal. ABSOLUTE NEUTROPHILS (test code = 26962-3) 2.09 K/UL See_Comment [Automated messa ge] The system which generated this result transmitted reference range: 1.50-7.50 K/UL. The reference range was not used to interpret this result as normal/abnormal. BASOPHILS (test code = 73936-9) 1.4 % EOSINOPHILS (test code = 76399-5) 2.1 % HEMATOCRIT (test code = 53599-6) 41.4 % See_Comment [Automated messa ge] The [...] result as normal/abnormal. LYMPHOCYTES (test code = 77397-2) 46.8 % MCH (test code = 45998-8) 38.0 PG See_Comment H [Automated messa ge] The system which generated this result transmitted reference range: 25.0-33.0 PG. The reference range was not used to interpret this result as normal/abnormal. MCHC (test code = 44141-9) 34.8 G/DL See_Comment [Automated messa ge] The system which generated this result transmitted reference range: 31.0-36.0 G/DL. The reference range was not used to interpret this result as normal/abnormal. MCV (test code = 75562-9) 109.2 fL See_Comment H [Automated messa ge] The system which generated this result transmitted reference range: 80.0-99.0 fL. The reference range was not used to interpret this result as normal/abnormal. MONOCYTES (test code = 83069-9) 11.8 % NEUTROPHILS (test code = 27742-6) 37.4 % PLATELET COUNT (test code = 55272-7) 167 K/UL See_Comment [Automated messa ge] The system which generated this result transmitted reference range: 130-400 K/UL. The reference range was not used to interpret this result as normal/abnormal. RBC (test code = 26791-4) 3.79 M/UL See_Comment L [Automated messa ge] The system which generated this result transmitted reference range: 4.50-6.10 M/UL. The reference range was not used to interpret this result as normal/abnormal. RDW (test code = 91785-2) 12.6 % See_Comment [Automated messa ge] The system which generated this result transmitted reference range: 11.5-15.0 %. The reference range was not used to interpret this result as normal/abnormal. WBC (test code = 80025-0) 5.6 K/UL See_Comment [Automated messa ge] The system which generated this result transmitted reference range: 3.5-11.0 K/UL. The reference range was not used to interpret this result as normal/abnormal. CBC W/AUTO [id number] 00:00:00* Test Item Value Reference Range Interpretation Comme nts NUCLEATED RBCS (test code = 34974-5) 0.0 /100 WBC'S See_Comment [Automated messa ge] The system which generated this result transmitted reference range: 0.0 /100 WBC'S. The reference range was not used to interpret this result as normal/abnormal. ABSOLUTE EOSINOPHILS (test code = 17532-2) 0.04 K/UL See_Comment [Automated messa ge] The system which generated this result transmitted reference range: 0.00-0.50 K/UL. The reference range was not used to interpret this result as normal/abnormal. ABSOLUTE LYMPHOCYTES (test code = 60489-6) 2.45 K/UL See_Comment [Automated messa ge] The system which generated this result transmitted reference range: 1.00-4.00 K/UL. The reference range was not used to interpret this result as normal/abnormal. ABSOLUTE MONOCYTES (test code = 92276-6) 0.78 K/UL See_Comment [Automated messa ge] The system which generated this result transmitted reference range: 0.20-1.00 K/UL. The reference range was not used to interpret this result as normal/abnormal. ABSOLUTE NEUTROPHILS (test code = 29525-9) 5.05 K/UL See_Comment [Automated messa ge] The system which generated this result transmitted reference range: 1.50-7.50 K/UL. The reference range was not used to interpret this result as normal/abnormal. BASOPHILS (test code = 68493-2) 0.8 % EOSINOPHILS (test code = 73086-1) 0.5 % HEMATOCRIT (test code = 30453-4) 42.3 % See_Comment [Automated messa ge] The [...] result as normal/abnormal. LYMPHOCYTES (test code = 03350-8) 29.0 % MCH (test code = 22749-2) 35.7 PG See_Comment H [Automated messa ge] The system which generated this result transmitted reference range: 25.0-33.0 PG. The reference range was not used to interpret this result as normal/abnormal. MCHC (test code = 81140-3) 33.1 G/DL See_Comment [Automated messa ge] The system which generated this result transmitted reference range: 31.0-36.0 G/DL. The reference range was not used to interpret this result as normal/abnormal. MCV (test code = 62831-5) 107.9 fL See_Comment H [Automated messa ge] The system which generated this result transmitted reference range: 80.0-99.0 fL. The reference range was not used to interpret this result as normal/abnormal. MONOCYTES (test code = 47595-0) 9.2 % NEUTROPHILS (test code = 29812-2) 59.9 % PLATELET COUNT (test code = 25817-9) 166 K/UL See_Comment [Automated messa ge] The system which generated this result transmitted reference range: 130-400 K/UL. The reference range was not used to interpret this result as normal/abnormal. RBC (test code = 52022-1) 3.92 M/UL See_Comment L [Automated messa ge] The system which generated this result transmitted reference range: 4.50-6.10 M/UL. The reference range was not used to interpret this result as normal/abnormal. RDW (test code = 72836-4) 12.8 % See_Comment [Automated messa ge] The system which generated this result transmitted reference range: 11.5-15.0 %. The reference range was not used to interpret this result as normal/abnormal. WBC (test code = 08162-8) 8.4 K/UL See_Comment [Automated messa ge] The system which generated this result transmitted reference range: 3.5-11.0 K/UL. The reference range was not used to interpret this result as normal/abnormal. Notes Date/Time Note Provider Source 2024-04-28 17:52:03 [...] in no apparent distress. Tee Torres RN [facility] 2024-04-28 16:16:29 Patient to ED after being told by doctor to go ED because potassium that was drawn last Monday was 6.2. T [facility]
[2024-12-11] MEDS ORDERED: LIDOCAINE 1% 20 ML MDV ONE (15:40)
--- NOTE | 2024-12-11 15:55 | RAD REPORT ---
EXAMINATION: Elbow Right 3 View CLINICAL INDICATION: Male, 79 years old. PAIN RIGHT COMPARISON: No prior exam. FINDINGS: No acute fracture. Laceration to the olecranon. Well corticated fragment adjacent to the medial epico ndyle is chronic and of doubtful significance. No malalignment/dislocation. No significant focal degenerative change. Other: No radiopaque foreign body. IMPRESSION: No acute osseous abnormality.
--- NOTE | 2024-12-11 16:48 | EDPHYS ---
Physician Documentation [facility] Name: Seb Matta Age: 79 yrs Sex: Male : 1945 Arrival Date: 12/11/2024 Time: 13:20 Bed 11 Private MD: ED Physician Christos Boykin HPI: 12/11 14:04 This 79 yrs old Male presents to ER via Ambulatory with complaints of Fall Injury, kb Laceration To Arm. 14:04 Pt is a 79 year old male who presents for pain and laceration to right elbow after kb falling last night. States he got out of bed and fell, hitting elbow on the bedrail. Occurred around 2300 last night. Denies any other injury or pain. Denies hitting head, loc. Historical: - Allergies: 13:59 No Known Allergies; cm10 - PMHx: 13:59 High Cholesterol; Hypertension; cm10 - Immunization history:: Adult Immunizations up to date. - Infectious Disease History:: Denies. - Social history:: Smoking status: Patient denies any tobacco usage or history of. ROS: 14:01 Constitutional: As per HPI kb Exam: 14:01 Constitutional: This is a well developed, well nourished patient who is awake, alert, kb and in no acute distress. Head/Face: Normocephalic, atraumatic. ENT: Moist Mucous membranes Cardiovascular: Regular rate Respiratory: Respirations even and unlabored. No increased work of breathing. Talking in full sentences Neuro: Awake and alert, GCS 15, oriented to person, place, time, and situation. 14:01 Musculoskeletal/extremity: Extremities: grossly normal except: noted in the right elbow: laceration, pain, ROM: intact in all extremities, Circulation is intact in all extremities. Sensation intact. Weight bearing: able to fully bear weight, 14:01 Skin: injury, laceration(s), the wound is approximately 7.5 cm(s), of the right elbow, kb that can be described as clean, no foreign body, linear, without bleeding, Vital Signs: 13:59 BP 146 / 92; Pulse 70; Resp 18; Temp 98.1(O); Pulse Ox 97% on R/A; Weight 65.77 kg; cm10 Height 5 ft. 5 in. ; Pain 0/10; 13:59 Body Mass Index 24.13 (65.77 kg, 165.1 cm) cm10 13:59 Pain Scale: Adult cm10 Laceration: 16:46 Wound Repair of 7.5cm ( 3.0in ) subcutaneous laceration to right elbow. Irregularly kb shaped.. Skin/tissue flap noted.. Distal neuro/vascular/tendon intact. Anesthesia: Wound infiltrated with 9 mls of 1% lidocaine. Wound prep: Extensive cleansing with hibiclenz by me, Wound irrigation with saline by me, Copious irrigation. Skin closed with 12 4-0 Prolene using simple sutures and sterile technique. Patient tolerated well. MDM: 13:33 Medical Screening Exam initiated kb 14:03 Differential diagnosis: laceration, fracture, contusion. Data reviewed: vital signs, kb nurses notes. 16:47 Historians other than the Patient: Spouse/Significant Other: spouse. Counseling: I had kb a detailed discussion with the patient and/or guardian regarding the historical points, exam findings, and any diagnostic results supporting the discharge/admit diagnosis, radiology results, the need for outpatient follow up, a family practitioner, to return to the emergency department if symptoms worsen or persist or if there are any questions or concerns that arise at home. 12/11 15:19 Order name: Elbow Right 3 View XRAY; Complete Time: 15:57 bc6 12/11 15:20 Order name: Gloves, Sterile; Complete Time: 15:56 kb 12/11 15:20 Order name: Prolene, Sutures; Complete Time: 15:56 kb 12/11 15:20 Order name: Setup Suture Tray; Complete Time: 15:56 kb Administered Medications: 16:48 Drug: Lidocaine Infiltration (1 %) 1 vials 20 ml Infiltration once; to bedside Volume: jb4 20 ml; Route: Infiltration; Disposition Summary: 12/11/24 16:47 Discharge Ordered Notes: Location: Home kb Condition: Stable kb Diagnosis - Laceration without foreign body of right elbow, initial encounter kb Followup: kb - With: Emergency Department - When: As needed - Reason: Worsening of condition Followup: kb - With: Private Physician - When: 2 - 3 days - Reason: Recheck today's complaints, Continuance of care, Re-evaluation by your physician Discharge Instructions: - Discharge Summary Sheet kb - Laceration Care, Adult, [id number] kb Forms: - Medication Reconciliation Form kb - Antibiotic Education kb - Prescription Opioid Use kb - Patient Portal Instructions kb - Leadership Thank You Letter kb Prescriptions: - Cephalexin 500 mg Oral Capsule - take 1 capsule ORAL route every 8 hours for 10 days; 30 capsule; Refills: 0, kb Product Selection Permitted Signatures: Dispatcher [employer] EDMS Lala Brambila, Jamel Barber RN RN jb4 Glenna Bahena RN RN cm10 Corrections: (The following items were deleted from the chart) 16:46 14:01 Skin: injury, laceration(s), the wound is approximately 4 cm(s), of the right kb elbow, that can be described as clean, no foreign body, linear, without bleeding, kb
--- NOTE | 2024-12-11 16:48 | ER ---
Nurse's Notes [facility] Name: Seb Matta Age: 79 yrs Sex: Male : 1945 Arrival Date: 12/11/2024 Time: 13:20 Bed 11 Private MD: Diagnosis: Laceration without foreign body of right elbow, initial encounter Presentation: 12/11 13:59 Chief complaint: Patient states: Had a fall last night and hit elbow on metal rail of cm10 bed frame. pt has laceration to right elbow. Coronavirus screen: Client denies travel out of the [place] in the last 14 days. Ebola Screen: Patient denies travel to an Ebola-affected area in the 21 days before illness onset. Initial Sepsis Screen: Does the patient meet any 2 criteria? No. Patient's initial sepsis screen is negative. Does the patient have a suspected source of infection? No. Patient's initial sepsis screen is negative. Risk Assessment: Do you want to hurt yourself or someone else? Patient reports no desire to harm self or others. Onset of symptoms was December 11, 2024. 13:59 Method Of Arrival: Ambulatory 10 13:59 Acuity: MARLA 4 cm10 Triage Assessment: 14:01 General: Appears in no apparent distress. comfortable, Behavior is calm, cooperative. cm10 Pain: Denies pain. Neuro: No deficits noted. Level of Consciousness is awake, alert, obeys commands, Oriented to person, place, time, situation, Appropriate for age. Respiratory: No deficits noted. Airway is patent Respiratory effort is even, unlabored, Respiratory pattern is regular, symmetrical. Injury Description: Laceration sustained to right elbow is clean, not bleeding, was sustained 12-24 hours ago. Historical: - Allergies: 13:59 No Known Allergies; cm10 - PMHx: 13:59 High Cholesterol; Hypertension; cm10 - Immunization history:: Adult Immunizations up to date. - Infectious Disease History:: Denies. - Social history:: Smoking status: Patient denies any tobacco usage or history of. Screenin:59 [facility] ED Fall Risk Assessment (Adult) History of falling in the last 3 months, jb4 including since admission No falls in past 3 months (0 pts) Confusion or Disorientation No (0 pts) Intoxicated or Sedated No (0 pts) Impaired Gait No (0 pts) Mobility Assist Device Used No (0 pt) Altered Elimination No (0 pt) Score/Fall Risk Level 0 - 2 = Low Risk Oriented to surroundings, Maintained a safe environment. Abuse screen: Denies threats or abuse. Nutritional screening: No deficits noted. Tuberculosis screening: No symptoms or risk factors identified. Assessment: 15:59 Reassessment: Patient appears in no apparent distress at this time. Patient and/or jb4 family updated on plan of care and expected duration. Pain level reassessed. Patient is alert, oriented x 3, equal unlabored respirations, skin warm/dry/pink. 16:59 Reassessment: Patient appears in no apparent distress at this time. Patient and/or jb4 family updated on plan of care and expected duration. Pain level reassessed. Patient is alert, oriented x 3, equal unlabored respirations, skin warm/dry/pink. Vital Signs: 13:59 BP 146 / 92; Pulse 70; Resp 18; Temp 98.1(O); Pulse Ox 97% on R/A; Weight 65.77 kg; cm10 Height 5 ft. 5 in. ; Pain 0/10; 13:59 Body Mass Index 24.13 (65.77 kg, 165.1 cm) cm10 13:59 Pain Scale: Adult cm10 ED Course: 13:23 Patient arrived in ED. mr 13:32 [facility]ambila [facility]C [facility] kb 13:32 Christos Boykin MD is Attending Physician. kb 14:01 Triage completed. cm10 14:01 Arm band placed on left wrist. Patient placed in waiting room. cm10 15:42 Elbow Right 3 View XRAY In Process Unspecified. EDMS 15:59 Jamel Alexander, RN is Primary Nurse. jb4 16:59 Patient has correct armband on for positive identification. Bed in low position. Call jb4 light in reach. Side rails up X 1. Provided Education on: discharge instructions.. 16:59 No provider procedures requiring assistance completed. Patient did not have IV access jb4 during this emergency room visit. Administered Medications: 16:48 Drug: Lidocaine Infiltration (1 %) 1 vials 20 ml Infiltration once; to bedside Volume: jb4 20 ml; Route: Infiltration; Medication: 16:59 VIS not applicable for this client. jb4 Outcome: 16:47 Discharge ordered by . kb 16:59 Discharged to home ambulatory, jb4 16:59 Condition: stable 16:59 Discharge instructions given to patient, discharged by ER provider Instructed on discharge instructions, follow up and referral plans. medication usage, Demonstrated understanding of instructions, follow-up care, medications, Prescriptions given X 1, 17:01 Patient left the ED. jb4 Signatures: Dispatcher [employer] EDMS Lala Brambila, DIRECTOR CHEMISTRY-C DIRECTOR CHEMISTRY-Ckb Jessica Capps, Reg Reg mr Jamel Alexander, RN RN jb4 Glenna Bahena, RN RN cm10
[2024-12-11 17:05] VITALS: BP 146/92; TEMP 98.1; O2SAT 97
== END 2024-12-11 17:01 | disposition home or self-care (01) ==
LOC: ER 13:20
DX: S51.011A Laceration without foreign body of right elbow, initial encounter (principal); W22.03XA Walked into furniture, initial encounter
CPT/HCPCS: 73080; 12032; J2003

== ENCOUNTER 2024-12-27 11:07 | Emergency (ER) | payer MEDICARE ==
--- OUTSIDE RECORDS SUMMARY | 2024-12-27 11:13 | XMS REPORT | Continuity of Care Document ---
Author Name Unknown Address [address] [facility] [address] [place] [address] [facility] [place] Address [address] [facility] [address] [place] [address] Care Team Providers Care Palliative Care Physician Name Role Phone SOPHIE GEORGE Primary Care Physician Unavailab Sophie Ng Attending Clinician Unavailable Liz Garcia Attending Clinician Unavailable CANDACE BACON Attending Clinician Unavailable CANDACE BACON Attending Clinician Unavailable Payers Payer Name Policy Type Policy Number Effective Date Expiration Date Source [employer] ADVANTAGE PLAN [id number] 2024 00:00:00 [facility] (MEDICARE REPLACEMENT HMO) [id number] 2022 00:00:00 [employer] MEDICARE 53 [id number] 2019 00:00:00 [facility] Problems Condition Name Condition Details Condition Category Status Onset Date Resolution Date Last Treatment Date Treating Clinician Comments Source 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 Disease Active 04-28 00:00: 00 [facility] Other hyperlipid emia Other hyperlipid emia Disease Active 04-28 00:00: 00 [facility] Primary osteoarthr itis of both knees Primary osteoarthr itis of both knees Disease Active 04-28 00:00: 00 [facility] Hypertensi on Hypertensi on Disease Active 04-28 00:00: 00 [facility] Major depressive disorder, single episode, unspecifie d Major depressive disorder, single episode, unspecifie d Disease Active 04-28 00:00: 00 [facility] Inflamed seborrheic keratosis Inflamed seborrheic keratosis Disease Active 04-28 00:00: 00 [facility] Malignant melanoma of skin Malignant melanoma of skin Disease Active 04-28 00:00: 00 [facility] Reduced libido Reduced libido Disease Active 04-28 00:00: 00 [facility] Gastroesop hageal reflux disease Gastroesop hageal reflux disease Disease Active 04-28 00:00: 00 [facility] Depressive disorder Depressive disorder Disease Active 04-28 00:00: 00 [facility] Benign prostatic hyperplasi a Benign prostatic hyperplasi a Disease Active 04-28 00:00: 00 [facility] Anxiety disorder, unspecifie d Anxiety disorder, unspecifie d Disease Active 04-28 00:00: 00 [facility] Gout Gout Disease Active 04-28 00:00: 00 [facility] H/O Malignant melanoma H/O Malignant melanoma Disease Active 04-28 00:00: 00 [facility] History of colonic polyps History of colonic polyps Disease Active 04-28 00:00: 00 [facility] 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 in male Problem [facility] [id number] Other obstructiv e and reflux uropathy Problem [facility] [id number] Acute prostatiti s Problem [facility] [id number] ED (erectile dysfunctio n) of organic origin Problem [facility] [id number] Benign prostatic hyperplasi a with lower urinary tract symptoms Problem [facility] Impotence of organic origin Erectile dysfunctio n, unspecifie d erectile dysfunctio n type Problem [facility] [id number] AMANDEEP (acute kidney injury) Problem [facility] [id number] Hyperkalem ia Problem [facility] [id number] Antibiotic drug intoleranc e Problem [facility] Anemia Acute anemia Problem [facility] [id number] Chronic fatigue Problem [facility] [id number] Gastroesop hageal reflux disease without esophagiti s Problem [facility] [id number] Decreased vision in both eyes Problem [facility] Posttrauma tic stress disorder Post traumatic stress disorder Problem [facility] 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 griffin without signs of inflammato ry arthritis and tophaceous disease Problem [facility] [id number] History of basal cell cancer Problem [facility] [id number] Low testostero ne Problem [facility] Idiopathic gout Gout, arthropath y Problem [facility] Mixed anxiety and depressive disorder Depression with anxiety Problem [facility] [id number] Macrocytos is Problem [facility] [id number] Personal history of other malignant neoplasm of skin Problem [facility] [id number] Memory changes Problem [facility] Allergies, Adverse Reactions, Alerts Allergy Name Allergy Type Status Severity Reaction(s) Onset Date Inactive Date Treating Clinician Comments Source 6579 Drug allergy Active intolerance/ AMANDEEP [facility] NO KNOWN ALLERGIE S Drug [facility] Social History Social Habit Start Date Stop Date Quantity Comments Source [facility] Use [facility] Sex assigned at 1945 00:00:00 1945 00:00:00 [facility] Smoking Status Start Date Stop Date Source Tobacco smoking consumption unknown [facility] Never Smoker [facility] Former Smoker 2024-04-08 00:00:00 2024-04-08 00:00:00 [facility] Medications Ordered Medication Name Filled Medication Name Start Date Stop Date Current Medication? Ordering Clinician Indication Dosage Frequency Signature (SIG) Comments Components Source NaCl 0.9% (NS) bolus infusion 1,000 mL 04-28 22:15: 00 04-28 22:49 :00 No 1000mL at 999 mL/hr, 1,000 mL, IV Infusion, ONCE, 1 dose, On 04/28/24 at 1715, JENNIE [facility] carvediloL 25 mg tablet 04-28 16:28: 39 Yes 25mg Take 1 tablet by mouth in the morning and 1 tablet in the evening. Take with meals. [facility] sildenafil citrate (SILDENAFIL , BULK, MISC) 04-28 16:28: 39 Yes 100mg 100 mg. [facility] simvastatin 10 mg tablet 04-28 16:28: 39 Yes 10mg Take 1 tablet by mouth at bedtime. [facility] Flomax 0.4 MG Flomax 0.4 MG 04-03 00:00: 00 No 1{colton snyder_at_b edtime} QD Flomax 0.4 MG allopurinoL 100 mg tablet 03-31 00:00: 00 Yes 100mg Take 1 tablet by mouth. [facility] lisinopriL 20 mg tablet 03-31 00:00: 00 Yes 20mg Take 1 tablet by mouth. [facility] escitalopra m oxalate 5 mg tablet 5-14 00:00: 00 Yes 5mg Take 1 tablet by mouth. [facility] buPROPion HCl ER (XL) 300 MG buPROPion HCl ER (XL) 300 MG 2022-10 009 00:00: 00 No 1{table t_in_th e_morni ng} [...] HIGH DOSE OVER 65 2022-06-27 11:59:00 Completed [facility] FLUZONE HIGH DOSE OVER 65 FLUZONE HIGH DOSE OVER 65 2022-06-27 11:59:00 Completed [facility] FLUZONE HIGH DOSE OVER 65 FLUZONE HIGH DOSE OVER 65 2022-06-27 11:59:00 Completed [facility] FLUZONE HIGH DOSE OVER 65 FLUZONE HIGH DOSE OVER 65 2022-06-27 11:59:00 Completed [facility] FLUZONE HIGH DOSE OVER 65 FLUZONE HIGH DOSE OVER 65 2022-06-27 11:59:00 Completed [facility] FLUZONE HIGH DOSE OVER 65 FLUZONE HIGH DOSE OVER 65 2022-06-27 11:59:00 Completed [facility] FLUZONE HIGH DOSE OVER 65 FLUZONE HIGH DOSE OVER 65 2022-06-27 11:59:00 Completed [facility] FLUZONE HIGH DOSE OVER 65 FLUZONE HIGH DOSE OVER 65 2022-06-27 11:59:00 Completed [facility] FLUZONE HIGH DOSE OVER 65 FLUZONE HIGH DOSE OVER 65 2022-06-27 11:59:00 Completed [facility] FLUZONE HIGH DOSE OVER 65 FLUZONE HIGH DOSE OVER 65 2022-06-27 11:59:00 Completed [facility] FLUZONE HIGH DOSE OVER 65 FLUZONE HIGH DOSE OVER 65 2021-09-27 12:18:00 Completed [facility] FLUZONE HIGH DOSE OVER 65 FLUZONE HIGH DOSE OVER 65 2021-09-27 12:18:00 Completed [facility] FLUZONE HIGH DOSE OVER 65 FLUZONE HIGH DOSE OVER 65 2021-09-27 12:18:00 Completed [facility] FLUZONE HIGH DOSE OVER 65 FLUZONE HIGH DOSE OVER 65 2021-09-27 12:18:00 Completed [facility] FLUZONE HIGH DOSE OVER 65 FLUZONE HIGH DOSE OVER 65 2021-09-27 12:18:00 Completed [facility] FLUZONE HIGH DOSE OVER 65 FLUZONE HIGH DOSE OVER 65 2021-09-27 12:18:00 Completed [facility] FLUZONE HIGH DOSE OVER 65 FLUZONE HIGH DOSE OVER 65 2021-09-27 12:18:00 Completed [facility] FLUZONE HIGH DOSE OVER 65 FLUZONE HIGH DOSE OVER 65 2021-09-27 12:18:00 Completed [facility] FLUZONE HIGH DOSE OVER 65 FLUZONE HIGH DOSE OVER 65 2021-09-27 12:18:00 Completed [facility] FLUZONE HIGH DOSE OVER 65 FLUZONE HIGH DOSE OVER 65 2021-09-27 12:18:00 Completed [facility] FLUZONE HIGH DOSE OVER 65 FLUZONE HIGH DOSE OVER 65 2021-09-27 12:18:00 Completed [facility] FLUZONE HIGH DOSE OVER 65 FLUZONE HIGH DOSE OVER 65 2021-09-27 12:18:00 Completed [facility] FluAD FluAD 2020-08-28 12:44:00 Completed [facility] FluAD FluAD 2020-08-28 12:44:00 Completed [facility] FluAD FluAD 2020-08-28 12:44:00 Completed [facility] FluAD FluAD 2020-08-28 12:44:00 Completed [facility] FluAD FluAD 2020-08-28 12:44:00 Completed [facility] FluAD FluAD 2020-08-28 12:44:00 Completed [facility] FluAD FluAD 2020-08-28 12:44:00 Completed [facility] FluAD FluAD 2020-08-28 12:44:00 Completed [facility] FluAD FluAD 2020-08-28 12:44:00 Completed [facility] FluAD FluAD 2020-08-28 12:44:00 Completed [facility] FluAD FluAD 2020-08-28 12:44:00 Completed [facility] FluAD FluAD 2020-08-28 12:44:00 Completed [facility] FluAD FluAD 2019-08-28 12:29:00 Completed [facility] FluAD FluAD 2019-08-28 12:29:00 Completed [facility] FluAD FluAD 2019-08-28 12:29:00 Completed [facility] FluAD FluAD 2019-08-28 12:29:00 Completed [facility] FluAD FluAD 2019-08-28 12:29:00 Completed [facility] FluAD FluAD 2019-08-28 12:29:00 Completed [facility] FluAD FluAD 2019-08-28 12:29:00 Completed [facility] FluAD FluAD 2019-08-28 12:29:00 Completed [facility] FluAD FluAD 2019-08-28 12:29:00 Completed [facility] FluAD FluAD 2019-08-28 12:29:00 Completed [facility] FluAD FluAD 2019-08-28 12:29:00 Completed [facility] FluAD FluAD 2019-08-28 12:29:00 Completed [facility] FluAD FluAD 2019-08-28 00:00:00 Completed [facility] FluAD FluAD 2018-09-04 11:52:00 Completed [facility] FluAD FluAD 2018-09-04 11:52:00 Completed [facility] FluAD FluAD 2018-09-04 11:52:00 Completed [facility] FluAD FluAD 2018-09-04 11:52:00 Completed [facility] FluAD FluAD 2018-09-04 11:52:00 Completed [facility] FluAD FluAD 2018-09-04 11:52:00 Completed [facility] FluAD FluAD 2018-09-04 11:52:00 Completed [facility] FluAD FluAD 2018-09-04 11:52:00 Completed [facility] FluAD FluAD 2018-09-04 11:52:00 Completed [facility] FluAD FluAD 2018-09-04 11:52:00 Completed [facility] FluAD FluAD 2018-09-04 11:52:00 Completed [facility] FluAD FluAD 2018-09-04 11:52:00 Completed [facility] FluAD FluAD 2018-09-04 00:00:00 Completed [facility] FluAD Quad SD FluAD Quad SD Unknown Completed [facility] FluAD FluAD Unknown Completed [facility] FLUZONE HIGH DOSE OVER 65 FLUZONE HIGH DOSE OVER 65 Unknown Completed [facility] FluAD Quad SD FluAD Quad SD Unknown Completed [facility] FluAD FluAD Unknown Completed [facility] FLUZONE HIGH DOSE OVER 65 FLUZONE HIGH DOSE OVER 65 Unknown Completed [facility] FluAD Quad SD FluAD Quad SD Unknown Completed [facility] FluAD FluAD Unknown Completed [facility] FLUZONE HIGH DOSE OVER 65 FLUZONE HIGH DOSE OVER 65 Unknown Completed [facility] FluAD Quad SD FluAD Quad SD Unknown Completed [facility] FluAD FluAD Unknown Completed [facility] FLUZONE HIGH DOSE OVER 65 FLUZONE HIGH DOSE OVER 65 Unknown Completed [facility] Fluad (aIIV4) - SDS - 0.5mL Fluad (aIIV4) - SDS - 0.5mL Unknown Completed [facility] FluAD FluAD Unknown Completed [facility] FLUZONE HIGH DOSE OVER 65 FLUZONE HIGH DOSE OVER 65 Unknown Completed [facility] Fluad (aIIV4) - SDS - 0.5mL Fluad (aIIV4) - SDS - 0.5mL Unknown Completed [facility] FluAD FluAD Unknown Completed [facility] FLUZONE HIGH DOSE OVER 65 FLUZONE HIGH DOSE OVER 65 Unknown Completed [facility] Fluad (aIIV4) - SDS - 0.5mL Fluad (aIIV4) - SDS - 0.5mL Unknown Completed [facility] FluAD FluAD Unknown Completed [facility] FLUZONE HIGH DOSE OVER 65 FLUZONE HIGH DOSE OVER 65 Unknown Completed [facility] Fluad (aIIV4) - SDS - 0.5mL Fluad (aIIV4) - SDS - 0.5mL Unknown Completed [facility] FluAD FluAD Unknown Completed [facility] FLUZONE HIGH DOSE OVER 65 FLUZONE HIGH DOSE OVER 65 Unknown Completed [facility] Fluad (aIIV4) - SDS - 0.5mL Fluad (aIIV4) - SDS - 0.5mL Unknown Completed [facility] FluAD FluAD Unknown Completed [facility] FLUZONE HIGH DOSE OVER 65 FLUZONE HIGH DOSE OVER 65 Unknown Completed [facility] Fluad (aIIV4) - SDS - 0.5mL Fluad (aIIV4) - SDS - 0.5mL Unknown Completed [facility] FluAD FluAD Unknown Completed [facility] FLUZONE HIGH DOSE OVER 65 FLUZONE HIGH DOSE OVER 65 Unknown Completed [facility] Fluad (aIIV4) - SDS - 0.5mL Fluad (aIIV4) - SDS - 0.5mL Unknown Completed [facility] FluAD FluAD Unknown Completed [facility] FLUZONE HIGH DOSE OVER 65 FLUZONE HIGH DOSE OVER 65 Unknown Completed [facility] Fluad (aIIV4) - SDS - 0.5mL Fluad (aIIV4) - SDS - 0.5mL Unknown Completed [facility] FluAD FluAD Unknown Completed [facility] FLUZONE HIGH DOSE OVER 65 FLUZONE HIGH DOSE OVER 65 Unknown Completed [facility] Fluad (aIIV4) - SDS - 0.5mL Fluad (aIIV4) - SDS - 0.5mL Unknown Completed [facility] FluAD FluAD Unknown Completed [facility] FLUZONE HIGH DOSE OVER 65 FLUZONE HIGH DOSE OVER 65 Unknown Completed [facility] Fluad (aIIV4) - SDS - 0.5mL Fluad (aIIV4) - SDS - 0.5mL Unknown Completed [facility] FluAD FluAD Unknown Completed [facility] FLUZONE HIGH DOSE OVER 65 FLUZONE HIGH DOSE OVER 65 Unknown Completed [facility] Fluad (aIIV4) - SDS - 0.5mL Fluad (aIIV4) - SDS - 0.5mL Unknown Completed [facility] FluAD FluAD Unknown Completed [facility] FLUZONE HIGH DOSE OVER 65 FLUZONE HIGH DOSE OVER 65 Unknown Completed [facility] Fluad (aIIV4) - SDS - 0.5mL Fluad (aIIV4) - SDS - 0.5mL Unknown Completed [facility] FluAD FluAD Unknown Completed [facility] FLUZONE HIGH DOSE OVER 65 FLUZONE HIGH DOSE OVER 65 Unknown Completed [facility] Fluad (aIIV4) - SDS - 0.5mL Fluad (aIIV4) - SDS - 0.5mL Unknown Completed [facility] FluAD FluAD Unknown Completed [facility] FLUZONE HIGH DOSE OVER 65 FLUZONE HIGH DOSE OVER 65 Unknown Completed [facility] FluAD Quad SD FluAD Quad SD Unknown Completed [facility] FluAD FluAD Unknown Completed [facility] FLUZONE HIGH DOSE OVER 65 FLUZONE HIGH DOSE OVER 65 Unknown Completed [facility] FluAD Quad SD FluAD Quad SD Unknown Completed [facility] FluAD FluAD Unknown Completed [facility] FLUZONE HIGH DOSE OVER 65 FLUZONE HIGH DOSE OVER 65 Unknown Completed [facility] FluAD Quad SD FluAD Quad SD Unknown Completed [facility] FluAD FluAD Unknown Completed [facility] FLUZONE HIGH DOSE OVER 65 FLUZONE HIGH DOSE OVER 65 Unknown Completed [facility] FluAD Quad SD FluAD Quad SD Unknown Completed [facility] FluAD FluAD Unknown Completed [facility] FLUZONE HIGH DOSE OVER 65 FLUZONE HIGH DOSE OVER 65 Unknown Completed [facility] FluAD Quad SD FluAD Quad SD Unknown Completed [facility] FluAD FluAD Unknown Completed [facility] FLUZONE HIGH DOSE OVER 65 FLUZONE HIGH DOSE OVER 65 Unknown Completed [facility] FluAD Quad SD FluAD Quad SD Unknown Completed [facility] FluAD FluAD Unknown Completed [facility] FLUZONE HIGH DOSE OVER 65 FLUZONE HIGH DOSE OVER 65 Unknown Completed [facility] FluAD Quad SD FluAD Quad SD Unknown Completed [facility] FluAD FluAD Unknown Completed [facility] FLUZONE HIGH DOSE OVER 65 FLUZONE HIGH DOSE OVER 65 Unknown Completed [facility] FluAD Quad SD FluAD Quad SD Unknown Completed [facility] FluAD FluAD Unknown Completed [facility] FLUZONE HIGH DOSE OVER 65 FLUZONE HIGH DOSE OVER 65 Unknown Completed [facility] Vital Signs Vital Name Observation Time Observation Value Comments S annce height 2024-12-23 12:00:00 65.50 [in_i] Com [facility] weight 2024-12-23 12:00:00 145 [lb_av] Comm [facility] bmi 2024-12-23 12:00:00 23.76 kg/m2 [facility] height 2024-12-23 12:00:00 65.50 [in_i] Com [facility] weight 2024-12-23 12:00:00 145 [lb_av] [facility] bmi 2024-12-23 12:00:00 23.76 kg/m2 [facility] height 2024-08-06 11:20:00 65.50 [in_i] Com [facility] weight 2024-08-06 11:20:00 151 [lb_av] [facility] temperature 2024-08-06 11:20:00 97.3 [degF] Com [facility] bmi 2024-08-06 11:20:00 24.74 kg/m2 [facility] oximetry 2024-08-06 11:20:00 98 % Com[facility] respiratory rate 2024-08-06 11:20:00 16 /min [facility] blood pressure systolic 2024-08-06 11:20:00 128 mm[Hg] [facility] blood pressure diastolic 2024-08-06 11:20:00 72 mm[Hg[facility] height 2024-05-22 09:15:00 65.50 [in_i] Com [facility] weight 2024-05-22 09:15:00 143.8 [lb_av] Co [facility] temperature 2024-05-22 09:15:00 97.3 [degF] Com [facility] bmi 2024-05-22 09:15:00 23.56 kg/m2 [facility] oximetry 2024-05-22 09:15:00 96 % [facility] respiratory rate 2024-05-22 09:15:00 18 /min [facility] blood pressure systolic 2024-05-22 09:15:00 136 mm[Hg] [facility] blood pressure diastolic 2024-05-22 09:15:00 68 mm[Hg] [facility] height 2024-05-02 14:00:00 65.50 [in_i] Com [facility] weight 2024-05-02 14:00:00 143.8 [facility]lb_av[facility] 2024-[facility]-02 14:00:00 97.4 [degF] Com [facility] bmi 2024-05-02 14:00:00 23.56 kg/m2 [facility] oximetry 2024-05-02 14:00:00 97 % [facility] respiratory rate 2024-05-02 14:00:00 16 /min [facility] blood pressure systolic 2024-05-02 14:00:00 134 mm[Hg] [facility] blood pressure diastolic 2024-05-02 14:00:00 78 mm[Hg] [facility] Systolic blood pressure 2024-04-28 22:48:00 132 mm[Hg] [facility] Diastolic blood pressure 2024-04-28 22:48:00 76 mm[Hg] [facility] Heart rate 2024-04-28 22:48:00 73 /min [facility] Body temperature 2024-04-28 22:48:00 36.5 Yoly [facility] Respiratory rate 2024-04-28 22:48:00 15 /min [facility] Oxygen saturation in Arterial blood by Pulse oximetry 2024-04-28 22:48:00 99 /min [facility] [facility] height 2024-04-28 21:18:00 167.6 cm [facility] Body weight 2024-04-28 21:18:00 65.772 kg [facility] BMI 2024-04-28 21:18:00 23.40 kg/m2 [facility] height 2024-04-24 10:30:00 65.50 [in_i] Com [facility] weight 2024-04-24 10:30:00 141.6 [lb_av] Co mmon [facility] temperature 2024-04-24 10:30:00 97.5 [degF] Com [facility] bmi 2024-04-24 10:30:00 23.2 kg/m2 [facility] oximetry 2024-04-24 10:30:00 94 % [facility] respiratory rate 2024-04-24 10:30:00 18 /min [facility] blood pressure systolic 2024-04-24 10:30:00 122 mm[Hg] [facility] blood pressure diastolic 2024-04-24 10:30:00 61 mm[Hg] [facility] height 2024-04-18 11:00:00 65.50 [in_i] Com [facility] weight 2024-04-18 11:00:00 145 [lb_av] Comm on [facility] temperature 2024-04-18 11:00:00 97.2 [degF] Com [facility] bmi 2024-04-18 11:00:00 23.76 kg/m2 Comm on [facility] oximetry 2024-04-18 11:00:00 99 % [facility] respiratory rate 2024-04-18 11:00:00 16 /min [facility] blood pressure systolic 2024-04-18 11:00:00 95 mm[Hg] Common [facility] blood pressure diastolic 2024-04-18 11:00:00 49 mm[Hg] Common [facility] height 2024-04-03 10:45:00 65.50 [in_i] Com [facility] weight 2024-04-03 10:45:00 146.8 [lb_av] Co mmon [facility] temperature 2024-04-03 10:45:00 98.6 [degF] Com [facility] bmi 2024-04-03 10:45:00 24.05 kg/m2 Comm on [facility] oximetry 2024-04-03 10:45:00 96 % [facility] respiratory rate 2024-04-03 10:45:00 18 /min Common [facility] blood pressure systolic 2024-04-03 10:45:00 158 mm[Hg] [facility] blood pressure diastolic 2024-04-03 10:45:00 92 mm[Hg] Common [facility] height 2024-01-12 10:40:00 65.50 [in_i] Com [facility] weight 2024-01-12 10:40:00 154 [lb_av] Comm on [facility] temperature 2024-01-12 10:40:00 97.0 [degF] Com [facility] bmi 2024-01-12 10:40:00 25.23 kg/m2 Comm on [facility] oximetry 2024-01-12 10:40:00 97 % [facility] respiratory rate 2024-01-12 10:40:00 16 /min [facility] blood pressure systolic 2024-01-12 10:40:00 139 mm[Hg] [facility] blood pressure diastolic 2024-01-12 10:40:00 76 mm[Hg] Common [facility] height 2024-01-12 10:40:00 65.50 [in_i] Com [facility] weight 2024-01-12 10:40:00 154 [lb_av] Comm on [facility] temperature 2024-01-12 10:40:00 97.0 [degF] Com [facility] bmi 2024-01-12 10:40:00 25.23 kg/m2 Comm on [facility] oximetry 2024-01-12 10:40:00 97 % [facility] respiratory rate 2024-01-12 10:40:00 16 /min [facility] blood pressure systolic 2024-01-12 10:40:00 139 mm[Hg] [facility] blood pressure diastolic 2024-01-12 10:40:00 76 mm[Hg] Common [facility] height 2023-09-29 10:40:00 65.50 [in_i] Com [facility] weight 2023-09-29 10:40:00 154.8 [lb_av] [facility] 2023-09-29 10:40:00 97.7 [degF] Com [facility] bmi 2023-09-29 10:40:00 25.37 kg/m2 Comm on [facility] oximetry 2023-09-29 10:40:00 98 % [facility] respiratory rate 2023-09-29 10:40:00 16 /min [facility] blood pressure systolic 2023-09-29 10:40:00 134 mm[Hg] [facility] blood pressure diastolic 2023-09-29 10:40:00 78 mm[Hg] [facility] height 2023-09-05 10:40:00 65.50 [in_i] Com [facility] weight 2023-09-05 10:40:00 158.2 [lb_av] [facility] 2023-09-05 10:40:00 97.6 [degF] Com [facility] bmi 2023-09-05 10:40:00 25.92 kg/m2 Comm on [facility] oximetry 2023-09-05 10:40:00 97 % [facility] respiratory rate 2023-09-05 10:40:00 16 /min [facility] blood pressure systolic 2023-09-05 10:40:00 120 mm[Hg] [facility] blood pressure diastolic 2023-09-05 10:40:00 78 mm[Hg] [facility] height 2023-07-17 10:40:00 65.50 [in_i] Com [facility] weight 2023-07-17 10:40:00 155.6 [lb_av] Co mmon [facility] temperature 2023-07-17 10:40:00 97.9 [degF] Com [facility] bmi 2023-07-17 10:40:00 25.5 kg/m2 [facility] oximetry 2023-07-17 10:40:00 95 % [facility] respiratory rate 2023-07-17 10:40:00 17 /min [facility] blood pressure systolic 2023-07-17 10:40:00 138 mm[Hg] [facility] blood pressure diastolic 2023-07-17 10:40:00 76 mm[Hg] [facility] height 2023-05-18 11:20:00 65.50 [in_i] Com [facility] weight 2023-05-18 11:20:00 156.4 [lb_av] Co [facility]mon [facility] temperature 2023-05-18 11:20:00 98.0 [degF] Com [facility] bmi 2023-05-18 11:20:00 25.63 kg/m2 Comm on [facility] oximetry 2023-05-18 11:20:00 98 % [facility] respiratory rate 2023-05-18 11:20:00 16 /min [facility] blood pressure systolic 2023-05-18 11:20:00 149 mm[Hg] [facility] blood pressure diastolic 2023-05-18 11:20:00 77 mm[Hg] Common [facility] height 2023-04-12 13:00:00 65.50 [in_i] Com [facility] weight 2023-04-12 13:00:00 150.0 [lb_av] Co mmon [facility] temperature 2023-04-12 13:00:00 97.9 [degF] Com [facility] bmi 2023-04-12 13:00:00 24.58 kg/m2 Comm on [facility] oximetry 2023-04-12 13:00:00 97 % [facility] respiratory rate 2023-04-12 13:00:00 16 /min [facility] blood pressure systolic 2023-04-12 13:00:00 163 mm[Hg] [facility] blood pressure diastolic 2023-04-12 13:00:00 82 mm[Hg] [facility] height 2023-03-13 10:40:00 65.50 [in_i] Com [facility] weight 2023-03-13 10:40:00 148 [lb_av] Comm on [facility] temperature 2023-03-13 10:40:00 97.8 [degF] Com [facility] bmi 2023-03-13 10:40:00 24.25 kg/m2 Comm on [facility] oximetry 2023-03-13 10:40:00 98 % [facility] respiratory rate 2023-03-13 10:40:00 17 /min [facility] blood pressure systolic 2023-03-13 10:40:00 132 mm[Hg] [facility] blood pressure diastolic 2023-03-13 10:40:00 76 mm[Hg] Common [facility] height 2023-02-27 11:00:00 65.50 [in_i] Com [facility] weight 2023-02-27 11:00:00 148.2 [lb_av] Co mmon [facility] temperature 2023-02-27 11:00:00 98.4 [degF] Com [facility] bmi 2023-02-27 11:00:00 24.28 kg/m2 Comm [facility] oximetry 2023-02-27 11:00:00 98 % [facility] respiratory rate 2023-02-27 11:00:00 17 /min [facility] blood pressure systolic 2023-02-27 11:00:00 146 mm[Hg] [facility] blood pressure diastolic 2023-02-27 11:00:00 82 mm[Hg] [facility] height 2023-02-10 11:00:00 65.50 [in_i] Com [facility] weight 2023-02-10 11:00:00 148.2 [lb_av] Co mmon [facility] temperature 2023-02-10 11:00:00 98.4 [degF] Com [facility] bmi 2023-02-10 11:00:00 24.28 kg/m2 Comm [facility] oximetry 2023-02-10 11:00:00 97 % [facility] respiratory rate 2023-02-10 11:00:00 16 /min [facility] blood pressure systolic 2023-02-10 11:00:00 162 mm[Hg] Common [facility] blood pressure diastolic 2023-02-10 11:00:00 86 mm[Hg] [facility] height 2023-01-11 11:00:00 65.50 [in_i] Com [facility] weight 2023-01-11 11:00:00 158 [lb_av] Comm on [facility] temperature 2023-01-11 11:00:00 98.2 [degF] Com [facility] bmi 2023-01-11 11:00:00 25.89 kg/m2 Comm [facility] oximetry 2023-01-11 11:00:00 98 % [facility] respiratory rate 2023-01-11 11:00:00 17 /min [facility] blood pressure systolic 2023-01-11 11:00:00 160 mm[Hg] [facility] blood pressure diastolic 2023-01-11 11:00:00 94 mm[Hg] [facility] height 2023-01-11 11:00:00 65.50 [in_i] Com [facility] weight 2023-01-11 11:00:00 158 [lb_av] Comm on [facility] temperature 2023-01-11 11:00:00 98.2 [degF] Com [facility] bmi 2023-01-11 11:00:00 25.89 kg/m2 Comm [facility] oximetry 2023-01-11 11:00:00 98 % [facility] respiratory rate 2023-01-11 11:00:00 17 /min [facility] blood pressure systolic 2023-01-11 11:00:00 148 mm[Hg] [facility] blood pressure diastolic 2023-01-11 11:00:00 100 mm[Hg] [facility] height 2022-12-06 13:20:00 65.50 [in_i] Com [facility] weight 2022-12-06 13:20:00 156.2 [lb_av] Co [facility] temperature 2022-12-06 13:20:00 97.7 [degF] Com [facility] bmi 2022-12-06 13:20:00 25.59 kg/m2 Comm on [facility] oximetry 2022-12-06 13:20:00 97 % [facility] respiratory rate 2022-12-06 13:20:00 16 /min [facility] blood pressure systolic 2022-12-06 13:20:00 138 mm[Hg] [facility] blood pressure diastolic 2022-12-06 13:20:00 86 mm[Hg] [facility] height 2022-06-27 10:40:00 65.50 [in_i] Com [facility] weight 2022-06-27 10:40:00 152.6 [lb_av] Co [facility] temperature 2022-06-27 10:40:00 98.1 [degF] Com [facility] bmi 2022-06-27 10:40:00 25.01 kg/m2 Comm [facility] oximetry 2022-06-27 10:40:00 99 % Com[facility] respiratory rate 2022-06-27 10:40:00 16 /min [facility] blood pressure systolic 2022-06-27 10:40:00 132 mm[Hg] [facility] blood pressure diastolic 2022-06-27 10:40:00 74 mm[Hg] [facility] height 2022-01-27 11:20:00 65.50 [in_i] Com [facility] weight 2022-01-27 11:20:00 153.2 [lb_av] Co mmon [facility] temperature 2022-01-27 11:20:00 98.0 [degF] Com [facility] bmi 2022-01-27 11:20:00 25.10 kg/m2 Comm [facility] oximetry 2022-01-27 11:20:00 98 % [facility] respiratory rate 2022-01-27 11:20:00 16 /min [facility] blood pressure systolic 2022-01-27 11:20:00 130 mm[Hg] [facility] blood pressure diastolic 2022-01-27 11:20:00 50 mm[Hg] [facility] height 2021-09-27 11:20:00 65.50 [in_i] Com [facility] weight 2021-09-27 11:20:00 156 [lb_av] Comm on [facility] temperature 2021-09-27 11:20:00 97.7 [degF] Com [facility] bmi 2021-09-27 11:20:00 25.56 kg/m2 Comm [facility] oximetry 2021-09-27 11:20:00 98 % [facility] blood pressure systolic 2021-09-27 11:20:00 131 mm[Hg] [facility] blood pressure diastolic 2021-09-27 11:20:00 67 mm[Hg] [facility] height 2021-09-10 15:30:00 65.50 [in_i] Com [facility] weight 2021-09-10 15:30:00 155.6 [lb_av] Co [facility]mon [facility] temperature 2021-09-10 15:30:00 97.4 [degF] Com [facility] bmi 2021-09-10 15:30:00 25.5 kg/m2 [facility] oximetry 2021-09-10 15:30:00 97 % [facility] respiratory rate 2021-09-10 15:30:00 17 /min [facility] blood pressure systolic 2021-09-10 15:30:00 142 mm[Hg] [facility] blood pressure diastolic 2021-09-10 15:30:00 70 mm[Hg] [facility] Procedures Procedure Date / Time Performed Performing Clinicia n Source PVR 2024-05-22 00:00:00 Common [facility] EKG-12 LEAD 2024-04-28 22:46:31 Candace Bacon [facility] PHOSPHORUS 2024-04-28 21:37:00 Candace Bacon [facility] MAGNESIUM 2024-04-28 21:37:00 Candace Bacon [facility] COMP. METABOLIC PANEL (80775) 2024-04-28 21:37:00 Candace Bacon [facility] CBC WITH DIFF 2024-04-28 21:37:00 Candace Bacon [facility] URINALYSIS 2024-04-28 21:37:00 Candace Bacon [facility] PVR 2024-04-03 00:00:00 [facility] Encounters Start Date/Time End Date/Time Encounter Type Admission Type Attending Clinicians Care Facility Care Department Encounter ID Source 2024-08-02 09:38:00 Outpatient GeorgeSophie nava STLMLC ST[facility] [id number] [facility] 2024-04-03 09:52:00 Outpatient GeorgeMarii STLMLC ST[facility] [id number] [facility] 2024-02-15 13:02:00 Outpatient George Sophie STLMLC ST[facility] [id number] [facility] 2024-01-10 07:45:00 Outpatient George Sophie STLMLC ST[facility] [id number] [facility] 2023-11-06 14:39:00 Outpatient George Sophie STLMLC ST[facility] [id number] [facility] 2023-09-27 11:04:00 Outpatient George Sophie STLMLC ST[facility] [id number] [facility] 2023-08-29 10:16:00 Outpatient George Sophie STLMLC ST[facility] [id number] [facility] 2023-08-23 10:50:00 Outpatient George Sophie [facility] ST[facility] [id number] [facility] 2023-07-13 11:00:00 Outpatient George Sophie STL[facility] ST[facility] [id number] [facility] 2023-05-17 08:16:00 Outpatient George Sophie STLML[facility] ST[facility] [id number] [facility] 2023-04-10 09:55:00 Outpatient George, Sophie STLMLC ST[facility] [id number] [facility] 2023-02-09 08:45:00 Outpatient Sophie George ST[facility] [id number] [facility] 2022-12-06 07:23:00 Outpatient Sophie George [facility] [id number] [facility] 2022-11-11 12:35:00 Outpatient GeorgeSophie STLMLC STL[facility] [id number] [facility] 2022-06-29 16:05:00 Outpatient Garcia, Na STLMLC STL[facility]C [id number] [facility] 2022-06-23 08:50:00 Outpatient Garcia, Na STLMLC ST[facility] [id number] [facility] 2022-01-26 11:55:00 Outpatient Garcia, Na STLMLC ST[facility] [id number] [facility] 2021-11-03 14:26:21 Outpatient Garcia, Na STLMLC ST[facility] [id number] [facility] 2021-11-03 14:25:50 Outpatient Garcia, Na STLMLC ST[facility] [id number] [facility] 2021-11-03 13:45:16 Outpatient Garcia, Na STLMLC ST[facility] [id number] [facility] 2021-11-03 12:47:50 Outpatient Garcia, Na STLMLC ST[facility] [id number] [facility] 2021-11-03 12:46:26 Outpatient Garcia, Na STLMLC ST[facility] [id number] [facility] 2021-11-03 12:44:49 Outpatient Garcia, Na STLMLC ST[facility] [id number] [facility] 2021-11-03 11:31:40 Outpatient Garcia, Na STLMLC ST[facility] [id number] [facility] 2021-11-03 11:21:24 Outpatient Garcia, Na STLMLC ST[facility] [id number] [facility] 2021-11-03 11:16:33 Outpatient Garcia, Na STLMLC ST[facility] [id number] [facility] 2021-11-03 11:16:05 Outpatient Garcia, Na STLMLC ST[facility] [id number] [facility] 2021-11-03 11:06:47 Outpatient Garcia, Na STLMLC ST[facility] [id number] [facility] 2024-12-23 00:00:00 2024-12-23 00:00:00 SUB ANNUAL [facility] VIS[facility] ST[facility] [id number] [facility] 2024-12-23 00:00:00 2024-12-23 00:00:00 OFFICE VISIT ESTAB PT LEVEL 4 STLMLC STLMLC [id number] [facility] 2024-08-21 00:00:00 2024-08-21 00:00:00 (TEL) STLMLC STLMLC [id number] [facility] 2024-08-06 00:00:00 2024-08-06 00:00:00 OFFICE VISIT ESTAB PT LEVEL 4 [facility]C ST[facility]C [id number] [facility] 2024-07-01 00:00:00 2024-07-01 00:00:00 (TEL) STLMLC STLMLC [id number] [facility] 2024-05-22 00:00:00 2024-05-22 00:00:00 OFFICE VISIT ESTAB PT LEVEL 2 STLMLC STLMLC [id number] [facility] 2024-05-02 00:00:00 2024-05-02 00:00:00 OFFICE VISIT ESTAB PT LEVEL 5 STLMLC STL[facility]C [id number] [facility] 2024-04-28 16:21:00 2024-04-28 17:56:00 Emergency X [facility] ERT [id number] [facility] 2024-04-28 16:21:00 2024-04-28 17:56:00 Emergency Candace Bacon [facility] [id number] [facility] 2024-04-27 00:00:00 2024-04-27 00:00:00 (TEL) STLMLC STLMLC [id number] [facility] 2024-04-25 00:00:00 2024-04-25 00:00:00 (TEL) STLMLC STLMLC [id number] [facility] 2024-04-24 00:00:00 2024-04-24 00:00:00 OFFICE VISIT ESTAB PT LEVEL 3 STLMLC STLMLC [id number] [facility] 2024-04-18 00:00:00 2024-04-18 00:00:00 OFFICE VISIT ESTAB PT LEVEL 5 STLMLC STLMLC [id number] [facility] 2024-04-17 00:00:00 2024-04-17 00:00:00 (TEL) STLMLC STLMLC [id number] [facility] 2024-04-03 00:00:00 2024-04-03 00:00:00 OFFICE VISIT NEW PT LEVEL 4 STLMLC STLMLC [id number] [facility] 2024-03-25 00:00:00 2024-03-25 00:00:00 (TEL) STLMLC STLMLC [id number] [facility] 2024-01-31 00:00:00 2024-01-31 00:00:00 (TEL) STLMLC STLMLC [id number] [facility] 2024-01-12 00:00:00 2024-01-12 00:00:00 OFFICE VISIT ESTAB PT LEVEL 4 STLMLC STLMLC [id number] [facility] 2024-01-12 00:00:00 2024-01-12 00:00:00 SUB ANNUAL [facility] STL[facility] [id number] [facility] 2024-01-08 00:00:00 2024-01-08 00:00:00 (TEL) STLMLC STLMLC [id number] [facility] 2023-11-06 00:00:00 2023-11-06 00:00:00 (TEL) STLMLC STLMLC [id number] [facility] 2023-10-16 00:00:00 2023-10-16 00:00:00 (TEL) STLMLC STLMLC [id number] [facility] 2023-09-29 00:00:00 2023-09-29 00:00:00 OFFICE VISIT ESTAB PT LEVEL 4 STLMLC STLMLC [id number] [facility] 2023-09-05 00:00:00 2023-09-05 00:00:00 OFFICE VISIT ESTAB PT LEVEL 4 STL[facility]C STLMLC [id number] [facility] 2023-07-17 00:00:00 2023-07-17 00:00:00 OFFICE VISIT ESTAB PT LEVEL 4 STLMLC STLMLC [id number] [facility] 2023-07-12 00:00:00 2023-07-12 00:00:00 (TEL) STLMLC STLMLC [id number] [facility] 2023-05-24 00:00:00 2023-05-24 00:00:00 (TEL) STLMLC STLMLC [id number] [facility] 2023-05-18 00:00:00 2023-05-18 00:00:00 OFFICE VISIT ESTAB PT LEVEL 3 STLMLC STLMLC [id number] [facility] 2023-05-08 00:00:00 2023-05-08 00:00:00 (TEL) STLMLC STLMLC [id number] [facility] 2023-04-21 00:00:00 2023-04-21 00:00:00 (TEL) STLMLC STLMLC [id number] [facility] 2023-04-12 00:00:00 2023-04-12 00:00:00 OFFICE VISIT ESTAB PT LEVEL 4 STL[facility]C STLMLC [id number] [facility] 2023-03-13 00:00:00 2023-03-13 00:00:00 OFFICE VISIT ESTAB PT LEVEL 2 STLMLC STLMLC [id number] [facility] 2023-03-09 00:00:00 2023-03-09 00:00:00 (TEL) STLMLC STLMLC [id number] [facility] 2023-02-27 00:00:00 2023-02-27 00:00:00 OFFICE VISIT ESTAB PT LEVEL 2 STLMLC STLMLC [id number] [facility] 2023-02-10 00:00:00 2023-02-10 00:00:00 Outpatient DMG DMG [id number] [facility] 2023-02-10 00:00:00 2023-02-10 00:00:00 OFFICE VISIT ESTAB PT LEVEL 4 STLMLC STLMLC [id number] [facility] 2023-01-11 00:00:00 2023-01-11 00:00:00 OFFICE VISIT ESTAB PT LEVEL 4 [facility]C STLMLC [id number] [facility] 2023-01-11 00:00:00 2023-01-11 00:00:00 SUB ANNUAL [facility] STL[facility]C [id number] [facility] 2022-12-23 00:00:00 2022-12-23 00:00:00 (TEL) STLMLC STLMLC [id number] [facility] 2022-12-19 00:00:00 2022-12-19 00:00:00 (TEL) STLMLC STLMLC [id number] [facility] 2022-12-06 00:00:00 2022-12-06 00:00:00 OFFICE VISIT ESTAB PT LEVEL 4 [facility]C STLMLC [id number] [facility] 2022-10-28 00:00:00 2022-10-28 00:00:00 (TEL) STLMLC STLMLC [id number] [facility] 2022-10-19 00:00:00 2022-10-19 00:00:00 (TEL) STLMLC STLMLC [id number] [facility] 2022-08-11 00:00:00 2022-08-11 00:00:00 (TEL) STLMLC STLMLC [id number] [facility] 2022-08-08 00:00:00 2022-08-08 00:00:00 Outpatient [facility] [id number] [facility] 2022-07-14 00:00:00 2022-07-14 00:00:00 (TEL) STLMLC STLMLC [id number] [facility] 2022-07-07 00:00:00 2022-07-07 00:00:00 (TEL) STLMLC STLMLC [id number] [facility] 2022-06-30 00:00:00 2022-06-30 00:00:00 (TEL) STLMLC STLMLC [id number] [facility] 2022-06-28 00:00:00 2022-06-28 00:00:00 (TEL) STLMLC STLMLC [id number] [facility] 2022-06-28 00:00:00 2022-06-28 00:00:00 (TEL) STLMLC STLMLC [id number] [facility] 2022-06-27 00:00:00 2022-06-27 00:00:00 OFFICE VISIT ESTAB PT LEVEL 4 [facility]C STLMLC [id number] [facility] 2022-06-20 00:00:00 2022-06-20 00:00:00 (TEL) STLMLC STLMLC [id number] [facility] 2022-05-25 00:00:00 2022-05-25 00:00:00 (TEL) STLMLC STLMLC [id number] [facility] 2022-03-30 00:00:00 2022-03-30 00:00:00 (TEL) STLMLC STLMLC [id number] [facility] 2022-02-18 00:00:00 2022-02-18 00:00:00 (TEL) STLMLC STLMLC [id number] [facility] 2022-01-27 00:00:00 2022-01-27 00:00:00 OFFICE VISIT ESTAB PT LEVEL 4 STLMLC STLMLC [id number] [facility] 2021-10-29 00:00:00 2021-10-29 00:00:00 (TEL) STLMLC STLMLC [id number] [facility] 2021-10-14 00:00:00 2021-10-14 00:00:00 (TEL) STLMLC STLMLC [id number] [facility] 2021-09-27 00:00:00 2021-09-27 00:00:00 OFFICE VISIT ESTAB PT LEVEL 4 STLMLC STLMLC [id number] [facility] 2021-09-10 00:00:00 2021-09-10 00:00:00 OFFICE VISIT EST PT LEVEL 3 STLMLC STLMLC [id number] [facility] 2021-09-08 00:00:00 2021-09-08 00:00:00 (TEL) STLMLC STLMLC [id number] [facility] 2021-08-18 00:00:00 2021-08-18 00:00:00 (TEL) STLMLC STLMLC [id number] [facility] 2021-06-10 00:00:00 2021-06-10 00:00:00 Outpatient STLMLC STLMLC [id number] [facility] 2021-05-25 00:00:00 2021-05-25 00:00:00 Outpatient STLMLC STLMLC [id number] [facility] 2021-05-10 00:00:00 2021-05-10 00:00:00 Outpatient STLMLC STLMLC [id number] [facility] 2021-05-03 00:00:00 2021-05-03 00:00:00 Outpatient STLMLC STLMLC [id number] [facility] 2021-01-07 00:00:00 2021-01-07 00:00:00 Outpatient STLMLC STLMLC [id number] [facility] 2020-11-20 00:00:00 2020-11-20 00:00:00 Outpatient STLMLC STLMLC [id number] [facility] 2020-10-29 00:00:00 2020-10-29 00:00:00 Outpatient STLMLC STLMLC [id number] [facility] 2020-10-12 00:00:00 2020-10-12 00:00:00 Outpatient STLMLC STLMLC [id number] [facility] 2020-10-08 00:00:00 2020-10-08 00:00:00 Outpatient STLMLC STLMLC [id number] [facility] 2020-10-07 00:00:00 2020-10-07 00:00:00 Outpatient STLMLC STLMLC [id number] [facility] 2020-09-28 00:00:00 2020-09-28 00:00:00 Outpatient STLMLC STLMLC [id number] [facility] 2020-09-22 00:00:00 2020-09-22 00:00:00 Outpatient STLMLC STLMLC [id number] [facility] 2020-08-28 00:00:00 2020-08-28 00:00:00 Outpatient STLMLC STLMLC [id number] [facility] 2020-05-25 16:45:00 2020-05-25 16:45:00 [facility] [place] [facility] [address] [facility] [id number] [facility] 2020-04-27 10:20:00 2020-04-27 10:20:[address] [facility] [address] [facility] [address] [facility] [id number] [facility] 2020-04-14 14:47:00 2020-04-14 14:47:[address] [facility] [address] [facility] [id number] [facility] 2020-04-02 15:47:00 2020-04-02 15:47:[address] [facility] [address] [facility] [id number] [facility] 2020-02-13 15:02:00 2020-02-13 15:02:[address] [facility] [address] [facility] [id number] [facility] 2019-12-26 10:00:00 2019-12-26 10:00:[address] [facility] [address] [facility] [id number] [facility] 2019-12-19 09:52:00 2019-12-19 09:52:[address] [facility] [address] [facility] [address] [facility] [id number] [facility] 2019-11-19 15:25:00 2019-11-19 15:25:[address] [facility] [address] [facility] [address] [facility] [address] [facility] [id number] [facility] 2019-11-18 14:24:00 2019-11-18 14:24:[address] [facility] [address] [facility] [address] [facility] [id number] [facility] 2019-10-08 10:37:00 2019-10-08 10:37:[address] [facility] [address] [facility] [address] [facility] [id number] [facility] 2019-08-28 10:40:00 2019-08-28 10:40:[address] [facility] [address] [facility] [address] [facility] [id number] [facility] 2019-08-27 17:26:00 2019-08-27 17:26:[address] [facility] [address] [facility] [id number] [facility] 2019-08-22 13:33:00 2019-08-22 13:33:[address] [facility] [address] [facility] [address] [facility] [id number] [facility] 2019-08-16 09:20:00 2019-08-16 09:20:00 [facility] [address] [facility] [id number] [facility] 2019-06-20 11:00:00 2019-06-20 11:00:00 [facility] [address] [facility] [id number] [facility] 2019-05-14 10:00:00 2019-05-14 10:00:00 [facility] [address] [facility] [address] [facility] [id number] [facility] 2019-02-20 10:22:00 2019-02-20 10:22:00 [facility] [address] [facility] [id number] [facility] 2019-02-11 09:41:00 2019-02-11 09:41:00 [facility] [address] [facility] [address] [facility] [id number] [facility] 2019-01-08 09:40:00 2019-01-08 09:40:00 [facility] [address] [facility] [id number] [facility] 2018-11-26 15:27:00 2018-11-26 15:27:00 [facility] [address] [facility] [address] [facility] [id number] [facility] 2018-11-22 10:23:00 2018-11-22 10:23:[address] [facility] [address] [facility] [address] [facility] [id number] [facility] 2018-11-16 14:31:00 2018-11-16 14:31:[address] [facility] [address] [facility] [address] [facility] [id number] [facility] 2018-11-06 13:24:00 2018-11-06 13:24:00 [facility] [address] [facility] [address] [facility] [id number] [facility] 2018-10-01 10:13:00 2018-10-01 10:13:00 [facility] [address] [facility] [address] [facility] [id number] [facility] 2018-09-04 09:45:00 2018-09-04 09:45:[address] [facility] [address] [facility] [id number] [facility] 2018-06-29 13:32:00 2018-06-29 13:32:00 [facility] [address] [facility] [address] [facility] [id number] [facility] 2018-06-29 13:27:00 2018-06-29 13:27:00 [facility] [address] [facility] [id number] [facility] 2018-06-12 09:45:00 2018-06-12 09:45:00 [facility] [id number] [facility] 2018-06-04 08:30:00 2018-06-04 08:30:[address] [facility] [address] [facility] [id number] [facility] 2018-04-27 10:13:00 2018-04-27 10:13:00 [facility] [address] [facility] [address] [facility] [id number] [facility] 2018-03-22 11:33:00 2018-03-22 11:33:00 [facility] [address] [facility] [address] [facility] [id number] [facility] 2018-02-27 08:30:00 2018-02-27 08:30:00 [facility] [address] [facility] [id number] [facility] Results Test Description Test Time Test Comments Results Result Co mments Source [id number] 22:25:56* Test Item Value Reference Range Interpretation Comme nts MAGNESIUM (test code = 5545621756) 1.9 mg/dL 1.7-2.4 Lab Interpretation (test cod e = 14624-1) [facility] 22:25:55* Test Item Value Reference Range Interpretation Comme nts NA (test code = 3789748684) 131 mmol/L 135-145 L K (test code = 0146746824) 4.5 mmol/L 3.5-5.0 CL (test code = 4525198312) 97 mmol/L 98-108 L CO2 TOTAL (test code = 9645310302) 24 mmol/L 23-31 AGAP (test code = 8965030975) 10 2-16 BUN (test code = 8578252143) 20 mg/dL 7-23 GLUCOSE (test code = 2844024173) 86 mg/dL 70-110 CREATININE (test code = 2160-0) 1.48 mg/dL 0.60-1.25 H TOTAL BILI (test code = 9635850057) 0.8 mg/dL 0.1-1.1 CALCIUM (test code = 3199358304) 8.9 mg/dL 8.6-10.6 T PROTEIN (test code = 2973452907) 6.5 g/dL 6.3-8.2 ALBUMIN (test code = 7375790474) 3.9 g/dL 3.5-5.0 ALK PHOS (test code = 6014974491) 40 U/L 34-122 ALTv (test code = 1742-6) 86 U/L 5-50 H AST(SGOT) (test code = 0796155006) 110 U/L 13-40 H eGFR (test code = 58625-3) 48.4 mL/min/1.73m2 CKD-EPI eGFR (2020). Assuming creatinine has been stable day-to-day for at least three months, the eGFR indicates Category G3a (45 - 59 mL/min/1.73 m2) Lab Interpretation (test code = 40536-5) [facility]:25:[facility]* Test Item Value Reference Range Interpretation Comme nts PHOSPHORUS (test code = 2553232498) 3.2 mg/dL 2.5-5.0 Lab Interpretation (test cod e = 61194-4) Normal [facility] WITH [id number] 22:10:15* Test Item Value Reference Range Interpretation [...] 35.0 g/dL 31.2-35.0 RDW-SD (test code = 73302-9) 48.3 fL 38.5-51.6 RDW-CV (test code = 788-0) 12.4 % 12.1-15.4 PLT (test code = 777-3) 214 150-328 MPV (test code = 58226-0) 9.0 fL 9.8-13.0 L NRBC/100 WBC (test code = 1204942232) 0.0 0.0-10.0 NRBC x10^3 (test code = 1850008994) See_Comment [Automated messa ge] The system which generated this result transmitted reference range: 10*3/?L. The reference range was not used to interpret this result as normal/abnormal. GRAN MAT (NEUT) % (test code = 770-8) 37.7 % IMM GRAN % (test code = 3016332995) 0.20 % LYMPH % (test code = 736-9) 48.9 % MONO % (test code = 5905-5) 10.2 % EOS % (test code = 713-8) 2.0 % BASO % (test code = 706-2) 1.0 % GRAN MAT x10^3(ANC) (test code = 8134802337) 2.29 10*3/uL 1.99-6.95 IMM GRAN x10^3 (test code = 8334115345) 0.00-0.06 LYMPH x10^3 (test code = 731-0) 2.97 10*3/uL 1.09-3.23 MONO x10^3 (test code = 742-7) 0.62 10*3/uL 0.36-1.02 EOS x10^3 (test code = 711-2) 0.12 10*3/uL 0.06-0.53 BASO x10^3 (test code = 704-7) 0.06 10*3/uL 0.01-0.09 Lab Interpretation (test code = 12123-2) [facility] [id number] 00:00:00* Test Item Value Reference Range Interpretation Comme nts SODIUM, URINE, CONC. (test c ode = 2955-3) <20 MEQ/L NOT ESTAB MEQ/L BASIC METABOLIC [id number] 00:00:00* Test Item Value Reference Range Interpretation Comme nts BUN (test code = 3091-6) 20 MG/DL See_Comment [Automated messa ge] The system which generated this result transmitted reference range: 8-23 MG/DL. The reference range was not used to interpret this result as normal/abnormal. CALCIUM (test code = 41150-7) 9.7 MG/DL See_Comment [Automated messa ge] The [...] normal/abnormal. eGFR (2020 CKD-EPI) (test code = 50244-2) 37 ML/MIN/1.73 See_Comment L [Automated messa ge] [...] interpret this result as normal/abnormal. CBC W/AUTO [id number] 00:00:00* Test Item Value Reference Range Interpretation Comme nts NUCLEATED RBCS (test code = 64118-1) 0.0 /100 WBC'S See_Comment [Automated messa ge] The system which generated this result transmitted reference range: 0.0 /100 WBC'S. The reference range was not used to interpret this result as normal/abnormal. ABSOLUTE EOSINOPHILS (test code = 75665-1) 0.14 K/UL See_Comment [Automated messa ge] The system which generated this result transmitted reference range: 0.00-0.50 K/UL. The reference range was not used to interpret this result as normal/abnormal. ABSOLUTE LYMPHOCYTES (test code = 11464-8) 3.05 K/UL See_Comment [Automated messa ge] The system which generated this result transmitted reference range: 1.00-4.00 K/UL. The reference range was not used to interpret this result as normal/abnormal. ABSOLUTE MONOCYTES (test code = 09033-3) 0.85 K/UL See_Comment [Automated messa ge] The system which generated this result transmitted reference range: 0.20-1.00 K/UL. The reference range was not used to interpret this result as normal/abnormal. ABSOLUTE NEUTROPHILS (test code = 92865-4) 6.19 K/UL See_Comment [Automated messa ge] The system which generated this result transmitted reference range: 1.50-7.50 K/UL. The reference range was not used to interpret this result as normal/abnormal. BASOPHILS (test code = 17082-6) 0.8 % EOSINOPHILS (test code = 21799-5) 1.4 % HEMATOCRIT (test code = 54796-5) 37.8 % See_Comment L [Automated messa ge] [...] result as normal/abnormal. LYMPHOCYTES (test code = 66167-2) 29.5 % MCH (test code = 67603-0) 37.3 PG See_Comment H [Automated messa ge] The system which generated this result transmitted reference range: 25.0-33.0 PG. The reference range was not used to interpret this result as normal/abnormal. MCHC (test code = 42326-8) 34.9 G/DL See_Comment [Automated messa ge] The system which generated this result transmitted reference range: 31.0-36.0 G/DL. The reference range was not used to interpret this result as normal/abnormal. MCV (test code = 45629-0) 106.8 fL See_Comment H [Automated messa ge] The system which generated this result transmitted reference range: 80.0-99.0 fL. The reference range was not used to interpret this result as normal/abnormal. MONOCYTES (test code = 61600-8) 8.2 % NEUTROPHILS (test code = 74738-7) 59.9 % PLATELET COUNT (test code = 82436-9) 243 K/UL See_Comment [Automated messa ge] The system which generated this result transmitted reference range: 130-400 K/UL. The reference range was not used to interpret this result as normal/abnormal. RBC (test code = 21033-8) 3.54 M/UL See_Comment L [Automated messa ge] The system which generated this result transmitted reference range: 4.50-6.10 M/UL. The reference range was not used to interpret this result as normal/abnormal. RDW (test code = 46997-8) 13.1 % See_Comment [Automated messa ge] The system which generated this result transmitted reference range: 11.5-15.0 %. The reference range was not used to interpret this result as normal/abnormal. WBC (test code = 85925-9) 10.3 K/UL See_Comment [Automated messa ge] The system which generated this result transmitted reference range: 3.5-11.0 K/UL. The reference range was not used to interpret this result as normal/abnormal. [id number] 00:00:00* Test Item Value Reference Range Interpretation Comme nts GGT (test code = 2324-2) 343 U/L See_Comment H [Automated messa ge] The system which generated this result transmitted reference range: <60 U/L. The reference range was not used to interpret this result as normal/abnormal. CBC W/AUTO [id number] 00:00:00* Test Item Value Reference Range Interpretation Comme nts NUCLEATED RBCS (test code = 73449-4) 0.0 /100 WBC'S See_Comment [Automated messa ge] The system which generated this result transmitted reference range: 0.0 /100 WBC'S. The reference range was not used to interpret this result as normal/abnormal. ABSOLUTE EOSINOPHILS (test code = 89357-9) 0.12 K/UL See_Comment [Automated messa ge] The system which generated this result transmitted reference range: 0.00-0.50 K/UL. The reference range was not used to interpret this result as normal/abnormal. ABSOLUTE LYMPHOCYTES (test code = 80971-7) 2.62 K/UL See_Comment [Automated messa ge] The system which generated this result transmitted reference range: 1.00-4.00 K/UL. The reference range was not used to interpret this result as normal/abnormal. ABSOLUTE MONOCYTES (test code = 08755-3) 0.66 K/UL See_Comment [Automated messa ge] The system which generated this result transmitted reference range: 0.20-1.00 K/UL. The reference range was not used to interpret this result as normal/abnormal. ABSOLUTE NEUTROPHILS (test code = 76818-3) 2.09 K/UL See_Comment [Automated messa ge] The system which generated this result transmitted reference range: 1.50-7.50 K/UL. The reference range was not used to interpret this result as normal/abnormal. BASOPHILS (test code = 70036-7) 1.4 % EOSINOPHILS (test code = 14767-2) 2.1 % HEMATOCRIT (test code = 53427-9) 41.4 % See_Comment [Automated messa ge] The [...] result as normal/abnormal. LYMPHOCYTES (test code = 79009-1) 46.8 % MCH (test code = 22816-5) 38.0 PG See_Comment H [Automated messa ge] The system which generated this result transmitted reference range: 25.0-33.0 PG. The reference range was not used to interpret this result as normal/abnormal. MCHC (test code = 03035-3) 34.8 G/DL See_Comment [Automated messa ge] The system which generated this result transmitted reference range: 31.0-36.0 G/DL. The reference range was not used to interpret this result as normal/abnormal. MCV (test code = 22412-8) 109.2 fL See_Comment H [Automated messa ge] The system which generated this result transmitted reference range: 80.0-99.0 fL. The reference range was not used to interpret this result as normal/abnormal. MONOCYTES (test code = 24891-1) 11.8 % NEUTROPHILS (test code = 66754-9) 37.4 % PLATELET COUNT (test code = 29610-5) 167 K/UL See_Comment [Automated messa ge] The system which generated this result transmitted reference range: 130-400 K/UL. The reference range was not used to interpret this result as normal/abnormal. RBC (test code = 61433-0) 3.79 M/UL See_Comment L [Automated messa ge] The system which generated this result transmitted reference range: 4.50-6.10 M/UL. The reference range was not used to interpret this result as normal/abnormal. RDW (test code = 87095-6) 12.6 % See_Comment [Automated messa ge] The system which generated this result transmitted reference range: 11.5-15.0 %. The reference range was not used to interpret this result as normal/abnormal. WBC (test code = 60025-4) 5.6 K/UL See_Comment [Automated messa ge] The system which generated this result transmitted reference range: 3.5-11.0 K/UL. The reference range was not used to interpret this result as normal/abnormal. CBC W/AUTO [id number] 00:00:00* Test Item Value Reference Range Interpretation Comme nts NUCLEATED RBCS (test code = 14669-6) 0.0 /100 WBC'S See_Comment [Automated messa ge] The system which generated this result transmitted reference range: 0.0 /100 WBC'S. The reference range was not used to interpret this result as normal/abnormal. ABSOLUTE EOSINOPHILS (test code = 14512-3) 0.04 K/UL See_Comment [Automated messa ge] The system which generated this result transmitted reference range: 0.00-0.50 K/UL. The reference range was not used to interpret this result as normal/abnormal. ABSOLUTE LYMPHOCYTES (test code = 48581-5) 2.45 K/UL See_Comment [Automated messa ge] The system which generated this result transmitted reference range: 1.00-4.00 K/UL. The reference range was not used to interpret this result as normal/abnormal. ABSOLUTE MONOCYTES (test code = 15541-8) 0.78 K/UL See_Comment [Automated messa ge] The system which generated this result transmitted reference range: 0.20-1.00 K/UL. The reference range was not used to interpret this result as normal/abnormal. ABSOLUTE NEUTROPHILS (test code = 55463-3) 5.05 K/UL See_Comment [Automated messa ge] The system which generated this result transmitted reference range: 1.50-7.50 K/UL. The reference range was not used to interpret this result as normal/abnormal. BASOPHILS (test code = 45437-4) 0.8 % EOSINOPHILS (test code = 58995-2) 0.5 % HEMATOCRIT (test code = 77305-9) 42.3 % See_Comment [Automated messa ge] The [...] result as normal/abnormal. LYMPHOCYTES (test code = 83333-7) 29.0 % MCH (test code = 39195-1) 35.7 PG See_Comment H [Automated messa ge] The system which generated this result transmitted reference range: 25.0-33.0 PG. The reference range was not used to interpret this result as normal/abnormal. MCHC (test code = 09827-6) 33.1 G/DL See_Comment [Automated messa ge] The system which generated this result transmitted reference range: 31.0-36.0 G/DL. The reference range was not used to interpret this result as normal/abnormal. MCV (test code = 69876-1) 107.9 fL See_Comment H [Automated messa ge] The system which generated this result transmitted reference range: 80.0-99.0 fL. The reference range was not used to interpret this result as normal/abnormal. MONOCYTES (test code = 99309-0) 9.2 % NEUTROPHILS (test code = 29481-5) 59.9 % PLATELET COUNT (test code = 26901-4) 166 K/UL See_Comment [Automated messa ge] The system which generated this result transmitted reference range: 130-400 K/UL. The reference range was not used to interpret this result as normal/abnormal. RBC (test code = 18965-4) 3.92 M/UL See_Comment L [Automated messa ge] The system which generated this result transmitted reference range: 4.50-6.10 M/UL. The reference range was not used to interpret this result as normal/abnormal. RDW (test code = 59911-8) 12.8 % See_Comment [Automated messa ge] The system which generated this result transmitted reference range: 11.5-15.0 %. The reference range was not used to interpret this result as normal/abnormal. WBC (test code = 37864-5) 8.4 K/UL See_Comment [Automated messa ge] The [...] in no apparent distress. Tee Torres RN [facility] 2024-04-28 16:16:29 Patient to ED after being told by doctor to go ED because potassium that was drawn last Monday was 6.2. T [facility]
--- NOTE | 2024-12-27 12:24 | ER ---
Nurse's Notes [facility] [place] Name: Seb Matta Age: 79 yrs Sex: Male : 1945 Arrival Date: 12/27/2024 Time: 11:07 Bed 9 Private MD: Diagnosis: Encounter for removal of sutures Presentation: 12/27 11:56 Chief complaint: Patient states: needs sutures removed from right elbow X 3 weeks. iw Coronavirus screen: At this time, the client does not indicate any symptoms associated with coronavirus-19. Ebola Screen: No symptoms or risks identified at this time. Initial Sepsis Screen: Does the patient meet any 2 criteria? No. Patient's initial sepsis screen is negative. Does the patient have a suspected source of infection? No. Patient's initial sepsis screen is negative. Risk Assessment: Do you want to hurt yourself or someone else? Patient reports no desire to harm self or others. Onset of symptoms was December 07, 2024. 11:56 Method Of Arrival: Ambulatory iw 11:56 Acuity: MARLA 4 iw Historical: - Allergies: 11:57 No Known Allergies; iw - PMHx: 11:57 High Cholesterol; Hypertension; iw Screenin:59 [facility] ED Fall Risk Assessment (Adult) History of falling in the last 3 months, iw including since admission Yes- single mechanical fall (1 pt) Confusion or Disorientation No (0 pts) Intoxicated or Sedated No (0 pts) Impaired Gait No (0 pts) Mobility Assist Device Used No (0 pt) Altered Elimination No (0 pt) Score/Fall Risk Level 0 - 2 = Low Risk Oriented to surroundings, Maintained a safe environment. Abuse screen: Denies threats or abuse. Denies injuries from another. Nutritional screening: No deficits noted. Tuberculosis screening: No symptoms or risk factors identified. Assessment: 11:58 General: Appears in no apparent distress. Behavior is calm, cooperative. Pain: Denies iw pain. Neuro: Level of Consciousness is awake, alert, obeys commands, Oriented to person, place, time, situation, Moves all extremities. Full function. Cardiovascular: Patient's skin is warm and dry. Respiratory: Respiratory effort is even, unlabored, Respiratory pattern is regular, symmetrical. Derm: sutures to right elbow , mild redness around area. Musculoskeletal: Range of motion: intact in all extremities. Vital Signs: 11:56 BP 123 / 68; Pulse 65; Resp 16; Temp 98.4; Pulse Ox 100% on R/A; iw ED Course: 11:09 Patient arrived in ED. im 11:11 Sandeep Altamirano MD is Attending Physician. ec2 11:57 Triage completed. iw 11:57 Arm band placed on. iw 11:58 Lorene Villegas, RN is Primary Nurse. iw Administered Medications: No medications were administered Medication: 11:59 VIS not applicable for this client. iw Outcome: 12:24 Discharge ordered by . ec2 12:54 Discharged to home ambulatory, iw 12:54 Condition: good 12:54 Discharge instructions given to patient, Instructed on discharge instructions, follow up and referral plans. Demonstrated understanding of instructions, follow-up care, 12:54 No charge visit due to suture removal. 12:55 Patient left the ED. Signatures: Lorene Villegas RN RN Delmi Spears RN RN Rupali Rizvi im Sandeep Altamirano MD MD ec2
--- NOTE | 2024-12-27 12:24 | EDPHYS ---
Physician Documentation [facility] Name: Seb Matta Age: 79 yrs Sex: Male : 1945 Arrival Date: 12/27/2024 Time: 11:07 Bed 9 Private MD: DEISI Physician Sandeep Altamirano HPI: 12/27 12:24 This 79 yrs old Male presents to ER via Ambulatory with complaints of Suture ec2 Removal. 12:24 Patient arrives today for evaluation for removal of his sutures. Patient had 9 sutures ec2 placed to his right elbow several weeks ago. No other issues.. Historical: - Allergies: 11:57 No Known Allergies; iw - PMHx: 11:57 High Cholesterol; Hypertension; iw ROS: 12:24 Constitutional: as per hpi ec2 Exam: 12:24 Constitutional: GEN: NAD Head: atraumatic Eyes: EOMI Ears: External ears are ec2 normal. CV: regular rate LUNGS: no respiratory distress ABD: non-distended SKIN: Sutures placed in the right elbow without issue, no erythema, no discharge appreciated, MSK: no evidence of trauma Vital Signs: 11:56 BP 123 / 68; Pulse 65; Resp 16; Temp 98.4; Pulse Ox 100% on R/A; iw Procedures: 12:25 Suture/Staple removal: Removed 9 sutures, from right arm, site appears well healed, ec2 dressed with gauze bandage, Patient tolerated well. MDM: 11:56 Medical Screening Exam initiated ec2 12:26 Data reviewed: vital signs, nurses notes. ED course: I removed 9 sutures without issue. ec2 Patient discharged home. 12/27 11:58 Order name: Suture Removal; Complete Time: 12:55 ec2 Administered Medications: No medications were administered Disposition Summary: 12/27/24 12:24 Discharge Ordered Notes: Location: Home ec2 Condition: Stable ec2 Diagnosis - Encounter for removal of sutures ec2 Followup: ec2 - With: Private Physician - When: - Reason: Re-evaluation by your physician Discharge Instructions: - Discharge Summary Sheet ec2 - Suture Removal, Care After ec2 Forms: - Medication Reconciliation Form ec2 - Antibiotic Education ec2 - Prescription Opioid Use ec2 - Patient Portal Instructions ec2 - Leadership Thank You Letter ec2 Signatures: Lorene Villegas RN RN iw Altamirano, Sandeep, MD MD ec2
[2024-12-27 13:00] VITALS: BP 123/68; TEMP 98.4; O2SAT 100
== END 2024-12-27 12:55 | disposition home or self-care (01) ==
LOC: ER 11:07
DX: Z48.02 Encounter for removal of sutures (principal)